=== PATIENT | female | born 1940 | race Caucasian/White ===

== ENCOUNTER → 2017-11-30 08:07 | Outpatient (CLI) | payer MEDICARE, SELFPAY ==
--- NOTE | 2017-11-30 10:55 | NEURO ---
NCS and/or EMG Patient Report Ordering Doctor: Otoniel Morales DATE OF SERVICE: 11/30/17 Alice Fox is a 77-year-old female presents for electrodiagnostic testing of the right upper limb. She has chief complaint of numbness and tingling in the right hand. Electrodiagnostic findings: Right median motor nerve demonstrates prolonged distal latency with normal amplitude and mildly reduced conduction velocity. Normal right ulnar motor latency with normal amplitude and a near 40% drop in conduction across the elbow. On needle EMG, all muscles tested in the right upper limb show no evidence of denervation with normal motor unit action potentials. Electrodiagnostic impression: This is an abnormal study 1. Electrodiagnostic findings demonstrate right-sided median mononeuropathy. This is consistent with a moderate to advanced right carpal tunnel syndrome. 2. Electrodiagnostic findings demonstrate right-sided cubital tunnel syndrome. This is moderate in nature. If there are any further questions, please do not hesitate to contact me
== END ==
PROVIDERS: Family Provider Family Medicine; PCP Family Medicine; Visit Provider Specialist
DX: R20.8 Other disturbances of skin sensation (principal)
CPT/HCPCS: 95886; 95909

== ENCOUNTER → 2017-12-20 15:44 | Outpatient (CLI) | payer MEDICARE, SELFPAY ==
[2017-12-20 17:59] LABS: AST(SGOT) 18 U/L (15-37); Alanine Aminotransfer ALT/SGPT 22 U/L (13-56); Albumin, Serum 3.9 g/dL (3.2-5.0); Alkaline Phosphatase 94 U/L (45-117); Anion Gap 7 (5-15); BUN 22 mg/dL (7-18); BUN/Creat Ratio 29.3 RATIO (10-20); Bilirubin, Direct 0.07 mg/dL (0.00-0.30); Calcium,Total 9.2 mg/dL (8.5-10.1); Chloride 105 mmol/L (98-107); Cholesterol 133 mg/dL (200); Creatinine, Serum 0.75 mg/dL (0.55-1.02); EST Glomerular Filtration Rate 80 mL/min (>60); Est Glom Filt Rate - Afr Amer 96 mL/min (>60); Globulin 4.4 g/dL (2.2-4.2); Glucose 134 mg/dL (74-106); High Density Lipoprotein 47 mg/dL; Potassium 4.5 mmol/L (3.5-5.1); Protein, Total 8.3 g/dL (6.4-8.2); Sodium Level 142 mmol/L (136-145); Triglycerides 258 mg/dL; Very Low Density Lipoprotein 52 mg/dL (5-40)
[2017-12-20 18:03] LABS: Hemoglobin A1c 6.9 % (4.2-6.3)
== END ==
PROVIDERS: Family Provider Family Medicine; PCP Family Medicine; Visit Provider Family Medicine
DX: E11.9 Type 2 diabetes mellitus without complications (principal)
CPT/HCPCS: 36415; 80048; 80061; 80076; 82043; 82570; 83036

== ENCOUNTER → 2018-02-10 14:56 | Outpatient (CLI) | payer MEDICARE, SELFPAY ==
--- NOTE | 2018-02-10 15:03 | RAD_ITS ---
STUDY: X-RAY CHEST REASON FOR EXAM: Female, 77 years old. Long-term drug therapy TECHNIQUE: Frontal and lateral views COMPARISON: January 02, 2014 FINDINGS: The lungs are expanded. There is residual prominence. Mild basilar atelectasis. Normal size heart. Normal mediastinum and tyrese. Normal visualized pulmonary arteries. Calcified aortic arch and descending thoracic aorta. Degenerative changes of the thoracic spine. Upper lumbar surgical fusion. Bilateral shoulder prosthesis. Old left rib fractures. Probable hiatal hernia. RAD/Chest PA and Lateral IMPRESSION: Mild interstitial prominence. Basilar atelectasis. Possible hiatal hernia. Electronically Signed: Jaxon Lai DO at 22:44 EDT Tel [phone], Service support ,
[2018-02-10 17:29] LABS: Absolute Neutrophil Count 5.6 X10^3/uL (2.0-7.7); Basophil# 0.02 X10^3/uL; Basophil% 0.2 % (0-1); Eosinophil# 0.23 X10^3/uL; Eosinophils% 2.5 % (0-5); Hematocrit 45.7 % (37-47); Hemoglobin 14.4 g/dl (12.0-15.0); Mean Corp Hgb Conc 31.5 g/gl (32-36); Mean Corpuscular Hgb 31.5 pg (27.0-32.0); Mean Platelet Vol. 10.4 fl (6.2-12.0); Monocyte# 0.99 X10^3/uL; Monocyte% 10.7 % (0-10); Neutrophil # 5.56 X10^3/uL (2.7-7.7); Neutrophil % 60.4 % (47-70); Platelet Count 189 K/mm3 (150-450); RBC Distribution Width SD 50.8 fl (35.1-43.9); Red Blood Count 4.57 M/mm3 (4.2-5.4); White Blood Count 9.2 K/mm3 (4.4-11.0)
[2018-02-10 17:30] LABS: POSITIVE COUNT NO; POSITIVE DIFFERENTIAL NO; POSITIVE MORPHOLOGY NO
[2018-02-10 17:39] LABS: AST(SGOT) 19 U/L (15-37); Alanine Aminotransfer ALT/SGPT 26 U/L (13-56); Albumin, Serum 3.7 g/dL (3.2-5.0); Alkaline Phosphatase 115 U/L (45-117); Anion Gap 11 (5-15); BUN 20 mg/dL (7-18); BUN/Creat Ratio 28.6 RATIO (10-20); Calcium,Total 8.8 mg/dL (8.5-10.1); Chloride 106 mmol/L (98-107); EST Glomerular Filtration Rate 87 mL/min (>60); Est Glom Filt Rate - Afr Amer 105 mL/min (>60); Globulin 3.8 g/dL (2.2-4.2); Glucose 111 mg/dL (74-106); Potassium 4.6 mmol/L (3.5-5.1); Protein, Total 7.5 g/dL (6.4-8.2); Sodium Level 143 mmol/L (136-145)
[2018-02-17 20:07] LABS: QNTFERON TB Ag Minus Nil Value 0.01 IU/mL (.); QNTFERON TB Ag Value 0.02 IU/mL (.); QNTFERON TB Mitogen Value > 10.00 IU/mL (.); QNTFERON TB Nil Value 0.01 IU/mL (.)
[2018-02-18 12:07] LABS: QNTIFERON TB Gold Negative (Negative)
== END ==
PROVIDERS: Family Provider Family Medicine; PCP Family Medicine; Referring Provider Internal Medicine Rheumatology; Visit Provider Internal Medicine Rheumatology
DX: L40.59 Other psoriatic arthropathy (principal); L40.9 Psoriasis, unspecified; G56.01 Carpal tunnel syndrome, right upper limb; K21.0 Gastro-esophageal reflux disease with esophagitis; E11.9 Type 2 diabetes mellitus without complications; I10 Essential (primary) hypertension; H40.9 Unspecified glaucoma; J44.9 Chronic obstructive pulmonary disease, unspecified; M18.0 Bilateral primary osteoarthritis of first carpometacarpal joints; Z79.899 Other long term (current) drug therapy
CPT/HCPCS: 36415; 71046; 80053; 85025; 86480

== ENCOUNTER → 2018-05-24 11:55 | Outpatient (CLI) | payer MEDICARE, SELFPAY ==
[2018-05-24 15:02] LABS: Hemoglobin A1c 7.2 % (4.2-6.3)
[2018-05-24 15:16] LABS: Microalbumin,Random Urine 52.9 mg/L (NO RANGE EST.); Microalbumin:Creatinine Ratio 18.1 mg/g CRE (<30 mg/g CRE)
[2018-05-24 15:28] LABS: AST(SGOT) 13 U/L (15-37); Alanine Aminotransfer ALT/SGPT 19 U/L (13-56); Albumin, Serum 3.2 g/dL (3.2-5.0); Alkaline Phosphatase 118 U/L (45-117); Anion Gap 10 (5-15); BUN 19 mg/dL (7-18); BUN/Creat Ratio 25.7 RATIO (10-20); Bilirubin, Direct 0.14 mg/dL (0.00-0.30); Calcium,Total 8.7 mg/dL (8.5-10.1); Chloride 104 mmol/L (98-107); Cholesterol 110 mg/dL (200); Creatinine, Serum 0.74 mg/dL (0.55-1.02); EST Glomerular Filtration Rate 81 mL/min (>60); Est Glom Filt Rate - Afr Amer 98 mL/min (>60); Globulin 4.5 g/dL (2.2-4.2); Glucose 111 mg/dL (74-106); High Density Lipoprotein 34 mg/dL; Potassium 4.5 mmol/L (3.5-5.1); Protein, Total 7.7 g/dL (6.4-8.2); Sodium Level 139 mmol/L (136-145); Triglycerides 237 mg/dL; Very Low Density Lipoprotein 47 mg/dL (5-40)
== END ==
PROVIDERS: Family Provider Family Medicine; PCP Family Medicine; Visit Provider Family Medicine
DX: E11.9 Type 2 diabetes mellitus without complications (principal)
CPT/HCPCS: 36415; 80048; 80061; 80076; 82043; 82570; 83036

== ENCOUNTER 2018-11-29 11:19 | Day surgery (SDC) | payer MEDICARE, SELFPAY ==
--- NOTE | 2018-10-31 01:38 | HP_ITS ---
I have re-examined the patient. There are no clinical changes since date of exam.Intake Vital Signs 10/31/18 Body Mass Index (BMI) 45.1 Intake Visit Reasons: RIGHT WRIST Is patient in pain?: Yes Allergies Sulfa (Sulfonamide Antibiotics) Allergy (Verified 07/01/17 13:24) Rash Medications Amlodipine [Norvasc] 10 mg PO DAILY 09/20/13 [History Confirmed 10/31/18] Atorvastatin Calcium [Lipitor] 10 mg PO QHS 09/20/13 [History Confirmed 10/31/18] Insulin Detemir [Levemir FlexPen] 25 units SC QHS 09/20/13 [History Confirmed 07/01/17] Pregabalin [Lyrica] 50 mg PO TID 09/20/13 [History Confirmed 10/31/18] hydrALAZINE [Apresoline] 25 mg PO TID 09/20/13 [History Confirmed 10/31/18] Aspirin [Aspirin, Baby] 81 mg PO DAILY@0800 12/17/13 [History Confirmed 10/31/18] Metoprolol Tartrate [Lopressor (beta eddy)] 75 mg PO BID 01/01/14 [History Confirmed 10/31/18] Meloxicam [Mobic] 7.5 mg PO DAILY 03/11/15 [History Confirmed 10/31/18] Multivitamins,Therapeutic [Multivitamin] 1 tab PO DAILY 03/11/15 [History Confirmed 10/31/18] etanercept 50 mg/mL (0.98 mL) subcutaneous syringe 25 mg SC 2XW 06/01/17 [History Confirmed 10/31/18] oxycodone-acetaminophen 5 mg-325 mg tablet PO #90 tab 10/31/18 [History Confirmed 10/31/18] [facility] Medical History (Updated 06/01/17 @ 14:21 by Kaitlynn Yates) Diabetes mellitus (Chronic) Hyperlipidemia (Chronic) Hypertension (Chronic) Osteoarthritis (Chronic) Psoriasis (Chronic) Psoriatic arthritis (Chronic) Surgical History (Updated 06/01/17 @ 14:35 by Kaitlynn Yates) History of back surgery (Inactive) History of carpal tunnel surgery of left wrist (Inactive) History of total hip replacement (Inactive) Status post bilateral knee replacements (Inactive) partial shoulder replacement (Inactive) s/p right hip (Inactive) Family History (Updated 06/01/17 @ 14:36 by Kaitlynn Yates) Father Cancer Arthritis Mother Arthritis Social History (Updated 10/31/18 @ 14:43 by Magaly Castellanos DO) Smoking Status: Former smoker how long ago did patient quit smokin HPI RIGHT WRIST: Surgical H&P: Yes Details: Parts of this documentation were recorded by a scribe, this documentation accurately reflects the service provided and the decisions made by me, Magaly Castellanos DO 10/31/18 1330. SORAYA JENSEN is a 78 year old F here today for right carpal tunnel symptoms. She had the left carpal tunnel release many years ago by Dr Michel at [facility]. She states that the cock up wrist splint is helpful to keep the numbness at bay but it is getting more common and lasting longer. She has not tried an injection or had a recent emg but wishes to discuss surgery. ROS Const Reports system reviewed and no additional complaints, except as docu Eyes Reports system reviewed and no additional complaints, except as docu ENT Reports system reviewed and no additional complaints, except as docu Card Reports system reviewed and no additional complaints, except as docu Resp Reports system reviewed and no additional complaints, except as docu GI Reports system reviewed and no additional complaints, except as docu Musc Reports as per HPI, Reports joint pain, Reports numbness Skin/Breast Reports system reviewed and no additional complaints, except as docu Neuro Yes system reviewed and no additional complaints, except as docu, Yes numbness Psych Reports system reviewed and no additional complaints, except as docu Endo Reports system reviewed and no additional complaints, except as docu Ortho Exam Right Wrist/Hand Right Wrist: Yes Durken's Test Sensation: Median: D Assessment & Plan Problems 1. Carpal tunnel syndrome of right wrist G56.01 Plan Reviewed her treatment options, steroid injection or release. She sees her PCP tomorrow and instructed to discuss this surgery with Dr Tomlin and have her give us consent. Reviewed the pre-operative plans with the patient. Risks and benefits of the procedure were fully explained, including but not limited to infection, neurovascular injury, continued pain, arthritis, stiffness, need for further surgery, re-injury, DVT, PE, general risks of anesthesia, and loss of limb or life. The patient understands all the risks and does wish to proceed with written consent. Follow up post op or sooner if pain, swelling, numbness or associated symptoms, or concerns develop. All questions answered. Patient in agreement of plan. Coding Level of Care Code Off vis,est,level 4 Diagnoses Carpal tunnel syndrome of right wrist G56.01 10/31/18 1443 <Electronically signed by Magaly paez DO> Date _ Magaly Castellanos DO
[2018-10-31 13:35] VITALS: BMI 45.1
[2018-11-29] VITALS (8 sets, daily range): BP systolic 119–140; BP diastolic 58–73; PULSE 44–53; RESP 16; TEMP 36.6–36.7; O2SAT 92–97; BMI 45.5
[2018-11-29 11:56] LABS: Bedside Glucose 120 mg/dL (70-110)
[2018-11-29] MEDS: Cefazolin 2 GM in 0.9% Normal Saline 100 ML IV (12:20)
--- NOTE | 2018-11-29 12:33 | DCINST_ITS ---
Discharge Diet: No Restrictions - leave dressing in place, call with concerns, follow up in 2 weeks, keep incision clean/dry Discharge Activity: May Not Drive May shower in (days): 1 Ice area for (Minutes): 20 - Every hour while awake. Weight Bearing Status: Weight bearing as tolerated Keep extremity elevated above heart level: Operative Extremity Call your doctor if your incision/area has: Continuous Slow Oozing, Sudden Increased Bleeding, Increased Pain/ Swelling, Increased Redness, Foul Smelling Discharge Call your doctor if you observe: Fever of 101 or Higher, Coldness, Increased Pain, Numbness or Tingling, Change in Color, Calf discomfort Allergies/Adverse Reactions: Allergies Sulfa (Sulfonamide Antibiotics) Allergy (Verified 11/22/18 08:58) Rash Medications to take at Discharge Amlodipine [Norvasc] 10 mg PO DAILY 09/20/13 Atorvastatin Calcium [Lipitor] 10 mg PO QHS 09/20/13 Insulin Detemir [Levemir FlexPen] 25 units SC QHS 09/20/13 Pregabalin [Lyrica] 50 mg PO TID 09/20/13 hydrALAZINE [Apresoline] 25 mg PO TID 09/20/13 Aspirin [Aspirin, Baby] 81 mg PO DAILY@0800 12/17/13 Metoprolol Tartrate [Lopressor (beta eddy)] 75 mg PO BID 01/01/14 Meloxicam [Mobic] 7.5 mg PO DAILY 03/11/15 Multivitamins,Therapeutic [Multivitamin] 1 tab PO DAILY 03/11/15 oxycodone-acetaminophen 5 mg-325 mg tablet 1 tab PO TID PRN #90 tab 10/31/18 Secukinumab [Cosentyx Pen (2 Pens)] 1 injectable SUBCUT QMONTH 11/22/18 Acetaminophen/Codeine #3 [Tylenol #3 Tablet] 1 - 2 tablet PO Q6H PRN PRN #30 tablet 11/29/18 The following prescriptions were given: Acetaminophen/Codeine #3 [Tylenol #3 Tablet] 1 - 2 tablet PO Q6H PRN PRN #30 tablet PRN Reason: Pain Transmission Status: Received by [id number] Primary Care Physician: Venita Aguilar MD [Primary Care Provider] - Test Results: Test results from this visit will be discussed in further detail at your follow- up appointment, if applicable. Please Follow Up With: Magaly Castellanos, DO - [phone]
--- NOTE | 2018-11-29 12:33 | PCM.OPRPT ---
Report of Operation Date of Procedure: 11/29/18 Pre-Operative Diagnosis: right carpal tunnel syndrome Post-Operative Diagnosis: same Surgery/Procedure Performed:: right carpal tunnel release courtesy clerk: Lazaro Enciso Type of Anesthesia:: Shubham Handley Anesthesiologist: Lobo Schreiber Specimen's removed: working tt-12 mins Estimated Blood Loss (mL): minimal Fluids Replaced: 250cc lr Description of Procedure: Preoperative note Patient is a 78 year old patient with nerve conduction study confirming severe carpal tunnel syndrome. Patient failed conservative treatment for her carpal tunnel elected proceed with right carpal tunnel release. Risks benefits and alternatives surgery discussed with patient. Risks including but not limited to blood loss, blood clot, infection, neurovascular injury, failure procedure, loss of life and loss of limb. Patient is aware like proceed with right carpal tunnel release. Operative note Patient seen and examined preoperative holding area. right hand was marked. History and physical and consent reviewed. Patient was brought to the operating room placed supine on the operating table. Sign in, anesthesia, antibiotics were administered. right upper extremity was prepped and draped after Shubham block was initiated. All bony prominences well-padded SCDs placed on bilateral lower extremities. We marked out our incisions for our carpal tunnel release at the intersection of Javier's line in the fourth ray flexed. We extended about a centimeter and a half. Timeout was performed. We then checked ensure that the [place] block was working with pickups which it was. We then used a 15 blade to make a skin incision. We then dissected down tenotomy syllable of the transverse carpal ligament. We then used a new 15 blade cut through the transverse carpal ligament down to the level of the median nerve. We then further released the median nerve the combination of the 15 blade and tenotomies. The nerve was grayish in color and adherent to the transverse carpal ligament volarly. We released the transverse carpal ligament distally to the fat pad and then proximally under standard technique. We then palpated to ensure that we released all of the transverse carpal ligament which we did. We irrigated the incision with copious amounts of sterile saline. All bleeders were coagulated. The incision was closed with interrupted 4-0 nylon stitches. Tourniquet was deflated for total working time of 12 minutes. Patient tolerated procedure well there were no complications. Patient transferred to recovery room in stable condition. Postoperative note Hospital pharmacy has prescription Leave dressing clean dry and intact Follow-up in 2 weeks Call with concerns This note was generated with [employer] dictation software. It may contain incorrect words, spelling, and punctuation that were not noted in checking the note before signing
[2018-11-29] MEDS: Mupirocin Ointment 22gm Tube 1 APPLIC (12:55)
== END 2018-11-29 14:47 | disposition home or self-care (01) ==
LOC: SDC 11:22 → AC 11:23
PROVIDERS: Family Provider Family Medicine; PCP Family Medicine; Referring Provider Orthopaedic Surgery; Visit Provider Orthopaedic Surgery
PROC: (CPT 64721; principal; 2018-11-29 12:50)
DX: G56.01 Carpal tunnel syndrome, right upper limb (principal); E11.9 Type 2 diabetes mellitus without complications; E78.5 Hyperlipidemia, unspecified; I10 Essential (primary) hypertension; F41.9 Anxiety disorder, unspecified; G47.30 Sleep apnea, unspecified; M19.90 Unspecified osteoarthritis, unspecified site; L40.50 Arthropathic psoriasis, unspecified; Z87.891 Personal history of nicotine dependence; Z79.4 Long term (current) use of insulin; Z79.82 Long term (current) use of aspirin; Z79.899 Other long term (current) drug therapy
CPT/HCPCS: 01810; 64721; 82962; J7120; J2405

== ENCOUNTER → 2018-12-26 14:59 | Outpatient (CLI) | payer MEDICARE, SELFPAY ==
[2018-12-12 15:28] VITALS: BMI 45.5
[2018-12-26 17:57] LABS: Hemoglobin A1c 6.7 % (4.2-6.3)
[2018-12-26 18:02] LABS: Anion Gap 7 (5-15); BUN 18 mg/dL (7-18); BUN/Creat Ratio 25.5 RATIO (10-20); Calcium,Total 9.2 mg/dL (8.5-10.1); Chloride 106 mmol/L (98-107); EST Glomerular Filtration Rate 86 mL/min (>60); Est Glom Filt Rate - Afr Amer 104 mL/min (>60); Glucose 104 mg/dL (74-106); Potassium 5.2 mmol/L (3.5-5.1); Sodium Level 140 mmol/L (136-145)
== END ==
PROVIDERS: Family Provider Family Medicine; PCP Family Medicine; Referring Provider Family Medicine; Visit Provider Family Medicine
DX: E11.9 Type 2 diabetes mellitus without complications (principal); I10 Essential (primary) hypertension
CPT/HCPCS: 36415; 80048; 83036

== ENCOUNTER → 2019-03-13 18:10 | Outpatient (CLI) | payer MEDICARE, SELFPAY ==
[2018-12-12 15:28] VITALS: BMI 45.5
== END ==
PROVIDERS: Family Provider Family Medicine; PCP Family Medicine; Referring Provider Family Medicine; Visit Provider Family Medicine
DX: T81.49XA Infection following a procedure, other surgical site, initial encounter (principal)
CPT/HCPCS: 87070; 87077; 87186; 87205

== ENCOUNTER → 2019-03-20 12:58 | Outpatient (CLI) | payer MEDICARE, SELFPAY ==
[2018-12-12 15:28] VITALS: BMI 45.5
[2019-03-20 14:07] LABS: Anion Gap 5 (5-15); BUN 10 mg/dL (7-18); BUN/Creat Ratio 14.6 RATIO (10-20); Calcium,Total 8.9 mg/dL (8.5-10.1); Chloride 106 mmol/L (98-107); Creatinine, Serum 0.69 mg/dL (0.55-1.02); EST Glomerular Filtration Rate 88 mL/min (>60); Est Glom Filt Rate - Afr Amer 107 mL/min (>60); Glucose 96 mg/dL (74-106); Potassium 5.3 mmol/L (3.5-5.1); Sodium Level 142 mmol/L (136-145)
== END ==
PROVIDERS: Family Provider Family Medicine; PCP Family Medicine; Referring Provider Family Medicine; Visit Provider Family Medicine
DX: I10 Essential (primary) hypertension (principal); E87.5 Hyperkalemia; T81.49XA Infection following a procedure, other surgical site, initial encounter
CPT/HCPCS: 36415; 80048

== ENCOUNTER → 2019-03-30 12:36 | Outpatient (CLI) | payer MEDICARE, SELFPAY ==
[2018-12-12 15:28] VITALS: BMI 45.5
[2019-03-30 14:50] LABS: Anion Gap 9 (5-15); BUN 15 mg/dL (7-18); BUN/Creat Ratio 19.8 RATIO (10-20); Calcium,Total 8.7 mg/dL (8.5-10.1); Chloride 104 mmol/L (98-107); Creatinine, Serum 0.76 mg/dL (0.55-1.02); EST Glomerular Filtration Rate 79 mL/min (>60); Est Glom Filt Rate - Afr Amer 95 mL/min (>60); Glucose 93 mg/dL (74-106); Potassium 4.4 mmol/L (3.5-5.1); Sodium Level 141 mmol/L (136-145)
== END ==
PROVIDERS: Family Provider Family Medicine; PCP Family Medicine; Referring Provider Family Medicine; Visit Provider Family Medicine
DX: E87.5 Hyperkalemia (principal)
CPT/HCPCS: 36415; 80048

== ENCOUNTER → 2019-04-06 12:30 | Outpatient (CLI) | payer MEDICARE, SELFPAY ==
[2018-12-12 15:28] VITALS: BMI 45.5
[2019-04-06 14:39] LABS: Anion Gap 6 (5-15); BUN 16 mg/dL (7-18); BUN/Creat Ratio 24.7 RATIO (10-20); Calcium,Total 9.5 mg/dL (8.5-10.1); Chloride 106 mmol/L (98-107); Creatinine, Serum 0.65 mg/dL (0.55-1.02); EST Glomerular Filtration Rate 95 mL/min (>60); Est Glom Filt Rate - Afr Amer 114 mL/min (>60); Glucose 111 mg/dL (74-106); Potassium 4.7 mmol/L (3.5-5.1); Sodium Level 141 mmol/L (136-145)
== END ==
PROVIDERS: Family Provider Family Medicine; PCP Family Medicine; Referring Provider Family Medicine; Visit Provider Family Medicine
DX: E87.5 Hyperkalemia (principal)
CPT/HCPCS: 36415; 80048

== ENCOUNTER → 2019-07-04 15:21 | Outpatient (CLI) | payer MEDICARE, SELFPAY ==
[2018-12-12 15:28] VITALS: BMI 45.5
[2019-07-04 18:02] LABS: Absolute Lymphocyte Count 1.82 X10^3/uL (0.83-4.51); Absolute Neutrophil Count 6.8 X10^3/uL (2.0-7.7); Basophil# 0.04 X10^3/uL; Basophil% 0.4 % (0-1); Eosinophils% 2.1 % (0-5); Hematocrit 38.7 % (37-47); Hemoglobin 11.5 g/dL (12.0-15.0); Lymphocyte # 1.82 X10^3/ul (4.0); Lymphocyte % 19.1 % (19-41); Mean Corp Hgb Conc 29.7 g/dL (32-36); Mean Corpuscular Hgb 27.8 pg (27.0-32.0); Mean Corpuscular Volume 93.5 fL (81-99); Mean Platelet Vol. 9.4 fl (6.2-12.0); Monocyte# 0.61 X10^3/uL; Monocyte% 6.4 % (0-10); NRBC Flagged by Analyzer 0 % (0-5); Neutrophil # 6.82 X10^3/uL (2.7-7.7); Neutrophil % 71.6 % (47-70); Platelet Count 399 K/mm3 (150-450); RBC Distribution Width CV 15.5 % (11.6-14.6); RBC Distribution Width SD 53.2 fl (35.1-43.9); Red Blood Count 4.14 M/mm3 (4.2-5.4); White Blood Count 9.5 K/mm3 (4.4-11.0)
[2019-07-04 18:18] LABS: ALB/GLOB Ratio 0.6 RATIO (0.9-2.4); AST(SGOT) 18 U/L (15-37); Alanine Aminotransfer ALT/SGPT 19 U/L (13-56); Alkaline Phosphatase 108 U/L (45-117); Anion Gap 5 (5-15); BUN 13 mg/dL (7-18); BUN/Creat Ratio 17.4 RATIO (10-20); Calcium,Total 9.1 mg/dL (8.5-10.1); Chloride 106 mmol/L (98-107); Creatinine, Serum 0.75 mg/dL (0.55-1.02); EST Glomerular Filtration Rate 80 mL/min (>60); Est Glom Filt Rate - Afr Amer 97 mL/min (>60); Globulin 5.1 g/dL (2.2-4.2); Glucose 92 mg/dL (74-106); Potassium 4.6 mmol/L (3.5-5.1); Protein, Total 8.1 g/dL (6.4-8.2); Sodium Level 141 mmol/L (136-145)
== END ==
PROVIDERS: PCP Family Medicine; Referring Provider Internal Medicine Rheumatology; Visit Provider Internal Medicine Rheumatology
DX: L40.59 Other psoriatic arthropathy (principal); L40.9 Psoriasis, unspecified; G56.01 Carpal tunnel syndrome, right upper limb; M18.0 Bilateral primary osteoarthritis of first carpometacarpal joints; Z79.899 Other long term (current) drug therapy
CPT/HCPCS: 36415; 80053; 85025

== ENCOUNTER → 2020-01-02 14:38 | Outpatient (CLI) | payer MEDICARE, SELFPAY ==
[2018-12-12 15:28] VITALS: BMI 45.5
[2020-01-02 18:22] LABS: Absolute Lymphocyte Count 2.01 X10^3/uL (0.83-4.51); Absolute Neutrophil Count 6.5 X10^3/uL (2.0-7.7); Basophil# 0.04 X10^3/uL; Basophil% 0.4 % (0-1); Eosinophil# 0.31 X10^3/uL; Eosinophils% 3.2 % (0-5); Hemoglobin 12.4 g/dL (12.0-15.0); Lymphocyte # 2.01 X10^3/ul (4.0); Lymphocyte % 20.5 % (19-41); Mean Corp Hgb Conc 30.2 g/dL (32-36); Mean Corpuscular Hgb 29.7 pg (27.0-32.0); Mean Corpuscular Volume 98.1 fL (81-99); Mean Platelet Vol. 10.8 fl (6.2-12.0); Monocyte# 0.95 X10^3/uL; Monocyte% 9.7 % (0-10); NRBC Flagged by Analyzer 0 % (0-5); Neutrophil # 6.46 X10^3/uL (2.7-7.7); Neutrophil % 65.9 % (47-70); Platelet Count 203 K/mm3 (150-450); RBC Distribution Width CV 14.4 % (11.6-14.6); RBC Distribution Width SD 51.8 fl (35.1-43.9); Red Blood Count 4.18 M/mm3 (4.2-5.4); White Blood Count 9.8 K/mm3 (4.4-11.0)
[2020-01-02 18:43] LABS: ALB/GLOB Ratio 0.7 RATIO (0.9-2.4); AST(SGOT) 21 U/L (15-37); Alanine Aminotransfer ALT/SGPT 20 U/L (13-56); Albumin, Serum 3.4 g/dL (3.2-5.0); Alkaline Phosphatase 129 U/L (45-117); Anion Gap 4 (5-15); BUN 18 mg/dL (7-18); BUN/Creat Ratio 24.4 RATIO (10-20); Calcium,Total 8.7 mg/dL (8.5-10.1); Chloride 107 mmol/L (98-107); Creatinine, Serum 0.74 mg/dL (0.55-1.02); EST Glomerular Filtration Rate 81 mL/min (>60); Est Glom Filt Rate - Afr Amer 98 mL/min (>60); Globulin 4.7 g/dL (2.2-4.2); Glucose 86 mg/dL (74-106); Potassium 4.8 mmol/L (3.5-5.1); Protein, Total 8.1 g/dL (6.4-8.2); Sodium Level 138 mmol/L (136-145)
== END ==
PROVIDERS: PCP Family Medicine; Referring Provider Family Medicine; Visit Provider Internal Medicine Rheumatology
DX: L40.59 Other psoriatic arthropathy (principal); Z79.899 Other long term (current) drug therapy; L40.9 Psoriasis, unspecified; G56.01 Carpal tunnel syndrome, right upper limb; K21.0 Gastro-esophageal reflux disease with esophagitis; E11.9 Type 2 diabetes mellitus without complications; I10 Essential (primary) hypertension; H40.9 Unspecified glaucoma; J44.9 Chronic obstructive pulmonary disease, unspecified; M18.0 Bilateral primary osteoarthritis of first carpometacarpal joints
CPT/HCPCS: 36415; 80053; 85025

== ENCOUNTER → 2020-07-02 14:12 | Outpatient (CLI) | payer MEDICARE, SELFPAY ==
[2018-12-12 15:28] VITALS: BMI 45.5
[2020-07-02 18:15] LABS: Hemoglobin A1c 6.6 % (3.8-5.6)
[2020-07-02 18:23] LABS: AST(SGOT) 18 U/L (15-37); Alanine Aminotransfer ALT/SGPT 20 U/L (13-56); Albumin, Serum 3.4 g/dL (3.2-5.0); Alkaline Phosphatase 142 U/L (45-117); Anion Gap 6 (5-15); BUN 15 mg/dL (7-18); BUN/Creat Ratio 20.8 RATIO (10-20); Bilirubin, Direct 0.09 mg/dL (0.00-0.30); Calcium,Total 8.9 mg/dL (8.5-10.1); Chloride 107 mmol/L (98-107); Cholesterol 115 mg/dL (200); Creatinine, Serum 0.72 mg/dL (0.55-1.02); EST Glomerular Filtration Rate 83 mL/min (>60); Est Glom Filt Rate - Afr Amer 101 mL/min (>60); Globulin 4.5 g/dL (2.2-4.2); Glucose 95 mg/dL (74-106); High Density Lipoprotein 36 mg/dL; Potassium 4.5 mmol/L (3.5-5.1); Protein, Total 7.9 g/dL (6.4-8.2); Sodium Level 139 mmol/L (136-145); Triglycerides 205 mg/dL; Very Low Density Lipoprotein 41 mg/dL (5-40)
[2020-07-02 18:30] LABS: Microalbumin:Creatinine Ratio 156.5 mg/g CRE (<30 mg/g CRE)
== END ==
PROVIDERS: PCP Family Medicine; Visit Provider Family Medicine
DX: E11.9 Type 2 diabetes mellitus without complications (principal)
CPT/HCPCS: 36415; 80048; 80061; 80076; 82043; 82570; 83036

== ENCOUNTER → 2020-09-30 14:43 | Outpatient (CLI) | payer MEDICARE, SELFPAY ==
[2018-12-12 15:28] VITALS: BMI 45.5
[2020-09-30 17:29] LABS: Absolute Lymphocyte Count 1.91 X10^3/uL (0.83-4.51); Absolute Neutrophil Count 5.7 X10^3/uL (2.0-7.7); Basophil# 0.06 X10^3/uL; Basophil% 0.7 % (0-1); Eosinophil# 0.28 X10^3/uL; Eosinophils% 3.2 % (0-5); Hematocrit 42.8 % (37-47); Hemoglobin 13.2 g/dL (12.0-15.0); Lymphocyte # 1.91 X10^3/ul (0.83-4.51); Mean Corp Hgb Conc 30.8 g/dL (32-36); Mean Corpuscular Hgb 29.8 pg (27.0-32.0); Mean Corpuscular Volume 96.6 fL (81-99); Mean Platelet Vol. 10.4 fl (6.2-12.0); Monocyte# 0.78 X10^3/uL; NRBC Flagged by Analyzer 0 % (0-5); Neutrophil # 5.65 X10^3/uL (2.7-7.7); Neutrophil % 64.9 % (47-70); Platelet Count 251 K/mm3 (150-450); RBC Distribution Width CV 13.9 % (11.6-14.6); RBC Distribution Width SD 49.2 fl (35.1-43.9); Red Blood Count 4.43 M/mm3 (4.2-5.4); White Blood Count 8.7 K/mm3 (4.4-11.0)
[2020-09-30 18:21] LABS: Erythrocyte Sedimentation Rate 57 mm/hr (0-30)
== END ==
PROVIDERS: PCP Family Medicine; Referring Provider Family Medicine; Visit Provider Family Medicine
DX: M19.90 Unspecified osteoarthritis, unspecified site (principal); R30.0 Dysuria
CPT/HCPCS: 36415; 85025; 85652; 87086; 87088; 87186

== ENCOUNTER → 2021-01-08 | Outpatient (CLI) | payer MEDICARE, SELFPAY | END | disposition home or self-care (01) | LOC: LABSPEC 15:54 | PROVIDERS: PCP Family Medicine; Visit Provider Family Medicine | DX: N39.0 Urinary tract infection, site not specified (principal) | CPT/HCPCS: 87077; 87086; 87088; 87186 ==

== ENCOUNTER → 2021-01-21 14:50 | Outpatient (CLI) | payer MEDICARE, SELFPAY ==
[2021-01-21 18:02] LABS: AST(SGOT) 16 U/L (15-37); Alanine Aminotransfer ALT/SGPT 20 U/L (13-56); Albumin, Serum 3.3 g/dL (3.2-5.0); Alkaline Phosphatase 134 U/L (45-117); Anion Gap 4 (5-15); BUN 16 mg/dL (7-18); BUN/Creat Ratio 23.1 RATIO (10-20); Bilirubin, Direct 0.11 mg/dL (0.00-0.30); Calcium,Total 8.9 mg/dL (8.5-10.1); Chloride 106 mmol/L (98-107); Cholesterol 126 mg/dL (200); Creatinine, Serum 0.69 mg/dL (0.55-1.02); EST Glomerular Filtration Rate 87 mL/min (>60); Est Glom Filt Rate - Afr Amer 105 mL/min (>60); Globulin 4.7 g/dL (2.2-4.2); Glucose 129 mg/dL (74-106); High Density Lipoprotein 38 mg/dL; Potassium 5.1 mmol/L (3.5-5.1); Sodium Level 138 mmol/L (136-145); Triglycerides 229 mg/dL; Very Low Density Lipoprotein 46 mg/dL (5-40)
== END ==
PROVIDERS: PCP Family Medicine; Referring Provider Family Medicine; Visit Provider Family Medicine
DX: E11.9 Type 2 diabetes mellitus without complications (principal)
CPT/HCPCS: 36415; 80048; 80061; 80076

== ENCOUNTER 2021-07-24 15:01 | Outpatient (CLI) | payer MEDICARE, SELFPAY ==
--- NOTE | 2021-07-24 15:04 | RAD_ITS ---
HISTORY: ABDOMINAL PAIN. TECHNIQUE: XR Abdomen W/ Decub and/or Erect Views. # of images incl. paperwork: 5. COMPARISON: None. FINDINGS: LUNG BASES: Mild atelectasis or inflammation. FREE AIR: None seen on upright view with air noted in the gastric bubble. BOWEL GAS PATTERN: No dilated small bowel loops identified. Large amount of stool in the colon. BONES: Moderate scoliosis and degenerative change with spinal fusion hardware in place. Bilateral hip arthroplasties. RAD/Abd Inc Decub and/or Erect IMPRESSION: Large amount of stool in the colon. at 1544 Reported and signed by: Abbey Agrawal MD Electronically Signed: Abbey Agrawal MD at 15:43 EST ,
== END 2021-07-24 23:59 | disposition home or self-care (01) ==
LOC: MTRAD 15:03
PROVIDERS: PCP Family Medicine; Referring Provider Family Medicine; Visit Provider Family Medicine
DX: R10.9 Unspecified abdominal pain (principal)
CPT/HCPCS: 74019

== ENCOUNTER → 2021-10-07 | Outpatient (CLI) | payer MEDICARE, SELFPAY ==
[2021-10-07] VITALS (9 sets, daily range): BP systolic 96–131; BP diastolic 47–91; PULSE 62–71; RESP 16–19; TEMP 36.4–36.6; O2SAT 93–97; BMI 40.5
--- NOTE | 2021-10-07 | IMM_PTH ---
PATIENT: SORAYA JENSEN LOC: CT U#:[id number] AGE/SX: 81/F ROOM: RE10/07/[address]: Dr. Venita Aguilar MD : 1940 BED: DIS: 10/07/2021 SPEC #: [id number] RECD: 10/07/21 13:03 STATUS: PAULA REQ #: [id number] JUAN: 10/07/21 00:[address]: Venita Aguilar DEPT: IMMUNOHISTOCHEMISTRY RECD BY: Isabella Spence Tissues: Left lung, NOS Procedures: RCC (add) NAPSIN A (add) CK20 (add) CK5-6 (add) CK7 (add) CK8 (add) HEP PAR (add) SC (add) TTF1 (add) Pankeratin (add) P40 (add) ER (initial) PHYSICIAN & INSTITUTION [place] [id number] SPECIMEN INFORMATION: Tissue Source: Left lung Clinical Info: Left lung mass Specimen Number: [id number] CPT code: 77464, 67468 x11 METHODOLOGY: Deparaffinized sections of prefer/formalin-fixed tissue or PAP/DQ stained slides are incubated with monoclonal/polyclonal antibodies/oligonucleotide probes. Localization is made via biotin free immunoperoxidase method. Appropriate controls are performed and reacted as expected. Results on target cell population are indicated in the following table: RESULTS: ANTIBODY / CLONE RESULT ER (6F11) negative SC (1E2) negative AE1-3 (AE1/AE3/PCK26) positive CK7 (OV-TL12/30) positive, focal CK8 (84ppilX14) positive CK20 (KS20.8) negative TTF-1 (8G7G3/1) negative Napsin A (Rabbit Polyclonal) negative HepPar (OCh1E5) negative RCC (PN-15) negative CK5-6 (D5 & 1684) positive P40 (BC28) positive These tests were developed and their performance characteristics determined by [facility]. They may not have been cleared or approved by the U.S. Food and Drug Administration. The FDA has determined that such clearance or approval is not necessary. The above immunohistochemical/dualISH markers are ordered and reviewed by the Pathologist. INTERPRETATION: Left lung, CT-guided biopsy: Non-small cell carcinoma, favor squamous cell carcinoma. SJ:finesse 10/08/2021 Comment: The tumor shows focal spindle cell morphology (sarcomatoid pattern). Case has been reviewed in consultation with Dr. De La Fuente who concurs with the above diagnosis. IDC:AM
--- NOTE | 2021-10-07 | ASPIGT_PTH ---
PATIENT: SORAYA JENSEN LOC: PR U#:[id number] AGE/SX: 81/F ROOM: RE10/07/[address]: Dr. Venita Aguilar MD : 1940 BED: DIS: 10/07/2021 SPEC #: [id number] RECD: 10/07/21 11:56 STATUS: PAULA REArgenis #: [id number] JUAN: 10/07/21 00:[address]: Venita Aguilar DEPT: SURGICAL PATHOLOGY RECD BY: Omar Lobo Tissues: Lung, NOS Procedures: FNA Specimen Adequacy Special Stain Group II Surgery Specimen Level IV Imprint (control) HEADER OPERATION: CT-guided left lung biopsy PRE-OP DIAGNOSIS: Left lung mass TISSUE SUBMITTED: Left lung mass 20-gauge x3 MICROSCOPIC DIAGNOSIS Left lung mass, CT-guided core biopsy: Non-small cell carcinoma, favor squamous cell carcinoma. See comment. MICHELLE:finesse 10/08/2021 COMMENT The specimen is evaluated at the time of biopsy by Dr. Blackwell. Immediate Evaluation = Malignant cells present derived from non-small cell carcinoma. Immunohistochemistry ([id number]) supports the above diagnosis. The tumor shows focal spindle cell morphology (sarcomatoid pattern). Molecular studies on the tumor can be performed if clinically indicated. Please notify the laboratory if they are needed. Case has been reviewed in consultation with Dr. De La Fuente who concurs with the above diagnosis. IDC:AM MICROSCOPIC DESCRIPTION Slides are reviewed. GROSS DESCRIPTION Received in fixative is one container labeled with the patient's name and designated left lung. The specimen consists of one irregular fragment of light cook soft tissue that measures 1.5 x 0.2 x 0.1 cm. The specimen is totally submitted in one cassette. The entire specimen is submitted in one cassette. Two touch imprints are prepared at the time of core biopsy. / SJ:rg 10/07/2021 TC:0 CPT: 70319, 40441 ADDENDUM ADDENDUM ADDENDUM ADDENDUM ADDENDUM ADDENDUM 11/19/2021 10:13 ADDENDUM 11/19/2021 10:13 ADDENDUM 11/19/2021 10:13 ADDENDUM 11/19/2021 10:13 ADDENDUM 11/19/2021 10:13 PD-L1 (KEYTRUDA) IMMUNOHISTOCHEMICAL ANALYSIS FROM [facility] RESULTS: Tumor proportion score: 5% / Positive Please see complete report in e-chart or EMR
--- NOTE | 2021-10-07 07:48 | RAD_ITS ---
INDICATION: post biopsy -- 2 hours post lung biopsy EXAMINATION/TECHNIQUE: X-RAY - XR Chest 2 Views COMPARISON: Same-day CT chest from biopsy procedure. CT chest/abdomen/pelvis from 09/17/2021. FINDINGS: Support devices: None. No sizable pneumothorax or pleural effusion status post lung biopsy. Redemonstration of masslike opacity in the left hilar region. Additional bilateral nodular opacities better seen and assessed on the prior CT chest/abdomen/pelvis study. Cardiomediastinal silhouette is within normal limits. Partially visualized bilateral shoulder arthroplasty surgical hardware and lumbar fusion hardware. Remote left-sided rib fractures. No acute findings in the bones or soft tissues. RAD/Chest Insp/Exp 2 View IMPRESSION: No sizable pneumothorax or pleural effusion status post lung biopsy. Electronically Signed: Darvin James, at 17:12 EDT ,
[2021-10-07 09:01] LABS: Platelet Count 251 K/mm3 (150-450)
--- NOTE | 2021-10-07 09:02 | CT_ITS ---
PROCEDURE: CT-guided left lung mass biopsy. DATE OF EXAMINATION: 10/07/2021 INDICATION: Female, 81 years old. Left lung mass. PHYSICIAN: Darvin James RADIATION DOSAGE (If Supplied By Facility): CTDIvol = ( 1315.37 ) mGy, DLP = ( 94.94 ) mGycm CONSENT: The risks, benefits and alternatives to the procedure were explained to the patient, and the patient agreed to the procedure and signed the consent. SEDATION: 2 mg VERSED. 50 mcg FENTANYL. Sedation start time: 10:24 AM Sedation stop time: 10:55 AM LIDOCAINE: Approximately 8 cc of 2% LIDOCAINE was used for local anesthetic. BIOPSY TOOL: 20-gauge Corvocet needle with 19-gauge introducer. STERILE BARRIER TECHNIQUE: The following sterile barrier precautions were used during the procedure: hand hygiene; use of IODINE antiseptic prepped; use of a, mask, sterile gloves, sterile drape, and a large sterile sheet. PROCEDURE/TECHNIQUE: (All elements of maximal sterile barrier technique followed, including US elements as applicable) The risks, benefits, and alternatives to the procedure were explained to patient, and the patient agreed to the procedure and signed a consent form for the procedure. A timeout was performed to confirm the patient''s identity, the type of procedure, to be performed and the site of entry. The patient was positioned prone into the CT scan and the left lung mass was localized. An appropriate location was selected for biopsy in the skin was marked with a marker. The skin was then prepared with the usual sterile technique. 2% LIDOCAINE was injected for local anesthetic. A 19-gauge introducer needle was placed into the mass using intermittent CT fluoroscopy for guidance. Location was confirmed under CT. 5 samples were then obtained using a 20-gauge core biopsy needle of which 3 yielded core samples. Samples were confirmed adequate by on-site pathologist. The needle was then removed. Immediate post procedure CT scan of the chest demonstrate no pneumothorax or other complication. The patient was observed in the nursing day for 2 hours post procedure. Chest radiograph taken 2 hours post procedure demonstrates no sizable pneumothorax. Patient was discharged home in stable condition. Preprocedure diagnosis: Left lung mass concerning for malignancy Post procedure diagnosis: Left lung malignancy. CT/Biopsy/Inj or Needle Placement IMPRESSION: CT-guided left lung mass biopsy. Electronically Signed: Darvin James, at 13:23 EDT ,
[2021-10-07 09:13] LABS: International Normalized Ratio 1.1; Prothrombin Time (Protime)PT. 13.7 SECONDS (11.7-14.9)
[2021-10-07 09:14] LABS: Partial Thromboplast Time 34.1 Seconds (24.1-36.2)
[2021-10-07] MEDS: 0.9% Normal Saline 250 ML IV.SOLN. (10:16)
[2021-10-07] MEDS: Midazolam 2 MG/2 ML Syringe IV (10:24)
[2021-10-07] MEDS: 0.9% Saline Lock 10 ML Syringe IV (10:24)
[2021-10-07] MEDS: Lidocaine 2% (20 ml mdv) 20 ML Vial INFILT (10:35)
== END | disposition home or self-care (01) ==
PROVIDERS: PCP Family Medicine; Referring Provider Family Medicine; Visit Provider Family Medicine
DX: C34.32 Malignant neoplasm of lower lobe, left bronchus or lung (principal); Z79.82 Long term (current) use of aspirin
CPT/HCPCS: 32408; 36415; 71046; 77012; 85049; 85610; 85730; 88172; 88305; 88313; 88341; 88342; 99156; 99157; J7050

== ENCOUNTER → 2021-10-26 | Outpatient (CLI) | payer MEDICARE, SELFPAY ==
--- NOTE | 2021-10-26 16:57 | MRI_ITS ---
EXAM: MR HEAD WITHOUT AND WITH INTRAVENOUS CONTRAST CLINICAL INDICATION: STAGING NSCLC TECHNIQUE: Multiplanar and multisequence MR images of the brain were obtained without and with intravenous contrast. This report was created using ebookpie report generation technology. CONTRAST: IV 20ml dotarem COMPARISON: None. FINDINGS: BRAIN AND EXTRA-AXIAL SPACES: Unremarkable. No intra- or extra-axial hemorrhage. No evidence of acute infarct. No intracranial mass or mass effect. There is preservation of the colón/white matter interface. Posterior fossa structures are unremarkable. Ventricles are appropriate for age. No hydrocephalus. Basal cisterns are patent. SELLA: Unremarkable. Normal sella turcica, pituitary gland, infundibular stalk, optic chiasm and hypothalamus. AUDITORY SYSTEM: Unremarkable. The internal auditory canals are patent. BONES/JOINTS: Unremarkable. No discrete lytic or blastic abnormalities. SINUSES: Unremarkable as visualized. Clear. MASTOID AIR CELLS: Unremarkable as visualized. Clear. ORBITS: Unremarkable as visualized. Both globes, extraocular muscles, optic nerves and retrobulbar fat appear unremarkable. VASCULATURE: Unremarkable as visualized. Normal flow voids in the major intracranial circulation. MRI/Brain W/WO Contrast IMPRESSION: Negative MRI brain without and with intravenous contrast. Electronically Signed: Tolu Jean MD at 18:56 EDT ,
== END | disposition home or self-care (01) ==
PROVIDERS: PCP Family Medicine; Visit Provider Internal Medicine Hematology & Oncology
DX: C34.92 Malignant neoplasm of unspecified part of left bronchus or lung (principal)
CPT/HCPCS: 70553; A9575

== ENCOUNTER 2021-11-30 09:15 | Day surgery (SDC) | payer MEDICARE, SELFPAY ==
[2021-11-30] VITALS (7 sets, daily range): BP systolic 104–130; BP diastolic 52–87; PULSE 68–89; RESP 16; TEMP 35.5–36.6; O2SAT 90–97; BMI 40.2
--- NOTE | 2021-11-30 09:57 | HP.PCM_ITS ---
History and Physical Date of Admission: 11/30/21 Intake Vital Signs ? 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 Is patient in pain?: No Allergies Sulfa (Sulfonamide Antibiotics) Allergy (Verified 11/17/21 14:01) Rash Medications amlodipine 10 mg tablet 10 mg PO DAILY 09/20/13 [History Confirmed 11/17/21] atorvastatin 10 mg tablet 10 mg PO QHS 09/20/13 [History Confirmed 11/17/21] hydralazine 25 mg tablet 25 mg PO TID 09/20/13 [History Confirmed 11/17/21] insulin detemir U-100 100 unit/mL (3 mL) subcutaneous pen 25 units subcut QHS 09/20/13 [History Confirmed 11/17/21] aspirin 81 mg chewable tablet 81 mg PO DAILY@0800 12/17/13 [History Confirmed 11/10/21] multivitamin with folic acid 400 mcg tablet 1 tab PO DAILY 03/11/15 [History Confirmed 11/17/21] oxycodone-acetaminophen 5 mg-325 mg tablet 1 tab PO TID PRN Pain #90 tabs 10/31/18 [History Confirmed 11/17/21] latanoprost 0.005 % eye drops 1 drp ophthalmic (eye) BID 09/24/20 [History Confirmed 11/17/21] omeprazole 20 mg capsule,delayed release 20 mg PO DAILY 09/24/20 [History Confirmed 11/17/21] oxybutynin chloride 10 mg tablet,extended release 24 hr 10 mg PO DAILY 09/24/20 [History Confirmed 11/17/21] polyethylene glycol 3350 17 gram/dose oral powder (Miralax) 4 g PO DAILY 10/20/21 [History Confirmed 11/17/21] metoprolol tartrate 50 mg tablet 25 mg PO BID 11/17/21 [History Confirmed 11/17/21] pregabalin 50 mg capsule 150 mg PO TID 11/17/21 [History Confirmed 11/17/21] [facility] Medical History?(Updated 11/17/21 @ 14:[address] Harshil Gomez MD) Cancer Chronic pain COPD (chronic obstructive pulmonary disease) CPAP (continuous positive airway pressure) dependence Diabetes mellitus Former smoker GERD (gastroesophageal reflux disease) History of gastrointestinal ulcer Hyperlipidemia Hypertension Liver nodule Lung metastasis Osteoarthritis Osteoporosis Primary cancer of left lung Psoriasis Psoriatic arthritis Regional lymph node metastasis present Sleep apnea Wears glasses Wears partial dentures Surgical History? History of back surgery History of carpal tunnel surgery of left wrist History of total hip replacement partial shoulder replacement s/p right hip Status post bilateral knee replacements Family History? Father Cancer ArthritisMother Arthritis Social History?(Updated 11/17/21 @ 14:00 by Kristen Tuesday) Smoking Status:? Former smoker how long ago did patient quit smoking:? 2008 alcohol intake:? never substance use type:? does not use HPI HPI HPI: SORAYA JENSEN, is a 81 F who presents to the office today for port placement.? The patient was diagnosed with lung cancer and requires port for chemotherapy. ROS General General: Yes fatigue; No weight change, appetite, colon cancer, breast cancer or weakness HEENT HEENT: No difficulty swallowing, eye injury, eye surgery, swollen glands or hoarseness Endo Endocrine: Yes diabetes mellitus; No thyroid disease, thyroid cancer, Hair loss, heat intolerance or cold intolerance Skin Skin: No rash or changing moles Musc Musculoskeletal: Yes back problems and arthritis; No rheumatoid arthritis, gout or joint pain Cardio Cardiovascular: Yes high blood pressure; No murmur, pacemaker, heart disease, atrial fibrillation, heart attack, heart stent, palpitations, shortness of breat with exertion or chest pain Psych Psychiatric: No depression, anxiety or hearing voices Resp Respiratory: No shortness of breath, Yes sleep apnea, No cough, Yes COPD, No asthma, No emphysema and No wheezing Gastro Gastrointestinal: No abdominal pain, No nausea or vomiting, No diarrhea, Yes constipation, No blood in stool, No acid reflux, No hemorrhoids, No ulcers, No gallbladder problem and No black,tarry stools Breezy Hematologic: No blood thinners, No blood disorders, No bleeding, No anemia and No blood clots Neuro Neurologic: No system reviewed and no additional complaints, except as documented, No as per HPI, No abnormal gait, No abnormal hearing, No abnormal movements, No abnormal speech, No behavioral changes, No burning sensations, No confusion, No convulsions, No disequilibrium, No dizziness, No localized weakness, No frequent falls, No headache(s), No lack of coordination, No loss of vision, No memory loss, No numbness, No other visual disturbances, No radicular pain, No restless legs, No sensory deficit, No syncope, No tingling, No tremor(s), No weakness and No other Exam Const General: cooperative Orientation: alert and oriented x3 HENMT Head: normal to inspection Neck Neck: normal visual inspection and full ROM Chest Chest palpation & inspection: normal inspection of the chest Resp Effort & Inspection: normal respiratory effort Auscultation: clear to auscultation bilaterally Cardio Rate: regular rate Rhythm: regular rhythm GI Inspection: non-distended Palpation: soft and nontender Skin General: no rashes or lesions noted Neuro General: patient alert and patient oriented x3 Extrem General: full ROM Psych Appearance: grossly normal Mental Status: mental status grossly normal Assessment and Plan Assessment and Plan (1) Primary cancer of left lung: ?Status:?Acute (2) Encounter for insertion of venous access port: ?Status:?Acute Plan Patient is here for discussion of port placement.? I discussed right chest port placement with the patient in detail.? I discussed the procedure as well as the risks include modality to bleeding, infection, pneumothorax, line infection or DVT.? Patient understands the risks and is when to proceed with right chest port placement. Harshil Gomez MD Pager: [facility] [address] [place] [address], [address] [place] [address] Office: I have re-examined the patient. There are no clinical changes since date of exam.
[2021-11-30 11:01] LABS: Bedside Glucose 95 mg/dL (74-106)
--- NOTE | 2021-11-30 12:11 | RAD_ITS ---
STUDY: X-RAY CHEST REASON FOR EXAM: Female, 81 years old. Line placement -- in pacu TECHNIQUE: Single AP portable view of the chest. COMPARISON: Comparison is made with prior study of 10/07/2021. FINDINGS: A right-sided rama catheter seen with tip at the junction of the superior vena cava and right atrium. Mild degree of increased markings in the left upper lobe. There is no demonstrated pleural abnormality. Normal size heart. Normal mediastinum and tyrese. Normal visualized pulmonary arteries. There is atherosclerotic calcification of the aortic arch with tortuosity. There are diffuse degenerative changes of the visualized thoracic spine. Dextroscoliosis. Bilateral shoulder replacement. There is no demonstrated abnormality of the visualized soft tissue structures of the upper abdomen. RAD/CXR for Line Placement IMPRESSION: The tip of the right rama catheter is at the junction of the superior vena cava and right atrium. Increased markings in the left upper lobe. Electronically Signed: Preston Coleman MD at 12:43 EDT ,
--- NOTE | 2021-11-30 12:15 | OP.PCM_ITS ---
Report of Operation Date of Procedure: 11/30/21 Pre-Operative Diagnosis: Need for vascular access for lung cancer Post-Operative Diagnosis: Same Surgery/Procedure Performed:: Ultrasound-guided and fluoroscopy guided right chest port placement utilizing right IJ Description of Procedure: After obtaining informed consent patient was brought back to the operating room MAC anesthesia was induced and the right chest and neck were prepped in normal sterile fashion. Ultrasound was used to evaluate both IJs and the right IJ was selected. Next, using a needle, the right IJ was accessed and a guidewire was passed on into the superior vena cava under fluoroscopy guidance. A small incision was made over the puncture site and the dilator introducer was placed over the guidewire. Next this was capped and the pocket was made for the port. 1% lidocaine with epinephrine was injected in the proposed port site. An incision was made with scalpel. Electrocautery was used to make a pocket under the skin and subcutaneous tissue. Hemostasis was obtained. Next, the catheter was tunneled up to the neck incision site and placed through the introducer. The peel-away introducer was removed and the position of the catheter was confirmed on fluoroscopy. Next, the catheter was trimmed and attached to the port with the locking device. Interrupted 2-0 Vicryl sutures were used to anchor the port to the chest wall and then the port was placed inside the pocket. The pocket was then flushed with saline and the port irrigated with saline. There was good blood return and the port flushed easily. Next, heparin was injected into the port. The skin was closed with subcutaneous interrupted 3-0 Vicryl sutures. A single 3-0 Vicryl sutures placed under the skin at the neck incision site. Steri-Strips were placed as well as op sites. Patient tolerated procedure well, was taken to PACU in stable condition. Chest x-ray will be obtained. Grafts/Implants Used: 8 [place] [employer] Admit VTE Documentation VTE Mechan Device Prophylaxis: SCD's
--- NOTE | 2021-11-30 12:20 | DCINST_ITS ---
Discharge Instructions Procedure Port-A-Cath Diet Discharge Diet: Light diet - advance as tolerated (Pain medication may cause nausea. You should typically eat light foods as you take your pain medication.) Activity Discharge Activity: Return to Normal Activity and May Shower (with your bandage in place in 1-2 days after surgery. DO NOT SHOWER WHEN YOUR PORT IS ACCESSED.) Dressing / Incision Call your doctor if your incision/area has: Continuous Slow Oozing, Sudden Increased Bleeding, Increased Pain/ Swelling, Increased Redness and Foul Smelling Discharge Call your doctor if you observe: Fever of 101 or Higher Remove Dressing in: 2 days Cleanse incision/area with: Soap & Water Follow Up Care Please Follow Up With: Harshil Gomez MD When: as needed [phone] Test Results: Test results from this visit will be discussed in further detail at your follow- up appointment, if applicable. Discharge Plan Admission Attending Provider: Harshil Gomez Primary Care Provider: Venita Aguilar Discharge Orders/Prescriptions Prescriptions: No Action oxycodone-acetaminophen 5-325 mg tablet 1 tab PO TID PRN (Reason: Pain) Qty: 90 oxybutynin chloride [Ditropan XL] 10 mg tablet extended release 24hr 15 mg PO DAILY latanoprost 0.005 % drops 1 drp ophthalmic (eye) BID omeprazole 20 mg capsule,delayed release(DR/EC) 20 mg PO DAILY polyethylene glycol 3350 [Miralax] 17 gram/dose powder 4 g PO DAILY atorvastatin 10 MG tablet 10 mg PO QHS Label Comments: hyperlipidemia hydralazine 25 MG tablet 25 mg PO TID Label Comments: hypertension amlodipine 10 MG tablet 10 mg PO DAILY Label Comments: hypertension pregabalin [Lyrica] 50 mg capsule 150 mg PO TID Label Comments: pain metoprolol tartrate 50 mg tablet 25 mg PO BID Label Comments: blood pressure multivitamin with folic acid 1 TABLET tablet 1 tab PO DAILY Label Comments: multivitamin insulin glargine [Lantus Solostar U-100 Insulin] 100 unit/mL (3 mL) insulin pen 25 unit SUBCUT QHS Referrals / Follow Up: Venita Aguilar MD [Primary Care Provider] - Disposition Disposition (needs filled in before D/C Order can be placed): Home, Self Care
== END 2021-11-30 13:56 | disposition home or self-care (01) ==
LOC: SDC 09:22 → AC 09:27
PROVIDERS: PCP Family Medicine; Referring Provider Surgery; Visit Provider Surgery
PROC: (CPT 36561; principal; 2021-11-30 10:45)
DX: Z45.2 Encounter for adjustment and management of vascular access device (principal); C34.92 Malignant neoplasm of unspecified part of left bronchus or lung; J44.9 Chronic obstructive pulmonary disease, unspecified; Z79.4 Long term (current) use of insulin; E11.9 Type 2 diabetes mellitus without complications; I10 Essential (primary) hypertension; E78.5 Hyperlipidemia, unspecified; K21.9 Gastro-esophageal reflux disease without esophagitis; M81.0 Age-related osteoporosis without current pathological fracture; G47.30 Sleep apnea, unspecified; G89.29 Other chronic pain; Z79.891 Long term (current) use of opiate analgesic; Z79.82 Long term (current) use of aspirin; Z79.899 Other long term (current) drug therapy; Z86.73 Personal history of transient ischemic attack (TIA), and cerebral infarction without residual deficits; Z87.891 Personal history of nicotine dependence
CPT/HCPCS: 36561; 00532; 71045; 77001; 82962; J7120; C1788

== ENCOUNTER → 2021-12-18 | Outpatient (CLI) | payer MEDICARE, SELFPAY | END | disposition home or self-care (01) | LOC: LABSPEC 15:02 | PROVIDERS: PCP Family Medicine; Visit Provider Family Medicine | DX: R30.0 Dysuria (principal) | CPT/HCPCS: 87077; 87086; 87088; 87186 ==

== ENCOUNTER 2022-01-17 09:28 | Inpatient (IN) | payer MEDICARE, SELFPAY ==
[2022-01-17] VITALS (22 sets, daily range): BP systolic 94–136; BP diastolic 56–72; PULSE 72–95; RESP 18–24; TEMP 36.4–39.4; O2SAT 92–98; BMI 40.6
--- NOTE | 2022-01-17 | FORE_PTH ---
PATIENT: SORAYA JENSEN LOC: [facility] U#:[id number] AGE/SX: 81/F ROOM: [facility] RE01/17/[address]: Dr. August Devries DO : 1940 BED: 1 DIS: 01/26/2022 SPEC #: [id number] RECD: 01/17/22 15:43 STATUS: PAULA TADEO #: [id number] JUAN: 01/17/22 00:[address]: Junior Romano DEPT: SURGICAL PATHOLOGY RECD BY: Omar Lobo ENTERED: 01/19/22 08:53 SP TYPE: FOREIGN B OTHR DR: MD Dr. Zak Marrero MD Dr. Eric Jopperi, DO Dr. Joseph Agyepong, MD Dr. Joseph Prah, MD Tissues: FOREIGN BODY Procedures: Surgery Specimen Level I Comments: @ Ordering doctor for LEANN edited from to @ tasha BUSCH at 01/19/22 0936 @ Submitting doctor edited from to DR.DPEABO Melinda BUSCH at 01/19/22 0936 HEADER OPERATION: Removal, infected port PRE-OP DIAGNOSIS: Sepsis due to infected central venous catheter TISSUE SUBMITTED: Infected port GROSS DIAGNOSIS A portion of catheter, clinically right chest catheter tip. MICHELLE:finesse 01/19/2022 GROSS DESCRIPTION Received in fixative is one container labeled with the patient's name and designated right chest catheter tip. The specimen consists of a white catheter measuring 5.7 cm in length and 0.2 cm in diameter. The specimen is for gross identification only. / MICHELLE:finesse 01/19/2022 CPT: 91394
--- OUTSIDE RECORDS SUMMARY | 2022-01-17 09:06 | XMS RPT_ITS | CCD ---
:1940 Author Organization [facility] Care Team Providers Name Role Phone JARRETT WATTERS Attending Unavailable JARRETT WATTERS Primary Care Unavailable JARRETT WATTERS Admitting Unavailable JOLLIFF, KARTHIKEYAN S Consulting Unavailable JOCHUYIFF, KARTHIKEYAN S Referring Unavailable PROVIDER, UNKNOWN Consulting Unavailable THO ONEIL MD Attending Unavailable THO ONEIL MD Primary Care Unavailable THO ONEIL MD Admitting Unavailable JOLLIFF, KARTHIKEYAN S Consulting Unavailable PROVIDER, UNKNOWN Consulting Unavailable THO ONEIL MD Attending Unavailable THO ONEIL MD Primary Care Unavailable THO ONEIL MD Admitting Unavailable JOLLIFF, KARTHIKEYAN S Consulting Unavailable PROVIDER, UNKNOWN Consulting Unavailable JOLLIFF, KARTHIKEYAN S Consulting Unavailable JOLLIFF, KARTHIKEYAN S Referring Unavailable RADHA GRAFF DO Attending Unavailable RADHA GRAFF DO Primary Care Unavailable RADHA GRAFF DO Admitting Unavailable PROVIDER, UNKNOWN Consulting Unavailable Allergies Allergy Reported Allergy Type Date of Reaction(s) Facility Classification Allergen(s) Onset Sulfonamides Drug allergy Jonathan shelley (1 source) (Antibiotic) (disorder) [facility] Repository Results Test Name Value Interpretation Reference Range Facility APTT on 01-17-2022 aPTT Coag (Bld) [Time] 40.9 s High 25.4 - 38.4 [facility] Comment on above: Performed By: #### [id number] ## ## [facility],[address] [place] [address] APTT-HEPARIN on 01-17-2022 APTT-HEPARIN >160.0 Critically high 51.0 - 89.0 [facility] Comment on above: Result Comment: { CALLED TO ELEONORA AT 0811/ { READ BACK BY RA ELEONORA 0811 Performed By: #### [id number] ## ## [facility] [facility] [address] CORONAVIRUS PCR - [place] on 2 SARS-CoV-2 (COVID-19) RNA Negative Normal NORMAL: NEGATIV E [facility] VERNON+probe Ql (Unsp spec) Hos pital Comment on above: Performed By: #### [id number] ## ## [facility] [place],[address] [facility] [address] SEND TO IC? NO Normal [facility] Comment on above: Result Comment: RESULTS FAXE D TO INFECTION CONTROL. SARS-CoV-2 THIS TEST IS BEING USED UNDE R THE FDA EUA PROCEDURE. THIS ASSAY HAS BEEN VALIDATED IN THE [facility] FOR USE WITH NASOPHARYNGEAL SPECIMENS IN [facility]. INTERPRETIVE DATA LABORATORY TEST RESULTS SHOU LD ALWAYS BE CONSIDERED IN THE CONTEXT OF CLINICAL OBSERVATIONS AND EPIDEMIOLOG ICAL DATA IN MAKING FINAL DIAGNOSIS AND PATIENT MANAGEMENT DECISIONS. PATIEN T MANAGEMENT SHOULD FOLLOW CURRENT CDC GUIDELINES. A POSITIVE TEST RESULT FOR C OVID-19 INDICATES THAT RNA FROM SARS-CoV-2 WAS DETECTED, AND THE PATIENT IS INFECTED WITH THE VIRUS AND PRESUMED TO BE CONTAGIOUS. A NEGATIVE TEST RESULT FOR T HIS TEST MEANS THAT SARS-CoV-2 RNA WAS NOT PRESENT IN THE SPECIMEN ABOVE THE LI ESME OF DETECTION. HOWEVER, A NEGATVIE RESULT DOES NOT RULE OUT COVID-19 AND SH OULD NOT BE USED THE SOLE BASIS FOR TREATMENT OR PATIENT MANAGEMENT DECISIONS . A NEGATIVE RESULT DOES NOT EXCLUDE THE POSSIBILITY OF COVID-19. WHEN DIAGNOSTIC TESTING IS N EGATIVE, THE POSSIBLILTY OF A FALSE NEGATIVE RESULT SHOULD BE CONSIDERED IN THE CONTEXT OF A PATIENT'S RECENT EXPOSURES AND THE PRESENCE OF CLINICAL SIGNS A ND SYMPTOMS CONSISTENT WITH COVID-19. THE POSSIBILITY OF A FALSE NEGAT PEDRITO RESULT SHOULD ESPECIALLY BE CONSIDERED IF THE PATIENT'S RECENT EXPOSURES O R CLINICAL PRESENTATION INDICATE THAT COVID-19 IS LIKELY, AND DIAGNOSTIC TESTS FOR OTHER CAUSES OF ILLNESS (e.g., OTHER RESPIRATORY ILLNESS) ARE NEG ATIVE. IF COVID-19 IS STILL SUSPECTED BASED ON EXPOSURE HISTORY TOGETHER WI TH OTHER CLINICAL FINDINGS, RE-TESTED SHOULD BE CONSIDERED BY [facility]ALTHCARE [employer] IN CONSULTATION WITH PUBLIC HEALTH AUTHORITIES. Performed By: #### [id number] ## ## [facility],[address] [place] [address] PROTHROMBIN TIME AND INR on 01-17-2022 INR Coag (PPP) [Relative time] 1.2 {INR} Normal 0.8 - 1.2 [facility] Comment on above: Result Comment: THE HEMOS IL THROMBOPLASTIN REAGENT USED IN THE PROTHROMBIN TIME TEST INTERACTS WITH THE DRUG CUBICIN (DAPTOMYCIN) AND WILL RESULT IN FALSELY ELEVATED PT / INR RESULTS INR INTERPRETATION INR INDICATION PREVENTION AND TREATMENT OF THROMBOEMBOLISM ASSOCIATED WITH: 2.0 - 3.0 ATRIAL FIBRILLATIO N, BIOPROSTHETIC HEART VALVES, PULMONARY EMBOLISM, VENOUS THROMBOSIS, SYSTEMIC EMBOLISM POST MYOCARDIAL INFARCTION 2.5 - 3.5 MECHANICAL HEART V LEVY Performed By: #### [id number] ## ## [facility],[address] [place], [place] [id number] PROTHROMBIN TIME AND INR Normal [facility] Comment on above: Result Comment: PROTHROMBIN TIME AND INR Performed By: #### [id number] ## ## [facility],[address] [place], [place] [id number] PT-COUMADIN 14.5 sec High 9.3 - 14.1 [facility] Comment on above: Performed By: #### [id number] ## ## [facility],[address] [place] [address]606 CBC + DIFF on 01-16-2022 Baso # 0.00 x10EE3/UL Normal 0.00 - 0.10 [facility] Comment on above: Performed By: #### [id number] ## ## [facility],[address] [place] [address] 25926 Basophils/100 WBC (Bld) 0.1 % Normal 0.0 - 2.0 [facility] Comment on above: Performed By: #### [id number] ## ## [facility],[address] [place], [place] [id number] CBC + DIFF Normal [facility] Comment on above: Result Comment: CBC-COMPLETE BLOOD COUNT Performed By: #### [id number] ## ## [facility],[address] [place] [address] 40523 EO # 0.00 x10EE3/UL Normal 0.00 - 0.50 [facility] Comment on above: Performed By: #### [id number] ## ## [facility],[address] [place], [place] [id number] Eosinophils/100 WBC (Bld) 0.0 % Normal 0.0 - 7.0 [facility] Comment on above: Performed By: #### [id number] ## ## [place] [address] Erythrocyte distribution width 19.3 % High 12.0 - 15. 6 [facility] (RBC) [Ratio] [facility] Comment on above: Performed By: #### [id number] ## ## [place] [address] Hematocrit (Bld) [Volume 35.0 % Normal 34.0 - 46.0 [facility] Comment on above: Performed By: #### [id number] ## ## [place] [address] Hemoglobin (Bld) [Mass/Vol] 11.1 g/dL Low 12.0 - 16.0 [facility] Comment on above: Performed By: #### [id number] ## ## [facility],[address] [place], [place] [id number] Lymph # 0.20 x10EE3/UL Low 0.80 - 2.80 [facility] Comment on above: Performed By: #### [id number] ## ## [place] [id number] Lymphocytes/100 WBC (Bld) 1.4 % Low 20.0 - 45.0 [facility] Comment on above: Performed By: #### [id number] ## ## [facility] [place] [address] MANUAL DIFF N/A Normal [facility] Comment on above: Performed By: #### [id number] ## ## [facility],[address] [place] [address] MCH (RBC) [Entitic mass] 29 pg Normal 27 - 33 [facility] Comment on above: Performed By: #### [id number] ## ## [place] [address] MCHC 32 X10 3 Normal 32 - 36 [facility] Comment on above: Performed By: #### [id number] ## ## [place] [address] MCV (RBC) [Entitic vol] 91 fL Normal 80 - 99 [facility] Comment on above: Performed By: #### [id number] ## ## [place] [address] Cross # 0.70 x10EE3/UL Normal 0.20 - 1.00 [facility] Comment on above: Performed By: #### [id number] ## ## [place] [address] MONOS % 4.9 % Normal 0.0 - 10.0 [facility] Comment on above: Performed By: #### [id number] ## ## [place] [address] Morphology Piero (Bld) [Interp] N/A Normal [facility] Comment on above: Result Comment: {CD] Performed By: #### [id number] ## ## [place] [address] Neut # 12.80 x10EE3/UL High 1.50 - 7.10 [facility] Comment on above: Performed By: #### [id number] ## ## [address],[place] [address] Neutrophils/100 WBC (Bld) 93.6 % High 46.0 - 76.0 [facility] Comment on above: Performed By: #### [id number] ## ## [facility],[address] [place] [address] PLATELET 94 x10EE3/UL Low 150 - 450 [facility] Comment on above: Performed By: #### [id number] ## ## [facility],[address] [place] [address]305 Platelet mean volume (Bld) 9.0 fL Normal 6.6 - 10.5 [facility] [[facility]] [facility] Comment on above: Result Comment: AUTOMATED DI FFERENTIAL Performed By: #### [id number] ## ## [facility],[address] [place] [address] 04117 RBC 3.84 x 10EE6/UL Low 4.10 - 5.30 [facility] Comment on above: Performed By: #### [id number] ## ## [facility],[address] [place] [address]28 WBC 13.7 x 10EE3/UL High 4.5 - 10.8 [facility] Comment on above: Performed By: #### [id number] ## ## [facility],[address] [place] [address]8031 CMP with eGFR on 01-16-2022 AGE 81 years Normal [facility] Comment on above: Performed By: #### [id number] ## ## [facility],[address] [place] [address] 58521 Albumin [Mass/Vol] 2.9 g/dL Low 3.4 - 5.0 [facility] Comment on above: Performed By: #### [id number] ## ## [facility],[address] [place] [address] 15293 Albumin/Globulin [Mass ratio] 0.7 {ratio} Low 0.9 - 1.6 [facility] Comment on above: Performed By: #### [id number] ## ## [facility],[address] [place] [address] 66314 ALK PHOS 173 U/L High 46 - 116 [facility] Comment on above: Performed By: #### [id number] ## ## [facility],[address] [place] [address] 07051 ALT [Catalytic activity/Vol] 24 U/L Normal 14 - 59 [facility] Comment on above: Performed By: #### [id number] ## ## [facility],[address] [place] [address] 22571 Anion gap [Moles/Vol] 13 mmol/L Normal 10 - 20 [facility] Comment on above: Performed By: #### [id number] ## ## [facility],[address] [place], [place] [phone] AST [Catalytic activity/Vol] 36 U/L Normal 13 - 39 [facility] Comment on above: Performed By: #### [id number] ## ## [facility],[address] [place] [address] 92445 B/C RATIO 16 ratio Normal 0 - 30 [facility] Comment on above: Performed By: #### [id number] ## ## [facility],[address] [place] [address] 38099 Bilirubin [Mass/Vol] 0.5 mg/dL Normal 0.2 - 1.0 [facility] Comment on above: Performed By: #### [id number] ## ## [facility],[address] [place] [address] 98897 Calcium [Mass/Vol] 8.3 mg/dL Low 8.5 - 10.1 [facility] Comment on above: Performed By: #### [id number] ## ## [facility],[address] [place] [address] 64799 Chloride [Moles/Vol] 100 mmol/L Normal 98 - 107 [facility] Comment on above: Performed By: #### [id number] ## ## [facility],[address] [place] [address]236 CMP with eGFR Normal [facility] Comment on above: Result Comment: COMPREHENSIV E METABOLIC PANEL Performed By: #### [id number] ## ## [facility],[address] [place] [address] 36568 CO2 [Moles/Vol] 28.6 mmol/L Normal 21.0 - 32.0 [facility] Comment on above: Performed By: #### [id number] ## ## [facility],[address] [place] [address] 52131 Creatinine [Mass/Vol] 0.80 mg/dL Normal 0.55 - 1.02 [facility] Comment on above: Performed By: #### [id number] ## ## [facility],[address] [place] [address] 63183 GFR/1.73 sq M.predicted mL/min/{1.73_m2} Normal 60 - 999 [facility] among non-blacks MDRD Hospit al (S/P/Bld) [Vol rate/Area] Comment on above: Performed By: #### [id number] ## ## [facility],[address] [place], [place] [id number] Result Comment: ACCORDING TO THE NATIONAL KIDNEY DISEASE EDUCATION PROGRAM(NKDE), A NORMAL eGFR IS A VALUE GREATER THAN OR E QUAL TO 60 ML/MIN/1.73 SQ METERS. CHRONIC KIDNEY DISEASE: <60m L/MIN/1.73 SQ METERS KIDNEY FAILURE: <15mL/MIN/1. 73 SQ METERS THIS TEST SHOULD ONLY BE USE D FOR PATIENTS 18 YEARS OF AGE AND OLDER. Globulin (S) [Mass/Vol] 4.1 g/dL High 1.5 - 3.8 [facility] Comment on above: Performed By: #### [id number] ## ## [facility] [facility] [address] Glucose [Mass/Vol] 175 mg/dL High 74 - 106 [facility] Comment on above: Performed By: #### [id number] ## ## [facility] [facility] [address] Potassium [Moles/Vol] 4.0 mmol/L Normal 3.5 - 5.1 [facility] Comment on above: Performed By: #### [id number] ## ## [facility] [facility] [address] Protein [Mass/Vol] 7.0 g/dL Normal 6.4 - 8.2 [facility] Comment on above: Performed By: #### [id number] ## ## [facility] [facility] [address] Sodium [Moles/Vol] 138 mmol/L Normal 136 - 145 [facility] Comment on above: Performed By: #### [id number] ## ## [facility] [facility] [address] Urea nitrogen [Mass/Vol] 13 mg/dL Normal 7 - 18 [facility] Comment on above: Performed By: #### [id number] ## ## [facility] [facility] [address] D-DIMER, QUANTITATIVE on 01-16-2022 D-DIMER QUANT 849 ng/ml High 0 - 230 [facility] Comment on above: Performed By: #### [id number] ## ## [facility] [facility] [address] D-DIMER, QUANTITATIVE Normal [facility] Comment on above: Result Comment: QUANT D-DIME R Performed By: #### [id number] ## ## [facility] [facility] [address] INFLUENZA VIRUS RAPID A/B on 01-16-2022 INFLUENZA VIRUS RAPID INFLUENZA A Normal Jonathan bobrene A/B NEGATIVE [facility] al INFLUENZA B NEGATIVE INTERNAL NEG QC PASS INTERNAL POS QC PASS EXTERNAL QC DONE? YES SEND TO IC? NO A NEGATIVE TEST RESULT DOES NOT EXCLUDE INFECTION WITH INFLUENZA A OR B. THEREFORE, THE RESULTS OBTAINED FROM THIS FLU TEST SHOULD BE USED IN CONJUCTION WITH CLINIC AL FINDINGS TO MAKE AN ACCURATE DIAGNOSIS. A POSITIVE RESULT DOES NOT RULE OUT CO-INFECTIONS WITH OTHER PATHOGENS OR IDENTIFY ANY SPECIFIC INFLUENZA A VIRUS SUBTYPE.CO-INFECTION WITH INFLUENZA A AND B IS R ARE. IT IS RECOMMENDED THAT DUAL POSITIVE RESULTS BE CONF IRMED BY VIRAL CULTURE OR AN FDA-CLEARED INFLUENZA A AND B MOLECULAR ASSAY. INDIVIDUALS WHO HAVE RECEIVED NASALLY ADMINISTERED INF LUENZA A VACCINE MAY TEST POSITIVE IN COMMERCIALLY AVAILABLE INFLUENZA RAPID DIAGNOSTIC TESTS FOR UP TO THREE DAYS. Comment on above: Performed By: #### [id number] ## ## [address] [address] LACTATE on 01-16-2022 Lactate [Moles/Vol] 1.2 mmol/L Normal 0.4 - 2.0 [facility] Comment on above: Performed By: #### [id number] ## ## [address] [address] NT-proBNP on 01-16-2022 Natriuretic peptide B (Bld) 1229 pg/mL High 0 - 450 [facility] [Mass/Vol] [facility] Comment on above: Performed By: #### [id number] ## ## [address] [address] RAPID STREP on 01-16-2022 S. pyogenes Ag IA Ql (Unsp Rapid Strep Normal [facility] spec) NEG:GRP A STREP Hospital INTERNAL QC PASS EXTERNAL QC DONE? YES Comment on above: Performed By: #### [id number] ## ## [facility],[address] [place] [address] 84798 TROPONIN I, HIGH SENSITIVITY on 022 HS TROPONIN 21.4 pg/mL Normal 0.0 - 51.4 [facility] Comment on above: Performed By: #### [id number] ## ## [facility] [facility] [address] URINALYSIS on 01-16-2022 Amorphous NONE Normal [facility] Comment on above: Performed By: #### [id number] ## ## [facility] [facility] [address] Bacteria 4+ Normal [facility] Comment on above: Performed By: #### [id number] ## ## [facility] [facility] [address] Bilirubin Ql (U) Negative Normal NORMAL: NEGATIVE [facility] Comment on above: Performed By: #### [id number] ## ## [facility],[address] [facility] [address] Casts NONE Normal [facility] Comment on above: Performed By: #### [id number] ## ## [facility],[address] [facility] [address] Clarity (U) very cloudy Normal NORMAL: CLEAR [facility] Comment on above: Performed By: #### [id number] ## ## [facility],[address] [facility] [address] Color (U) yellow Normal NORMAL: YELLOW [facility] Comment on above: Performed By: #### [id number] ## ## [facility],[address] [place] [address] 95159 Crystals LM Nom (Urine sed) NONE Normal [facility] Comment on above: Performed By: #### [id number] ## ## [facility],[address] [place] [address] 38628 Epi Cells NONE Normal [facility] Comment on above: Performed By: #### [id number] ## ## [facility],[address] [facility] [address] Glucose Ql (U) NORM Normal NORMAL: NORMAL [facility] Comment on above: Performed By: #### [id number] ## ## [facility],[address] [place] [address] 40575 Hemoglobin Ql (U) 150 Abnormal NORMAL: NEGATIVE [facility] Comment on above: Performed By: #### [id number] ## ## [facility],[address] [place] [address],[facility] [address] Ketone Negative Normal NORMAL: NEGATIVE [facility] Comment on above: Performed By: #### [id number] ## ## [facility],[address] [place] [address],[facility] [address] Leukocytes 25 Abnormal NORMAL: NEGATIVE [facility] Comment on above: Performed By: #### [id number] ## ## [facility],[address] [place] [address] 17893 Mucous NONE Normal [facility] Comment on above: Performed By: #### [id number] ## ## [facility],[address] [place] [address] 19342 Nitrite Ql (U) Positive Normal NORMAL: NEGATIVE [facility] Comment on above: Performed By: #### [id number] ## ## [facility],[address] [place] [address] 21658 pH (U) 6 [pH] Normal NORMAL: 5.0-8.0 [facility] Comment on above: Performed By: #### [id number] ## ## [facility],[address] [place] [address] 21084 Protein Ql (U) 100 Abnormal NORMAL: NEGATIVE [facility] Comment on above: Performed By: #### [id number] ## ## [facility],[address] [place] [address] 72421 Rbc 0-5 Normal 0-3/hpf [facility] Comment on above: Performed By: #### [id number] ## ## [facility],[address] [place] [address] 42079 Sp [place] 1.010 Normal NORMAL: 1.010-1.030 [facility] Comment on above: Performed By: #### [id number] ## ## [facility],[address] [place] [address] Specimen Type Void Normal [facility] Comment on above: Performed By: #### [id number] ## ## [facility],[address] [place] [address] Urinalysis dipstick W Reflex SEE BELOW Normal [facility] Microscopic panel (U) Comment on above: Result Comment: MICROSCOPIC Performed By: #### [id number] ## ## [facility],[address] [place] [address] Urobilinog NORM Normal NORMAL: NORMAL [facility] Comment on above: Performed By: #### [id number] ## ## [facility],[address] [place] [address] Wbc 11-15 Normal 0-5/hpf [facility] Comment on above: Performed By: #### [id number] ## ## [facility],[address] [place] [address] Yeast NONE Normal [facility] Comment on above: Performed By: #### [id number] ## ## [facility],[address] [place], [place] [id number] CBC + DIFF on 12-10-2021 Baso # 0.00 x10EE3/UL Normal 0.00 - 0.10 [facility] Comment on above: Performed By: #### [id number] ## ## [facility],[address] [place], [place] [id number] Basophils/100 WBC (Bld) 0.5 % Normal 0.0 - 2.0 [facility] Comment on above: Performed By: #### [id number] ## ## [facility],[address] [place] [address] CBC + DIFF Normal [facility] Comment on above: Result Comment: CBC-COMPLETE BLOOD COUNT Performed By: #### [id number] ## ## [facility],[address] [place] [address] 74368 EO # 0.20 x10EE3/UL Normal 0.00 - 0.50 [facility] Comment on above: Performed By: #### [id number] ## ## [facility],[address] [place] [address] 21382 Eosinophils/100 WBC (Bld) 2.3 % Normal 0.0 - 7.0 [facility] Comment on above: Performed By: #### [id number] ## ## [facility],[address] [place] [address] 47225 Erythrocyte distribution width 15.3 % Normal 12.0 - 15. 6 [facility] (RBC) [Ratio] [facility] Comment on above: Performed By: #### [id number] ## ## [facility],[address] [place], [place] [id number] Hematocrit (Bld) [Volume 37.1 % Normal 34.0 - 46.0 [facility] Comment on above: Performed By: #### [id number] ## ## [facility],[address] [place] [address] 96466 Hemoglobin (Bld) [Mass/Vol] 11.9 g/dL Low 12.0 - 16.0 [facility] Comment on above: Performed By: #### [id number] ## ## [facility],[address] [place] [address] 72493 Lymph # 1.40 x10EE3/UL Normal 0.80 - 2.80 [facility] Comment on above: Performed By: #### [id number] ## ## [facility],[address] [place] [address] 22856 Lymphocytes/100 WBC (Bld) 15.7 % Low 20.0 - 45.0 [facility] Comment on above: Performed By: #### [id number] ## ## [facility],[address] [place] [address] MANUAL DIFF N/A Normal [facility] Comment on above: Performed By: #### [id number] ## ## [facility],[address] [place] [address] MCH (RBC) [Entitic mass] 29 pg Normal 27 - 33 [facility] Comment on above: Performed By: #### [id number] ## ## [facility],[address] [place] [address] MCHC 32 X10 3 Normal 32 - 36 [facility] Comment on above: Performed By: #### [id number] ## ## [facility],[address] [place] [address] MCV (RBC) [Entitic vol] 90 fL Normal 80 - 99 [facility] Comment on above: Performed By: #### [id number] ## ## [facility],[address] [place] [address] Cross # 0.90 x10EE3/UL Normal 0.20 - 1.00 [facility] Comment on above: Performed By: #### [id number] ## ## [facility],[address] [place] [address] MONOS % 10.0 % Normal 0.0 - 10.0 [facility] Comment on above: Performed By: #### [id number] ## ## [facility],[address] [place] [address] Morphology Piero (Bld) [Interp] N/A Normal [facility] Comment on above: Result Comment: {CD] Performed By: #### [id number] ## ## [facility],[address] [place] [address] Neut # 6.30 x10EE3/UL Normal 1.50 - 7.10 [facility] Comment on above: Performed By: #### [id number] ## ## [facility] [place] [address] 40354 Neutrophils/100 WBC (Bld) 71.5 % Normal 46.0 - 76.0 [facility] Comment on above: Performed By: #### [id number] ## ## [facility],[address] [place] [address] 18522 PLATELET 319 x10EE3/UL Normal 150 - 450 [facility] Comment on above: Performed By: #### [id number] ## ## [facility] [place] [address] 12975 Platelet mean volume (Bld) 7.6 fL Normal 6.6 - 10.5 [facility] [Entitic [facility]] [facility] Comment on above: Result Comment: AUTOMATED DI FFERENTIAL Performed By: #### [id number] ## ## [facility],[address] [place] [address] 22925 RBC 4.14 x 10EE6/UL Normal 4.10 - 5.30 [facility] Comment on above: Performed By: #### [id number] ## ## [facility],[address] [place] [address] 12803 WBC 8.8 x 10EE3/UL Normal 4.5 - 10.8 [facility] Comment on above: Performed By: #### [id number] ## ## [facility],[address] [place] [address] 05462 CMP with eGFR on 12-10-2021 AGE 81 years Normal [facility] Comment on above: Performed By: #### [id number] ## ## [facility],[address] [place] [address] 39604 Albumin [Mass/Vol] 3.0 g/dL Low 3.4 - 5.0 [facility] Comment on above: Performed By: #### [id number] ## ## [facility],[address] [place] [address] 70093 Albumin/Globulin [Mass ratio] 0.6 {ratio} Low 0.9 - 1.6 [facility] Comment on above: Performed By: #### [id number] ## ## [facility],[address] [place] [address] 29186 ALK PHOS 114 U/L Normal 46 - 116 [facility] Comment on above: Performed By: #### [id number] ## ## [facility],[address] [place] [address] 16243 ALT [Catalytic activity/Vol] 13 U/L Low 14 - 59 [facility] Comment on above: Performed By: #### [id number] ## ## [facility],[address] [place] [address] 67602 Anion gap [Moles/Vol] 14 mmol/L Normal 10 - 20 [facility] Comment on above: Performed By: #### [id number] ## ## [facility],[address] [place], [place] [id number] AST [Catalytic activity/Vol] 18 U/L Normal 13 - 39 [facility] Comment on above: Performed By: #### [id number] ## ## [facility],[address] [place] [address] 21414 B/C RATIO 18 ratio Normal 0 - 30 [facility] Comment on above: Performed By: #### [id number] ## ## [facility],[address] [place] [address] 48783 Bilirubin [Mass/Vol] 0.3 mg/dL Normal 0.2 - 1.0 [facility] Comment on above: Performed By: #### [id number] ## ## [facility],[address] [place] [address] 50119 Calcium [Mass/Vol] 8.8 mg/dL Normal 8.5 - 10.1 [facility] Comment on above: Performed By: #### [id number] ## ## [facility],[address] [facility] 88409 Chloride [Moles/Vol] 104 mmol/L Normal 98 - 107 [facility] Comment on above: Performed By: #### [id number] ## ## [facility],[address] [facility] 44752 CMP with eGFR Normal [facility] Comment on above: Result Comment: COMPREHENSIV E METABOLIC PANEL Performed By: #### [id number] ## ## [facility],[address] [facility] 25182 CO2 [Moles/Vol] 27.9 mmol/L Normal 21.0 - 32.0 [facility] Comment on above: Performed By: #### [id number] ## ## [facility],[address] [place] [address] 53927 Creatinine [Mass/Vol] 0.74 mg/dL Normal 0.55 - 1.02 [facility] Comment on above: Performed By: #### [id number] ## ## [facility],[address] [place] [address] 67492 GFR/1.73 sq M.predicted mL/min/{1.73_m2} Normal 60 - 999 [facility] among non-blacks MDRD Hospit al (S/P/Bld) [Vol rate/Area] Comment on above: Performed By: #### [id number] ## ## [facility],[address] [place] [address] 25954 Result Comment: ACCORDING TO THE NATIONAL KIDNEY DISEASE EDUCATION PROGRAM(NKDE), A NORMAL eGFR IS A VALUE GREATER THAN OR E QUAL TO 60 ML/MIN/1.73 SQ METERS. CHRONIC KIDNEY DISEASE: <60m L/MIN/1.73 SQ METERS KIDNEY FAILURE: <15mL/MIN/1. 73 SQ METERS THIS TEST SHOULD ONLY BE USE D FOR PATIENTS 18 YEARS OF AGE AND OLDER. Globulin (S) [Mass/Vol] 4.8 g/dL High 1.5 - 3.8 [facility] Comment on above: Performed By: #### [id number] ## ## [facility],[address] [place] [address] 81079 Glucose [Mass/Vol] 88 mg/dL Normal 74 - 106 [facility] Comment on above: Performed By: #### [id number] ## ## [facility],[address] [place] [address] 20846 Potassium [Moles/Vol] 5.0 mmol/L Normal 3.5 - 5.1 [facility] Comment on above: Performed By: #### [id number] ## ## [facility],[address] [place] [address] 34457 Protein [Mass/Vol] 7.8 g/dL Normal 6.4 - 8.2 [facility] Comment on above: Performed By: #### [id number] ## ## [facility],[address] [place] [address] 10422 Sodium [Moles/Vol] 141 mmol/L Normal 136 - 145 [facility] Comment on above: Performed By: #### [id number] ## ## [facility],[address] [place] [address] 67225 Urea nitrogen [Mass/Vol] 13 mg/dL Normal 7 - 18 [facility] Comment on above: Performed By: #### [id number] ## ## [facility],[address] [place] [address] 36143 EMERGENCY REPORT on 11-01-2021 EMERGENCY REPORT [facility]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 ANEU, GFR, CMP #### [place] [address] Glucose [Mass/Vol] 89 mg/dL Normal 82-115 [facility] ([place]) Comment on above: Performed By: #### CBC, ADIF F, ANEU, GFR, CMP #### [place] [address] Potassium [Moles/Vol] 4.3 mmol/L Normal 3.5-5.0 [facility] ([place]) Comment on above: Performed By: #### CBC, ADIF F, ANEU, GFR, CMP #### [place] [id number] Sodium [Moles/Vol] 140 mmol/L Normal 136-145 [facility] ([place]) Comment on above: Performed By: #### CBC, ADIF F, ANEU, GFR, CMP #### [address] [address] Urea nitrogen [Mass/Vol] 34.0 mg/dL High 8.0-22.0 [facility] ([place]) Comment on above: Performed By: #### CBC, ADIF F, ANEU, GFR, CMP #### [address] [address] Urea nitrogen/Creatinine [Mass 54.8 ratio High 10.0-22.0 [facility] ratio] ([place]) Comment on above: Performed By: #### CBC, ADIF F, ANEU, GFR, CMP #### [address] [address] CBF on 02-11-2019 CBF . Normal [facility] ([place]) MICRO - Microbiology PROCEDURE: Culture Body Fluid with 01602 Gram Stain [*1] SOURCE: Thoracentesis Fluid BODY SITE: COLLECTED DATE/TIME: 02/06/20 15:10 EDT RECEIVED DATE/TIME: 02/06/2019 15:51 EDT START DATE/TIME: 02/06/2019 15:51 EDT FREE TEXT SOURCE: L lung FINAL REPORTS Final Report [] Verified Date/Time/Personnel: 02/11/2019 15:59 EDT Culture: No Growth at 5 days. PRELIMINARY REPORTS Preliminary Report [] Verified Date/Time/Personnel: 02/06/2019 16:59 EDT Culture has been received in lab and is no growth to date. Routine cultures are held for 5 days. STAINS GS [] Verified Date/Time/Personnel: 02/06/2019 18:35 EDT Sedimented 3+ Mononuclear cells 1+ Polymorphonuclear cells No organisms seen. Performing Locations *1: This test was performed at: [address], [address] [place] [address] Comment on above: Performed By: #### CBC, ADIF F, ANEU, GFR, CMP #### [address] [address] .Auto Diff on 02-10-2019 Ammonia (P) [Mass/Vol] 0.60 10 3/mcL Normal 0.09-1.40 [facility] ([place]) Comment on above: Performed By: #### CBC, ADIF F, ANEU, GFR, CMP #### [address] [address] Basophils (Bld) [#/Vol] 0.00 10 3/mcL Normal 0.00-0.27 [facility] ([place]) Comment on above: Performed By: #### CBC, ADIF F, ANEU, GFR, CMP #### [address] [address] Basophils/100 WBC (Bld) 0.5 % Normal 0.0-2.5 [facility] ([place]) Comment on above: Performed By: #### CBC, ADIF F, ANEU, GFR, CMP #### [address] [address] Eosinophils (Bld) [#/Vol] 0.30 10 3/mcL Normal 0.00-0.65 [facility] ([place]) Comment on above: Performed By: #### CBC, ADIF F, ANEU, GFR, CMP #### [address] [address] Eosinophils/100 WBC (Bld) 3.8 % Normal 0.0-6.0 [facility] ([place]) Comment on above: Performed By: #### CBC, ADIF F, ANEU, GFR, CMP #### [address] [address] Lymphocytes (Bld) [#/Vol] 1.40 10 3/mcL Normal 0.90-4.32 [facility] ([place]) Comment on above: Performed By: #### CBC, ADIF F, ANEU, GFR, CMP #### [address] [address] Lymphocytes/100 WBC (Bld) 18.2 % Low 20.0-40.0 [facility] ([place]) Comment on above: Performed By: #### CBC, ADIF F, ANEU, GFR, CMP #### [address] [address] Monocytes/100 WBC (Bld) 8.2 % Normal 2.0-13.0 [facility] ([place]) Comment on above: Performed By: #### CBC, ADIF F, ANEU, GFR, CMP #### [address] [address] Neutrophils/100 WBC (Bld) 69.3 % Normal 50.0-75.0 [facility] ([place]) Comment on above: Performed By: #### CBC, ADIF F, ANEU, GFR, CMP #### [address] [address] .GFR on 02-10-2019 GFR >60 Normal [facility] ([place]) Comment on above: Result Comment: GFR Population mean for Afri can [place] Islander, Non- Americans Ages 20-29 = 116 mL/min/1.73 sq.m. Ages 30-39 = 107 mL/min/1.73 sq.m. Ages 40-49 = 99 mL/min/1.73 sq.m. Ages 50-59 = 93 mL/min/1.73 sq.m. Ages 60-69 = 85 mL/min/1.73 sq.m. Ages 70+ = 75 mL/min/1.73 sq .m. Chronic Kidney Disease: Less than 60 mL/min/1.73 square meters End Stage Renal Disease: Les s than 15 mL/min/1.73 square meters Performed By: #### CBC, ADIF F, ANEU, GFR, CMP #### [address] [address] GFR Non- >60 Normal [facility] ([place]) Comment on above: Result Comment: GFR Population mean for Afri can [place], Non- Americans Ages 20-29 = 116 mL/min/1.73 sq.m. Ages 30-39 = 107 mL/min/1.73 sq.m. Ages 40-49 = 99 mL/min/1.73 sq.m. Ages 50-59 = 93 mL/min/1.73 sq.m. Ages 60-69 = 85 mL/min/1.73 sq.m. Ages 70+ = 75 mL/min/1.73 sq .m. Chronic Kidney Disease: Less than 60 mL/min/1.73 square meters End Stage Renal Disease: Les s than 15 mL/min/1.73 square meters Performed By: #### CBC, ADIF F, ANEU, GFR, CMP #### [address] [address] .NEUABS on 02-10-2019 Neutrophils (Bld) [#/Vol] 5.40 10 3/mcL Normal 2.25-8.10 [facility] ([place]) Comment on above: Performed By: #### CBC, ADIF F, ANEU, GFR, CMP #### [address] [address] BG on 02-10-2019 Barometric Pressure 736 mmHg Normal [facility] ([place]) Comment on above: Performed By: #### CBC, ADIF F, ANEU, GFR, CMP #### [place] [id number] Base excess Calc (Bld) 17.1 mmol/L Normal [facility] ([place]) [Moles/Vol] Comment on above: Performed By: #### CBC, ADIF F, ANEU, GFR, CMP #### [place] [id number] CO2 [Moles/Vol] 45.1 mmol/L Critically abnormal 22.0-30.0 [facility] ([place]) Comment on above: Performed By: #### CBC, ADIF F, ANEU, GFR, CMP #### [place] [address] HCO3 (Bld) [Moles/Vol] 43.3 mmol/L High 21.0-29.0 [facility] ([place]) Comment on above: Performed By: #### CBC, ADIF F, ANEU, GFR, CMP #### [place] [address] Oxygen (Bld) [Partial 62.0 mm[Hg] Low 74.0-108.0 [facility] pressure] ([place]) Comment on above: Performed By: #### CBC, ADIF F, ANEU, GFR, CMP #### [place] [id number] Oxygen saturation in Blood 91.9 % Low 92.0-96.0 [facility] ([place]) Comment on above: Performed By: #### CBC, ADIF F, ANEU, GFR, CMP #### [place] [id number] pCO2 57.7 mmHg High 32.0-46.0 [facility] ([place]) Comment on above: Performed By: #### CBC, ADIF F, ANEU, GFR, CMP #### [address] [address] pH (Bld) 7.493 [pH] High 7.380-7.460 [facility] ([place]) Comment on above: Performed By: #### CBC, ADIF F, ANEU, GFR, CMP #### [address] [address] BMP on 02-10-2019 Creatinine [Mass/Vol] 0.61 mg/dL Normal 0.50-1.20 [facility] ([place]) Comment on above: Performed By: #### CBC, ADIF F, ANEU, GFR, CMP #### [place] [id number] Urea nitrogen/Creatinine [Mass 47.5 ratio High 10.0-22.0 [facility] ratio] ([place]) Comment on above: Performed By: #### CBC, ADIF F, ANEU, GFR, CMP #### [place] [address] Calcium [Mass/Vol] 8.9 mg/dL Normal 8.4-10.1 [facility] ([place]) Comment on above: Performed By: #### CBC, ADIF F, ANEU, GFR, CMP #### [address] [address] Chloride [Moles/Vol] 91 mmol/L Low 98-110 [facility] ([place]) Comment on above: Performed By: #### CBC, ADIF F, ANEU, GFR, CMP #### [place] [id number] CO2 [Moles/Vol] 40 mmol/L High 22-32 [facility] ([place]) Comment on above: Performed By: #### CBC, ADIF F, ANEU, GFR, CMP #### [place] [id number] Electrolyte Balance 8.0 mEq/L Normal 4.0-15.0 [facility] ([place]) Comment on above: Performed By: #### CBC, ADIF F, ANEU, GFR, CMP #### [address] [address] Glucose [Mass/Vol] 96 mg/dL Normal 82-115 [facility] ([place]) Comment on above: Performed By: #### CBC, ADIF F, ANEU, GFR, CMP #### [address] [address] Potassium [Moles/Vol] 3.5 mmol/L Normal 3.5-5.0 [facility] ([place]) Comment on above: Performed By: #### CBC, ADIF F, ANEU, GFR, CMP #### [address] [address] Sodium [Moles/Vol] 139 mmol/L Normal 136-145 [facility] ([place]) Comment on above: Performed By: #### CBC, ADIF F, ANEU, GFR, CMP #### [place] [id number] Urea nitrogen [Mass/Vol] 29.0 mg/dL High 8.0-22.0 [facility] ([place]) Comment on above: Performed By: #### CBC, ADIF F, ANEU, GFR, CMP #### [address] [address] CBC on 02-10-2019 Erythrocyte distribution width 15.1 % Normal 11.5-15.5 [facility] (RBC) [Ratio] ([place]) Comment on above: Performed By: #### CBC, ADIF F, ANEU, GFR, CMP #### [address] [address] Hematocrit (Bld) [Volume 37.6 % Normal 34.0-46.0 [facility] ([place]) fraction] Comment on above: Performed By: #### CBC, ADIF F, ANEU, GFR, CMP #### [address] [address] Hemoglobin (Bld) [Mass/Vol] 12.1 G/dL Normal 12.0-16.0 [facility] ([place]) Comment on above: Performed By: #### CBC, ADIF F, ANEU, GFR, CMP #### [address] [address] MCH (RBC) [Entitic mass] 29.4 pg Normal 27.0-33.0 [facility] ([place]) Comment on above: Performed By: #### CBC, ADIF F, ANEU, GFR, CMP #### [address] [address] MCHC (RBC) [Mass/Vol] 32.2 G/dL Normal 32.0-36.0 [facility] ([place]) Comment on above: Performed By: #### CBC, ADIF F, ANEU, GFR, CMP #### [place] [id number] MCV (RBC) [Entitic vol] 91.4 fL Normal 80.0-99.0 [facility] ([place]) Comment on above: Performed By: #### CBC, ADIF F, ANEU, GFR, CMP #### [place] [address] Platelet mean volume (Bld) 8.7 fL Normal 6.6-10.5 [facility] ([place]) [Entitic vol] Comment on above: Performed By: #### CBC, ADIF F, ANEU, GFR, CMP #### [place] [id number] Platelets (Bld) [#/Vol] 190 10 3/mcL Normal 150-450 [facility] ([place]) Comment on above: Performed By: #### CBC, ADIF F, ANEU, GFR, CMP #### [place] [id number] RBC (Bld) [#/Vol] 4.12 10 6/mcL Normal 4.10-5.30 [facility] ([place]) Comment on above: Performed By: #### CBC, ADIF F, ANEU, GFR, CMP #### [place] [id number] WBC (Bld) [#/Vol] 7.80 10 3/mcL Normal 4.50-10.80 [facility] ([place]) Comment on above: Performed By: #### CBC, ADIF F, ANEU, GFR, CMP #### [address] [address] CBL on 02-10-2019 CBL . Normal [facility] ([place]) MICRO - Microbiology PROCEDURE: Blood Culture (bacterial) [*1] SOURCE: Blood BODY SITE: COLLECTED DATE/TIME: 02/06/20 19 01:15 EDT RECEIVED DATE/TIME: 02/05/2019 07:19 EDT START DATE/TIME: 02/05/2019 07:19 EDT FREE TEXT SOURCE: FINAL REPORTS Final Report [] Verified Date/Time/Personnel: 02/10/2019 07:59 EDT Blood Culture: No Growth at 5 days. PRELIMINARY REPORTS Preliminary Report [] Verified Date/Time/Personnel: 02/05/2019 07:59 EDT Culture has been received in lab and is no growth to date. Routine cultures are held for 5 days. Performing Locations *1: This test was performed at: [facility], [address] [place] [address], [address] [place] [address] Comment on above: Performed By: #### CBC, ADIF F, ANEU, GFR, CMP #### [address] [address] B2M on 02-09-2019 Beta2 Microglobulin 2.02 mg/L Normal 0.50-2.44 [facility] ([place]) Comment on above: Performed By: #### CBC, ADIF F, ANEU, GFR, CMP #### [address] [address] .GFR on 02-08-2019 GFR >60 Normal [facility] ([place]) Comment on above: Result Comment: GFR Population mean for Afri can [place] Islander, Non- Americans Ages 20-29 = 116 mL/min/1.73 sq.m. Ages 30-39 = 107 mL/min/1.73 sq.m. Ages 40-49 = 99 mL/min/1.73 sq.m. Ages 50-59 = 93 mL/min/1.73 sq.m. Ages 60-69 = 85 mL/min/1.73 sq.m. Ages 70+ = 75 mL/min/1.73 sq .m. Chronic Kidney Disease: Less than 60 mL/min/1.73 square meters End Stage Renal Disease: Les s than 15 mL/min/1.73 square meters Performed By: #### CBC, ADIF F, ANEU, GFR, CMP #### [address] [address] GFR Non- >60 Normal [facility] ([place]) Comment on above: Result Comment: GFR Population mean for Afri can [place], Non- Americans Ages 20-29 = 116 mL/min/1.73 sq.m. Ages 30-39 = 107 mL/min/1.73 sq.m. Ages 40-49 = 99 mL/min/1.73 sq.m. Ages 50-59 = 93 mL/min/1.73 sq.m. Ages 60-69 = 85 mL/min/1.73 sq.m. Ages 70+ = 75 mL/min/1.73 sq .m. Chronic Kidney Disease: Less than 60 mL/min/1.73 square meters End Stage Renal Disease: Les s than 15 mL/min/1.73 square meters Performed By: #### CBC, ADIF F, ANEU, GFR, CMP #### [address] [address] GFR >60 Normal [facility] ([place]) Comment on above: Result Comment: GFR Population mean for Afri can [place]er, Non- Americans Ages 20-29 = 116 mL/min/1.73 sq.m. Ages 30-39 = 107 mL/min/1.73 sq.m. Ages 40-49 = 99 mL/min/1.73 sq.m. Ages 50-59 = 93 mL/min/1.73 sq.m. Ages 60-69 = 85 mL/min/1.73 sq.m. Ages 70+ = 75 mL/min/1.73 sq .m. Chronic Kidney Disease: Less than 60 mL/min/1.73 square meters End Stage Renal Disease: Les s than 15 mL/min/1.73 square meters Performed By: #### CBC, ADIF F, ANEU, GFR, CMP #### [address] [address] GFR Non- >60 Normal [facility] ([place]) Comment on above: Result Comment: GFR Population mean for Afri can [place], Non- Americans Ages 20-29 = 116 mL/min/1.73 sq.m. Ages 30-39 = 107 mL/min/1.73 sq.m. Ages 40-49 = 99 mL/min/1.73 sq.m. Ages 50-59 = 93 mL/min/1.73 sq.m. Ages 60-69 = 85 mL/min/1.73 sq.m. Ages 70+ = 75 mL/min/1.73 sq .m. Chronic Kidney Disease: Less than 60 mL/min/1.73 square meters End Stage Renal Disease: Les s than 15 mL/min/1.73 square meters Performed By: #### CBC, ADIF F, ANEU, GFR, CMP #### [address] [address] BMP on 02-08-2019 CO2 [Moles/Vol] 42 mmol/L Critically abnormal 22-32 [facility] ([place]) Comment on above: Performed By: #### CBC, ADIF F, ANEU, GFR, CMP #### [address] [address] Electrolyte Balance 8.0 mEq/L Normal 4.0-15.0 [facility] ([place]) Comment on above: Performed By: #### CBC, ADIF F, ANEU, GFR, CMP #### [address] [address] Calcium [Mass/Vol] 8.5 mg/dL Normal 8.4-10.1 [facility] [facility] ([place] Comment on above: Performed By: #### CBC, ADIF F, ANEU, GFR, CMP #### [address] [address] Chloride [Moles/Vol] 88 mmol/L Low 98-110 [facility] ([place]) Comment on above: Performed By: #### CBC, ADIF F, ANEU, GFR, CMP #### [address] [address] Creatinine [Mass/Vol] 0.76 mg/dL Normal 0.50-1.20 [facility] ([place]) Comment on above: Performed By: #### CBC, ADIF F, ANEU, GFR, CMP #### [address] [address] Glucose [Mass/Vol] 244 mg/dL High 82-115 [facility] ([place]) Comment on above: Performed By: #### CBC, ADIF F, ANEU, GFR, CMP #### [address] [address] Potassium [Moles/Vol] 3.5 mmol/L Normal 3.5-5.0 [facility] ([place]) Comment on above: Performed By: #### CBC, ADIF F, ANEU, GFR, CMP #### [address] [address] Sodium [Moles/Vol] 138 mmol/L Normal 136-145 [facility] ([place]) Comment on above: Performed By: #### CBC, ADIF F, ANEU, GFR, CMP #### [address] [address] Urea nitrogen [Mass/Vol] 31.0 mg/dL High 8.0-22.0 [facility] ([place]) Comment on above: Performed By: #### CBC, ADIF F, ANEU, GFR, CMP #### [address] [address] Urea nitrogen/Creatinine [Mass 40.8 ratio High 10.0-22.0 [facility] ratio] ([place]) Comment on above: Performed By: #### CBC, ADIF F, ANEU, GFR, CMP #### [address] [address] [address] THORAX W/O CONTRAST on 02-08-2019 CT THORAX W/O CONTRAST ORIGINAL Normal [facility] CT THORAX W/O CONTRAST Found ation ([place]) CLINICAL STATEMENT: left pleural effusion, hypoxia, LL L PNA COMPARISON: None FINDINGS:Today's exam was pe rformed without IV contrast material were prior images for comparison. 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 Calcification is noted along the aorta. No aneurysmal dilatation is confirmed. Coronary artery calcifications present in large bulky calcification along the mitral valve. No pericardial effusion is pres ent. Small bilateral pleural effusions more extensive on the LEFT are noted. On the LEFT, there is significant consolidation throughout the LEFT lower lobe and some nonspecific patchy airspace opacities in the lateral LEFT upper h emithorax without focal consolidation. No pneumothorax is present. On the RIGHT, there is diffu se coarsening of the lung markings and an area of patchy airspace opacity in the RIGHT lung base. In addition, there is a focal area of airspace opacity measuring 1.6 cm in the posterior aspect of the RIGHT upper lobe. Partial inclusion of the upp er abdomen is noncontributory. There is a tiny hypodensity within the liver parenchyma on image 67 too indeterminate peripheral airspace opacity nodular in nature in the late ral LEFT upper lobe on image 24 too small to character ize by CT criteria. Partial inclusion of the LEF T upper quadrant demonstrates findings suspicious for perisplenic and/or subcapsular fluid. Small hiatal hernia is present. There are degenerative sawyer es present and underlying mild scoliosis present. Partial visualization of postsurgical change to the LEFT shoulder is noted. There is limited evaluation of the bony thorax a nd suboptimal evaluation of the spinal canal contents. IMPRESSION: 1. Lobulated nodular opacity in the RIGHT upper lobe demonstrating suspicious characteristics. Neoplasm is not excluded. This is within PET/CT resolution capabilities. PET CT is recommended for further evaluation. 2. Bilateral pleural effusions larger on the LEFT. 3. Bilateral lower lobe airs pace opacities more extensive on the LEFT. These could be inflammatory or infectious with underlying pathology not excluded. 4. Indeterminate nodular density LEFT upper lobe. 5. Perisplenic or subcapsular fluid collection This exam was performed acco rding to our departmental dose optimization program, and includes the following measures where applicable: automated exposure control, adjustment of the mAs and/or kVp accord ing to patient size and/or exam, and an iterative mary nstruction algorithm. Interpreted By: Emani Tapia MD Preliminary Report By: Emani Tapia MD Electronically Signed By: Emani Tapia MD Dictated Date: 02/08/2019 10:09:42 AM Prelim Date: 02/08/2019 10:09:42 AM Sign Date: 02/08/2019 10:30:29 AM Final Pathologist Review Report on 01-15 Final Pathologist Review . Normal [facility] Report Pathology Reports [facility] ([place]) Accession: Collected Date/Time: Received Date/Time: Adrian villatoroologist: [id number] 02/05/2019 15:10 EDT 019 08:36 MD BABS NCIHOLE Final Pathologist Review Report CLINICAL INFORMATION: PNA, ACUTE RESPIRATORY FAILURE ACCESSION NUMBER: [id number] DIAGNOSIS: NEGATIVE FOR MALIGNANCY SPECIMEN: PLEURAL FLUID Electronically Signed by Pathology report verified by [facility] Screened by: RENETTA MGS Electronically signed by BABS BENITEZ MD Sign-Out Date: 02/08/2019 10:46 Performing Lab: [address] Comment on above: Performed By: #### CBC, ADIF F, ANEU, GFR, CMP #### [place] [address] MYCO on 02-08-2019 Mycoplasma IgG See Comment Normal [facility] ([place]) Comment on above: Result Comment: Complete ref erence lab report scanned to EMR. INTERPRETATION OF MYCOPLASMA BY EIA (Effective 05/21/04): Negative No detectable antib odies to M. pneumoniae. Indicates absence of current or previous infection. Positive Reactive for antibo dies to M. pneumoniae. Indicates a past or recent i nfection. Equivocal Equivocal for anti bodies to M. pneumoniae. Repeat testing by an alterna te method suggested. Performed By: #### CBC, ADIF F, ANEU, GFR, BMP, MG #### [place] [address] Non-Spot Washer Cytology Report on 02-08-2019 Non-Spot Washer Cytology Report . Normal [facility] Pathology Reports [facility] ([place]) Accession: Collected Date/Time: Received Date/Time: Adrian villatoroologist: [id number] 02/05/2019 16:04 EDT 019 08:36 MD BABS NICHOLE Non-Spot Washer Cytology Report CLINICAL INFORMATION: effusion left Preoperative diagnosis: effusion Postoperative diagnosis: effusion DIAGNOSIS: NEGATIVE FOR MALIGNANCY COMMENT: LYMPHOCYTIC EFFUSION SPECIMEN: LEFT PLEURAL FLUID GROSS DESCRIPTION: # of Blocks: 1 # of Monolayers: 1 Volume (ml) 200 Color: FRESH YELLOW/RED FLUID Electronically Signed by Pathology report verified by [facility] Screened by: KK MGS Electronically signed by BABS BENITEZ MD Sign-Out Date: 02/08/2019 10:43 Performing Lab: [facility], [address] [place] [address] Comment on above: Performed By: #### CBC, ADIF F, ANEU, GFR, CMP #### [place] [address] SPE on 02-08-2019 SPE Interpretation 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 This may be [place] ([place]) seen in chronic inflammatory or infectious diseases, or in patients receiving intravenous immunoglobulin therapy. Comment on above: Result Comment: Electronical ly Signed by: ELVA CORTEZ MD 02/08/2019 15:22 EDT Performed By: #### CBC, ADIF F, ANEU, GFR, CMP #### [place] [address] Albumin [Mass/Vol] 3.7 G/dL Normal 3.3-5.0 [facility] ([place]) Comment on above: Performed By: #### CBC, ADIF F, ANEU, GFR, CMP #### [place] [address] Alpha 1 0.3 G/dL Normal 0.1-0.4 [facility] ([place]) Comment on above: Performed By: #### CBC, ADIF F, ANEU, GFR, CMP #### [place] [address] Alpha 2 1.1 G/dL Normal 0.6-1.2 [facility] ([place]) Comment on above: Performed By: #### CBC, ADIF F, ANEU, GFR, CMP #### [place] [address] Beta 1.0 G/dL Normal 0.6-1.3 [facility] ([place]) Comment on above: Performed By: #### CBC, ADIF F, ANEU, GFR, CMP #### [place] [address] Gamma 1.9 G/dL High 0.7-1.6 [facility] ([place]) Comment on above: Performed By: #### CBC, ADIF F, ANEU, GFR, CMP #### [place] [address] IFES on 02-07-2019 IFES Interpretation Immunofixation electrophoresis Normal [facility] of serum shows the presence of ([place]) only polyclonal immunoglobulins (IgG,A,M,[place] and Lambda), No monoclonal protein detected. Comment on above: Result Comment: Electronical ly Signed by: ELVA CORTEZ MD 02/07/2019 15:40 EDT Performed By: #### CBC, ADIF F, ANEU, GFR, CMP #### [place] [address] LDH on 02-07-2019 LDH 154 U/L Normal 120-246 [facility] ([place]) Comment on above: Performed By: #### CBC, ADIF F, ANEU, GFR, CMP #### [place] [address] .Auto Diff on 02-06-2019 Ammonia (P) [Mass/Vol] 0.50 10 3/mcL Normal 0.09-1.40 [facility] ([place]) Comment on above: Performed By: #### CBC, ADIF F, ANEU, GFR, CMP #### [place] [address] Basophils (Bld) [#/Vol] 0.00 10 3/mcL Normal 0.00-0.27 [facility] ([place]) Comment on above: Performed By: #### CBC, ADIF F, ANEU, GFR, CMP #### [place] [address] Basophils/100 WBC (Bld) 0.8 % Normal 0.0-2.5 [facility] ([place]) Comment on above: Performed By: #### CBC, ADIF F, ANEU, GFR, CMP #### [place] [address] Eosinophils (Bld) [#/Vol] 0.10 10 3/mcL Normal 0.00-0.65 [facility] ([place]) Comment on above: Performed By: #### CBC, ADIF F, ANEU, GFR, CMP #### [address] [address] Eosinophils/100 WBC (Bld) 1.8 % Normal 0.0-6.0 [facility] ([place]) Comment on above: Performed By: #### CBC, ADIF F, ANEU, GFR, CMP #### [address] [address] Lymphocytes (Bld) [#/Vol] 1.10 10 3/mcL Normal 0.90-4.32 [facility] ([place]) Comment on above: Performed By: #### CBC, ADIF F, ANEU, GFR, CMP #### [address] [address] Lymphocytes/100 WBC (Bld) 23.7 % Normal 20.0-40.0 [facility] ([place]) Comment on above: Performed By: #### CBC, ADIF F, ANEU, GFR, CMP #### [address] [address] Monocytes/100 WBC (Bld) 11.0 % Normal 2.0-13.0 [facility] ([place]) Comment on above: Performed By: #### CBC, ADIF F, ANEU, GFR, CMP #### [address] [address] Neutrophils/100 WBC (Bld) 62.7 % Normal 50.0-75.0 [facility] ([place]) Comment on above: Performed By: #### CBC, ADIF F, ANEU, GFR, CMP #### [address] [address] Ammonia (P) [Mass/Vol] 0.90 10 3/mcL Normal 0.09-1.40 [facility] ([place]) Comment on above: Performed By: #### CBC, ADIF F, ANEU, GFR, CMP #### [address] [address] Basophils (Bld) [#/Vol] 0.00 10 3/mcL Normal 0.00-0.27 [facility] ([place]) Comment on above: Performed By: #### CBC, ADIF F, ANEU, GFR, CMP #### [address] [address] Basophils/100 WBC (Bld) 0.3 % Normal 0.0-2.5 [facility] ([place]) Comment on above: Performed By: #### CBC, ADIF F, ANEU, GFR, CMP #### [address] [address] Eosinophils (Bld) [#/Vol] 0.00 10 3/mcL Normal 0.00-0.65 [facility] ([place]) Comment on above: Performed By: #### CBC, ADIF F, ANEU, GFR, CMP #### [address] [address] Eosinophils/100 WBC (Bld) 0.1 % Normal 0.0-6.0 [facility] ([place]) Comment on above: Performed By: #### CBC, ADIF F, ANEU, GFR, CMP #### [address] [address] Lymphocytes (Bld) [#/Vol] 1.60 10 3/mcL Normal 0.90-4.32 [facility] ([place]) Comment on above: Performed By: #### CBC, ADIF F, ANEU, GFR, CMP #### [address] [address] Lymphocytes/100 WBC (Bld) 13.0 % Low 20.0-40.0 [facility] ([place]) Comment on above: Performed By: #### CBC, ADIF F, ANEU, GFR, CMP #### [address] [address] Monocytes/100 WBC (Bld) 6.8 % Normal 2.0-13.0 [facility] ([place]) Comment on above: Performed By: #### CBC, ADIF F, ANEU, GFR, CMP #### [address] [address] Neutrophils/100 WBC (Bld) 79.8 % High 50.0-75.0 [facility] ([place]) Comment on above: Performed By: #### CBC, ADIF F, ANEU, GFR, CMP #### [address] [address] Ammonia (P) [Mass/Vol] 0.60 10 3/mcL Normal 0.09-1.40 [facility] ([place]) Comment on above: Performed By: #### CBC, ADIF F, ANEU, GFR, CMP #### [address] [address] Basophils (Bld) [#/Vol] 0.00 10 3/mcL Normal 0.00-0.27 [facility] ([place]) Comment on above: Performed By: #### CBC, ADIF F, ANEU, GFR, CMP #### [address] [address] Basophils/100 WBC (Bld) 0.3 % Normal 0.0-2.5 [facility] ([place]) Comment on above: Performed By: #### CBC, ADIF F, ANEU, GFR, CMP #### [address] [address] Eosinophils (Bld) [#/Vol] 0.00 10 3/mcL Normal 0.00-0.65 [facility] ([place]) Comment on above: Performed By: #### CBC, ADIF F, ANEU, GFR, CMP #### [address] [address] Eosinophils/100 WBC (Bld) 0.0 % Normal 0.0-6.0 [facility] ([place]) Comment on above: Performed By: #### CBC, ADIF F, ANEU, GFR, CMP #### [address] [address] Lymphocytes (Bld) [#/Vol] 1.10 10 3/mcL Normal 0.90-4.32 [facility] ([place]) Comment on above: Performed By: #### CBC, ADIF F, ANEU, GFR, CMP #### [address] [address] Lymphocytes/100 WBC (Bld) 13.1 % Low 20.0-40.0 [facility] ([place]) Comment on above: Performed By: #### CBC, ADIF F, ANEU, GFR, CMP #### [address] [address] Monocytes/100 WBC (Bld) 7.4 % Normal 2.0-13.0 [facility] ([place]) Comment on above: Performed By: #### CBC, ADIF F, ANEU, GFR, CMP #### [address] [address] Neutrophils/100 WBC (Bld) 79.2 % High 50.0-75.0 [facility] ([place]) Comment on above: Performed By: #### CBC, ADIF F, ANEU, GFR, CMP #### [address] [address] Ammonia (P) [Mass/Vol] 0.70 10 3/mcL Normal 0.09-1.40 [facility] ([place]) Comment on above: Performed By: #### CBC, ADIF F, ANEU, GFR, CMP #### [address] [address] Basophils (Bld) [#/Vol] 0.10 10 3/mcL Normal 0.00-0.27 [facility] ([place]) Comment on above: Performed By: #### CBC, ADIF F, ANEU, GFR, CMP #### [address] [address] Basophils/100 WBC (Bld) 0.5 % Normal 0.0-2.5 [facility] ([place]) Comment on above: Performed By: #### CBC, ADIF F, ANEU, GFR, CMP #### [address] [address] Eosinophils (Bld) [#/Vol] 0.20 10 3/mcL Normal 0.00-0.65 [facility] ([place]) Comment on above: Performed By: #### CBC, ADIF F, ANEU, GFR, CMP #### [address] [address] Eosinophils/100 WBC (Bld) 1.9 % Normal 0.0-6.0 [facility] ([place]) Comment on above: Performed By: #### CBC, ADIF F, ANEU, GFR, CMP #### [address] [address] Lymphocytes (Bld) [#/Vol] 1.20 10 3/mcL Normal 0.90-4.32 [facility] ([place]) Comment on above: Performed By: #### CBC, ADIF F, ANEU, GFR, CMP #### [address] [address] Lymphocytes/100 WBC (Bld) 10.6 % Low 20.0-40.0 [facility] ([place]) Comment on above: Performed By: #### CBC, ADIF F, ANEU, GFR, CMP #### [address] [address] Monocytes/100 WBC (Bld) 6.1 % Normal 2.0-13.0 [facility] ([place]) Comment on above: Performed By: #### CBC, ADIF F, ANEU, GFR, CMP #### [address] [address] Neutrophils/100 WBC (Bld) 80.9 % High 50.0-75.0 [facility] ([place]) Comment on above: Performed By: #### CBC, ADIF F, ANEU, GFR, CMP #### [address] [address] .GFR on 02-06-2019 GFR Non- >60 Normal [facility] ([place]) Comment on above: Result Comment: GFR Population mean for Afri can [place]er, Non- Americans Ages 20-29 = 116 mL/min/1.73 sq.m. Ages 30-39 = 107 mL/min/1.73 sq.m. Ages 40-49 = 99 mL/min/1.73 sq.m. Ages 50-59 = 93 mL/min/1.73 sq.m. Ages 60-69 = 85 mL/min/1.73 sq.m. Ages 70+ = 75 mL/min/1.73 sq .m. Chronic Kidney Disease: Less than 60 mL/min/1.73 square meters End Stage Renal Disease: Les s than 15 mL/min/1.73 square meters Performed By: #### CBC, ADIF F, ANEU, GFR, CMP #### [address] [address] GFR >60 Normal [facility] ([place]) Comment on above: Result Comment: GFR Population mean for Afri can [place], Non- Americans Ages 20-29 = 116 mL/min/1.73 sq.m. Ages 30-39 = 107 mL/min/1.73 sq.m. Ages 40-49 = 99 mL/min/1.73 sq.m. Ages 50-59 = 93 mL/min/1.73 sq.m. Ages 60-69 = 85 mL/min/1.73 sq.m. Ages 70+ = 75 mL/min/1.73 sq .m. Chronic Kidney Disease: Less than 60 mL/min/1.73 square meters End Stage Renal Disease: Les s than 15 mL/min/1.73 square meters Performed By: #### CBC, ADIF F, ANEU, GFR, CMP #### [address] [address] GFR >60 Normal [facility] ([place]) Comment on above: Result Comment: GFR Population mean for Afri can [place], Non- Americans Ages 20-29 = 116 mL/min/1.73 sq.m. Ages 30-39 = 107 mL/min/1.73 sq.m. Ages 40-49 = 99 mL/min/1.73 sq.m. Ages 50-59 = 93 mL/min/1.73 sq.m. Ages 60-69 = 85 mL/min/1.73 sq.m. Ages 70+ = 75 mL/min/1.73 sq .m. Chronic Kidney Disease: Less than 60 mL/min/1.73 square meters End Stage Renal Disease: Les s than 15 mL/min/1.73 square meters Performed By: #### CBC, ADIF F, ANEU, GFR, CMP #### [address] [address] GFR Non- >60 Normal [facility] ([place]) Comment on above: Result Comment: GFR Population mean for Afri can [place], Non- Americans Ages 20-29 = 116 mL/min/1.73 sq.m. Ages 30-39 = 107 mL/min/1.73 sq.m. Ages 40-49 = 99 mL/min/1.73 sq.m. Ages 50-59 = 93 mL/min/1.73 sq.m. Ages 60-69 = 85 mL/min/1.73 sq.m. Ages 70+ = 75 mL/min/1.73 sq .m. Chronic Kidney Disease: Less than 60 mL/min/1.73 square meters End Stage Renal Disease: Les s than 15 mL/min/1.73 square meters Performed By: #### CBC, ADIF F, ANEU, GFR, CMP #### [address] [address] GFR >60 Normal [facility] ([place]) Comment on above: Result Comment: GFR Population mean for Afri can [place], Non- Americans Ages 20-29 = 116 mL/min/1.73 sq.m. Ages 30-39 = 107 mL/min/1.73 sq.m. Ages 40-49 = 99 mL/min/1.73 sq.m. Ages 50-59 = 93 mL/min/1.73 sq.m. Ages 60-69 = 85 mL/min/1.73 sq.m. Ages 70+ = 75 mL/min/1.73 sq .m. Chronic Kidney Disease: Less than 60 mL/min/1.73 square meters End Stage Renal Disease: Les s than 15 mL/min/1.73 square meters Performed By: #### CBC, ADIF F, ANEU, GFR, CMP #### [address] [address] GFR Non- >60 Normal [facility] ([place]) Comment on above: Result Comment: GFR Population mean for Afri can [place], Non- Americans Ages 20-29 = 116 mL/min/1.73 sq.m. Ages 30-39 = 107 mL/min/1.73 sq.m. Ages 40-49 = 99 mL/min/1.73 sq.m. Ages 50-59 = 93 mL/min/1.73 sq.m. Ages 60-69 = 85 mL/min/1.73 sq.m. Ages 70+ = 75 mL/min/1.73 sq .m. Chronic Kidney Disease: Less than 60 mL/min/1.73 square meters End Stage Renal Disease: Les s than 15 mL/min/1.73 square meters Performed By: #### CBC, ADIF F, ANEU, GFR, CMP #### [address] [address] GFR Non- >60 Normal [facility] ([place]) Comment on above: Result Comment: GFR Population mean for Afri can [place], Non- Americans Ages 20-29 = 116 mL/min/1.73 sq.m. Ages 30-39 = 107 mL/min/1.73 sq.m. Ages 40-49 = 99 mL/min/1.73 sq.m. Ages 50-59 = 93 mL/min/1.73 sq.m. Ages 60-69 = 85 mL/min/1.73 sq.m. Ages 70+ = 75 mL/min/1.73 sq .m. Chronic Kidney Disease: Less than 60 mL/min/1.73 square meters End Stage Renal Disease: Les s than 15 mL/min/1.73 square meters Performed By: #### CBC, ADIF F, ANEU, GFR, CMP #### [address] [address] GFR >60 Normal [facility] ([place]) Comment on above: Result Comment: GFR Population mean for Afri can [place], Non- Americans Ages 20-29 = 116 mL/min/1.73 sq.m. Ages 30-39 = 107 mL/min/1.73 sq.m. Ages 40-49 = 99 mL/min/1.73 sq.m. Ages 50-59 = 93 mL/min/1.73 sq.m. Ages 60-69 = 85 mL/min/1.73 sq.m. Ages 70+ = 75 mL/min/1.73 sq .m. Chronic Kidney Disease: Less than 60 mL/min/1.73 square meters End Stage Renal Disease: Les s than 15 mL/min/1.73 square meters Performed By: #### CBC, ADIF F, ANEU, GFR, CMP #### [address] [address] GFR >60 Normal [facility] ([place]) Comment on above: Result Comment: GFR Population mean for Afri can [place], Non- Americans Ages 20-29 = 116 mL/min/1.73 sq.m. Ages 30-39 = 107 mL/min/1.73 sq.m. Ages 40-49 = 99 mL/min/1.73 sq.m. Ages 50-59 = 93 mL/min/1.73 sq.m. Ages 60-69 = 85 mL/min/1.73 sq.m. Ages 70+ = 75 mL/min/1.73 sq .m. Chronic Kidney Disease: Less than 60 mL/min/1.73 square meters End Stage Renal Disease: Les s than 15 mL/min/1.73 square meters Performed By: #### CBC, ADIF F, ANEU, GFR, CMP #### [address] [address] GFR Non- 52 ml/min/1.73sqm Normal [facility] ([place]) Comment on above: Result Comment: GFR Population mean for Afri can [place], Non- Americans Ages 20-29 = 116 mL/min/1.73 sq.m. Ages 30-39 = 107 mL/min/1.73 sq.m. Ages 40-49 = 99 mL/min/1.73 sq.m. Ages 50-59 = 93 mL/min/1.73 sq.m. Ages 60-69 = 85 mL/min/1.73 sq.m. Ages 70+ = 75 mL/min/1.73 sq .m. Chronic Kidney Disease: Less than 60 mL/min/1.73 square meters End Stage Renal Disease: Les s than 15 mL/min/1.73 square meters Performed By: #### CBC, ADIF F, ANEU, GFR, CMP #### [address] [address] .NEUABS on 02-06-2019 Neutrophils (Bld) [#/Vol] 3.00 10 3/mcL Normal 2.25-8.10 [facility] ([place]) Comment on above: Performed By: #### CBC, ADIF F, ANEU, GFR, CMP #### [address] [address] Neutrophils (Bld) [#/Vol] 10.00 10 3/mcL High 2.25-8.10 [facility] ([place]) Comment on above: Performed By: #### CBC, ADIF F, ANEU, GFR, CMP #### [place] [address] Neutrophils (Bld) [#/Vol] 6.80 10 3/mcL Normal 2.25-8.10 [facility] ([place]) Comment on above: Performed By: #### CBC, ADIF F, ANEU, GFR, CMP #### [place] [address] Neutrophils (Bld) [#/Vol] 8.90 10 3/mcL High 2.25-8.10 [facility] ([place]) Comment on above: Performed By: #### CBC, ADIF F, ANEU, GFR, CMP #### [place] [address] A1C on 02-06-2019 HbA1c (Bld) [Mass fraction] 6.6 % High 4.0-6.0 [facility] ([place]) Comment on above: Performed By: #### CBC, ADIF F, ANEU, GFR, CMP #### [place] [address] AFPS on 02-06-2019 AFP, Tumor Marker 2.0 ng/mL Normal 0.0-8.5 [facility] ([place]) Comment on above: Performed By: #### CBC, ADIF F, ANEU, GFR, CMP #### [place] [address] ALT/SGPT on 02-06-2019 ALT [Catalytic activity/Vol] 15 U/L Normal 10-49 [facility] ([place]) Comment on above: Performed By: #### CBC, ADIF F, ANEU, GFR, CMP #### [place] [address] BFCT on 02-06-2019 Cells Counted BF 100 Normal [facility] ([place]) Comment on above: Performed By: #### CBC, ADIF F, ANEU, GFR, CMP #### [place] [address] Lymphocytes/100 WBC (Bld) 85 % Normal [facility] ([place]) Comment on above: Performed By: #### CBC, ADIF F, ANEU, GFR, CMP #### [address] [address] Mononuclear cell % BF 7 % Normal [facility] ([place]) Comment on above: Performed By: #### CBC, ADIF F, ANEU, GFR, CMP #### [place] [id number] Neutrophils/100 WBC (Bld) 8 % Normal [facility] ([place]) Comment on above: Performed By: #### CBC, ADIF F, ANEU, GFR, CMP #### [place] [address] Body Fluid Source Pleural fluid Normal [facility] ([place]) Comment on above: Result Comment: Reference ra nges have not been established for this body fluid. The test results must be integrated into the clinical context for int erpretation. Performed By: #### CBC, ADIF F, ANEU, GFR, CMP #### [place] [address] Comment BF See Below Normal [facility] ([place]) Comment on above: Result Comment: This specime n will be reviewed by the pathologist and an additional report shannen l be issued under the prefix [place] and cross-referenced to the Cyto logy specimen, if appropriate. Performed By: #### CBC, ADIF F, ANEU, GFR, CMP #### [place] [id number] Nucleated blood cells 1287 /mm3 Normal [facility] ([place]) Comment on above: Performed By: #### CBC, ADIF F, ANEU, GFR, CMP #### [address] [address] BHB on 02-06-2019 B-Hydroxybutyrate 13.46 mg/dL High 0.20-2.81 [facility] ([place]) Comment on above: Performed By: #### CBC, ADIF F, ANEU, GFR, CMP #### [address] [address] BMP on 02-06-2019 Creatinine [Mass/Vol] 0.80 mg/dL Normal 0.50-1.20 [facility] ([place]) Comment on above: Performed By: #### CBC, ADIF F, ANEU, GFR, CMP #### [address] [address] Glucose [Mass/Vol] 87 mg/dL Normal 82-115 [facility] ([place]) Comment on above: Performed By: #### CBC, ADIF F, ANEU, GFR, CMP #### [address] [address] Urea nitrogen/Creatinine [Mass 17.5 ratio Normal 10.0-22.0 [facility] ([place]) Comment on above: Performed By: #### CBC, ADIF F, ANEU, GFR, CMP #### [address] [address] Calcium [Mass/Vol] 10.2 mg/dL High 8.4-10.1 [facility] ([place]) Comment on above: Performed By: #### CBC, ADIF F, ANEU, GFR, CMP #### [address] [address] [address] Chloride [Moles/Vol] 107 mmol/L Normal 98-110 [facility] ([place]) Comment on above: Performed By: #### CBC, ADIF F, ANEU, GFR, CMP #### [address] [address] CO2 [Moles/Vol] 25 mmol/L Normal 22-32 [facility] ([place]) Comment on above: Performed By: #### CBC, ADIF F, ANEU, GFR, CMP #### [address] [address] Electrolyte Balance 12.0 mEq/L Normal 4.0-15.0 [facility] ([place]) Comment on above: Performed By: #### CBC, ADIF F, ANEU, GFR, CMP #### [address] [address] Potassium [Moles/Vol] 4.0 mmol/L Normal 3.5-5.0 [facility] ([place]) Comment on above: Performed By: #### CBC, ADIF F, ANEU, GFR, CMP #### [address] [address] Sodium [Moles/Vol] 144 mmol/L Normal 136-145 [facility] ([place]) Comment on above: Performed By: #### CBC, ADIF F, ANEU, GFR, CMP #### [address] [address] Urea nitrogen [Mass/Vol] 14.0 mg/dL Normal 8.0-22.0 [facility] ([place]) Comment on above: Performed By: #### CBC, ADIF F, ANEU, GFR, CMP #### [address] [address] Creatinine [Mass/Vol] 0.82 mg/dL Normal 0.60-1.40 [facility] ([place]) Comment on above: Performed By: #### CBC, ADIF F, ANEU, GFR, CMP #### [address] [address] Urea nitrogen/Creatinine [Mass 25.6 ratio High 10.0-22.0 [facility] ratio] ([place]) Comment on above: Performed By: #### CBC, ADIF F, ANEU, GFR, CMP #### [address] [address] Calcium [Mass/Vol] 9.6 mg/dL Normal 8.4-10.1 [facility] ([place]) Comment on above: Performed By: #### CBC, ADIF F, ANEU, GFR, CMP #### [address] [address] Chloride [Moles/Vol] 98 mmol/L Normal 98-110 [facility] ([place]) Comment on above: Performed By: #### CBC, ADIF F, ANEU, GFR, CMP #### [address] [address] CO2 [Moles/Vol] 22 mmol/L Normal 22-32 [facility] ([place]) Comment on above: Performed By: #### CBC, ADIF F, ANEU, GFR, CMP #### [address] [address] Electrolyte Balance 14.0 mEq/L Normal 4.0-15.0 [facility] ([place]) Comment on above: Performed By: #### CBC, ADIF F, ANEU, GFR, CMP #### [address] [address] Glucose [Mass/Vol] 336 mg/dL High 70-110 [facility] ([place]) Comment on above: Performed By: #### CBC, ADIF F, ANEU, GFR, CMP #### [address] [address] Potassium [Moles/Vol] 3.6 mmol/L Normal 3.5-5.0 [facility] ([place]) Comment on above: Performed By: #### CBC, ADIF F, ANEU, GFR, CMP #### [address] [address] Sodium [Moles/Vol] 134 mmol/L Low 136-145 [facility] ([place]) Comment on above: Performed By: #### CBC, ADIF F, ANEU, GFR, CMP #### [address] [address] Urea nitrogen [Mass/Vol] 21.0 mg/dL Normal 8.0-22.0 [facility] ([place]) Comment on above: Performed By: #### CBC, ADIF F, ANEU, GFR, CMP #### [address] [address] CO2 [Moles/Vol] 44 mmol/L Critically abnormal 22-32 [facility] ([place]) Comment on above: Performed By: #### CBC, ADIF F, ANEU, GFR, CMP #### [address] [address] Electrolyte Balance 6.0 mEq/L Normal 4.0-15.0 [facility] ([place]) Comment on above: Performed By: #### CBC, ADIF F, ANEU, GFR, CMP #### [address] [address] Calcium [Mass/Vol] 8.6 mg/dL Normal 8.4-10.1 [facility] ([place]) Comment on above: Performed By: #### CBC, ADIF F, ANEU, GFR, CMP #### [address] [address] Chloride [Moles/Vol] 91 mmol/L Low 98-110 [facility] ([place]) Comment on above: Performed By: #### CBC, ADIF F, ANEU, GFR, CMP #### [address] [address] Creatinine [Mass/Vol] 0.63 mg/dL Normal 0.50-1.20 [facility] ([place]) Comment on above: Performed By: #### CBC, ADIF F, ANEU, GFR, CMP #### [address] [address] Glucose [Mass/Vol] 206 mg/dL High 82-115 [facility] ([place]) Comment on above: Performed By: #### CBC, ADIF F, ANEU, GFR, CMP #### [address] [address] Potassium [Moles/Vol] 3.9 mmol/L Normal 3.5-5.0 [facility] ([place]) Comment on above: Performed By: #### CBC, ADIF F, ANEU, GFR, CMP #### [address] [address] Sodium [Moles/Vol] 141 mmol/L Normal 136-145 [facility] ([place]) Comment on above: Performed By: #### CBC, ADIF F, ANEU, GFR, CMP #### [address] [address] Urea nitrogen [Mass/Vol] 21.0 mg/dL Normal 8.0-22.0 [facility] ([place]) Comment on above: Performed By: #### CBC, ADIF F, ANEU, GFR, CMP #### [address] [address] Urea nitrogen/Creatinine [Mass 33.3 ratio High 10.0-22.0 [facility] ratio] ([place]) Comment on above: Performed By: #### CBC, ADIF F, ANEU, GFR, CMP #### [address] [address] Calcium [Mass/Vol] 8.7 mg/dL Normal 8.4-10.1 [facility] ([place]) Comment on above: Performed By: #### CBC, ADIF F, ANEU, GFR, CMP #### [place] [id number] Chloride [Moles/Vol] 106 mmol/L Normal 98-110 [facility] ([place]) Comment on above: Performed By: #### CBC, ADIF F, ANEU, GFR, CMP #### [place] [id number] CO2 [Moles/Vol] 24 mmol/L Normal 22-32 [facility] ([place]) Comment on above: Performed By: #### CBC, ADIF F, ANEU, GFR, CMP #### [place] [address] Creatinine [Mass/Vol] 1.10 mg/dL Normal 0.50-1.20 [facility] ([place]) Comment on above: Performed By: #### CBC, ADIF F, ANEU, GFR, CMP #### [address] [address] Electrolyte Balance 10.0 mEq/L Normal 4.0-15.0 [facility] ([place]) Comment on above: Performed By: #### CBC, ADIF F, ANEU, GFR, CMP #### [address] [address] Glucose [Mass/Vol] 89 mg/dL Normal 70-110 [facility] ([place]) Comment on above: Performed By: #### CBC, ADIF F, ANEU, GFR, CMP #### [place] [id number] Potassium [Moles/Vol] 3.8 mmol/L Normal 3.5-5.0 [facility] ([place]) Comment on above: Performed By: #### CBC, ADIF F, ANEU, GFR, CMP #### [address] [address] Sodium [Moles/Vol] 140 mmol/L Normal 136-145 [facility] ([place]) Comment on above: Performed By: #### CBC, ADIF F, ANEU, GFR, CMP #### [address] [address] Urea nitrogen [Mass/Vol] 17.0 mg/dL Normal 8.0-22.0 [facility] ([place]) Comment on above: Performed By: #### CBC, ADIF F, ANEU, GFR, CMP #### [place] [id number] Urea nitrogen/Creatinine [Mass 15.5 ratio Normal 10.0-22.0 [facility]] [facility] ([place]) Comment on above: Performed By: #### CBC, ADIF F, ANEU, GFR, CMP #### [address] [address] CBC on 02-06-2019 Erythrocyte distribution width 12.3 % Normal 11.5-15.5 [facility] (RBC) [Ratio] ([place]) Comment on above: Performed By: #### CBC, ADIF F, ANEU, GFR, CMP #### [place] [id number] Hematocrit (Bld) [Volume 43.6 % Normal 40.0-52.0 [facility] ([place]) fraction] Comment on above: Performed By: #### CBC, ADIF F, ANEU, GFR, CMP #### [place] [id number] Hemoglobin (Bld) [Mass/Vol] 14.7 G/dL Normal 13.0-17.5 [facility] ([place]) Comment on above: Performed By: #### CBC, ADIF F, ANEU, GFR, CMP #### [address] [address] MCH (RBC) [Entitic mass] 32.7 pg Normal 27.0-33.0 [facility] ([place]) Comment on above: Performed By: #### CBC, ADIF F, ANEU, GFR, CMP #### [address] [address] MCHC (RBC) [Mass/Vol] 33.8 G/dL Normal 32.0-36.0 [facility] ([place]) Comment on above: Performed By: #### CBC, ADIF F, ANEU, GFR, CMP #### [address] [address] MCV (RBC) [Entitic vol] 96.9 fL Normal 81.0-100.0 [facility] ([place]) Comment on above: Performed By: #### CBC, ADIF F, ANEU, GFR, CMP #### [address] [address] Platelet mean volume (Bld) 8.1 fL Normal 6.4-10.5 [facility] ([place]) [Entitic vol] Comment on above: Performed By: #### CBC, ADIF F, ANEU, GFR, CMP #### [place] [id number] Platelets (Bld) [#/Vol] 315 10 3/mcL Normal 150-450 [facility] ([place]) Comment on above: Performed By: #### CBC, ADIF F, ANEU, GFR, CMP #### [place] [id number] RBC (Bld) [#/Vol] 4.50 10 6/mcL Normal 4.50-6.00 [facility] ([place]) Comment on above: Performed By: #### CBC, ADIF F, ANEU, GFR, CMP #### [place] [id number] WBC (Bld) [#/Vol] 4.70 10 3/mcL Normal 4.50-10.80 [facility] ([place]) Comment on above: Performed By: #### CBC, ADIF F, ANEU, GFR, CMP #### [place] [id number] Erythrocyte distribution width 13.4 % Normal 11.5-15.5 [facility] (RBC) [Ratio] ([place]) Comment on above: Performed By: #### CBC, ADIF F, ANEU, GFR, CMP #### [place] [id number] Hematocrit (Bld) [Volume 44.0 % Normal 40.0-52.0 [facility] ([place]) fraction] Comment on above: Performed By: #### CBC, ADIF F, ANEU, GFR, CMP #### [place] [id number] Hemoglobin (Bld) [Mass/Vol] 14.8 G/dL Normal 13.0-17.5 [facility] ([place]) Comment on above: Performed By: #### CBC, ADIF F, ANEU, GFR, CMP #### [place] [id number] MCH (RBC) [Entitic mass] 28.1 pg Normal 27.0-33.0 [facility] ([place]) Comment on above: Performed By: #### CBC, ADIF F, ANEU, GFR, CMP #### [place] [id number] MCHC (RBC) [Mass/Vol] 33.7 G/dL Normal 32.0-36.0 [facility] ([place]) Comment on above: Performed By: #### CBC, ADIF F, ANEU, GFR, CMP #### [place] [id number] MCV (RBC) [Entitic vol] 83.5 fL Normal 81.0-100.0 [facility] ([place]) Comment on above: Performed By: #### CBC, ADIF F, ANEU, GFR, CMP #### [place] [address] Platelet mean volume (Bld) 8.3 fL Normal 6.4-10.5 [facility] ([place]) [Entitic vol] Comment on above: Performed By: #### CBC, ADIF F, ANEU, GFR, CMP #### [place] [id number] Platelets (Bld) [#/Vol] 236 10 3/mcL Normal 150-450 [facility] ([place]) Comment on above: Performed By: #### CBC, ADIF F, ANEU, GFR, CMP #### [place] [id number] RBC (Bld) [#/Vol] 5.27 10 6/mcL Normal 4.50-6.00 [facility] ([place]) Comment on above: Performed By: #### CBC, ADIF F, ANEU, GFR, CMP #### [place] [id number] WBC (Bld) [#/Vol] 12.60 10 3/mcL High 4.50-10.80 [facility] ([place]) Comment on above: Performed By: #### CBC, ADIF F, ANEU, GFR, CMP #### [place] [id number] Erythrocyte distribution width 14.6 % Normal 11.5-15.5 [facility] (RBC) [Ratio] ([place]) Comment on above: Performed By: #### CBC, ADIF F, ANEU, GFR, CMP #### [place] [address] Hematocrit (Bld) [Volume 36.8 % Normal 34.0-46.0 [facility] ([place]) fraction] Comment on above: Performed By: #### CBC, ADIF F, ANEU, GFR, CMP #### [place] [address] Hemoglobin (Bld) [Mass/Vol] 11.9 G/dL Low 12.0-16.0 [facility] ([place]) Comment on above: Performed By: #### CBC, ADIF F, ANEU, GFR, CMP #### [place] [id number] MCH (RBC) [Entitic mass] 29.5 pg Normal 27.0-33.0 [facility] ([place]) Comment on above: Performed By: #### CBC, ADIF F, ANEU, GFR, CMP #### [place] [id number] MCHC (RBC) [Mass/Vol] 32.2 G/dL Normal 32.0-36.0 [facility] ([place]) Comment on above: Performed By: #### CBC, ADIF F, ANEU, GFR, CMP #### [address] [address] MCV (RBC) [Entitic vol] 91.4 fL Normal 80.0-99.0 [facility] ([place]) Comment on above: Performed By: #### CBC, ADIF F, ANEU, GFR, CMP #### [place] [id number] Platelet mean volume (Bld) 8.0 fL Normal 6.6-10.5 [facility] ([place]) [Entitic vol] Comment on above: Performed By: #### CBC, ADIF F, ANEU, GFR, CMP #### [place] [id number] Platelets (Bld) [#/Vol] 249 10 3/mcL Normal 150-450 [facility] ([place]) Comment on above: Performed By: #### CBC, ADIF F, ANEU, GFR, CMP #### [place] [id number] RBC (Bld) [#/Vol] 4.02 10 6/mcL Low 4.10-5.30 [facility] ([place]) Comment on above: Performed By: #### CBC, ADIF F, ANEU, GFR, CMP #### [place] [id number] WBC (Bld) [#/Vol] 8.60 10 3/mcL Normal 4.50-10.80 [facility] ([place]) Comment on above: Performed By: #### CBC, ADIF F, ANEU, GFR, CMP #### [place] [id number] Erythrocyte distribution width 16.9 % High 11.5-15.5 [facility] ([place]) (RBC) [Ratio] Comment on above: Performed By: #### CBC, ADIF F, ANEU, GFR, CMP #### [place] [address] Hematocrit (Bld) [Volume 38.1 % Normal 34.0-46.0 [facility] ([place]) fraction] Comment on above: Performed By: #### CBC, ADIF F, ANEU, GFR, CMP #### [place] [id number] Hemoglobin (Bld) [Mass/Vol] 12.0 G/dL Normal 12.0-16.0 [facility] ([place]) Comment on above: Performed By: #### CBC, ADIF F, ANEU, GFR, CMP #### [place] [id number] MCH (RBC) [Entitic mass] 22.7 pg Low 27.0-33.0 [facility] ([place]) Comment on above: Performed By: #### CBC, ADIF F, ANEU, GFR, CMP #### [place] [id number] MCHC (RBC) [Mass/Vol] 31.5 G/dL Low 32.0-36.0 [facility] ([place]) Comment on above: Performed By: #### CBC, ADIF F, ANEU, GFR, CMP #### [place] [id number] MCV (RBC) [Entitic vol] 72.1 fL Low 80.0-99.0 [facility] ([place]) Comment on above: Performed By: #### CBC, ADIF F, ANEU, GFR, CMP #### [place] [id number] Platelet mean volume (Bld) 7.3 fL Normal 6.6-10.5 [facility] ([place]) [Entitic vol] Comment on above: Performed By: #### CBC, ADIF F, ANEU, GFR, CMP #### [place] [id number] Platelets (Bld) [#/Vol] 398 10 3/mcL Normal 150-450 [facility] ([place]) Comment on above: Performed By: #### CBC, ADIF F, ANEU, GFR, CMP #### [place] [id number] RBC (Bld) [#/Vol] 5.28 10 6/mcL Normal 4.10-5.30 [facility] ([place]) Comment on above: Performed By: #### CBC, ADIF F, ANEU, GFR, CMP #### [place] [address] WBC (Bld) [#/Vol] 11.00 10 3/mcL High 4.50-10.80 [facility] ([place]) Comment on above: Performed By: #### CBC, ADIF F, ANEU, GFR, CMP #### [place] [address] CEA on 02-06-2019 CEA 1.9 ng/mL Normal 0.0-3.0 [facility] ([place]) Comment on above: Result Comment: CEA Referenc e Range for SMOKERS: 0.0 - 5.0 ng/mL. Performed By: #### CBC, ADIF F, ANEU, GFR, CMP #### [place] [address] CMP on 02-06-2019 Albumin/Globulin [Mass ratio] 0.9 {ratio} Normal 0.9-1.6 [facility] ([place]) Comment on above: Performed By: #### CBC, ADIF F, ANEU, GFR, CMP #### [place] [address] Globulin (S) [Mass/Vol] 4.2 G/dL High 1.5-3.8 [facility] ([place]) Comment on above: Performed By: #### CBC, ADIF F, ANEU, GFR, CMP #### [place] [address] ALP [Catalytic activity/Vol] 85 U/L Normal 38-126 [facility] ([place]) Comment on above: Performed By: #### CBC, ADIF F, ANEU, GFR, CMP #### [place] [address] ALT [Catalytic activity/Vol] 19 U/L Normal 12-55 [facility] ([place]) Comment on above: Performed By: #### CBC, ADIF F, ANEU, GFR, CMP #### [place] [address] Bili Total 0.8 mg/dL Normal 0.2-1.2 [facility] ([place]) Comment on above: Performed By: #### CBC, ADIF F, ANEU, GFR, CMP #### [address] [address] Creatinine [Mass/Vol] 0.71 mg/dL Normal 0.60-1.40 [facility] ([place]) Comment on above: Performed By: #### CBC, ADIF F, ANEU, GFR, CMP #### [address] [address] Protein [Mass/Vol] 8.0 G/dL Normal 6.0-8.5 [facility] ([place]) Comment on above: Performed By: #### CBC, ADIF F, ANEU, GFR, CMP #### [address] [address] Urea nitrogen/Creatinine [Mass 7.0 ratio Low 10.0-22.0 [facility] ratio] ([place]) Comment on above: Performed By: #### CBC, ADIF F, ANEU, GFR, CMP #### [address] [address] Albumin [Mass/Vol] 3.8 G/dL Normal 3.2-4.8 [facility] ([place]) Comment on above: Performed By: #### CBC, ADIF F, ANEU, GFR, CMP #### [address] [address] AST [Catalytic activity/Vol] 39 U/L High 8-34 [facility] ([place]) Comment on above: Performed By: #### CBC, ADIF F, ANEU, GFR, CMP #### [address] [address] Calcium [Mass/Vol] 10.2 mg/dL High 8.4-10.1 [facility] ([place]) Comment on above: Performed By: #### CBC, ADIF F, ANEU, GFR, CMP #### [address] [address] Chloride [Moles/Vol] 103 mmol/L Normal 98-110 [facility] ([place]) Comment on above: Performed By: #### CBC, ADIF F, ANEU, GFR, CMP #### [address] [address] CO2 [Moles/Vol] 25 mmol/L Normal 22-32 [facility] ([place]) Comment on above: Performed By: #### CBC, ADIF F, ANEU, GFR, CMP #### [address] [address] Electrolyte Balance 11.0 mEq/L Normal 4.0-15.0 [facility] ([place]) Comment on above: Performed By: #### CBC, ADIF F, ANEU, GFR, CMP #### [address] [address] Glucose [Mass/Vol] 98 mg/dL Normal 82-115 [facility] ([place] Comment on above: Performed By: #### CBC, ADIF F, ANEU, GFR, CMP #### [address] [address] Potassium [Moles/Vol] 4.7 mmol/L Normal 3.5-5.0 [facility] ([place]) Comment on above: Performed By: #### CBC, ADIF F, ANEU, GFR, CMP #### [address] [address] Sodium [Moles/Vol] 139 mmol/L Normal 136-145 [facility] ([place]) Comment on above: Performed By: #### CBC, ADIF F, ANEU, GFR, CMP #### [address] [address] Urea nitrogen [Mass/Vol] 5.0 mg/dL Low 8.0-22.0 [facility] ([place]) Comment on above: Performed By: #### CBC, ADIF F, ANEU, GFR, CMP #### [address] [address] Albumin [Mass/Vol] 3.8 G/dL Normal 3.2-4.8 [facility] ([place]) Comment on above: Performed By: #### CBC, ADIF F, ANEU, GFR, CMP #### [address] [address] Albumin/Globulin [Mass ratio] 0.9 {ratio} Normal 0.9-1.6 [facility] ([place]) Comment on above: Performed By: #### CBC, ADIF F, ANEU, GFR, CMP #### [address] [address] ALP [Catalytic activity/Vol] 80 U/L Normal 28-126 [facility] ([place]) Comment on above: Performed By: #### CBC, ADIF F, ANEU, GFR, CMP #### [address] [address] ALT [Catalytic activity/Vol] 17 U/L Normal 10-49 [facility] ([place]) Comment on above: Performed By: #### CBC, ADIF F, ANEU, GFR, CMP #### [address] [address] AST [Catalytic activity/Vol] 9 U/L Normal 8-34 [facility] ([place]) Comment on above: Performed By: #### CBC, ADIF F, ANEU, GFR, CMP #### [address] [address] Bili Total 0.3 mg/dL Normal 0.2-1.2 [facility] ([place]) Comment on above: Performed By: #### CBC, ADIF F, ANEU, GFR, CMP #### [address] [address] Calcium [Mass/Vol] 9.0 mg/dL Normal 8.4-10.1 [facility] ([place]) Comment on above: Performed By: #### CBC, ADIF F, ANEU, GFR, CMP #### [address] [address] Chloride [Moles/Vol] 108 mmol/L Normal 98-110 [facility] ([place]) Comment on above: Performed By: #### CBC, ADIF F, ANEU, GFR, CMP #### [place] [id number] CO2 [Moles/Vol] 24 mmol/L Normal 22-32 [facility] ([place]) Comment on above: Performed By: #### CBC, ADIF F, ANEU, GFR, CMP #### [address] [address] Creatinine [Mass/Vol] 0.66 mg/dL Normal 0.50-1.20 [facility] ([place]) Comment on above: Performed By: #### CBC, ADIF F, ANEU, GFR, CMP #### [address] [address] Electrolyte Balance 9.0 mEq/L Normal 4.0-15.0 [facility] ([place]) Comment on above: Performed By: #### CBC, ADIF F, ANEU, GFR, CMP #### [address] [address] Globulin (S) [Mass/Vol] 4.2 G/dL High 1.5-3.8 [facility] ([place]) Comment on above: Performed By: #### CBC, ADIF F, ANEU, GFR, CMP #### [place] [address] Glucose [Mass/Vol] 106 mg/dL Normal 70-110 [facility] ([place] Comment on above: Performed By: #### CBC, ADIF F, ANEU, GFR, CMP #### [address] [address] Potassium [Moles/Vol] 3.8 mmol/L Normal 3.5-5.0 [facility] ([place]) Comment on above: Performed By: #### CBC, ADIF F, ANEU, GFR, CMP #### [address] [address] Protein [Mass/Vol] 8.0 G/dL Normal 6.0-8.5 [facility] ([place]) Comment on above: Performed By: #### CBC, ADIF F, ANEU, GFR, CMP #### [address] [address] Sodium [Moles/Vol] 141 mmol/L Normal 136-145 [facility] ([place] Comment on above: Performed By: #### CBC, ADIF F, ANEU, GFR, CMP #### [place] [address] Urea nitrogen [Mass/Vol] 9.0 mg/dL Normal 8.0-22.0 [facility] ([place]) Comment on above: Performed By: #### CBC, ADIF F, ANEU, GFR, CMP #### [place] [id number] Urea nitrogen/Creatinine [Mass 13.6 ratio Normal 10.0-22.0 [facility]] [facility] ([place]) Comment on above: Performed By: #### CBC, ADIF F, ANEU, GFR, CMP #### [place] [id number] ESR on 02-06-2019 ESR (Bld) [Velocity] 30 mm/h High 0-20 [facility] ([place]) Comment on above: Performed By: #### CBC, ADIF F, ANEU, GFR, CMP #### [place] [id number] GLUBF on 02-06-2019 Glucose Body Fluid Spec Type Pleural fluid Normal [facility] ([place]) Comment on above: Performed By: #### CBC, ADIF F, ANEU, GFR, CMP #### [place] [address] Glucose BF 262.0 mg/dL Normal [facility] ([place]) Comment on above: Result Comment: The referenc e interval(s) and other method performance specifications have not been established for this body fluid. The test result must be integrated into the clinical content for int erpretation. Performed By: #### CBC, ADIF F, ANEU, GFR, CMP #### [place] [id number] HCG on 02-06-2019 Date of LMP unknown Normal [facility] ([place]) Comment on above: Performed By: #### CBC, ADIF F, ANEU, GFR, CMP #### [place] [address] hCG, quantitative <1.0 Normal [facility] ([place]) Comment on above: Result Comment: Quantitative hCG reference ranges: Non adults. . . . . . . . . . .0 - 5 mIU/mL (All values referenced to 1s t IRP / 3rd IS 75/537 standards.) females based on ge stational age: 1 week. . . . . . . . . . . . . . . .5 - 50 mIU/mL 2 weeks . . . . . . . . . . . . . . .50 - 500 mIU/mL 3 weeks . . . . . . . . . . . . . . .100 - 10,000 mIU/ml 4 weeks . . . . . . . . . . . . . . .1,000 - 30,000 mIU/mL 6-8 weeks . . . . . . . . . . . . . . .12,000 - 270,000 mIU/mL 12 weeks . . . . . . . . . . . . . . .15,000 - 220,000 mIU/mL 2nd trimester . . . . . . . . . . . .2,500 - 82,000 mIU/mL 3rd trimester . . . . . . . . . . . .2,400 - 50,000 mIU/mL Performed By: #### CBC, ADIF F, ANEU, GFR, CMP #### [address] [address] HFP on 02-06-2019 Bili Indirect 0.4 mg/dL Normal 0.1-10.0 [facility] ([place]) Comment on above: Performed By: #### CBC, ADIF F, ANEU, GFR, CMP #### [address] [address] Bili Direct 0.1 mg/dL Normal 0.0-0.4 [facility] ([place]) Comment on above: Performed By: #### CBC, ADIF F, ANEU, GFR, CMP #### [address] [address] Albumin/Globulin [Mass ratio] 1.2 {ratio} Normal 0.9-1.6 [facility] ([place]) Comment on above: Performed By: #### CBC, ADIF F, ANEU, GFR, CMP #### [address] [address] ALP [Catalytic activity/Vol] 48 U/L Normal 38-126 [facility] ([place]) Comment on above: Performed By: #### CBC, ADIF F, ANEU, GFR, CMP #### [address] [address] ALT [Catalytic activity/Vol] 46 U/L Normal 10-49 [facility] ([place]) Comment on above: Performed By: #### CBC, ADIF F, ANEU, GFR, CMP #### [place] [address] Bili Total 0.5 mg/dL Normal 0.2-1.2 [facility] ([place]) Comment on above: Performed By: #### CBC, ADIF F, ANEU, GFR, CMP #### [place] [id number] Globulin (S) [Mass/Vol] 3.4 G/dL Normal 1.5-3.8 [facility] ([place]) Comment on above: Performed By: #### CBC, ADIF F, ANEU, GFR, CMP #### [place] [address] Protein [Mass/Vol] 7.6 G/dL Normal 6.0-8.5 [facility] ([place] Comment on above: Performed By: #### CBC, ADIF F, ANEU, GFR, CMP #### [address] [address] Albumin [Mass/Vol] 4.2 G/dL Normal 3.2-4.8 [facility] ([place]) Comment on above: Performed By: #### CBC, ADIF F, ANEU, GFR, CMP #### [place] [id number] AST [Catalytic activity/Vol] 105 U/L High 8-34 [facility] ([place]) Comment on above: Performed By: #### CBC, ADIF F, ANEU, GFR, CMP #### [address] [address] IMMUN on 02-06-2019 IgA [Mass/Vol] 586 mg/dL High 82-453 [facility] ([place]) Comment on above: Performed By: #### CBC, ADIF F, ANEU, GFR, CMP #### [place] [address] IgG [Mass/Vol] 1700 mg/dL High 751-1560 [facility] ([place]) Comment on above: Performed By: #### CBC, ADIF F, ANEU, GFR, CMP #### [place] [address] IgM [Mass/Vol] 36 mg/dL Low 46-304 [facility] ([place] Comment on above: Performed By: #### CBC, ADIF F, ANEU, GFR, CMP #### [place] [address] LDBF on 02-06-2019 LDH Body Fluid Spec Type Pleural fluid Normal [facility] ([place]) Comment on above: Performed By: #### CBC, ADIF F, ANEU, GFR, CMP #### [place] [place] [address] LDH BF 287.0 U/L Normal [facility] ([place]) Comment on above: Result Comment: The referenc e interval(s) and other method performance specifications have not been established for this body fluid. The test result must be integrated into the clinical content for int erpretation. Performed By: #### CBC, ADIF F, ANEU, GFR, CMP #### [place] [address] LDH on 02-06-2019 LDH 634 U/L High 120-246 [facility] ([place]) Comment on above: Performed By: #### CBC, ADIF F, ANEU, GFR, CMP #### [place] [address] LIPID on 02-06-2019 Cholesterol [Mass/Vol] 140 mg/dL Normal 50-199 [facility] ([place]) Comment on above: Result Comment: Cholesterol Reference Interval: Less than 200 Desirable 200-239 Borderline high risk 240 and above High risk Performed By: #### CBC, ADIF F, ANEU, GFR, CMP #### [address] [address] Cholesterol in HDL [Mass/Vol] 40 mg/dL Normal 40-59 [facility] ([place]) Comment on above: Result Comment: HDL Referenc e Interval: Less than 40 Low - high risk 60 or above Optimal/lowers r isk Performed By: #### CBC, ADIF F, ANEU, GFR, CMP #### [address] [address] Cholesterol in LDL [Mass/Vol] 81 mg/dL Normal 0-129 [facility] ([place]) Comment on above: Result Comment: LDL is a azeb culated result and requires a 12- hr fast. LDL Reference Interval: Less than 100 Optimal 100-129 Near or above optima l 130-159 Borderline high risk 160-189 High risk 190 and above Very high risk Performed By: #### CBC, ADIF F, ANEU, GFR, CMP #### [address] [address] Triglyceride [Mass/Vol] 96 mg/dL Normal 3-149 [facility] ([place]) Comment on above: Result Comment: Triglyceride Reference Interval: Less than 150 Normal 150-199 Borderline high risk 200-499 High risk 500 or higher Very high risk Performed By: #### CBC, ADIF F, ANEU, GFR, CMP #### [address] [address] ELI on 02-06-2019 ELI . Normal [facility] ([place]) MICRO - Microbiology PROCEDURE: Legionella Urine Ag [*1] [id number] SOURCE: Urine BODY SITE: COLLECTED DATE/TIME: 02/06/20 19 18:59 EDT RECEIVED DATE/TIME: 02/05/2019 21:30 EDT START DATE/TIME: 02/05/2019 21:30 EDT FREE TEXT SOURCE: FINAL REPORTS Final Report [] Verified Date/Time/Personnel: 02/05/2019 22:03 EDT Presumptive negative for L. pneumophila serogroup 1 antigen in urine, suggesting no recent or current infection. Legionnaire's disease cannot be ruled out since other serogroups and species may also cause disease. Performing Locations *1: This test was performed at: [address], [address] Comment on above: Performed By: #### CBC, ADIF F, ANEU, GFR, CMP #### [address] [address] PHV on 02-06-2019 pH Venous 7.603 High 7.380-7.460 [facility] ([place]) Comment on above: Result Comment: AO Sat Performed By: #### CBC, ADIF F, ANEU, GFR, CMP #### [address] [address] PROBF on 02-06-2019 Protein [Mass/Vol] Pleural fluid Normal [facility] ([place]) Comment on above: Performed By: #### CBC, ADIF F, ANEU, GFR, CMP #### [place] [address] Protein [Mass/Vol] 4.7 G/dL [facility] ([place]) Comment on above: Result Comment: The referenc e interval(s) and other method performance specifications have not been established for this body fluid. The test result must be integrated into the clinical content for int erpretation. Performed By: #### CBC, ADIF F, ANEU, GFR, CMP #### [place] [id number] SPAG on 02-06-2019 SPAG . Normal [facility] ([place]) MICRO - Microbiology PROCEDURE: Streptococcus Pneumoniae [id number] Urine Antig [^1 *1] SOURCE: Urine, Clean Catch BODY SITE: COLLECTED DATE/TIME: 02/06/20 19 18:59 EDT RECEIVED DATE/TIME: 02/05/2019 21:30 EDT START DATE/TIME: 02/05/2019 21:30 EDT FREE TEXT SOURCE: FINAL REPORTS Final Report [] Verified Date/Time/Personnel: 02/05/2019 22:03 EDT Presumptive negative for pneumococcal pneumonia, suggesting no current or recent pneumococcal infection . Infection due to Strep pneumoniae cannot be ruled out since the antigen present in the sample may be below t he detection limit of the test. Interpretive Data ^1: Streptococcus Pneumoniae Urine Antig This test has not been evalu ated on patients taking antibiotics for greater than 24 hours or on patients who have rece ntly completed an antibiotic regimen. The accuracy of this test has not been proven in young children. Performing Locations *1: This test was performed at: [facility], [address] [place] [address], [facility] Comment on above: Performed By: #### CBC, ADIF F, ANEU, GFR, CMP #### [address] [address] SPE on 02-06-2019 Protein [Mass/Vol] 8.0 G/dL Normal 6.0-8.5 [facility] ([place]) Comment on above: Performed By: #### CBC, ADIF F, ANEU, GFR, CMP #### [address] [address] TRIG on 02-06-2019 Triglyceride [Mass/Vol] 58 mg/dL Normal 3-149 [facility] ([place]) Comment on above: Result Comment: Triglyceride Reference Interval: Less than 150 Normal 150-199 Borderline high risk 200-499 High risk 500 or higher Very high risk Performed By: #### CBC, ADIF F, ANEU, GFR, CMP #### [address] [address] TROPI on 02-06-2019 Troponin I.cardiac [Mass/Vol] ng/mL Normal 0.000-0.040 [facility] ([place]) Comment on above: Result Comment: Troponin I r eference ranges (01/21/14): 0.00-0.040 ng/mL Negative an d non-diagnostic. >0.040 ng/mL Consistent with cardiac damage, increased clinical risk and possibility of myocardial in farction. Serial measurements, a rise & fall in test results, clinical histo ry, appropriate symptoms and/or ECG changes may help assess possibility of LA. *Other non-acute coronary sy ndrome conditions such as CHF, myoc arditis, pulmonary emboli, sepsis and cardiac surgery could result in myoc ardial damage and increased troponi n levels. Performed By: #### CBC, ADIF F, ANEU, GFR, CMP #### [address] [address] UA on 02-06-2019 Color (U) Dark Yellow Normal [facility] ([place]) Comment on above: Performed By: #### CBC, ADIF F, ANEU, GFR, CMP #### [address] [address] Glucose (U) [Mass/Vol] Negative Normal Negative [facility] ([place]) Comment on above: Performed By: #### CBC, ADIF F, ANEU, GFR, CMP #### [address] [address] Ketones Ql (U) Trace Normal Neg-Trace [facility] ([place]) Comment on above: Performed By: #### CBC, ADIF F, ANEU, GFR, CMP #### [place] [address] UA Appear Turbid Clear [facility] ([place]) Comment on above: Performed By: #### CBC, ADIF F, ANEU, GFR, CMP #### [address] [address] UA Blood Negative Normal Neg-Trace [facility] ([place]) Comment on above: Performed By: #### CBC, ADIF F, ANEU, GFR, CMP #### [address] [address] UA Leuk Est Small Negative [facility] ([place]) Comment on above: Performed By: #### CBC, ADIF F, ANEU, GFR, CMP #### [address] [address] UA Nitrite Negative Normal Negative [facility] ([place]) Comment on above: Performed By: #### CBC, ADIF F, ANEU, GFR, CMP #### [address] [address] UA pH 5.0 Normal 5.0 - 8.0 [facility] ([place]) Comment on above: Performed By: #### CBC, ADIF F, ANEU, GFR, CMP #### [address] [address] UA Protein 300 mg/dL Negative [facility] ([place]) Comment on above: Performed By: #### CBC, ADIF F, ANEU, GFR, CMP #### [place] [address] UA Spec Grav 1.020 Normal 1.006-1.029 [facility] ([place]) Comment on above: Performed By: #### CBC, ADIF F, ANEU, GFR, CMP #### [place] [address] UA Specimen Type Clean Catch Normal [facility] ([place]) Comment on above: Performed By: #### CBC, ADIF F, ANEU, GFR, CMP #### [place] [address] UA Urobilinogen 0.2 E.U./dL Normal 0.2-1.0 [facility] ([place]) Comment on above: Performed By: #### CBC, ADIF F, ANEU, GFR, CMP #### [place] [address] Urobilinogen Qn (U) Negative Normal Neg-Trace [facility] ([place]) Comment on above: Performed By: #### CBC, ADIF F, ANEU, GFR, CMP #### [address] [address] UAMIC on 02-06-2019 RBC (U) [#/Vol] Negative Normal 0-2 [facility] ([place]) Comment on above: Performed By: #### CBC, ADIF F, ANEU, GFR, CMP #### [place] [address] UA Bacteria 2+ /hpf Negative [facility] ([place]) Comment on above: Performed By: #### CBC, ADIF F, ANEU, GFR, CMP #### [place] [address] UA Coarse Granular Casts 0-2 [facility] ([place]) Comment on above: Performed By: #### CBC, ADIF F, ANEU, GFR, CMP #### [place] [address] UA Hyal Cast Rare Normal [facility] ([place]) Comment on above: Performed By: #### CBC, ADIF F, ANEU, GFR, CMP #### [place] [address] UA Squam Epithelial 5-10 Normal 0-20 [facility] ([place]) Comment on above: Performed By: #### CBC, ADIF F, ANEU, GFR, CMP #### [facility] [address] [place] [address] UA WBC 0-2 Normal 0-5 [facility] ([place]) Comment on above: Performed By: #### CBC, ADIF F, ANEU, GFR, CMP #### [place] [id number] [place] [address] US DRAINAGE LUNG LEFT on 02-06-2019 US DRAINAGE LUNG LEFT ORIGINAL Normal [facility] ULTRASOUND GUIDED THORACENTESIS [facility] ([place]) CLINICAL STATEMENT: left effusion LATERALITY: LEFT FLUID REMOVED: 225 cc FLUID COLOR: Hoda, serous DISPOSITION OF FLUID: Sent to the lab CATHETER/NEEDLE: 5 Fr centesis catheter needle The procedure, risks, limita tions, and alternatives were discussed. All questions were answered. Written informed consent obtained. Accompanying paperwork was v erified for accuracy. Directed history and physical exam performed prior to the procedure. Medication reconciliation was performed by nursing personnel. Procedure was performed usin g a cap, sterile gloves, a large sterile sheet, hand hygiene and hospital-approved cutaneous antisepsis. Ultrasound survey demonstrates a pleural effusion. 2% lidocaine was administered at the puncture site for local anesthesia. The centesis catheter needle was advanced into the effusion. After removal of the needle, the catheter was attached to vacuum bottles and removed once no additional fluid could be removed. COMPLICATIONS: None EBL: None PATIENT CONDITION: Stable, unchanged. IMPRESSION: 1. Successful ultrasound guided thoracentesis. Procedure was performed by Stephanie Berman PA-C I agree with the contents of this report. Interpreted By: Diomedes Smith MD Preliminary Report By: Stephanie Berman PA-C Electronically Signed By: Diomedes Smith MD Dictated Date: 02/06/2019 3:37:01 PM Prelim Date: 02/06/2019 3:38:34 PM Sign Date: 02/06/2019 4:08:53 PM VBG on 02-06-2019 BE Venous 18.8 mmol/L High -3.0-3.0 [facility] ([place]) Comment on above: Performed By: #### CBC, ADIF F, ANEU, GFR, CMP #### [address] [address] CO2 [Moles/Vol] 99.3 % High 70.0-75.0 [facility] ([place]) Comment on above: Performed By: #### CBC, ADIF F, ANEU, GFR, CMP #### [address] [address] HCO3 Raudel 47.1 mmol/L High 21.0-30.0 [facility] ([place]) Comment on above: Performed By: #### CBC, ADIF F, ANEU, GFR, CMP #### [address] [address] pCO2 Raudel 73.6 mmHg High 41.0-51.0 [facility] ([place]) Comment on above: Performed By: #### CBC, ADIF F, ANEU, GFR, CMP #### [address] [address] pH Venous 7.424 Normal 7.380-7.460 [facility] ([place]) Comment on above: Performed By: #### CBC, ADIF F, ANEU, GFR, CMP #### [address] [address] pO2 Raudel 175.3 mmHg High 35.0-40.0 [facility] ([place]) Comment on above: Performed By: #### CBC, ADIF F, ANEU, GFR, CMP #### [address] [address] XR CHEST 1 VIEW on 02-06-2019 XR CHEST 1 VIEW ORIGINAL Normal [facility] XR CHEST 1 VIEW [facility] ( [place]) CLINICAL STATEMENT: Post left thoracentesis COMPARISON: 02/05/2019 FINDINGS:Cardiac and mediast inal contours are grossly stable. There is continued pleural and parenchymal changes on the LEFT without obvious pneumothorax following thoracentesis. Remote rib fractures ar e present. Bilateral humeral prostheses are noted. IMPRESSION:Persistent pleura l and parenchymal changes with no post thoracentesis pneumothorax Interpreted By: Emani Tapia MD Preliminary Report By: Emani Tapia MD Electronically Signed By: Emani Tapia MD Dictated Date: 02/06/2019 3:48:34 PM Prelim Date: 02/06/2019 3:48:34 PM Sign Date: 02/06/2019 3:49:05 PM .Auto Diff on 02-05-2019 Ammonia (P) [Mass/Vol] 0.30 10 3/mcL Normal 0.09-1.40 [facility] ([place]) Comment on above: Performed By: #### CBC, ADIF F, ANEU, GFR, BMP, MG #### [address] [address] Basophils (Bld) [#/Vol] 0.10 10 3/mcL Normal 0.00-0.27 [facility] ([place]) Comment on above: Performed By: #### CBC, ADIF F, ANEU, GFR, BMP, MG #### [address] [address] Basophils/100 WBC (Bld) 0.6 % Normal 0.0-2.5 [facility] ([place]) Comment on above: Performed By: #### CBC, ADIF F, ANEU, GFR, BMP, MG #### [address] [address] Eosinophils (Bld) [#/Vol] 0.00 10 3/mcL Normal 0.00-0.65 [facility] ([place]) Comment on above: Performed By: #### CBC, ADIF F, ANEU, GFR, BMP, MG #### [address] [address] Eosinophils/100 WBC (Bld) 0.5 % Normal 0.0-6.0 [facility] ([place]) Comment on above: Performed By: #### CBC, ADIF F, ANEU, GFR, BMP, MG #### [address] [address] Lymphocytes (Bld) [#/Vol] 0.70 10 3/mcL Low 0.90-4.32 [facility] ([place]) Comment on above: Performed By: #### CBC, ADIF F, ANEU, GFR, BMP, MG #### [address] [address] Lymphocytes/100 WBC (Bld) 6.4 % Low 20.0-40.0 [facility] ([place]) Comment on above: Performed By: #### CBC, ADIF F, ANEU, GFR, BMP, MG #### [address] [address] Monocytes/100 WBC (Bld) 2.6 % Normal 2.0-13.0 [facility] ([place]) Comment on above: Performed By: #### CBC, ADIF F, ANEU, GFR, BMP, MG #### [address] [address] Neutrophils/100 WBC (Bld) 89.9 % High 50.0-75.0 [facility] ([place]) Comment on above: Performed By: #### CBC, ADIF F, ANEU, GFR, BMP, MG #### [address] [address] Ammonia (P) [Mass/Vol] 1.00 10 3/mcL Normal 0.09-1.40 [facility] ([place]) Comment on above: Performed By: #### CBC, ADIF F, ANEU, GFR, BMP, MG #### [address] [address] Basophils (Bld) [#/Vol] 0.10 10 3/mcL Normal 0.00-0.27 [facility] ([place]) Comment on above: Performed By: #### CBC, ADIF F, ANEU, GFR, BMP, MG #### [address] [address] Basophils/100 WBC (Bld) 0.5 % Normal 0.0-2.5 [facility] ([place]) Comment on above: Performed By: #### CBC, ADIF F, ANEU, GFR, BMP, MG #### [address] [address] Eosinophils (Bld) [#/Vol] 0.10 10 3/mcL Normal 0.00-0.65 [facility] ([place]) Comment on above: Performed By: #### CBC, ADIF F, ANEU, GFR, BMP, MG #### [address] [address] Eosinophils/100 WBC (Bld) 1.2 % Normal 0.0-6.0 [facility] ([place]) Comment on above: Performed By: #### CBC, ADIF F, ANEU, GFR, BMP, MG #### [address] [address] Lymphocytes (Bld) [#/Vol] 1.40 10 3/mcL Normal 0.90-4.32 [facility] ([place]) Comment on above: Performed By: #### CBC, ADIF F, ANEU, GFR, BMP, MG #### [address] [address] Lymphocytes/100 WBC (Bld) 11.7 % Low 20.0-40.0 [facility] ([place]) Comment on above: Performed By: #### CBC, ADIF F, ANEU, GFR, BMP, MG #### [address] [address] Monocytes/100 WBC (Bld) 8.5 % Normal 2.0-13.0 [facility] ([place]) Comment on above: Performed By: #### CBC, ADIF F, ANEU, GFR, BMP, MG #### [address] [address] Neutrophils/100 WBC (Bld) 78.1 % High 50.0-75.0 [facility] ([place]) Comment on above: Performed By: #### CBC, ADIF F, ANEU, GFR, BMP, MG #### [address] [address] .GFR on 02-05-2019 GFR Non- >60 Normal [facility] ([place]) Comment on above: Result Comment: GFR Population mean for Afri can [place]er, Non- Americans Ages 20-29 = 116 mL/min/1.73 sq.m. Ages 30-39 = 107 mL/min/1.73 sq.m. Ages 40-49 = 99 mL/min/1.73 sq.m. Ages 50-59 = 93 mL/min/1.73 sq.m. Ages 60-69 = 85 mL/min/1.73 sq.m. Ages 70+ = 75 mL/min/1.73 sq .m. Chronic Kidney Disease: Less than 60 mL/min/1.73 square meters End Stage Renal Disease: Les s than 15 mL/min/1.73 square meters Performed By: #### CBC, ADIF F, ANEU, GFR, CMP #### [address] [address] GFR >60 Normal [facility] ([place]) Comment on above: Result Comment: GFR Population mean for Afri can [place], Non- Americans Ages 20-29 = 116 mL/min/1.73 sq.m. Ages 30-39 = 107 mL/min/1.73 sq.m. Ages 40-49 = 99 mL/min/1.73 sq.m. Ages 50-59 = 93 mL/min/1.73 sq.m. Ages 60-69 = 85 mL/min/1.73 sq.m. Ages 70+ = 75 mL/min/1.73 sq .m. Chronic Kidney Disease: Less than 60 mL/min/1.73 square meters End Stage Renal Disease: Les s than 15 mL/min/1.73 square meters Performed By: #### CBC, ADIF F, ANEU, GFR, CMP #### [address] [address] GFR Non- >60 Normal [facility] ([place]) Comment on above: Result Comment: GFR Population mean for Afri can [place], Non- Americans Ages 20-29 = 116 mL/min/1.73 sq.m. Ages 30-39 = 107 mL/min/1.73 sq.m. Ages 40-49 = 99 mL/min/1.73 sq.m. Ages 50-59 = 93 mL/min/1.73 sq.m. Ages 60-69 = 85 mL/min/1.73 sq.m. Ages 70+ = 75 mL/min/1.73 sq .m. Chronic Kidney Disease: Less than 60 mL/min/1.73 square meters End Stage Renal Disease: Les s than 15 mL/min/1.73 square meters Performed By: #### CBC, ADIF F, ANEU, GFR, BMP, MG #### [address] [address] GFR >60 Normal [facility] ([place]) Comment on above: Result Comment: GFR Population mean for Afri can [place], Non- Americans Ages 20-29 = 116 mL/min/1.73 sq.m. Ages 30-39 = 107 mL/min/1.73 sq.m. Ages 40-49 = 99 mL/min/1.73 sq.m. Ages 50-59 = 93 mL/min/1.73 sq.m. Ages 60-69 = 85 mL/min/1.73 sq.m. Ages 70+ = 75 mL/min/1.73 sq .m. Chronic Kidney Disease: Less than 60 mL/min/1.73 square meters End Stage Renal Disease: Les s than 15 mL/min/1.73 square meters Performed By: #### CBC, ADIF F, ANEU, GFR, BMP, MG #### [place] [address] .Morph on 02-05-2019 Platelets (Bld) [#/Vol] Normal Normal [facility] ([place]) Comment on above: Performed By: #### CBC, ADIF F, ANEU, GFR, BMP, MG #### [place] [address] Polychrom Slight Normal [facility] ([place]) Comment on above: Performed By: #### CBC, ADIF F, ANEU, GFR, BMP, MG #### [place] [address] .NEUABS on 02-05-2019 Neutrophils (Bld) [#/Vol] 9.20 10 3/mcL High 2.25-8.10 [facility] ([place]) Comment on above: Performed By: #### CBC, ADIF F, ANEU, GFR, CMP #### [place] [address] Neutrophils (Bld) [#/Vol] 9.10 10 3/mcL High 2.25-8.10 [facility] ([place]) Comment on above: Performed By: #### CBC, ADIF F, ANEU, GFR, BMP, MG #### [place] [address] A1C on 02-05-2019 HbA1c (Bld) [Mass fraction] 7.6 % High 4.0-6.0 [facility] ([place]) Comment on above: Performed By: #### CBC, ADIF F, ANEU, GFR, BMP, MG #### [address] [address] BG on 02-05-2019 Barometric Pressure 733 mmHg Normal [facility] ([place]) Comment on above: Performed By: #### CBC, ADIF F, ANEU, GFR, BMP, MG #### [place] [address] Base excess Calc (Bld) 16.9 mmol/L Normal [facility] ([place]) [Moles/Vol] Comment on above: Performed By: #### CBC, ADIF F, ANEU, GFR, BMP, MG #### [place] [id number] CO2 [Moles/Vol] 47.8 mmol/L Critically abnormal 22.0-30.0 [facility] ([place]) Comment on above: Performed By: #### CBC, ADIF F, ANEU, GFR, BMP, MG #### [place] [id number] HCO3 (Bld) [Moles/Vol] 45.4 mmol/L High 21.0-29.0 [facility] ([place]) Comment on above: Performed By: #### CBC, ADIF F, ANEU, GFR, BMP, MG #### [place] [id number] Oxygen (Bld) [Partial 87.2 mm[Hg] Normal 74.0-108.0 [facility] pressure] ([place]) Comment on above: Performed By: #### CBC, ADIF F, ANEU, GFR, BMP, MG #### [place] [id number] Oxygen saturation in Blood 95.9 % Normal 92.0-96.0 [facility] ([place]) Comment on above: Performed By: #### CBC, ADIF F, ANEU, GFR, BMP, MG #### [place] [id number] pCO2 77.1 mmHg High 32.0-46.0 [facility] ([place]) Comment on above: Performed By: #### CBC, ADIF F, ANEU, GFR, BMP, MG #### [address] [address] pH (Bld) 7.388 [pH] Normal 7.380-7.460 [facility] ([place]) Comment on above: Performed By: #### CBC, ADIF F, ANEU, GFR, BMP, MG #### [address] [address] BMP on 02-05-2019 Creatinine [Mass/Vol] 0.48 mg/dL Low 0.50-1.20 [facility] ([place]) Comment on above: Performed By: #### CBC, ADIF F, ANEU, GFR, CMP #### [address] [address] Urea nitrogen/Creatinine [Mass 39.6 ratio High 10.0-22.0 [facility] ratio] ([place]) Comment on above: Performed By: #### CBC, ADIF F, ANEU, GFR, CMP #### [address] [address] Calcium [Mass/Vol] 9.0 mg/dL Normal 8.4-10.1 [facility] ([place]) Comment on above: Performed By: #### CBC, ADIF F, ANEU, GFR, CMP #### [address] [address] Chloride [Moles/Vol] 98 mmol/L Normal 98-110 [facility] ([place]) Comment on above: Performed By: #### CBC, ADIF F, ANEU, GFR, CMP #### [address] [address] CO2 [Moles/Vol] 40 mmol/L High 22-32 [facility] ([place]) Comment on above: Performed By: #### CBC, ADIF F, ANEU, GFR, CMP #### [place] [id number] Electrolyte Balance 5.0 mEq/L Normal 4.0-15.0 [facility] ([place]) Comment on above: Performed By: #### CBC, ADIF F, ANEU, GFR, CMP #### [place] [id number] Glucose [Mass/Vol] 241 mg/dL High 82-115 [facility] ([place]) Comment on above: Performed By: #### CBC, ADIF F, ANEU, GFR, CMP #### [place] [id number] Potassium [Moles/Vol] 4.6 mmol/L Normal 3.5-5.0 [facility] ([place]) Comment on above: Performed By: #### CBC, ADIF F, ANEU, GFR, CMP #### [place] [id number] Sodium [Moles/Vol] 143 mmol/L Normal 136-145 [facility] ([place]) Comment on above: Performed By: #### CBC, ADIF F, ANEU, GFR, CMP #### [place] [address] Urea nitrogen [Mass/Vol] 19.0 mg/dL Normal 8.0-22.0 [facility] ([place]) Comment on above: Performed By: #### CBC, ADIF F, ANEU, GFR, CMP #### [address] [address] CBC on 02-05-2019 Erythrocyte distribution width 14.9 % Normal 11.5-15.5 [facility] (RBC) [Ratio] ([place]) Comment on above: Performed By: #### CBC, ADIF F, ANEU, GFR, BMP, MG #### [place] [id number] Hematocrit (Bld) [Volume 37.0 % Normal 34.0-46.0 [facility] ([place]) fraction] Comment on above: Performed By: #### CBC, ADIF F, ANEU, GFR, BMP, MG #### [place] [address] Hemoglobin (Bld) [Mass/Vol] 11.7 G/dL Low 12.0-16.0 [facility] ([place]) Comment on above: Performed By: #### CBC, ADIF F, ANEU, GFR, BMP, MG #### [address] [address] MCH (RBC) [Entitic mass] 29.5 pg Normal 27.0-33.0 [facility] ([place]) Comment on above: Performed By: #### CBC, ADIF F, ANEU, GFR, BMP, MG #### [address] [address] MCHC (RBC) [Mass/Vol] 31.5 G/dL Low 32.0-36.0 [facility] ([place]) Comment on above: Performed By: #### CBC, ADIF F, ANEU, GFR, BMP, MG #### [place] [id number] MCV (RBC) [Entitic vol] 93.7 fL Normal 80.0-99.0 [facility] ([place]) Comment on above: Performed By: #### CBC, ADIF F, ANEU, GFR, BMP, MG #### [place] [id number] Platelet mean volume (Bld) 8.3 fL Normal 6.6-10.5 [facility] ([place]) [Entitic vol] Comment on above: Performed By: #### CBC, ADIF F, ANEU, GFR, BMP, MG #### [place] [id number] Platelets (Bld) [#/Vol] 272 10 3/mcL Normal 150-450 [facility] ([place]) Comment on above: Performed By: #### CBC, ADIF F, ANEU, GFR, BMP, MG #### [place] [id number] RBC (Bld) [#/Vol] 3.95 10 6/mcL Low 4.10-5.30 [facility] ([place] Comment on above: Performed By: #### CBC, ADIF F, ANEU, GFR, BMP, MG #### [place] [id number] WBC (Bld) [#/Vol] 10.30 10 3/mcL Normal 4.50-10.80 [facility] ([place]) Comment on above: Performed By: #### CBC, ADIF F, ANEU, GFR, BMP, MG #### [address] [address] Platelet mean volume (Bld) 8.4 fL Normal 6.6-10.5 [facility] ([place]) [Entitic vol] Comment on above: Performed By: #### CBC, ADIF F, ANEU, GFR, BMP, MG #### [place] [id number] Platelets (Bld) [#/Vol] 283 10 3/mcL Normal 150-450 [facility] ([place]) Comment on above: Performed By: #### CBC, ADIF F, ANEU, GFR, BMP, MG #### [place] [address] Erythrocyte distribution width 14.6 % Normal 11.5-15.5 [facility] (RBC) [Ratio] ([place]) Comment on above: Performed By: #### CBC, ADIF F, ANEU, GFR, BMP, MG #### [place] [id number] Hematocrit (Bld) [Volume 35.8 % Normal 34.0-46.0 [facility] ([place]) fraction] Comment on above: Performed By: #### CBC, ADIF F, ANEU, GFR, BMP, MG #### [place] [id number] Hemoglobin (Bld) [Mass/Vol] 11.4 G/dL Low 12.0-16.0 [facility] ([place]) Comment on above: Performed By: #### CBC, ADIF F, ANEU, GFR, BMP, MG #### [place] [id number] MCH (RBC) [Entitic mass] 29.6 pg Normal 27.0-33.0 [facility] ([place]) Comment on above: Performed By: #### CBC, ADIF F, ANEU, GFR, BMP, MG #### [address] [address] MCHC (RBC) [Mass/Vol] 31.8 G/dL Low 32.0-36.0 [facility] ([place]) Comment on above: Performed By: #### CBC, ADIF F, ANEU, GFR, BMP, MG #### [place] [address] MCV (RBC) [Entitic vol] 93.1 fL Normal 80.0-99.0 [facility] ([place]) Comment on above: Performed By: #### CBC, ADIF F, ANEU, GFR, BMP, MG #### [place] [address] RBC (Bld) [#/Vol] 3.85 10 6/mcL Low 4.10-5.30 [facility] ([place]) Comment on above: Performed By: #### CBC, ADIF F, ANEU, GFR, BMP, MG #### [place] [id number] WBC (Bld) [#/Vol] 11.70 10 3/mcL High 4.50-10.80 [facility] ([place]) Comment on above: Performed By: #### CBC, ADIF F, ANEU, GFR, BMP, MG #### [place] [address] CMP on 02-05-2019 Albumin/Globulin [Mass ratio] 0.5 {ratio} Low 0.9-1.6 [facility] ([place]) Comment on above: Performed By: #### CBC, ADIF F, ANEU, GFR, BMP, MG #### [place] [id number] ALP [Catalytic activity/Vol] 91 U/L Normal 38-126 [facility] ([place]) Comment on above: Performed By: #### CBC, ADIF F, ANEU, GFR, BMP, MG #### [place] [id number] Globulin (S) [Mass/Vol] 4.4 G/dL High 1.5-3.8 [facility] ([place]) Comment on above: Performed By: #### CBC, ADIF F, ANEU, GFR, BMP, MG #### [address] [address] Protein [Mass/Vol] 6.7 G/dL Normal 6.0-8.5 [facility] ([place]) Comment on above: Performed By: #### CBC, ADIF F, ANEU, GFR, BMP, MG #### [place] [id number] Albumin [Mass/Vol] 2.3 G/dL Low 3.2-4.8 [facility] ([place]) Comment on above: Performed By: #### CBC, ADIF F, ANEU, GFR, BMP, MG #### [place] [id number] ALT [Catalytic activity/Vol] 23 U/L Normal 10-49 [facility] ([place]) Comment on above: Performed By: #### CBC, ADIF F, ANEU, GFR, BMP, MG #### [place] [id number] AST [Catalytic activity/Vol] 20 U/L Normal 8-34 [facility] ([place]) Comment on above: Performed By: #### CBC, ADIF F, ANEU, GFR, BMP, MG #### [place] [id number] Bili Total 0.3 mg/dL Normal 0.2-1.2 [facility] ([place]) Comment on above: Performed By: #### CBC, ADIF F, ANEU, GFR, BMP, MG #### [place] [id number] Calcium [Mass/Vol] 8.9 mg/dL Normal 8.4-10.1 [facility] ([place]) Comment on above: Performed By: #### CBC, ADIF F, ANEU, GFR, BMP, MG #### [place] [id number] Chloride [Moles/Vol] 98 mmol/L Normal 98-110 [facility] ([place]) Comment on above: Performed By: #### CBC, ADIF F, ANEU, GFR, BMP, MG #### [address] [address] CO2 [Moles/Vol] 40 mmol/L High 22-32 [facility] ([place]) Comment on above: Performed By: #### CBC, ADIF F, ANEU, GFR, BMP, MG #### [address] [address] Creatinine [Mass/Vol] 0.50 mg/dL Normal 0.50-1.20 [facility] ([place]) Comment on above: Performed By: #### CBC, ADIF F, ANEU, GFR, BMP, MG #### [address] [address] Electrolyte Balance 6.0 mEq/L Normal 4.0-15.0 [facility] ([place]) Comment on above: Performed By: #### CBC, ADIF F, ANEU, GFR, BMP, MG #### [address] [address] Glucose [Mass/Vol] 194 mg/dL High 82-115 [facility] ([place]) Comment on above: Performed By: #### CBC, ADIF F, ANEU, GFR, BMP, MG #### [address] [address] Potassium [Moles/Vol] 4.4 mmol/L Normal 3.5-5.0 [facility] ([place]) Comment on above: Performed By: #### CBC, ADIF F, ANEU, GFR, BMP, MG #### [address] [address] Sodium [Moles/Vol] 144 mmol/L Normal 136-145 [facility] ([place]) Comment on above: Performed By: #### CBC, ADIF F, ANEU, GFR, BMP, MG #### [address] [address] Urea nitrogen [Mass/Vol] 19.0 mg/dL Normal 8.0-22.0 [facility] ([place]) Comment on above: Performed By: #### CBC, ADIF F, ANEU, GFR, BMP, MG #### [address] [address] Urea nitrogen/Creatinine [Mass 38.0 ratio High 10.0-22.0 [facility] ratio] ([place]) Comment on above: Performed By: #### CBC, ADIF F, ANEU, GFR, BMP, MG #### [facility] [address] [place] [address] LAC on 02-05-2019 Lactic Acid Lvl 0.9 mmol/L Normal 0.2-2.0 [facility] ([place]) Comment on above: Performed By: #### CBC, ADIF F, ANEU, GFR, BMP, MG #### [address] [address] MYCO on 02-05-2019 Mycoplasma IgM Negative Normal [facility] ([place]) Comment on above: Result Comment: INTERPRETATI ON OF MYCOPLASMA BY EIA (Effective 05/21/04): Negative No detectable antib odies to M. pneumoniae. Indicates absence of current or previous infection. Positive Reactive for antibo dies to M. pneumoniae. Indicates a past or recent i nfection. Equivocal Equivocal for anti bodies to M. pneumoniae. Repeat testing by an alterna te method suggested. Performed By: #### CBC, ADIF F, ANEU, GFR, BMP, MG #### [address] [address] PRO on 02-05-2019 INR Coag (PPP) [Relative time] 1.1 {INR} Normal [facility] ([place]) Comment on above: Result Comment: [employer] [place] [employer] (CHEST, 1992, [id number]) recommended therapeutic rang e for oral anticoagulant therapy is: LOW RISK: Prophylaxis of raudel ous thrombosis INR: 2.0-3.0 Treatment of pulmonary embol ism 2.0-3.0 Prevention of systemic embol ism 2.0-3.0 HIGH RISK: Mechanical prosth etic valves 2.5-3.5 Performed By: #### CBC, ADIF F, ANEU, GFR, BMP, MG #### [facility] [address] [place] [address] PT Coag (PPP) [Time] 12.9 s Normal 9.0-14.6 [facility] ([place]) Comment on above: Result Comment: Effective , Protime results may be affected by some antibiotics (i.e. Ci profloxacin, Azithromycin, Bactrim) which may potentiate the act ion of oral anticoagulants, with further increases in Protime /INR. Performed By: #### CBC, ADIF F, ANEU, GFR, BMP, MG #### [address] [address] PTH on 02-05-2019 PTH, Intact 52.4 pg/mL Normal 18.5-88.0 [facility] ([place]) Comment on above: Performed By: #### CBC, ADIF F, ANEU, GFR, CMP #### [address] [address] TROPI on 02-05-2019 Troponin I.cardiac [Mass/Vol] ng/mL Normal 0.000-0.040 [facility] ([place]) Comment on above: Result Comment: Troponin I r eference ranges (01/21/14): 0.00-0.040 ng/mL Negative an d non-diagnostic. >0.040 ng/mL Consistent with cardiac damage, increased clinical risk and possibility of myocardial in farction. Serial measurements, a rise & fall in test results, clinical histo ry, appropriate symptoms and/or ECG changes may help assess possibility of LA. *Other non-acute coronary sy ndrome conditions such as CHF, myoc arditis, pulmonary emboli, sepsis and cardiac surgery could result in myoc ardial damage and increased troponi n levels. Performed By: #### CBC, ADIF F, ANEU, GFR, CMP #### [address] [address] Troponin I.cardiac [Mass/Vol] ng/mL Normal 0.000-0.040 [facility] ([place]) Comment on above: Result Comment: Troponin I r eference ranges (01/21/14): 0.00-0.040 ng/mL Negative an d non-diagnostic. >0.040 ng/mL Consistent with cardiac damage, increased clinical risk and possibility of myocardial in farction. Serial measurements, a rise & fall in test results, clinical histo ry, appropriate symptoms and/or ECG changes may help assess possibility of LA. *Other non-acute coronary sy ndrome conditions such as CHF, myoc arditis, pulmonary emboli, sepsis and cardiac surgery could result in myoc ardial damage and increased troponi n levels. Performed By: #### CBC, ADIF F, ANEU, GFR, BMP, MG #### [facility] [address] [place] [address] XR CHEST 1 VIEW on 02-05-2019 XR CHEST 1 VIEW ORIGINAL Normal [facility] XR CHEST 1 VIEW ([place]) CLINICAL STATEMENT: Pneumonia, follow-up. COMPARISON: Chest x-ray on 02/04/2019 FINDINGS: Moderate size LEFT pleural effusion with associated LEFT basilar lung consolidation is unchanged. No acute abnormality the RIGHT lung is seen. No new abnormality has developed. IMPRESSION: Moderate size LEFT pleural e ffusion with LEFT basilar lung consolidation without change since the prior day. Interpreted By: Gary Baltazar MD Preliminary Report By: Gary Baltazar MD Electronically Signed By: Gary Baltazar MD Dictated Date: 02/05/2019 6:34:01 AM Prelim Date: 02/05/2019 6:34:01 AM Sign Date: 02/05/2019 6:35:53 AM XR CHEST 1 VIEW ORIGINAL Normal [facility] XR CHEST 1 VIEW PORTABLE AP [place] ([place]) DATE AND TIME: 02/04/2019 9:59 PM CLINICAL STATEMENT: Pneumonia, evaluate for possible t umor COMPARISON: 01/26/2019 FINDINGS: The cardiomediasti nal contours are normal. Pulmonary vasculature is not congested. Homogeneous opacification in the LEFT lower chest is unchanged with obscuration LEFT heart border and LEFT he midiaphragm with a meniscus sign. There is increased pleural thickening in the LEFT apex. RIGHT lung remains clear and normally expanded. No pneumothorax. Aorta is atherosclerotic. There are bilateral shoulder prostheses. IMPRESSION: Moderate-sized L EFT pleural effusion with LEFT basilar atelectasis/consolidation. Pleural thickening LEFT apex most likely due to extension of pleural fluid. Interpreted By: Star Bo MD Preliminary Report By: Star Bo MD Electronically Signed By: Star Bo MD Dictated Date: 02/04/2019 9:59:47 PM Prelim Date: 02/04/2019 9:59:47 PM Sign Date: 02/04/2019 10:07:41 PM Hemoglobin A1c on 01-29-2019 HbA1c (Bld) [Mass fraction] 6.9 % High 4.3-5.6 [facility] Comment on above: Performed By: #### HBA1C ### # [facility] [address] [place], [place] [address] HbA1c (Bld) [Mass fraction] 151 mg/dL Normal [facility] Comment on above: Performed By: #### HBA1C ### # [facility] [address] [place], [place] [address] .GFR on 01-26-2019 GFR >60 Normal [facility] ([place]) Comment on above: Result Comment: GFR Population mean for Afri can [place], Non- Americans Ages 20-29 = 116 mL/min/1.73 sq.m. Ages 30-39 = 107 mL/min/1.73 sq.m. Ages 40-49 = 99 mL/min/1.73 sq.m. Ages 50-59 = 93 mL/min/1.73 sq.m. Ages 60-69 = 85 mL/min/1.73 sq.m. Ages 70+ = 75 mL/min/1.73 sq .m. Chronic Kidney Disease: Less than 60 mL/min/1.73 square meters End Stage Renal Disease: Les s than 15 mL/min/1.73 square meters Performed By: #### CBC, ADIF F, ANEU, GFR, BMP, MG #### [place] [address] GFR Non- >60 Normal [facility] ([place]) Comment on above: Result Comment: GFR Population mean for Afri can [place], Non- Americans Ages 20-29 = 116 mL/min/1.73 sq.m. Ages 30-39 = 107 mL/min/1.73 sq.m. Ages 40-49 = 99 mL/min/1.73 sq.m. Ages 50-59 = 93 mL/min/1.73 sq.m. Ages 60-69 = 85 mL/min/1.73 sq.m. Ages 70+ = 75 mL/min/1.73 sq .m. Chronic Kidney Disease: Less than 60 mL/min/1.73 square meters End Stage Renal Disease: Les s than 15 mL/min/1.73 square meters Performed By: #### CBC, ADIF F, ANEU, GFR, BMP, MG #### [address] [address] BMP on 01-26-2019 Calcium [Mass/Vol] 8.0 mg/dL Low 8.4-10.1 [facility] ([place]) Comment on above: Performed By: #### CBC, ADIF F, ANEU, GFR, BMP, MG #### [place] [id number] Chloride [Moles/Vol] 100 mmol/L Normal 98-110 [facility] ([place]) Comment on above: Performed By: #### CBC, ADIF F, ANEU, GFR, BMP, MG #### [address] [address] CO2 [Moles/Vol] 36 mmol/L High 22-32 [facility] ([place]) Comment on above: Performed By: #### CBC, ADIF F, ANEU, GFR, BMP, MG #### [address] [address] Creatinine [Mass/Vol] 0.53 mg/dL Normal 0.50-1.20 [facility] ([place]) Comment on above: Performed By: #### CBC, ADIF F, ANEU, GFR, BMP, MG #### [address] [address] Electrolyte Balance 6.0 mEq/L Normal 4.0-15.0 [facility] ([place]) Comment on above: Performed By: #### CBC, ADIF F, ANEU, GFR, BMP, MG #### [address] [address] Glucose [Mass/Vol] 177 mg/dL High 82-115 [facility] ([place]) Comment on above: Performed By: #### CBC, ADIF F, ANEU, GFR, BMP, MG #### [address] [address] Potassium [Moles/Vol] 3.3 mmol/L Low 3.5-5.0 [facility] ([place]) Comment on above: Performed By: #### CBC, ADIF F, ANEU, GFR, BMP, MG #### [address] [address] Sodium [Moles/Vol] 142 mmol/L Normal 136-145 [facility] ([place]) Comment on above: Performed By: #### CBC, ADIF F, ANEU, GFR, BMP, MG #### [address] [address] Urea nitrogen [Mass/Vol] 19.0 mg/dL Normal 8.0-22.0 [facility] ([place]) Comment on above: Performed By: #### CBC, ADIF F, ANEU, GFR, BMP, MG #### [address] [address] Urea nitrogen/Creatinine [Mass 35.8 ratio High 10.0-22.0 [facility] ratio] ([place]) Comment on above: Performed By: #### CBC, ADIF F, ANEU, GFR, BMP, MG #### [address] [address] XR CHEST 2 VIEWS on 01-26-2019 XR CHEST 2 VIEWS ORIGINAL Normal [facility] XR CHEST 2 VIEWS ([place]) Clinical Statement: effusion, please obtain early am f or DC reasons. COMPARISON: 01/24/2019 FINDINGS: LEFT basilar infil trate is unchanged. There is probably also LEFT pleural fluid.. No pleural fluid or pneumothorax. The heart size is within normal limits. No aggressive osseous lesions are id entified and there are no vi sible acute fractures. Bilateral shoulder hardware is present. There are calcifications in aortic arch. IMPRESSION: No significant change. Interpreted By: Sergio Candelario Preliminary Report By: Sergio Candelario Electronically Signed By: Sergio Candelario Dictated Date: 01/26/2019 6:19:41 AM Prelim Date: 01/26/2019 6:19:41 AM Sign Date: 01/26/2019 6:20:21 AM .Auto Diff on 01-25-2019 Ammonia (P) [Mass/Vol] 0.80 10 3/mcL Normal 0.09-1.40 [facility] ([place]) Comment on above: Performed By: #### CBC, ADIF F, ANEU, GFR, BMP, MG #### [address] [address] Basophils (Bld) [#/Vol] 0.00 10 3/mcL Normal 0.00-0.27 [facility] ([place]) Comment on above: Performed By: #### CBC, ADIF F, ANEU, GFR, BMP, MG #### [address] [address] Basophils/100 WBC (Bld) 0.4 % Normal 0.0-2.5 [facility] ([place]) Comment on above: Performed By: #### CBC, ADIF F, ANEU, GFR, BMP, MG #### [address] [address] Eosinophils (Bld) [#/Vol] 0.20 10 3/mcL Normal 0.00-0.65 [facility] ([place]) Comment on above: Performed By: #### CBC, ADIF F, ANEU, GFR, BMP, MG #### [address] [address] Eosinophils/100 WBC (Bld) 1.8 % Normal 0.0-6.0 [facility] ([place]) Comment on above: Performed By: #### CBC, ADIF F, ANEU, GFR, BMP, MG #### [address] [address] Lymphocytes (Bld) [#/Vol] 1.40 10 3/mcL Normal 0.90-4.32 [facility] ([place]) Comment on above: Performed By: #### CBC, ADIF F, ANEU, GFR, BMP, MG #### [address] [address] Lymphocytes/100 WBC (Bld) 13.8 % Low 20.0-40.0 [facility] ([place]) Comment on above: Performed By: #### CBC, ADIF F, ANEU, GFR, BMP, MG #### [address] [address] Monocytes/100 WBC (Bld) 8.0 % Normal 2.0-13.0 [facility] ([place]) Comment on above: Performed By: #### CBC, ADIF F, ANEU, GFR, BMP, MG #### [place] [address] Neutrophils/100 WBC (Bld) 76.0 % High 50.0-75.0 [facility] ([place]) Comment on above: Performed By: #### CBC, ADIF F, ANEU, GFR, BMP, MG #### [place] [address] .NEUABS on 01-25-2019 Neutrophils (Bld) [#/Vol] 7.90 10 3/mcL Normal 2.25-8.10 [facility] ([place]) Comment on above: Performed By: #### CBC, ADIF F, ANEU, GFR, BMP, MG #### [place] [address] CBC on 01-25-2019 Erythrocyte distribution width 14.1 % Normal 11.5-15.5 [facility] (RBC) [Ratio] ([place]) Comment on above: Performed By: #### CBC, ADIF F, ANEU, GFR, BMP, MG #### [place] [address] Hematocrit (Bld) [Volume 34.6 % Normal 34.0-46.0 [facility] ([place]) fraction] Comment on above: Performed By: #### CBC, ADIF F, ANEU, GFR, BMP, MG #### [place] [address] Hemoglobin (Bld) [Mass/Vol] 11.4 G/dL Low 12.0-16.0 [facility] ([place]) Comment on above: Performed By: #### CBC, ADIF F, ANEU, GFR, BMP, MG #### [place] [address] MCH (RBC) [Entitic mass] 30.5 pg Normal 27.0-33.0 [facility] ([place]) Comment on above: Performed By: #### CBC, ADIF F, ANEU, GFR, BMP, MG #### [facility] [address] [place], [place] [address] MCHC (RBC) [Mass/Vol] 33.0 G/dL Normal 32.0-36.0 [facility] ([place]) Comment on above: Performed By: #### CBC, ADIF F, ANEU, GFR, BMP, MG #### [address] [address] MCV (RBC) [Entitic vol] 92.3 fL Normal 80.0-99.0 [facility] ([place]) Comment on above: Performed By: #### CBC, ADIF F, ANEU, GFR, BMP, MG #### [place] [id number] Platelet mean volume (Bld) 7.9 fL Normal 6.6-10.5 [facility] ([place]) [Entitic vol] Comment on above: Performed By: #### CBC, ADIF F, ANEU, GFR, BMP, MG #### [address] [address] Platelets (Bld) [#/Vol] 267 10 3/mcL Normal 150-450 [facility] ([place]) Comment on above: Performed By: #### CBC, ADIF F, ANEU, GFR, BMP, MG #### [address] [address] RBC (Bld) [#/Vol] 3.75 10 6/mcL Low 4.10-5.30 [facility] ([place]) Comment on above: Performed By: #### CBC, ADIF F, ANEU, GFR, BMP, MG #### [address] [address] WBC (Bld) [#/Vol] 10.40 10 3/mcL Normal 4.50-10.80 [facility] ([place]) Comment on above: Performed By: #### CBC, ADIF F, ANEU, GFR, BMP, MG #### [address] [address] XR CHEST 2 VIEWS on 01-24-2019 XR CHEST 2 VIEWS ORIGINAL Normal [facility] XR CHEST 2 VIEWS [facility] ([place]) AP upright and lateral CLINICAL INDICATION: atelectasis COMPARISON: 01/21/2019 FINDINGS: The cardiac silhou ette is mildly enlarged. The aorta is tortuous. The tyrese are not enlarged. There is blunting of the LEFT lateral costophrenic angle and opacity at the LEFT lung base likely d ue to moderate LEFT pleural effusion with adjacent atelectasis. There is a minimal RIGHT pleural effusion. There are old LEFT rib fractures and bilateral shoulder prostheses noted. Moderate degenerative changes are noted in the spine. IMPRESSION: Moderate LEFT pl eural effusion with adjacent atelectasis/infiltrate. Minimal RIGHT pleural effusion. Mild cardiomegaly. Findings are similar to the prior study. Interpreted By: Rd Seth MD Preliminary Report By: Rd Seth MD Electronically Signed By: Rd Seth MD Dictated Date: 01/24/2019 9:58:19 AM Prelim Date: 01/24/2019 9:58:19 AM Sign Date: 01/24/2019 10:00:50 AM .Auto Diff on 01-23-2019 Ammonia (P) [Mass/Vol] 1.00 10 3/mcL Normal 0.09-1.40 [facility] ([place]) Comment on above: Performed By: #### CBC, ADIF F, ANEU, GFR, BMP, MG #### [address] [address] Basophils (Bld) [#/Vol] 0.10 10 3/mcL Normal 0.00-0.27 [facility] ([place]) Comment on above: Performed By: #### CBC, ADIF F, ANEU, GFR, BMP, MG #### [address] [address] Basophils/100 WBC (Bld) 0.6 % Normal 0.0-2.5 [facility] ([place]) Comment on above: Performed By: #### CBC, ADIF F, ANEU, GFR, BMP, MG #### [address] [address] Eosinophils (Bld) [#/Vol] 0.50 10 3/mcL Normal 0.00-0.65 [facility] ([place]) Comment on above: Performed By: #### CBC, ADIF F, ANEU, GFR, BMP, MG #### [address] [address] Eosinophils/100 WBC (Bld) 3.8 % Normal 0.0-6.0 [facility] ([place]) Comment on above: Performed By: #### CBC, ADIF F, ANEU, GFR, BMP, MG #### [address] [address] Lymphocytes (Bld) [#/Vol] 1.30 10 3/mcL Normal 0.90-4.32 [facility] ([place]) Comment on above: Performed By: #### CBC, ADIF F, ANEU, GFR, BMP, MG #### [address] [address] Lymphocytes/100 WBC (Bld) 9.5 % Low 20.0-40.0 [facility] ([place]) Comment on above: Performed By: #### CBC, ADIF F, ANEU, GFR, BMP, MG #### [address] [address] Monocytes/100 WBC (Bld) 7.3 % Normal 2.0-13.0 [facility] ([place]) Comment on above: Performed By: #### CBC, ADIF F, ANEU, GFR, BMP, MG #### [address] [address] Neutrophils/100 WBC (Bld) 78.8 % High 50.0-75.0 [facility] ([place]) Comment on above: Performed By: #### CBC, ADIF F, ANEU, GFR, BMP, MG #### [address] [address] .Morph on 01-23-2019 Platelets (Bld) [#/Vol] Normal Normal [facility] ([place]) Comment on above: Performed By: #### CBC, ADIF F, ANEU, GFR, BMP, MG #### [address] [address] RBC morphology finding Nom (Bld) Normal Normal [facility] ([place]) Comment on above: Performed By: #### CBC, ADIF F, ANEU, GFR, BMP, MG #### [address] [address] .NEUABS on 01-23-2019 Neutrophils (Bld) [#/Vol] 10.40 10 3/mcL High 2.25-8.10 [facility] ([place]) Comment on above: Performed By: #### CBC, ADIF F, ANEU, GFR, BMP, MG #### [address] [address] CBC on 01-23-2019 Platelet mean volume (Bld) 8.4 fL Normal 6.6-10.5 [facility] ([place]) [Entitic vol] Comment on above: Performed By: #### CBC, ADIF F, ANEU, GFR, BMP, MG #### [place] [id number] Platelets (Bld) [#/Vol] 254 10 3/mcL Normal 150-450 [facility] ([place]) Comment on above: Performed By: #### CBC, ADIF F, ANEU, GFR, BMP, MG #### [place] [id number] WBC (Bld) [#/Vol] 13.20 10 3/mcL High 4.50-10.80 [facility] ([place]) Comment on above: Performed By: #### CBC, ADIF F, ANEU, GFR, BMP, MG #### [place] [address] Erythrocyte distribution width 14.4 % Normal 11.5-15.5 [facility] (RBC) [Ratio] ([place]) Comment on above: Performed By: #### CBC, ADIF F, ANEU, GFR, BMP, MG #### [place] [id number] Hematocrit (Bld) [Volume 32.6 % Low 34.0-46.0 [facility] ([place]) fraction] Comment on above: Performed By: #### CBC, ADIF F, ANEU, GFR, BMP, MG #### [place] [id number] Hemoglobin (Bld) [Mass/Vol] 11.6 G/dL Low 12.0-16.0 [facility] ([place]) Comment on above: Performed By: #### CBC, ADIF F, ANEU, GFR, BMP, MG #### [place] [address] MCH (RBC) [Entitic mass] 33.2 pg High 27.0-33.0 [facility] ([place]) Comment on above: Performed By: #### CBC, ADIF F, ANEU, GFR, BMP, MG #### [place] [address] MCHC (RBC) [Mass/Vol] 35.5 G/dL Normal 32.0-36.0 [facility] ([place]) Comment on above: Performed By: #### CBC, ADIF F, ANEU, GFR, BMP, MG #### [place] [address] MCV (RBC) [Entitic vol] 93.4 fL Normal 80.0-99.0 [facility] ([place]) Comment on above: Performed By: #### CBC, ADIF F, ANEU, GFR, BMP, MG #### [place] [address] RBC (Bld) [#/Vol] 3.49 10 6/mcL Low 4.10-5.30 [facility] ([place]) Comment on above: Performed By: #### CBC, ADIF F, ANEU, GFR, BMP, MG #### [place] [address] .GFR on 01-22-2019 GFR >60 Normal [facility] ([place]) Comment on above: Result Comment: GFR Population mean for Afri can [place], Non- Americans Ages 20-29 = 116 mL/min/1.73 sq.m. Ages 30-39 = 107 mL/min/1.73 sq.m. Ages 40-49 = 99 mL/min/1.73 sq.m. Ages 50-59 = 93 mL/min/1.73 sq.m. Ages 60-69 = 85 mL/min/1.73 sq.m. Ages 70+ = 75 mL/min/1.73 sq .m. Chronic Kidney Disease: Less than 60 mL/min/1.73 square meters End Stage Renal Disease: Les s than 15 mL/min/1.73 square meters Performed By: #### CBC, ADIF F, ANEU, GFR, BMP, MG #### [address] [address] GFR Non- >60 Normal [facility] ([place]) Comment on above: Result Comment: GFR Population mean for Afri can [place], Non- Americans Ages 20-29 = 116 mL/min/1.73 sq.m. Ages 30-39 = 107 mL/min/1.73 sq.m. Ages 40-49 = 99 mL/min/1.73 sq.m. Ages 50-59 = 93 mL/min/1.73 sq.m. Ages 60-69 = 85 mL/min/1.73 sq.m. Ages 70+ = 75 mL/min/1.73 sq .m. Chronic Kidney Disease: Less than 60 mL/min/1.73 square meters End Stage Renal Disease: Les s than 15 mL/min/1.73 square meters Performed By: #### CBC, ADIF F, ANEU, GFR, BMP, MG #### [address] [address] .Manual Diff on 01-22-2019 Basophil %, Manual 0.0 % Normal 0.0-2.5 [facility] ([place]) Comment on above: Performed By: #### CBC, ADIF F, ANEU, GFR, BMP, MG #### [address] [address] Basophil, Abs Manual 0.00 10 3/mcL Normal 0.00-0.27 [facility] ([place]) Comment on above: Performed By: #### CBC, ADIF F, ANEU, GFR, BMP, MG #### [address] [address] Cells Counted 100 Normal [facility] ([place]) Comment on above: Performed By: #### CBC, ADIF F, ANEU, GFR, BMP, MG #### [address] [address] Eosinophil %, Manual 5.0 % Normal 0.0-6.0 [facility] ([place]) Comment on above: Performed By: #### CBC, ADIF F, ANEU, GFR, BMP, MG #### [address] [address] Eosinophil, Abs Manual 0.64 10 3/mcL Normal 0.00-0.65 [facility] ([place]) Comment on above: Performed By: #### CBC, ADIF F, ANEU, GFR, BMP, MG #### [place] [id number] Lymphocyte %, Manual 9.0 % Low 20.0-40.0 [facility] ([place]) Comment on above: Performed By: #### CBC, ADIF F, ANEU, GFR, BMP, MG #### [place] [id number] Lymphocyte, Abs Manual 1.14 10 3/mcL Normal 0.90-4.32 [facility] ([place]) Comment on above: Performed By: #### CBC, ADIF F, ANEU, GFR, BMP, MG #### [place] [address] Metamyelocytes/100 WBC (Bld) 1.0 % Normal [facility] ([place]) Comment on above: Performed By: #### CBC, ADIF F, ANEU, GFR, BMP, MG #### [place] [id number] Monocyte %, Manual 6.0 % Normal 2.0-13.0 [facility] ([place]) Comment on above: Performed By: #### CBC, ADIF F, ANEU, GFR, BMP, MG #### [place] [id number] Monocyte, Abs Manual 0.76 10 3/mcL Normal 0.09-1.40 [facility] ([place]) Comment on above: Performed By: #### CBC, ADIF F, ANEU, GFR, BMP, MG #### [address] [address] Myelocyte 1.0 % Normal [facility] ([place]) Comment on above: Performed By: #### CBC, ADIF F, ANEU, GFR, BMP, MG #### [place] [address] Neutrophil %, Manual 78.0 % High 50.0-75.0 [facility] ([place]) Comment on above: Performed By: #### CBC, ADIF F, ANEU, GFR, BMP, MG #### [place] [address] Neutrophil, Abs Manual 9.91 10 3/mcL High 2.25-8.10 [facility] ([place]) Comment on above: Performed By: #### CBC, ADIF F, ANEU, GFR, BMP, MG #### [address] [address] .Morph on 01-22-2019 Platelets (Bld) [#/Vol] Normal Normal [facility] ([place]) Comment on above: Performed By: #### CBC, ADIF F, ANEU, GFR, BMP, MG #### [place] [address] Polychrom Slight Normal [facility] ([place]) Comment on above: Performed By: #### CBC, ADIF F, ANEU, GFR, BMP, MG #### [place] [address] BMP on 01-22-2019 Calcium [Mass/Vol] 8.6 mg/dL Normal 8.4-10.1 [facility] ([place]) Comment on above: Performed By: #### CBC, ADIF F, ANEU, GFR, BMP, MG #### [place] [address] Chloride [Moles/Vol] 105 mmol/L Normal 98-110 [facility] ([place]) Comment on above: Performed By: #### CBC, ADIF F, ANEU, GFR, BMP, MG #### [place] [address] CO2 [Moles/Vol] 29 mmol/L Normal 22-32 [facility] ([place]) Comment on above: Performed By: #### CBC, ADIF F, ANEU, GFR, BMP, MG #### [place] [address] Creatinine [Mass/Vol] 0.68 mg/dL Normal 0.50-1.20 [facility] ([place]) Comment on above: Performed By: #### CBC, ADIF F, ANEU, GFR, BMP, MG #### [address] [address] Electrolyte Balance 9.0 mEq/L Normal 4.0-15.0 [facility] ([place]) Comment on above: Performed By: #### CBC, ADIF F, ANEU, GFR, BMP, MG #### [address] [address] Glucose [Mass/Vol] 151 mg/dL High 82-115 [facility] ([place]) Comment on above: Performed By: #### CBC, ADIF F, ANEU, GFR, BMP, MG #### [address] [address] Potassium [Moles/Vol] 3.9 mmol/L Normal 3.5-5.0 [facility] ([place]) Comment on above: Performed By: #### CBC, ADIF F, ANEU, GFR, BMP, MG #### [place] [id number] Sodium [Moles/Vol] 143 mmol/L Normal 136-145 [facility] ([place]) Comment on above: Performed By: #### CBC, ADIF F, ANEU, GFR, BMP, MG #### [address] [address] Urea nitrogen [Mass/Vol] 16.0 mg/dL Normal 8.0-22.0 [facility] ([place]) Comment on above: Performed By: #### CBC, ADIF F, ANEU, GFR, BMP, MG #### [address] [address] Urea nitrogen/Creatinine [Mass 23.5 ratio High 10.0-22.0 [facility] ratio] ([place]) Comment on above: Performed By: #### CBC, ADIF F, ANEU, GFR, BMP, MG #### [address] [address] CBC on 01-22-2019 Platelet mean volume (Bld) 8.1 fL Normal 6.6-10.5 [facility] ([place]) [Entitic vol] Comment on above: Performed By: #### CBC, ADIF F, ANEU, GFR, BMP, MG #### [place] [id number] Platelets (Bld) [#/Vol] 192 10 3/mcL Normal 150-450 [facility] ([place]) Comment on above: Performed By: #### CBC, ADIF F, ANEU, GFR, BMP, MG #### [place] [address] WBC (Bld) [#/Vol] 12.70 10 3/mcL High 4.50-10.80 [facility] ([place]) Comment on above: Performed By: #### CBC, ADIF F, ANEU, GFR, BMP, MG #### [place] [address] Erythrocyte distribution width 14.6 % Normal 11.5-15.5 [facility] (RBC) [Ratio] ([place]) Comment on above: Performed By: #### CBC, ADIF F, ANEU, GFR, BMP, MG #### [place] [address] Hematocrit (Bld) [Volume 37.8 % Normal 34.0-46.0 [facility] ([place]) fraction] Comment on above: Performed By: #### CBC, ADIF F, ANEU, GFR, BMP, MG #### [place] [id number] Hemoglobin (Bld) [Mass/Vol] 12.2 G/dL Normal 12.0-16.0 [facility] ([place]) Comment on above: Performed By: #### CBC, ADIF F, ANEU, GFR, BMP, MG #### [place] [address] MCH (RBC) [Entitic mass] 30.3 pg Normal 27.0-33.0 [facility] ([place]) Comment on above: Performed By: #### CBC, ADIF F, ANEU, GFR, BMP, MG #### [place] [id number] MCHC (RBC) [Mass/Vol] 32.2 G/dL Normal 32.0-36.0 [facility] ([place]) Comment on above: Performed By: #### CBC, ADIF F, ANEU, GFR, BMP, MG #### [place] [address] MCV (RBC) [Entitic vol] 94.1 fL Normal 80.0-99.0 [facility] ([place]) Comment on above: Performed By: #### CBC, ADIF F, ANEU, GFR, BMP, MG #### [place] [address] RBC (Bld) [#/Vol] 4.01 10 6/mcL Low 4.10-5.30 [facility] ([place]) Comment on above: Performed By: #### CBC, ADIF F, ANEU, GFR, BMP, MG #### [place] [address] MG on 01-22-2019 Magnesium [Mass/Vol] 1.9 mg/dL Normal 1.6-2.4 [facility] ([place]) Comment on above: Performed By: #### CBC, ADIF F, ANEU, GFR, BMP, MG #### [place] [address] PHOS on 01-22-2019 Phosphate [Mass/Vol] 4.2 mg/dL Normal 2.5-4.5 [facility] ([place]) Comment on above: Performed By: #### CBC, ADIF F, ANEU, GFR, BMP, MG #### [place] [address] .Auto Diff on 01-21-2019 Ammonia (P) [Mass/Vol] 1.20 10 3/mcL Normal 0.09-1.40 [facility] ([place]) Comment on above: Performed By: #### CBC, ADIF F, ANEU, GFR, BMP, MG #### [place] [address] Basophils (Bld) [#/Vol] 0.00 10 3/mcL Normal 0.00-0.27 [facility] ([place]) Comment on above: Performed By: #### CBC, ADIF F, ANEU, GFR, BMP, MG #### [address] [address] Basophils/100 WBC (Bld) 0.3 % Normal 0.0-2.5 [facility] ([place]) Comment on above: Performed By: #### CBC, ADIF F, ANEU, GFR, BMP, MG #### [address] [address] Eosinophils (Bld) [#/Vol] 0.20 10 3/mcL Normal 0.00-0.65 [facility] ([place]) Comment on above: Performed By: #### CBC, ADIF F, ANEU, GFR, BMP, MG #### [address] [address] Eosinophils/100 WBC (Bld) 1.3 % Normal 0.0-6.0 [facility] ([place]) Comment on above: Performed By: #### CBC, ADIF F, ANEU, GFR, BMP, MG #### [address] [address] Lymphocytes (Bld) [#/Vol] 1.00 10 3/mcL Normal 0.90-4.32 [facility] ([place]) Comment on above: Performed By: #### CBC, ADIF F, ANEU, GFR, BMP, MG #### [address] [address] Lymphocytes/100 WBC (Bld) 8.4 % Low 20.0-40.0 [facility] ([place]) Comment on above: Performed By: #### CBC, ADIF F, ANEU, GFR, BMP, MG #### [address] [address] Monocytes/100 WBC (Bld) 9.9 % Normal 2.0-13.0 [facility] ([place]) Comment on above: Performed By: #### CBC, ADIF F, ANEU, GFR, BMP, MG #### [address] [address] Neutrophils/100 WBC (Bld) 80.1 % High 50.0-75.0 [facility] ([place]) Comment on above: Performed By: #### CBC, ADIF F, ANEU, GFR, BMP, MG #### [address] [address] .GFR on 01-21-2019 GFR >60 Normal [facility] ([place]) Comment on above: Result Comment: GFR Population mean for Afri can [place] Islander, Non- Americans Ages 20-29 = 116 mL/min/1.73 sq.m. Ages 30-39 = 107 mL/min/1.73 sq.m. Ages 40-49 = 99 mL/min/1.73 sq.m. Ages 50-59 = 93 mL/min/1.73 sq.m. Ages 60-69 = 85 mL/min/1.73 sq.m. Ages 70+ = 75 mL/min/1.73 sq .m. Chronic Kidney Disease: Less than 60 mL/min/1.73 square meters End Stage Renal Disease: Les s than 15 mL/min/1.73 square meters Performed By: #### CBC, ADIF F, ANEU, GFR, BMP, MG #### [address] [address] GFR Non- >60 Normal [facility] ([place]) Comment on above: Result Comment: GFR Population mean for Afri can [place], Non- Americans Ages 20-29 = 116 mL/min/1.73 sq.m. Ages 30-39 = 107 mL/min/1.73 sq.m. Ages 40-49 = 99 mL/min/1.73 sq.m. Ages 50-59 = 93 mL/min/1.73 sq.m. Ages 60-69 = 85 mL/min/1.73 sq.m. Ages 70+ = 75 mL/min/1.73 sq .m. Chronic Kidney Disease: Less than 60 mL/min/1.73 square meters End Stage Renal Disease: Les s than 15 mL/min/1.73 square meters Performed By: #### CBC, ADIF F, ANEU, GFR, BMP, MG #### [address] [address] .NEUABS on 01-21-2019 Neutrophils (Bld) [#/Vol] 9.90 10 3/mcL High 2.25-8.10 [facility] ([place]) Comment on above: Performed By: #### CBC, ADIF F, ANEU, GFR, BMP, MG #### [address] [address] BMP on 01-21-2019 Creatinine [Mass/Vol] 0.64 mg/dL Normal 0.50-1.20 [facility] ([place]) Comment on above: Performed By: #### CBC, ADIF F, ANEU, GFR, BMP, MG #### [address] [address] Urea nitrogen/Creatinine [Mass 21.9 ratio Normal 10.0-22.0 [facility] ([place]) Comment on above: Performed By: #### CBC, ADIF F, ANEU, GFR, BMP, MG #### [place] [id number] Calcium [Mass/Vol] 8.7 mg/dL Normal 8.4-10.1 [facility] ([place]) Comment on above: Performed By: #### CBC, ADIF F, ANEU, GFR, BMP, MG #### [place] [address] Chloride [Moles/Vol] 104 mmol/L Normal 98-110 [facility] ([place]) Comment on above: Performed By: #### CBC, ADIF F, ANEU, GFR, BMP, MG #### [place] [id number] CO2 [Moles/Vol] 26 mmol/L Normal 22-32 [facility] ([place]) Comment on above: Performed By: #### CBC, ADIF F, ANEU, GFR, BMP, MG #### [place] [address] Electrolyte Balance 14.0 mEq/L Normal 4.0-15.0 [facility] ([place]) Comment on above: Performed By: #### CBC, ADIF F, ANEU, GFR, BMP, MG #### [place] [id number] Glucose [Mass/Vol] 132 mg/dL High 82-115 [facility] ([place]) Comment on above: Performed By: #### CBC, ADIF F, ANEU, GFR, BMP, MG #### [place] [id number] Potassium [Moles/Vol] 3.3 mmol/L Low 3.5-5.0 [facility] ([place]) Comment on above: Performed By: #### CBC, ADIF F, ANEU, GFR, BMP, MG #### [place] [id number] Sodium [Moles/Vol] 144 mmol/L Normal 136-145 [facility] ([place]) Comment on above: Performed By: #### CBC, ADIF F, ANEU, GFR, BMP, MG #### [place] [address] Urea nitrogen [Mass/Vol] 14.0 mg/dL Normal 8.0-22.0 [facility] ([place]) Comment on above: Performed By: #### CBC, ADIF F, ANEU, GFR, BMP, MG #### [address] [address] CBC on 01-21-2019 Erythrocyte distribution width 14.3 % Normal 11.5-15.5 [facility] (RBC) [Ratio] ([place]) Comment on above: Performed By: #### CBC, ADIF F, ANEU, GFR, BMP, MG #### [place] [id number] Hematocrit (Bld) [Volume 37.5 % Normal 34.0-46.0 [facility] ([place]) fraction] Comment on above: Performed By: #### CBC, ADIF F, ANEU, GFR, BMP, MG #### [place] [id number] Hemoglobin (Bld) [Mass/Vol] 12.1 G/dL Normal 12.0-16.0 [facility] ([place]) Comment on above: Performed By: #### CBC, ADIF F, ANEU, GFR, BMP, MG #### [address] [address] MCH (RBC) [Entitic mass] 30.0 pg Normal 27.0-33.0 [facility] ([place]) Comment on above: Performed By: #### CBC, ADIF F, ANEU, GFR, BMP, MG #### [address] [address] MCHC (RBC) [Mass/Vol] 32.2 G/dL Normal 32.0-36.0 [facility] ([place]) Comment on above: Performed By: #### CBC, ADIF F, ANEU, GFR, BMP, MG #### [place] [address] MCV (RBC) [Entitic vol] 93.2 fL Normal 80.0-99.0 [facility] ([place]) Comment on above: Performed By: #### CBC, ADIF F, ANEU, GFR, BMP, MG #### [place] [id number] Platelet mean volume (Bld) 8.2 fL Normal 6.6-10.5 [facility] ([place]) [Entitic vol] Comment on above: Performed By: #### CBC, ADIF F, ANEU, GFR, BMP, MG #### [place] [id number] Platelets (Bld) [#/Vol] 210 10 3/mcL Normal 150-450 [facility] ([place]) Comment on above: Performed By: #### CBC, ADIF F, ANEU, GFR, BMP, MG #### [place] [id number] RBC (Bld) [#/Vol] 4.03 10 6/mcL Low 4.10-5.30 [facility] ([place]) Comment on above: Performed By: #### CBC, ADIF F, ANEU, GFR, BMP, MG #### [place] [id number] WBC (Bld) [#/Vol] 12.40 10 3/mcL High 4.50-10.80 [facility] ([place]) Comment on above: Performed By: #### CBC, ADIF F, ANEU, GFR, BMP, MG #### [address] [address] XR CHEST 1 VIEW on 01-21-2019 XR CHEST 1 VIEW ORIGINAL Normal [facility] XR CHEST 1 VIEW ([place]) CLINICAL STATEMENT: abn breath sounds COMPARISON: 01/20/2019 FINDINGS: The aeration of the lungs is grossly stable compared t o the prior exam. No pneumothorax. The cardiac size is stable. The osseous structures are unchanged. IMPRESSION: No significant change from the prior exam. Interpreted By: Sergio Candelario Preliminary Report By: Sergio Candelario Electronically Signed By: Sergio Candelario Dictated Date: 01/21/2019 5:26:01 AM Prelim Date: 01/21/2019 5:26:01 AM Sign Date: 01/21/2019 5:26:53 AM .Auto Diff on 01-20-2019 Ammonia (P) [Mass/Vol] 1.30 10 3/mcL Normal 0.09-1.40 [facility] ([place]) Comment on above: Performed By: #### CBC, ADIF F, ANEU, GFR, BMP, MG #### [address] [address] Basophils (Bld) [#/Vol] 0.00 10 3/mcL Normal 0.00-0.27 [facility] ([place]) Comment on above: Performed By: #### CBC, ADIF F, ANEU, GFR, BMP, MG #### [address] [address] Basophils/100 WBC (Bld) 0.3 % Normal 0.0-2.5 [facility] ([place]) Comment on above: Performed By: #### CBC, ADIF F, ANEU, GFR, BMP, MG #### [address] [address] Eosinophils (Bld) [#/Vol] 0.20 10 3/mcL Normal 0.00-0.65 [facility] ([place]) Comment on above: Performed By: #### CBC, ADIF F, ANEU, GFR, BMP, MG #### [address] [address] Eosinophils/100 WBC (Bld) 1.1 % Normal 0.0-6.0 [facility] ([place]) Comment on above: Performed By: #### CBC, ADIF F, ANEU, GFR, BMP, MG #### [address] [address] Lymphocytes (Bld) [#/Vol] 0.90 10 3/mcL Normal 0.90-4.32 [facility] ([place]) Comment on above: Performed By: #### CBC, ADIF F, ANEU, GFR, BMP, MG #### [address] [address] Lymphocytes/100 WBC (Bld) 6.3 % Low 20.0-40.0 [facility] ([place]) Comment on above: Performed By: #### CBC, ADIF F, ANEU, GFR, BMP, MG #### [address] [address] Monocytes/100 WBC (Bld) 8.9 % Normal 2.0-13.0 [facility] ([place]) Comment on above: Performed By: #### CBC, ADIF F, ANEU, GFR, BMP, MG #### [address] [address] Neutrophils/100 WBC (Bld) 83.4 % High 50.0-75.0 [facility] ([place]) Comment on above: Performed By: #### CBC, ADIF F, ANEU, GFR, BMP, MG #### [address] [address] .GFR on 01-20-2019 GFR >60 Normal [facility] ([place]) Comment on above: Result Comment: GFR Population mean for Afri can [place] Islander, Non- Americans Ages 20-29 = 116 mL/min/1.73 sq.m. Ages 30-39 = 107 mL/min/1.73 sq.m. Ages 40-49 = 99 mL/min/1.73 sq.m. Ages 50-59 = 93 mL/min/1.73 sq.m. Ages 60-69 = 85 mL/min/1.73 sq.m. Ages 70+ = 75 mL/min/1.73 sq .m. Chronic Kidney Disease: Less than 60 mL/min/1.73 square meters End Stage Renal Disease: Les s than 15 mL/min/1.73 square meters Performed By: #### CBC, ADIF F, ANEU, GFR, BMP, MG #### [address] [address] GFR Non- >60 Normal [facility] ([place]) Comment on above: Result Comment: GFR Population mean for Afri can [place], Non- Americans Ages 20-29 = 116 mL/min/1.73 sq.m. Ages 30-39 = 107 mL/min/1.73 sq.m. Ages 40-49 = 99 mL/min/1.73 sq.m. Ages 50-59 = 93 mL/min/1.73 sq.m. Ages 60-69 = 85 mL/min/1.73 sq.m. Ages 70+ = 75 mL/min/1.73 sq .m. Chronic Kidney Disease: Less than 60 mL/min/1.73 square meters End Stage Renal Disease: Les s than 15 mL/min/1.73 square meters Performed By: #### CBC, ADIF F, ANEU, GFR, BMP, MG #### [address] [address] .NEUABS on 01-20-2019 Neutrophils (Bld) [#/Vol] 12.10 10 3/mcL High 2.25-8.10 [facility] ([place]) Comment on above: Performed By: #### CBC, ADIF F, ANEU, GFR, BMP, MG #### [address] [address] BMP on 01-20-2019 Calcium [Mass/Vol] 8.4 mg/dL Normal 8.4-10.1 [facility] ([place]) Comment on above: Performed By: #### CBC, ADIF F, ANEU, GFR, BMP, MG #### [address] [address] Chloride [Moles/Vol] 108 mmol/L Normal 98-110 [facility] ([place]) Comment on above: Performed By: #### CBC, ADIF F, ANEU, GFR, BMP, MG #### [address] [address] CO2 [Moles/Vol] 26 mmol/L Normal 22-32 [facility] ([place]) Comment on above: Performed By: #### CBC, ADIF F, ANEU, GFR, BMP, MG #### [address] [address] Creatinine [Mass/Vol] 0.63 mg/dL Normal 0.50-1.20 [facility] ([place]) Comment on above: Performed By: #### CBC, ADIF F, ANEU, GFR, BMP, MG #### [address] [address] Electrolyte Balance 12.0 mEq/L Normal 4.0-15.0 [facility] ([place]) Comment on above: Performed By: #### CBC, ADIF F, ANEU, GFR, BMP, MG #### [address] [address] Glucose [Mass/Vol] 139 mg/dL High 82-115 [facility] ([place]) Comment on above: Performed By: #### CBC, ADIF F, ANEU, GFR, BMP, MG #### [address] [address] Potassium [Moles/Vol] 3.2 mmol/L Low 3.5-5.0 [facility] ([place]) Comment on above: Performed By: #### CBC, ADIF F, ANEU, GFR, BMP, MG #### [address] [address] Sodium [Moles/Vol] 146 mmol/L High 136-145 [facility] ([place]) Comment on above: Performed By: #### CBC, ADIF F, ANEU, GFR, BMP, MG #### [address] [address] Urea nitrogen [Mass/Vol] 10.0 mg/dL Normal 8.0-22.0 [facility] ([place]) Comment on above: Performed By: #### CBC, ADIF F, ANEU, GFR, BMP, MG #### [address] [address] Urea nitrogen/Creatinine [Mass 15.9 ratio Normal 10.0-22.0 [facility]] [facility] ([place]) Comment on above: Performed By: #### CBC, ADIF F, ANEU, GFR, BMP, MG #### [place] [address] CBC on 01-20-2019 Erythrocyte distribution width 14.4 % Normal 11.5-15.5 [facility] (RBC) [Ratio] ([place]) Comment on above: Performed By: #### CBC, ADIF F, ANEU, GFR, BMP, MG #### [place] [address] Hematocrit (Bld) [Volume 35.9 % Normal 34.0-46.0 [facility] ([place]) fraction] Comment on above: Performed By: #### CBC, ADIF F, ANEU, GFR, BMP, MG #### [place] [address] Hemoglobin (Bld) [Mass/Vol] 11.4 G/dL Low 12.0-16.0 [facility] ([place]) Comment on above: Performed By: #### CBC, ADIF F, ANEU, GFR, BMP, MG #### [place] [address] MCH (RBC) [Entitic mass] 29.6 pg Normal 27.0-33.0 [facility] ([place]) Comment on above: Performed By: #### CBC, ADIF F, ANEU, GFR, BMP, MG #### [place] [id number] MCHC (RBC) [Mass/Vol] 31.8 G/dL Low 32.0-36.0 [facility] ([place]) Comment on above: Performed By: #### CBC, ADIF F, ANEU, GFR, BMP, MG #### [place] [id number] MCV (RBC) [Entitic vol] 93.1 fL Normal 80.0-99.0 [facility] ([place]) Comment on above: Performed By: #### CBC, ADIF F, ANEU, GFR, BMP, MG #### [address] [address] Platelet mean volume (Bld) 7.9 fL Normal 6.6-10.5 [facility] ([place]) [Entitic vol] Comment on above: Performed By: #### CBC, ADIF F, ANEU, GFR, BMP, MG #### [address] [address] Platelets (Bld) [#/Vol] 200 10 3/mcL Normal 150-450 [facility] ([place]) Comment on above: Performed By: #### CBC, ADIF F, ANEU, GFR, BMP, MG #### [address] [address] RBC (Bld) [#/Vol] 3.86 10 6/mcL Low 4.10-5.30 [facility] ([place]) Comment on above: Performed By: #### CBC, ADIF F, ANEU, GFR, BMP, MG #### [place] [id number] WBC (Bld) [#/Vol] 14.50 10 3/mcL High 4.50-10.80 [facility] ([place]) Comment on above: Performed By: #### CBC, ADIF F, ANEU, GFR, BMP, MG #### [address] [address] MG on 01-20-2019 Magnesium [Mass/Vol] 1.8 mg/dL Normal 1.6-2.4 [facility] ([place]) Comment on above: Performed By: #### CBC, ADIF F, ANEU, GFR, BMP, MG #### [address] [address] PHOS on 01-20-2019 Phosphate [Mass/Vol] 3.1 mg/dL Normal 2.5-4.5 [facility] ([place]) Comment on above: Performed By: #### CBC, ADIF F, ANEU, GFR, BMP, MG #### [address] [address] XR CHEST 1 VIEW on 01-20-2019 XR CHEST 1 VIEW ORIGINAL Normal [facility] XR CHEST 1 VIEW ([place]) CLINICAL STATEMENT: shortness of breath. COMPARISON: Chest x-ray on 01/19/2019 FINDINGS: The endotracheal t ube and the enteric tube have been removed. The LEFT pleural fluid and LEFT basilar lung consolidation are unchanged. No acute abnormality is seen in the RIGHT lung. There is no pneumothorax. IMPRESSION: Stable LEFT pleural effusion and LEFT basilar infiltra te. Patient has been extubated. Interpreted By: Gary Baltazar MD Preliminary Report By: Gary Baltazar MD Electronically Signed By: Gary Baltazar MD Dictated Date: 01/20/2019 6:20:33 AM Prelim Date: 01/20/2019 6:20:33 AM Sign Date: 01/20/2019 6:21:52 AM .Auto Diff on 01-19-2019 Ammonia (P) [Mass/Vol] 0.80 10 3/mcL Normal 0.09-1.40 [facility] ([place]) Comment on above: Performed By: #### CBC, ADIF F, ANEU, GFR, CMP #### [address] [address] Basophils (Bld) [#/Vol] 0.00 10 3/mcL Normal 0.00-0.27 [facility] ([place]) Comment on above: Performed By: #### CBC, ADIF F, ANEU, GFR, CMP #### [address] [address] Basophils/100 WBC (Bld) 0.1 % Normal 0.0-2.5 [facility] ([place]) Comment on above: Performed By: #### CBC, ADIF F, ANEU, GFR, CMP #### [address] [address] Eosinophils (Bld) [#/Vol] 0.10 10 3/mcL Normal 0.00-0.65 [facility] ([place]) Comment on above: Performed By: #### CBC, ADIF F, ANEU, GFR, CMP #### [address] [address] Eosinophils/100 WBC (Bld) 0.9 % Normal 0.0-6.0 [facility] ([place]) Comment on above: Performed By: #### CBC, ADIF F, ANEU, GFR, CMP #### [address] [address] Lymphocytes (Bld) [#/Vol] 0.80 10 3/mcL Low 0.90-4.32 [facility] ([place]) Comment on above: Performed By: #### CBC, ADIF F, ANEU, GFR, CMP #### [address] [address] Lymphocytes/100 WBC (Bld) 5.8 % Low 20.0-40.0 [facility] ([place]) Comment on above: Performed By: #### CBC, ADIF F, ANEU, GFR, CMP #### [address] [address] Monocytes/100 WBC (Bld) 5.9 % Normal 2.0-13.0 [facility] ([place]) Comment on above: Performed By: #### CBC, ADIF F, ANEU, GFR, CMP #### [address] [address] Neutrophils/100 WBC (Bld) 87.3 % High 50.0-75.0 [facility] ([place]) Comment on above: Performed By: #### CBC, ADIF F, ANEU, GFR, CMP #### [address] [address] .GFR on 01-19-2019 GFR >60 Normal [facility] ([place]) Comment on above: Result Comment: GFR Population mean for Afri can [place]er, Non- Americans Ages 20-29 = 116 mL/min/1.73 sq.m. Ages 30-39 = 107 mL/min/1.73 sq.m. Ages 40-49 = 99 mL/min/1.73 sq.m. Ages 50-59 = 93 mL/min/1.73 sq.m. Ages 60-69 = 85 mL/min/1.73 sq.m. Ages 70+ = 75 mL/min/1.73 sq .m. Chronic Kidney Disease: Less than 60 mL/min/1.73 square meters End Stage Renal Disease: Les s than 15 mL/min/1.73 square meters Performed By: #### CBC, ADIF F, ANEU, GFR, CMP #### [address] [address] GFR Non- >60 Normal [facility] ([place]) Comment on above: Result Comment: GFR Population mean for Afri can [place], Non- Americans Ages 20-29 = 116 mL/min/1.73 sq.m. Ages 30-39 = 107 mL/min/1.73 sq.m. Ages 40-49 = 99 mL/min/1.73 sq.m. Ages 50-59 = 93 mL/min/1.73 sq.m. Ages 60-69 = 85 mL/min/1.73 sq.m. Ages 70+ = 75 mL/min/1.73 sq .m. Chronic Kidney Disease: Less than 60 mL/min/1.73 square meters End Stage Renal Disease: Les s than 15 mL/min/1.73 square meters Performed By: #### CBC, ADIF F, ANEU, GFR, CMP #### [place] [address] .NEUABS on 01-19-2019 Neutrophils (Bld) [#/Vol] 12.50 10 3/mcL High 2.25-8.10 [facility] ([place]) Comment on above: Performed By: #### CBC, ADIF F, ANEU, GFR, CMP #### [place] [id number] BG on 01-19-2019 Barometric Pressure 731 mmHg Normal [facility] ([place]) Comment on above: Performed By: #### CBC, ADIF F, ANEU, GFR, CMP #### [place] [address] Base excess Calc (Bld) [Moles/Vol] 1.0 mmol/L Normal [facility] ([place]) Comment on above: Performed By: #### CBC, ADIF F, ANEU, GFR, CMP #### [place] [address] CO2 [Moles/Vol] 26.8 mmol/L Normal 22.0-30.0 [facility] ([place]) Comment on above: Performed By: #### CBC, ADIF F, ANEU, GFR, CMP #### [place] [id number] HCO3 (Bld) [Moles/Vol] 25.6 mmol/L Normal 21.0-29.0 [facility] ([place]) Comment on above: Performed By: #### CBC, ADIF F, ANEU, GFR, CMP #### [place] [id number] Oxygen (Bld) [Partial 73.0 mm[Hg] Low 74.0-108.0 [facility] pressure] ([place]) Comment on above: Performed By: #### CBC, ADIF F, ANEU, GFR, CMP #### [place] [address] Oxygen saturation in Blood 94.9 % Normal 92.0-96.0 [facility] ([place]) Comment on above: Performed By: #### CBC, ADIF F, ANEU, GFR, CMP #### [place] [address] pCO2 40.6 mmHg Normal 32.0-46.0 [facility] ([place]) Comment on above: Performed By: #### CBC, ADIF F, ANEU, GFR, CMP #### [place] [address] pH (Bld) 7.417 [pH] Normal 7.380-7.460 [facility] ([place]) Comment on above: Performed By: #### CBC, ADIF F, ANEU, GFR, CMP #### [place] [id number] BMP on 01-19-2019 Calcium [Mass/Vol] 8.4 mg/dL Normal 8.4-10.1 [facility] ([place]) Comment on above: Performed By: #### CBC, ADIF F, ANEU, GFR, CMP #### [place] [address] Chloride [Moles/Vol] 112 mmol/L High 98-110 [facility] ([place]) Comment on above: Performed By: #### CBC, ADIF F, ANEU, GFR, CMP #### [address] [address] CO2 [Moles/Vol] 22 mmol/L Normal 22-32 [facility] ([place]) Comment on above: Performed By: #### CBC, ADIF F, ANEU, GFR, CMP #### [address] [address] Creatinine [Mass/Vol] 0.61 mg/dL Normal 0.50-1.20 [facility] ([place]) Comment on above: Performed By: #### CBC, ADIF F, ANEU, GFR, CMP #### [address] [address] Electrolyte Balance 12.0 mEq/L Normal 4.0-15.0 [facility] ([place]) Comment on above: Performed By: #### CBC, ADIF F, ANEU, GFR, CMP #### [address] [address] Glucose [Mass/Vol] 130 mg/dL High 82-115 [facility] ([place]) Comment on above: Performed By: #### CBC, ADIF F, ANEU, GFR, CMP #### [address] [address] Potassium [Moles/Vol] 3.4 mmol/L Low 3.5-5.0 [facility] ([place]) Comment on above: Performed By: #### CBC, ADIF F, ANEU, GFR, CMP #### [address] [address] Sodium [Moles/Vol] 146 mmol/L High 136-145 [facility] ([place]) Comment on above: Performed By: #### CBC, ADIF F, ANEU, GFR, CMP #### [address] [address] Urea nitrogen [Mass/Vol] 14.0 mg/dL Normal 8.0-22.0 [facility] ([place]) Comment on above: Performed By: #### CBC, ADIF F, ANEU, GFR, CMP #### [address] [address] Urea nitrogen/Creatinine [Mass 23.0 ratio High 10.0-22.0 [facility] ratio] ([place]) Comment on above: Performed By: #### CBC, ADIF F, ANEU, GFR, CMP #### [place] [address] CBC on 01-19-2019 Erythrocyte distribution width 14.8 % Normal 11.5-15.5 [facility] (RBC) [Ratio] ([place]) Comment on above: Performed By: #### CBC, ADIF F, ANEU, GFR, CMP #### [place] [address] Hematocrit (Bld) [Volume 35.3 % Normal 34.0-46.0 [facility] ([place]) fraction] Comment on above: Performed By: #### CBC, ADIF F, ANEU, GFR, CMP #### [place] [address] Hemoglobin (Bld) [Mass/Vol] 11.1 G/dL Low 12.0-16.0 [facility] ([place]) Comment on above: Performed By: #### CBC, ADIF F, ANEU, GFR, CMP #### [place] [address] MCH (RBC) [Entitic mass] 29.8 pg Normal 27.0-33.0 [facility] ([place]) Comment on above: Performed By: #### CBC, ADIF F, ANEU, GFR, CMP #### [place] [address] MCHC (RBC) [Mass/Vol] 31.5 G/dL Low 32.0-36.0 [facility] ([place]) Comment on above: Performed By: #### CBC, ADIF F, ANEU, GFR, CMP #### [place] [id number] MCV (RBC) [Entitic vol] 94.6 fL Normal 80.0-99.0 [facility] ([place]) Comment on above: Performed By: #### CBC, ADIF F, ANEU, GFR, CMP #### [place] [address] Platelet mean volume (Bld) 8.1 fL Normal 6.6-10.5 [facility] ([place]) [Entitic vol] Comment on above: Performed By: #### CBC, ADIF F, ANEU, GFR, CMP #### [address] [address] Platelets (Bld) [#/Vol] 181 10 3/mcL Normal 150-450 [facility] ([place]) Comment on above: Performed By: #### CBC, ADIF F, ANEU, GFR, CMP #### [address] [address] RBC (Bld) [#/Vol] 3.73 10 6/mcL Low 4.10-5.30 [facility] ([place]) Comment on above: Performed By: #### CBC, ADIF F, ANEU, GFR, CMP #### [address] [address] WBC (Bld) [#/Vol] 14.40 10 3/mcL High 4.50-10.80 [facility] ([place]) Comment on above: Performed By: #### CBC, ADIF F, ANEU, GFR, CMP #### [address] [address] Final Surgical Pathology Report on Final Surgical . [facility] Pathology Report Pathology Reports [facility] ([place]) Accession: Collected Date/Time: Received Date/Time: Adrian thologist: [id number] 01/17/2019 16:27 EDT 01/18/2019 09:06 EDT MD ELVA THURMAN Final Surgical Pathology Report DIAGNOSIS: STOMACH, BIOPSY: ULCER BED WITH INFLAMED GRANULATION TISSUE AND FOCAL A SSOCIATED FIBRINOPURULENT DEBRIS. IMMUNOPEROXIDASE STAIN FOR CYTOKERATIN A E1/3 STAINS MINUTE FRAGMENTS OF BENIGN SURFACE EPITHELIUM. IMMUNOPEROXIDASE STAIN FOR CD34 STAINS VESSELS IN THE GRANULATION TISSUE. CLINICAL INFORMATION: Procedure: EXPLORATORY LAPAR OTOMY, POSSIBLE BOWEL RESECTION, POSSIBLE COLOSTOMY Preoperative diagnosis: PERFORATED VISCUS Postoperative diagnosis: PERFORATED VISCUS SPECIMEN: A STOM, BX - GASTRIC ULCER BIOPSY GROSS DESCRIPTION: Received in formalin labeled gastric ulcer biopsy is a 0.9 cm cook glistening soft tissue. TS -1 Dictated by Berenice VOGT ([facility]) MICROSCOPIC DESCRIPTION: Slides reviewed. Electronically Signed by Pathology Report verified by [facility] Electronically signed by ELVA CORTEZ MD Sign out Date: 01/19/2019 15:49 Performing Lab: [facility], [address] [place] [address] Comment on above: Performed By: #### CBC, ADIF F, ANEU, GFR, BMP, MG #### [place] [address] MG on 01-19-2019 Magnesium [Mass/Vol] 1.9 mg/dL Normal 1.6-2.4 [facility] ([place]) Comment on above: Result Comment: Specimen sli ghtly hemolyzed. Results may be falsely elevated. Performed By: #### CBC, ADIF F, ANEU, GFR, BMP, MG #### [place] [address] PHOS on 01-19-2019 Phosphate [Mass/Vol] 1.9 mg/dL Low 2.5-4.5 [facility] ([place]) Comment on above: Performed By: #### CBC, ADIF F, ANEU, GFR, BMP, MG #### [place] [address] XR CHEST 1 VIEW on 01-19-2019 XR CHEST 1 VIEW ORIGINAL Normal [facility] XR CHEST 1 VIEW ([place]) CLINICAL STATEMENT: abn breath sounds. COMPARISON: Chest x-ray on 01/18/2019 FINDINGS: The endotracheal t ube and the enteric tube are in satisfactory position. LEFT basilar lung infiltrate and small LEFT pleural effusion are unchanged. Small RIGHT basilar infiltrate has improved since the prior day. No sig nificant RIGHT pleural fluid is present. There is no new abnormality. IMPRESSION: Persistent LEFT pleural fluid and LEFT basilar infiltr ate. Slightly improved aeration o f RIGHT lung base with small residual RIGHT basilar infiltrate. Interpreted By: Gary Baltazar MD Preliminary Report By: Gary Baltazar MD Electronically Signed By: Gary Baltazar MD Dictated Date: 01/19/2019 6:01:32 AM Prelim Date: 01/19/2019 6:01:32 AM Sign Date: 01/19/2019 6:03:29 AM .Auto Diff on 01-18-2019 Ammonia (P) [Mass/Vol] 0.50 10 3/mcL Normal 0.09-1.40 [facility] ([place]) Comment on above: Performed By: #### CBC, ADIF F, ANEU, GFR, CMP #### [address] [address] Basophils (Bld) [#/Vol] 0.00 10 3/mcL Normal 0.00-0.27 [facility] ([place]) Comment on above: Performed By: #### CBC, ADIF F, ANEU, GFR, CMP #### [address] [address] Basophils/100 WBC (Bld) 0.3 % Normal 0.0-2.5 [facility] ([place]) Comment on above: Performed By: #### CBC, ADIF F, ANEU, GFR, CMP #### [address] [address] Eosinophils (Bld) [#/Vol] 0.10 10 3/mcL Normal 0.00-0.65 [facility] ([place]) Comment on above: Performed By: #### CBC, ADIF F, ANEU, GFR, CMP #### [address] [address] Eosinophils/100 WBC (Bld) 0.5 % Normal 0.0-6.0 [facility] ([place]) Comment on above: Performed By: #### CBC, ADIF F, ANEU, GFR, CMP #### [address] [address] Lymphocytes (Bld) [#/Vol] 0.60 10 3/mcL Low 0.90-4.32 [facility] ([place]) Comment on above: Performed By: #### CBC, ADIF F, ANEU, GFR, CMP #### [address] [address] Lymphocytes/100 WBC (Bld) 5.8 % Low 20.0-40.0 [facility] ([place]) Comment on above: Performed By: #### CBC, ADIF F, ANEU, GFR, CMP #### [address] [address] Monocytes/100 WBC (Bld) 5.1 % Normal 2.0-13.0 [facility] ([place]) Comment on above: Performed By: #### CBC, ADIF F, ANEU, GFR, CMP #### [address] [address] Neutrophils/100 WBC (Bld) 88.3 % High 50.0-75.0 [facility] ([place]) Comment on above: Performed By: #### CBC, ADIF F, ANEU, GFR, CMP #### [address] [address] .GFR on 01-18-2019 GFR >60 Normal [facility] ([place]) Comment on above: Result Comment: GFR Population mean for Afri can [place], Non- Americans Ages 20-29 = 116 mL/min/1.73 sq.m. Ages 30-39 = 107 mL/min/1.73 sq.m. Ages 40-49 = 99 mL/min/1.73 sq.m. Ages 50-59 = 93 mL/min/1.73 sq.m. Ages 60-69 = 85 mL/min/1.73 sq.m. Ages 70+ = 75 mL/min/1.73 sq .m. Chronic Kidney Disease: Less than 60 mL/min/1.73 square meters End Stage Renal Disease: Les s than 15 mL/min/1.73 square meters Performed By: #### CBC, ADIF F, ANEU, GFR, CMP #### [address] [address] GFR Non- >60 Normal [facility] ([place]) Comment on above: Result Comment: GFR Population mean for Afri can [place], Non- Americans Ages 20-29 = 116 mL/min/1.73 sq.m. Ages 30-39 = 107 mL/min/1.73 sq.m. Ages 40-49 = 99 mL/min/1.73 sq.m. Ages 50-59 = 93 mL/min/1.73 sq.m. Ages 60-69 = 85 mL/min/1.73 sq.m. Ages 70+ = 75 mL/min/1.73 sq .m. Chronic Kidney Disease: Less than 60 mL/min/1.73 square meters End Stage Renal Disease: Les s than 15 mL/min/1.73 square meters Performed By: #### CBC, ADIF F, ANEU, GFR, CMP #### [address] [address] .NEUABS on 01-18-2019 Neutrophils (Bld) [#/Vol] 8.90 10 3/mcL High 2.25-8.10 [facility] ([place]) Comment on above: Performed By: #### CBC, ADIF F, ANEU, GFR, CMP #### [place] [address] A1C on 01-18-2019 HbA1c (Bld) [Mass fraction] 6.9 % High 4.0-6.0 [facility] ([place]) Comment on above: Performed By: #### CBC, ADIF F, ANEU, GFR, CMP #### [place] [id number] BG on 01-18-2019 Barometric Pressure 737 mmHg Normal [facility] ([place]) Comment on above: Performed By: #### CBC, ADIF F, ANEU, GFR, CMP #### [place] [id number] Base excess Calc (Bld) -0.6 mmol/L Normal [facility] ([place]) [Moles/Vol] Comment on above: Performed By: #### CBC, ADIF F, ANEU, GFR, CMP #### [place] [id number] CO2 [Moles/Vol] 26.1 mmol/L Normal 22.0-30.0 [facility] ([place]) Comment on above: Performed By: #### CBC, ADIF F, ANEU, GFR, CMP #### [place] [id number] HCO3 (Bld) [Moles/Vol] 24.8 mmol/L Normal 21.0-29.0 [facility] ([place]) Comment on above: Performed By: #### CBC, ADIF F, ANEU, GFR, CMP #### [facility] [address] [place], [place] [address] Oxygen (Bld) [Partial 83.0 mm[Hg] Normal 74.0-108.0 [facility] pressure] ([place]) Comment on above: Performed By: #### CBC, ADIF F, ANEU, GFR, CMP #### [address] [address] Oxygen saturation in Blood 95.9 % Normal 92.0-96.0 [facility] ([place]) Comment on above: Performed By: #### CBC, ADIF F, ANEU, GFR, CMP #### [address] [address] pCO2 43.6 mmHg Normal 32.0-46.0 [facility] ([place]) Comment on above: Performed By: #### CBC, ADIF F, ANEU, GFR, CMP #### [address] [address] pH (Bld) 7.372 [pH] Low 7.380-7.460 [facility] ([place]) Comment on above: Performed By: #### CBC, ADIF F, ANEU, GFR, CMP #### [address] [address] Barometric Pressure 734 mmHg Normal [facility] ([place]) Comment on above: Performed By: #### CBC, ADIF F, ANEU, GFR, CMP #### [address] [address] Base excess Calc (Bld) -1.0 mmol/L Normal [facility] ([place]) [Moles/Vol] Comment on above: Performed By: #### CBC, ADIF F, ANEU, GFR, CMP #### [address] [address] CO2 [Moles/Vol] 27.1 mmol/L Normal 22.0-30.0 [facility] ([place]) Comment on above: Performed By: #### CBC, ADIF F, ANEU, GFR, CMP #### [address] [address] HCO3 (Bld) [Moles/Vol] 25.5 mmol/L Normal 21.0-29.0 [facility] ([place]) Comment on above: Performed By: #### CBC, ADIF F, ANEU, GFR, CMP #### [place] [id number] Oxygen (Bld) [Partial 85.9 mm[Hg] Normal 74.0-108.0 [facility] pressure] ([place]) Comment on above: Performed By: #### CBC, ADIF F, ANEU, GFR, CMP #### [place] [id number] Oxygen saturation in Blood 96.3 % High 92.0-96.0 [facility] ([place]) Comment on above: Performed By: #### CBC, ADIF F, ANEU, GFR, CMP #### [place] [id number] pCO2 50.6 mmHg High 32.0-46.0 [facility] ([place]) Comment on above: Performed By: #### CBC, ADIF F, ANEU, GFR, CMP #### [address] [address] pH (Bld) 7.321 [pH] Low 7.380-7.460 [facility] ([place]) Comment on above: Performed By: #### CBC, ADIF F, ANEU, GFR, CMP #### [address] [address] BMP on 01-18-2019 Calcium [Mass/Vol] 8.2 mg/dL Low 8.4-10.1 [facility] ([place]) Comment on above: Performed By: #### CBC, ADIF F, ANEU, GFR, CMP #### [address] [address] Chloride [Moles/Vol] 111 mmol/L High 98-110 [facility] ([place]) Comment on above: Performed By: #### CBC, ADIF F, ANEU, GFR, CMP #### [place] [id number] CO2 [Moles/Vol] 25 mmol/L Normal 22-32 [facility] ([place]) Comment on above: Performed By: #### CBC, ADIF F, ANEU, GFR, CMP #### [address] [address] Creatinine [Mass/Vol] 0.80 mg/dL Normal 0.50-1.20 [facility] ([place]) Comment on above: Performed By: #### CBC, ADIF F, ANEU, GFR, CMP #### [address] [address] Electrolyte Balance 9.0 mEq/L Normal 4.0-15.0 [facility] ([place]) Comment on above: Performed By: #### CBC, ADIF F, ANEU, GFR, CMP #### [address] [address] Glucose [Mass/Vol] 112 mg/dL Normal 82-115 [facility] ([place]) Comment on above: Performed By: #### CBC, ADIF F, ANEU, GFR, CMP #### [address] [address] Potassium [Moles/Vol] 4.0 mmol/L Normal 3.5-5.0 [facility] ([place]) Comment on above: Performed By: #### CBC, ADIF F, ANEU, GFR, CMP #### [place] [address] Sodium [Moles/Vol] 145 mmol/L Normal 136-145 [facility] ([place]) Comment on above: Performed By: #### CBC, ADIF F, ANEU, GFR, CMP #### [address] [address] Urea nitrogen [Mass/Vol] 26.0 mg/dL High 8.0-22.0 [facility] ([place]) Comment on above: Performed By: #### CBC, ADIF F, ANEU, GFR, CMP #### [address] [address] Urea nitrogen/Creatinine [Mass 32.5 ratio High 10.0-22.0 [facility] ratio] ([place]) Comment on above: Performed By: #### CBC, ADIF F, ANEU, GFR, CMP #### [address] [address] CBC on 01-18-2019 Erythrocyte distribution width 14.5 % Normal 11.5-15.5 [facility] (RBC) [Ratio] ([place]) Comment on above: Performed By: #### CBC, ADIF F, ANEU, GFR, CMP #### [place] [id number] Hematocrit (Bld) [Volume 32.7 % Low 34.0-46.0 [facility] ([place]) fraction] Comment on above: Performed By: #### CBC, ADIF F, ANEU, GFR, CMP #### [place] [id number] Hemoglobin (Bld) [Mass/Vol] 10.7 G/dL Low 12.0-16.0 [facility] ([place]) Comment on above: Performed By: #### CBC, ADIF F, ANEU, GFR, CMP #### [place] [id number] MCH (RBC) [Entitic mass] 30.5 pg Normal 27.0-33.0 [facility] ([place]) Comment on above: Performed By: #### CBC, ADIF F, ANEU, GFR, CMP #### [place] [id number] MCHC (RBC) [Mass/Vol] 32.9 G/dL Normal 32.0-36.0 [facility] ([place]) Comment on above: Performed By: #### CBC, ADIF F, ANEU, GFR, CMP #### [place] [id number] MCV (RBC) [Entitic vol] 92.9 fL Normal 80.0-99.0 [facility] ([place]) Comment on above: Performed By: #### CBC, ADIF F, ANEU, GFR, CMP #### [place] [id number] Platelet mean volume (Bld) 8.2 fL Normal 6.6-10.5 [facility] ([place]) [Entitic vol] Comment on above: Performed By: #### CBC, ADIF F, ANEU, GFR, CMP #### [address] [address] Platelets (Bld) [#/Vol] 171 10 3/mcL Normal 150-450 [facility] ([place]) Comment on above: Performed By: #### CBC, ADIF F, ANEU, GFR, CMP #### [address] [address] RBC (Bld) [#/Vol] 3.52 10 6/mcL Low 4.10-5.30 [facility] ([place]) Comment on above: Performed By: #### CBC, ADIF F, ANEU, GFR, CMP #### [address] [address] WBC (Bld) [#/Vol] 10.10 10 3/mcL Normal 4.50-10.80 [facility] ([place]) Comment on above: Performed By: #### CBC, ADIF F, ANEU, GFR, CMP #### [address] [address] TROPI on 01-18-2019 Troponin I.cardiac [Mass/Vol] ng/mL Normal 0.000-0.040 [facility] ([place]) Comment on above: Result Comment: Troponin I r eference ranges (01/21/14): 0.00-0.040 ng/mL Negative an d non-diagnostic. >0.040 ng/mL Consistent with cardiac damage, increased clinical risk and possibility of myocardial in farction. Serial measurements, a rise & fall in test results, clinical histo ry, appropriate symptoms and/or ECG changes may help assess possibility of LA. *Other non-acute coronary sy ndrome conditions such as CHF, myoc arditis, pulmonary emboli, sepsis and cardiac surgery could result in myoc ardial damage and increased troponi n levels. Performed By: #### CBC, ADIF F, ANEU, GFR, CMP #### [address] [address] Troponin I.cardiac [Mass/Vol] ng/mL Normal 0.000-0.040 [facility] ([place]) Comment on above: Result Comment: Troponin I r eference ranges (01/21/14): 0.00-0.040 ng/mL Negative an d non-diagnostic. >0.040 ng/mL Consistent with cardiac damage, increased clinical risk and possibility of myocardial in farction. Serial measurements, a rise & fall in test results, clinical histo ry, appropriate symptoms and/or ECG changes may help assess possibility of LA. *Other non-acute coronary sy ndrome conditions such as CHF, myoc arditis, pulmonary emboli, sepsis and cardiac surgery could result in myoc ardial damage and increased troponi n levels. Performed By: #### CBC, ADIF F, ANEU, GFR, CMP #### [address] [address] Troponin I.cardiac [Mass/Vol] ng/mL Normal 0.000-0.040 [facility] ([place]) Comment on above: Result Comment: Troponin I r eference ranges (01/21/14): 0.00-0.040 ng/mL Negative an d non-diagnostic. >0.040 ng/mL Consistent with cardiac damage, increased clinical risk and possibility of myocardial in farction. Serial measurements, a rise & fall in test results, clinical histo ry, appropriate symptoms and/or ECG changes may help assess possibility of LA. *Other non-acute coronary sy ndrome conditions such as CHF, myoc arditis, pulmonary emboli, sepsis and cardiac surgery could result in myoc ardial damage and increased troponi n levels. Performed By: #### CBC, ADIF F, ANEU, GFR, CMP #### [place] [id number] XR CHEST 1 VIEW on 01-18-2019 XR CHEST 1 VIEW ORIGINAL Normal [facility] XR CHEST 1 VIEW ([place]) CLINICAL STATEMENT: sob, intubated, abn breath sounds. COMPARISON: Chest x-ray on 01/17/2019 FINDINGS: The endotracheal t ube tip is in satisfactory position. Enteric tube passes down the esophagus into the stomach. There is evidence of bilater al pleural fluid and basilar lung consolidation. This is greater on the LEFT than on the RIGHT. There is increasing density at the LEFT lung base since the prior exam. There is no pneumothorax. There is no pulmonary edema. IMPRESSION: Bilateral pleura l fluid and basilar infiltrates with increasing LEFT pleural fluid and lung consolidation than on the prior day. Interpreted By: Gary Baltazar MD Preliminary Report By: Gary Baltazar MD Electronically Signed By: Gary Baltazar MD Dictated Date: 01/18/2019 5:40:43 AM Prelim Date: 01/18/2019 5:40:43 AM Sign Date: 01/18/2019 5:44:16 AM .Auto Diff on 01-17-2019 Ammonia (P) [Mass/Vol] 0.80 10 3/mcL Normal 0.09-1.40 [facility] ([place]) Comment on above: Performed By: #### CBC, ADIF F, ANEU, GFR, CMP #### [address] [address] Basophils (Bld) [#/Vol] 0.00 10 3/mcL Normal 0.00-0.27 [facility] ([place]) Comment on above: Performed By: #### CBC, ADIF F, ANEU, GFR, CMP #### [address] [address] Basophils/100 WBC (Bld) 0.1 % Normal 0.0-2.5 [facility] ([place]) Comment on above: Performed By: #### CBC, ADIF F, ANEU, GFR, CMP #### [address] [address] Eosinophils (Bld) [#/Vol] 0.00 10 3/mcL Normal 0.00-0.65 [facility] ([place]) Comment on above: Performed By: #### CBC, ADIF F, ANEU, GFR, CMP #### [address] [address] Eosinophils/100 WBC (Bld) 0.2 % Normal 0.0-6.0 [facility] ([place]) Comment on above: Performed By: #### CBC, ADIF F, ANEU, GFR, CMP #### [address] [address] Lymphocytes (Bld) [#/Vol] 0.60 10 3/mcL Low 0.90-4.32 [facility] ([place]) Comment on above: Performed By: #### CBC, ADIF F, ANEU, GFR, CMP #### [address] [address] Lymphocytes/100 WBC (Bld) 5.1 % Low 20.0-40.0 [facility] ([place]) Comment on above: Performed By: #### CBC, ADIF F, ANEU, GFR, CMP #### [address] [address] Monocytes/100 WBC (Bld) 6.1 % Normal 2.0-13.0 [facility] ([place]) Comment on above: Performed By: #### CBC, ADIF F, ANEU, GFR, CMP #### [address] [address] Neutrophils/100 WBC (Bld) 88.5 % High 50.0-75.0 [facility] ([place]) Comment on above: Performed By: #### CBC, ADIF F, ANEU, GFR, CMP #### [address] [address] Ammonia (P) [Mass/Vol] 1.00 10 3/mcL Normal 0.09-1.40 [facility] ([place]) Comment on above: Performed By: #### CBC, ADIF F, ANEU, GFR, BMP, MG #### [address] [address] Basophils (Bld) [#/Vol] 0.00 10 3/mcL Normal 0.00-0.27 [facility] ([place]) Comment on above: Performed By: #### CBC, ADIF F, ANEU, GFR, BMP, MG #### [address] [address] Basophils/100 WBC (Bld) 0.1 % Normal 0.0-2.5 [facility] ([place]) Comment on above: Performed By: #### CBC, ADIF F, ANEU, GFR, BMP, MG #### [address] [address] Eosinophils (Bld) [#/Vol] 0.00 10 3/mcL Normal 0.00-0.65 [facility] ([place]) Comment on above: Performed By: #### CBC, ADIF F, ANEU, GFR, BMP, MG #### [address] [address] Eosinophils/100 WBC (Bld) 0.0 % Normal 0.0-6.0 [facility] ([place]) Comment on above: Performed By: #### CBC, ADIF F, ANEU, GFR, BMP, MG #### [address] [address] Lymphocytes (Bld) [#/Vol] 1.00 10 3/mcL Normal 0.90-4.32 [facility] ([place]) Comment on above: Performed By: #### CBC, ADIF F, ANEU, GFR, BMP, MG #### [address] [address] Lymphocytes/100 WBC (Bld) 6.8 % Low 20.0-40.0 [facility] ([place]) Comment on above: Performed By: #### CBC, ADIF F, ANEU, GFR, BMP, MG #### [address] [address] Monocytes/100 WBC (Bld) 6.7 % Normal 2.0-13.0 [facility] ([place]) Comment on above: Performed By: #### CBC, ADIF F, ANEU, GFR, BMP, MG #### [address] [address] Neutrophils/100 WBC (Bld) 86.4 % High 50.0-75.0 [facility] ([place]) Comment on above: Performed By: #### CBC, ADIF F, ANEU, GFR, BMP, MG #### [address] [address] .GFR on 01-17-2019 GFR >60 Normal [facility] ([place]) Comment on above: Result Comment: GFR Population mean for Afri can [place], Non- Americans Ages 20-29 = 116 mL/min/1.73 sq.m. Ages 30-39 = 107 mL/min/1.73 sq.m. Ages 40-49 = 99 mL/min/1.73 sq.m. Ages 50-59 = 93 mL/min/1.73 sq.m. Ages 60-69 = 85 mL/min/1.73 sq.m. Ages 70+ = 75 mL/min/1.73 sq .m. Chronic Kidney Disease: Less than 60 mL/min/1.73 square meters End Stage Renal Disease: Les s than 15 mL/min/1.73 square meters Performed By: #### CBC, ADIF F, ANEU, GFR, CMP #### [address] [address] GFR Non- 59 ml/min/1.73sqm Normal [facility] ([place]) Comment on above: Result Comment: GFR Population mean for Afri can [place], Non- Americans Ages 20-29 = 116 mL/min/1.73 sq.m. Ages 30-39 = 107 mL/min/1.73 sq.m. Ages 40-49 = 99 mL/min/1.73 sq.m. Ages 50-59 = 93 mL/min/1.73 sq.m. Ages 60-69 = 85 mL/min/1.73 sq.m. Ages 70+ = 75 mL/min/1.73 sq .m. Chronic Kidney Disease: Less than 60 mL/min/1.73 square meters End Stage Renal Disease: Les s than 15 mL/min/1.73 square meters Performed By: #### CBC, ADIF F, ANEU, GFR, CMP #### [address] [address] GFR >60 Normal [facility] ([place]) Comment on above: Result Comment: GFR Population mean for Afri can [place], Non- Americans Ages 20-29 = 116 mL/min/1.73 sq.m. Ages 30-39 = 107 mL/min/1.73 sq.m. Ages 40-49 = 99 mL/min/1.73 sq.m. Ages 50-59 = 93 mL/min/1.73 sq.m. Ages 60-69 = 85 mL/min/1.73 sq.m. Ages 70+ = 75 mL/min/1.73 sq .m. Chronic Kidney Disease: Less than 60 mL/min/1.73 square meters End Stage Renal Disease: Les s than 15 mL/min/1.73 square meters Performed By: #### CBC, ADIF F, ANEU, GFR, BMP, MG #### [address] [address] GFR Non- >60 Normal [facility] ([place]) Comment on above: Result Comment: GFR Population mean for Afri can [place], Non- Americans Ages 20-29 = 116 mL/min/1.73 sq.m. Ages 30-39 = 107 mL/min/1.73 sq.m. Ages 40-49 = 99 mL/min/1.73 sq.m. Ages 50-59 = 93 mL/min/1.73 sq.m. Ages 60-69 = 85 mL/min/1.73 sq.m. Ages 70+ = 75 mL/min/1.73 sq .m. Chronic Kidney Disease: Less than 60 mL/min/1.73 square meters End Stage Renal Disease: Les s than 15 mL/min/1.73 square meters Performed By: #### CBC, ADIF F, ANEU, GFR, BMP, MG #### [address] [address] .NEUABS on 01-17-2019 Neutrophils (Bld) [#/Vol] 11.20 10 3/mcL High 2.25-8.10 [facility] ([place]) Comment on above: Performed By: #### CBC, ADIF F, ANEU, GFR, CMP #### [address] [address] Neutrophils (Bld) [#/Vol] 13.30 10 3/mcL High 2.25-8.10 [facility] ([place]) Comment on above: Performed By: #### CBC, ADIF F, ANEU, GFR, BMP, MG #### [address] [address] BG on 01-17-2019 Barometric Pressure 736 mmHg Normal [facility] ([place]) Comment on above: Performed By: #### CBC, ADIF F, ANEU, GFR, CMP #### [place] [address] Base excess Calc (Bld) -3.0 mmol/L Normal [facility] ([place]) [Moles/Vol] Comment on above: Performed By: #### CBC, ADIF F, ANEU, GFR, CMP #### [address] [address] CO2 [Moles/Vol] 25.6 mmol/L Normal 22.0-30.0 [facility] ([place]) Comment on above: Performed By: #### CBC, ADIF F, ANEU, GFR, CMP #### [address] [address] HCO3 (Bld) [Moles/Vol] 24.0 mmol/L Normal 21.0-29.0 [facility] ([place]) Comment on above: Performed By: #### CBC, ADIF F, ANEU, GFR, CMP #### [place] [id number] Oxygen (Bld) [Partial 113.2 mm[Hg] High 74.0-108.0 [facility] pressure] ([place]) Comment on above: Performed By: #### CBC, ADIF F, ANEU, GFR, CMP #### [place] [id number] Oxygen saturation in Blood 98.0 % High 92.0-96.0 [facility] ([place]) Comment on above: Performed By: #### CBC, ADIF F, ANEU, GFR, CMP #### [address] [address] pCO2 51.1 mmHg High 32.0-46.0 [facility] ([place]) Comment on above: Performed By: #### CBC, ADIF F, ANEU, GFR, CMP #### [address] [address] pH (Bld) 7.290 [pH] Low 7.380-7.460 [facility] ([place]) Comment on above: Performed By: #### CBC, ADIF F, ANEU, GFR, CMP #### [place] [id number] Barometric Pressure 732 mmHg Normal [facility] ([place]) Comment on above: Performed By: #### CBC, ADIF F, ANEU, GFR, CMP #### [place] [id number] Base excess Calc (Bld) -1.7 mmol/L Normal [facility] ([place]) [Moles/Vol] Comment on above: Performed By: #### CBC, ADIF F, ANEU, GFR, CMP #### [address] [address] CO2 [Moles/Vol] 26.2 mmol/L Normal 22.0-30.0 [facility] ([place]) Comment on above: Performed By: #### CBC, ADIF F, ANEU, GFR, CMP #### [address] [address] HCO3 (Bld) [Moles/Vol] 24.7 mmol/L Normal 21.0-29.0 [facility] ([place]) Comment on above: Performed By: #### CBC, ADIF F, ANEU, GFR, CMP #### [address] [address] Oxygen (Bld) [Partial 89.8 mm[Hg] Normal 74.0-108.0 [facility] pressure] ([place]) Comment on above: Performed By: #### CBC, ADIF F, ANEU, GFR, CMP #### [place] [id number] Oxygen saturation in Blood 96.8 % High 92.0-96.0 [facility] ([place]) Comment on above: Performed By: #### CBC, ADIF F, ANEU, GFR, CMP #### [address] [address] pCO2 48.2 mmHg High 32.0-46.0 [facility] ([place]) Comment on above: Performed By: #### CBC, ADIF F, ANEU, GFR, CMP #### [address] [address] pH (Bld) 7.327 [pH] Low 7.380-7.460 [facility] ([place]) Comment on above: Performed By: #### CBC, ADIF F, ANEU, GFR, CMP #### [address] [address] BGDC on 01-17-2019 Patient Location OPEN HEART Normal [facility] ([place]) Comment on above: Performed By: #### CBC, ADIF F, ANEU, GFR, CMP #### [address] [address] BMP on 01-17-2019 Creatinine [Mass/Vol] 0.92 mg/dL Normal 0.50-1.20 [facility] ([place]) Comment on above: Performed By: #### CBC, ADIF F, ANEU, GFR, CMP #### [address] [address] Urea nitrogen/Creatinine [Mass 32.6 ratio High 10.0-22.0 [facility] ratio] ([place]) Comment on above: Performed By: #### CBC, ADIF F, ANEU, GFR, CMP #### [place] [id number] Calcium [Mass/Vol] 7.6 mg/dL Low 8.4-10.1 [facility] ([place]) Comment on above: Performed By: #### CBC, ADIF F, ANEU, GFR, CMP #### [place] [address] Chloride [Moles/Vol] 111 mmol/L High 98-110 [facility] ([place]) Comment on above: Performed By: #### CBC, ADIF F, ANEU, GFR, CMP #### [address] [address] CO2 [Moles/Vol] 24 mmol/L Normal 22-32 [facility] ([place]) Comment on above: Performed By: #### CBC, ADIF F, ANEU, GFR, CMP #### [address] [address] Electrolyte Balance 9.0 mEq/L Normal 4.0-15.0 [facility] ([place]) Comment on above: Performed By: #### CBC, ADIF F, ANEU, GFR, CMP #### [address] [address] Glucose [Mass/Vol] 155 mg/dL High 82-115 [facility] ([place]) Comment on above: Performed By: #### CBC, ADIF F, ANEU, GFR, CMP #### [address] [address] Potassium [Moles/Vol] 4.5 mmol/L Normal 3.5-5.0 [facility] ([place]) Comment on above: Performed By: #### CBC, ADIF F, ANEU, GFR, CMP #### [address] [address] Sodium [Moles/Vol] 144 mmol/L Normal 136-145 [facility] ([place]) Comment on above: Performed By: #### CBC, ADIF F, ANEU, GFR, CMP #### [address] [address] Urea nitrogen [Mass/Vol] 30.0 mg/dL High 8.0-22.0 [facility] ([place]) Comment on above: Performed By: #### CBC, ADIF F, ANEU, GFR, CMP #### [address] [address] Potassium [Moles/Vol] 5.5 mmol/L High 3.5-5.0 [facility] ([place]) Comment on above: Result Comment: Specimen sli ghtly hemolyzed. Results may be falsely elevated. Performed By: #### CBC, ADIF F, ANEU, GFR, BMP, MG #### [address] [address] Creatinine [Mass/Vol] 0.90 mg/dL Normal 0.50-1.20 [facility] ([place]) Comment on above: Performed By: #### CBC, ADIF F, ANEU, GFR, BMP, MG #### [address] [address] Glucose [Mass/Vol] 134 mg/dL High 82-115 [facility] ([place]) Comment on above: Performed By: #### CBC, ADIF F, ANEU, GFR, BMP, MG #### [address] [address] Urea nitrogen/Creatinine [Mass 33.3 ratio High 10.0-22.0 [facility] ratio] ([place]) Comment on above: Performed By: #### CBC, ADIF F, ANEU, GFR, BMP, MG #### [place] [id number] Calcium [Mass/Vol] 8.5 mg/dL Normal 8.4-10.1 [facility] ([place]) Comment on above: Performed By: #### CBC, ADIF F, ANEU, GFR, BMP, MG #### [place] [id number] Chloride [Moles/Vol] 107 mmol/L Normal 98-110 [facility] ([place]) Comment on above: Performed By: #### CBC, ADIF F, ANEU, GFR, BMP, MG #### [place] [id number] CO2 [Moles/Vol] 24 mmol/L Normal 22-32 [facility] ([place]) Comment on above: Performed By: #### CBC, ADIF F, ANEU, GFR, BMP, MG #### [place] [address] Electrolyte Balance 10.0 mEq/L Normal 4.0-15.0 [facility] ([place]) Comment on above: Performed By: #### CBC, ADIF F, ANEU, GFR, BMP, MG #### [place] [id number] Sodium [Moles/Vol] 141 mmol/L Normal 136-145 [facility] ([place]) Comment on above: Performed By: #### CBC, ADIF F, ANEU, GFR, BMP, MG #### [place] [id number] Urea nitrogen [Mass/Vol] 30.0 mg/dL High 8.0-22.0 [facility] ([place]) Comment on above: Performed By: #### CBC, ADIF F, ANEU, GFR, BMP, MG #### [address] [address] CAOR on 01-17-2019 Calcium Ionized OR 1.09 mmol/L Low 1.12-1.32 [facility] ([place]) Comment on above: Performed By: #### CBC, ADIF F, ANEU, GFR, CMP #### [place] [id number] CBC on 01-17-2019 Erythrocyte distribution width 14.5 % Normal 11.5-15.5 [facility] (RBC) [Ratio] ([place]) Comment on above: Performed By: #### CBC, ADIF F, ANEU, GFR, CMP #### [place] [id number] Hematocrit (Bld) [Volume 37.5 % Normal 34.0-46.0 [facility] ([place]) fraction] Comment on above: Performed By: #### CBC, ADIF F, ANEU, GFR, CMP #### [place] [address] Hemoglobin (Bld) [Mass/Vol] 11.9 G/dL Low 12.0-16.0 [facility] ([place]) Comment on above: Performed By: #### CBC, ADIF F, ANEU, GFR, CMP #### [place] [address] MCH (RBC) [Entitic mass] 29.9 pg Normal 27.0-33.0 [facility] ([place]) Comment on above: Performed By: #### CBC, ADIF F, ANEU, GFR, CMP #### [place] [id number] MCHC (RBC) [Mass/Vol] 31.8 G/dL Low 32.0-36.0 [facility] ([place]) Comment on above: Performed By: #### CBC, ADIF F, ANEU, GFR, CMP #### [place] [id number] MCV (RBC) [Entitic vol] 94.1 fL Normal 80.0-99.0 [facility] ([place]) Comment on above: Performed By: #### CBC, ADIF F, ANEU, GFR, CMP #### [place] [address] Platelet mean volume (Bld) 7.7 fL Normal 6.6-10.5 [facility] ([place]) [Entitic vol] Comment on above: Performed By: #### CBC, ADIF F, ANEU, GFR, CMP #### [address] [address] Platelets (Bld) [#/Vol] 204 10 3/mcL Normal 150-450 [facility] ([place]) Comment on above: Performed By: #### CBC, ADIF F, ANEU, GFR, CMP #### [place] [id number] RBC (Bld) [#/Vol] 3.98 10 6/mcL Low 4.10-5.30 [facility] ([place]) Comment on above: Performed By: #### CBC, ADIF F, ANEU, GFR, CMP #### [place] [id number] WBC (Bld) [#/Vol] 12.70 10 3/mcL High 4.50-10.80 [facility] ([place]) Comment on above: Performed By: #### CBC, ADIF F, ANEU, GFR, CMP #### [place] [id number] Erythrocyte distribution width 14.6 % Normal 11.5-15.5 [facility] (RBC) [Ratio] ([place]) Comment on above: Performed By: #### CBC, ADIF F, ANEU, GFR, BMP, MG #### [place] [id number] Hematocrit (Bld) [Volume 44.5 % Normal 34.0-46.0 [facility] ([place]) fraction] Comment on above: Performed By: #### CBC, ADIF F, ANEU, GFR, BMP, MG #### [place] [id number] Hemoglobin (Bld) [Mass/Vol] 14.5 G/dL Normal 12.0-16.0 [facility] ([place]) Comment on above: Performed By: #### CBC, ADIF F, ANEU, GFR, BMP, MG #### [place] [id number] MCH (RBC) [Entitic mass] 30.5 pg Normal 27.0-33.0 [facility] ([place]) Comment on above: Performed By: #### CBC, ADIF F, ANEU, GFR, BMP, MG #### [address] [address] MCHC (RBC) [Mass/Vol] 32.5 G/dL Normal 32.0-36.0 [facility] ([place]) Comment on above: Performed By: #### CBC, ADIF F, ANEU, GFR, BMP, MG #### [place] [id number] MCV (RBC) [Entitic vol] 93.9 fL Normal 80.0-99.0 [facility] ([place]) Comment on above: Performed By: #### CBC, ADIF F, ANEU, GFR, BMP, MG #### [place] [id number] Platelet mean volume (Bld) 8.5 fL Normal 6.6-10.5 [facility] ([place]) [Entitic vol] Comment on above: Performed By: #### CBC, ADIF F, ANEU, GFR, BMP, MG #### [address] [address] Platelets (Bld) [#/Vol] 233 10 3/mcL Normal 150-450 [facility] ([place]) Comment on above: Performed By: #### CBC, ADIF F, ANEU, GFR, BMP, MG #### [place] [id number] RBC (Bld) [#/Vol] 4.74 10 6/mcL Normal 4.10-5.30 [facility] ([place]) Comment on above: Performed By: #### CBC, ADIF F, ANEU, GFR, BMP, MG #### [place] [id number] WBC (Bld) [#/Vol] 15.40 10 3/mcL High 4.50-10.80 [facility] ([place]) Comment on above: Performed By: #### CBC, ADIF F, ANEU, GFR, BMP, MG #### [address] [address] [address] ABD/PELVIS W/ IV CONTRAST ONLY on 0 01-17-2019 CT ABD/PELVIS W/ IV ORIGINAL Normal [facility] CONTRAST ONLY CT ABD/PELVIS W/ IV CONTRAST ONLY [facility] ([place]) CLINICAL STATEMENT: known pe rorated viscus, possible diverticulitis, compare to yesterday's CT COMPARISON: CT abdomen pelvis 01/16/2019 TECHNIQUE: Axial images were obtained from the lung bases through the pubic symphysis after the administration of IV contrast. Coronal and sagittal reformatted images were generated from the axial datas et. This exam was performed according to our departmental dose optimization program, and includes the following measures where applicable: automated exposure control, adjustment of the mAs and/or kVp ac cording to patient size and/ or exam, and an iterative reconstruction algorithm. FINDINGS: Bibasilar consolidations are noted greater o n the LEFT. The liver, spleen, adrenal g lands, kidneys, and pancreas are within normal limits. The gallbladder is distended. There is a small hiatal marquis ia. The large and small bowel are normal in course and caliber. The appendix is normal. There is a moderate amount of free intraperitoneal fluid and air, which is increased f rom the prior exam particula rly in the LEFT upper quadrant. There is mild wall thickening at the splenic flexure, which is where the most prominent air-fluid level is seen, but the source of the perforated viscus is not definitely identified. There is no lymphadenopathy. The aorta is atherosclerotic, but normal in caliber. The bladder is well distended. The uterus is visualize d. No adnexal mass. There is no visible fracture or aggressive osseous lesion. Degenerative and postoperative changes are seen in the lumbar spine. IMPRESSION: Moderate amount of free flui d and pneumoperitoneum, which is worsened since the prior exam. There is mild wall thickening of the splenic flexure, which is where the largest air-fluid level is seen. Mustafa ale, a definite source of perforation is not identifie d. Interpreted By: Zak Burgess MD Preliminary Report By: Zak Burgess MD Electronically Signed By: Zak Burgess MD Dictated Date: 01/17/2019 10:46:18 AM Prelim Date: 01/17/2019 10:46:18 AM Sign Date: 01/17/2019 10:59:16 AM GLUOR on 01-17-2019 Glucose [Mass/Vol] 144 mg/dL High 82-115 [facility] ([place]) Comment on above: Performed By: #### CBC, ADIF F, ANEU, GFR, CMP #### [address] [address] HCTOR on 01-17-2019 Hematocrit (Bld) [Volume 39.0 % Normal 37.0-47.0 [facility] ([place]) fraction] Comment on above: Performed By: #### CBC, ADIF F, ANEU, GFR, CMP #### [address] [address] HGBOR on 01-17-2019 Hemoglobin (Bld) [Mass/Vol] 13.3 G/dL Normal 12.0-16.0 [facility] ([place]) Comment on above: Performed By: #### CBC, ADIF F, ANEU, GFR, CMP #### [address] [address] KOR on 01-17-2019 Potassium [Moles/Vol] 4.9 mmol/L Normal 3.5-5.0 [facility] ([place]) Comment on above: Performed By: #### CBC, ADIF F, ANEU, GFR, CMP #### [address] [address] LAC on 01-17-2019 Lactic Acid Lvl 1.6 mmol/L Normal 0.2-2.0 [facility] ([place]) Comment on above: Performed By: #### CBC, ADIF F, ANEU, GFR, CMP #### [address] [address] MG on 01-17-2019 Magnesium [Mass/Vol] 2.0 mg/dL Normal 1.6-2.4 [facility] ([place]) Comment on above: Result Comment: Specimen sli ghtly hemolyzed. Results may be falsely elevated. Performed By: #### CBC, ADIF F, ANEU, GFR, CMP #### [address] [address] MGOR on 01-17-2019 Magnesium [Mass/Vol] 1.8 mg/dL Normal 1.6-2.4 [facility] ([place]) Comment on above: Performed By: #### CBC, ADIF F, ANEU, GFR, CMP #### [address] [address] NAOR on 01-17-2019 Sodium [Moles/Vol] 139 mmol/L Normal 136-145 [facility] ([place]) Comment on above: Performed By: #### CBC, ADIF F, ANEU, GFR, CMP #### [place] [id number] TROPI on 01-17-2019 Troponin I.cardiac [Mass/Vol] ng/mL Normal 0.000-0.040 [facility] ([place]) Comment on above: Result Comment: Troponin I r eference ranges (01/21/14): 0.00-0.040 ng/mL Negative an d non-diagnostic. >0.040 ng/mL Consistent with cardiac damage, increased clinical risk and possibility of myocardial in farction. Serial measurements, a rise & fall in test results, clinical histo ry, appropriate symptoms and/or ECG changes may help assess possibility of LA. *Other non-acute coronary sy ndrome conditions such as CHF, myoc arditis, pulmonary emboli, sepsis and cardiac surgery could result in myoc ardial damage and increased troponi n levels. Performed By: #### CBC, ADIF F, ANEU, GFR, CMP #### [place] [address] XR ABDOMEN AP on 01-17-2019 XR ABDOMEN AP ORIGINAL Normal [facility] XR ABDOMEN AP portable supine 6:25 PM ([place]) CLINICAL STATEMENT: gastric tube placement. Enteric tu be placement COMPARISON: CT abdomen/pelvis 01/17/2019 FINDINGS: An enteric tube is present w ith the tip at the mid gastric body with the side port hole beyond the gastroesophageal junction. A nonobstructive bowel gas pattern is visualized. Fusion hardware is noted of the lumbar spine. Surgical estella are noted. IMPRESSION: Appropriate position of enteric tube. I have personally reviewed t he images of this examination and agree with the resident's findings and interpretation. Interpreted By: Diomedes Smith MD Preliminary Report By: Abril Botello DO Electronically Signed By: Diomedes Smith MD Dictated Date: 01/17/2019 6:49:36 PM Prelim Date: 01/17/2019 6:50:53 PM Sign Date: 01/17/2019 7:23:07 PM XR CHEST 1 VIEW on 01-17-2019 XR CHEST 1 VIEW ORIGINAL Normal [facility] XR CHEST 1 VIEW ([place]) CLINICAL STATEMENT: Endotracheal tube placement, post surgical. COMPARISON: Abdominal radiograph 01/17/2019 FINDINGS: The heart size and cardia me diastinal contours are within normal limits. There is calcified atherosclerosis of the thoracic aorta. The endotracheal tube tip is at the level of the aortic arch. An enteri c tube is present with the t ip not included on this exam. There is a small LEFT pleural effusion. No focal consolidation or pneumothorax is seen. There is bilateral shoulder arthroplasty hardware. Hazy opacity in the lungs with some interstitial prominence . IMPRESSION: Appropriate position of endotracheal tube. Small LEFT pleural effusion and adjacent LEFT basilar atelectasis. There may be a small RIGHT effusion also.. Interstitial edema is not excluded. Evaluate clinically. I have personally reviewed t images of this examination and agree with the resident's findings and interpretation. Interpreted By: Diomedes Smith MD Preliminary Report By: Abril Botello DO Electronically Signed By: Diomedes Smith MD Dictated Date: 01/17/2019 6:47:54 PM Prelim Date: 01/17/2019 6:49:27 PM Sign Date: 01/17/2019 7:30:23 PM .Auto Diff on 01-16-2019 Ammonia (P) [Mass/Vol] 0.70 10 3/mcL Normal 0.09-1.40 [facility] ([place]) Comment on above: Performed By: #### CBC, ADIF F, ANEU, GFR, CMP #### [address] [address] Basophils (Bld) [#/Vol] 0.00 10 3/mcL Normal 0.00-0.27 [facility] ([place]) Comment on above: Performed By: #### CBC, ADIF F, ANEU, GFR, CMP #### [address] [address] Basophils/100 WBC (Bld) 0.0 % Normal 0.0-2.5 [facility] ([place]) Comment on above: Performed By: #### CBC, ADIF F, ANEU, GFR, CMP #### [address] [address] Eosinophils (Bld) [#/Vol] 0.00 10 3/mcL Normal 0.00-0.65 [facility] ([place]) Comment on above: Performed By: #### CBC, ADIF F, ANEU, GFR, CMP #### [address] [address] Eosinophils/100 WBC (Bld) 0.0 % Normal 0.0-6.0 [facility] ([place]) Comment on above: Performed By: #### CBC, ADIF F, ANEU, GFR, CMP #### [address] [address] Lymphocytes (Bld) [#/Vol] 0.50 10 3/mcL Low 0.90-4.32 [facility] ([place]) Comment on above: Performed By: #### CBC, ADIF F, ANEU, GFR, CMP #### [address] [address] Lymphocytes/100 WBC (Bld) 4.4 % Low 20.0-40.0 [facility] ([place]) Comment on above: Performed By: #### CBC, ADIF F, ANEU, GFR, CMP #### [address] [address] Monocytes/100 WBC (Bld) 6.2 % Normal 2.0-13.0 [facility] ([place]) Comment on above: Performed By: #### CBC, ADIF F, ANEU, GFR, CMP #### [address] [address] Neutrophils/100 WBC (Bld) 89.4 % High 50.0-75.0 [facility] ([place]) Comment on above: Performed By: #### CBC, ADIF F, ANEU, GFR, CMP #### [address] [address] .GFR on 01-16-2019 GFR Non- 55 ml/min/1.73sqm Normal [facility] ([place]) Comment on above: Result Comment: GFR Population mean for Afri can [place], Non- Americans Ages 20-29 = 116 mL/min/1.73 sq.m. Ages 30-39 = 107 mL/min/1.73 sq.m. Ages 40-49 = 99 mL/min/1.73 sq.m. Ages 50-59 = 93 mL/min/1.73 sq.m. Ages 60-69 = 85 mL/min/1.73 sq.m. Ages 70+ = 75 mL/min/1.73 sq .m. Chronic Kidney Disease: Less than 60 mL/min/1.73 square meters End Stage Renal Disease: Les s than 15 mL/min/1.73 square meters Performed By: #### CBC, ADIF F, ANEU, GFR, CMP #### [address] [address] GFR >60 Normal [facility] ([place]) Comment on above: Result Comment: GFR Population mean for Afri can [place], Non- Americans Ages 20-29 = 116 mL/min/1.73 sq.m. Ages 30-39 = 107 mL/min/1.73 sq.m. Ages 40-49 = 99 mL/min/1.73 sq.m. Ages 50-59 = 93 mL/min/1.73 sq.m. Ages 60-69 = 85 mL/min/1.73 sq.m. Ages 70+ = 75 mL/min/1.73 sq .m. Chronic Kidney Disease: Less than 60 mL/min/1.73 square meters End Stage Renal Disease: Les s than 15 mL/min/1.73 square meters Performed By: #### CBC, ADIF F, ANEU, GFR, CMP #### [address] [address] .NEUABS on 01-16-2019 Neutrophils (Bld) [#/Vol] 10.00 10 3/mcL High 2.25-8.10 [facility] ([place]) Comment on above: Performed By: #### CBC, ADIF F, ANEU, GFR, CMP #### [address] [address] CBC on 01-16-2019 Erythrocyte distribution width 14.8 % Normal 11.5-15.5 [facility] (RBC) [Ratio] ([place]) Comment on above: Performed By: #### CBC, ADIF F, ANEU, GFR, CMP #### [place] [id number] Hematocrit (Bld) [Volume 45.0 % Normal 34.0-46.0 [facility] ([place]) fraction] Comment on above: Performed By: #### CBC, ADIF F, ANEU, GFR, CMP #### [place] [id number] Hemoglobin (Bld) [Mass/Vol] 14.4 G/dL Normal 12.0-16.0 [facility] ([place]) Comment on above: Performed By: #### CBC, ADIF F, ANEU, GFR, CMP #### [place] [id number] MCH (RBC) [Entitic mass] 30.4 pg Normal 27.0-33.0 [facility] ([place]) Comment on above: Performed By: #### CBC, ADIF F, ANEU, GFR, CMP #### [place] [id number] MCHC (RBC) [Mass/Vol] 32.0 G/dL Normal 32.0-36.0 [facility] ([place]) Comment on above: Performed By: #### CBC, ADIF F, ANEU, GFR, CMP #### [place] [id number] MCV (RBC) [Entitic vol] 95.0 fL Normal 80.0-99.0 [facility] ([place]) Comment on above: Performed By: #### CBC, ADIF F, ANEU, GFR, CMP #### [place] [id number] Platelet mean volume (Bld) 8.3 fL Normal 6.6-10.5 [facility] ([place]) [Entitic vol] Comment on above: Performed By: #### CBC, ADIF F, ANEU, GFR, CMP #### [place] [id number] Platelets (Bld) [#/Vol] 234 10 3/mcL Normal 150-450 [facility] ([place]) Comment on above: Performed By: #### CBC, ADIF F, ANEU, GFR, CMP #### [place] [address] RBC (Bld) [#/Vol] 4.73 10 6/mcL Normal 4.10-5.30 [facility] ([place]) Comment on above: Performed By: #### CBC, ADIF F, ANEU, GFR, CMP #### [place] [address] WBC (Bld) [#/Vol] 11.20 10 3/mcL High 4.50-10.80 [facility] ([place]) Comment on above: Performed By: #### CBC, ADIF F, ANEU, GFR, CMP #### [place] [address] CMP on 01-16-2019 Albumin/Globulin [Mass ratio] 0.8 {ratio} Low 0.9-1.6 [facility] ([place]) Comment on above: Performed By: #### CBC, ADIF F, ANEU, GFR, CMP #### [place] [address] ALP [Catalytic activity/Vol] 91 U/L Normal 38-126 [facility] ([place]) Comment on above: Performed By: #### CBC, ADIF F, ANEU, GFR, CMP #### [place] [address] Bili Total 0.6 mg/dL Normal 0.2-1.2 [facility] ([place]) Comment on above: Performed By: #### CBC, ADIF F, ANEU, GFR, CMP #### [place] [address] Globulin (S) [Mass/Vol] 4.0 G/dL High 1.5-3.8 [facility] ([place]) Comment on above: Performed By: #### CBC, ADIF F, ANEU, GFR, CMP #### [place] [address] Protein [Mass/Vol] 7.1 G/dL Normal 6.0-8.5 [facility] ([place]) Comment on above: Performed By: #### CBC, ADIF F, ANEU, GFR, CMP #### [address] [address] Albumin [Mass/Vol] 3.1 G/dL Low 3.2-4.8 [facility] ([place]) Comment on above: Performed By: #### CBC, ADIF F, ANEU, GFR, CMP #### [address] [address] ALT [Catalytic activity/Vol] 15 U/L Normal 10-49 [facility] ([place]) Comment on above: Performed By: #### CBC, ADIF F, ANEU, GFR, CMP #### [address] [address] AST [Catalytic activity/Vol] 15 U/L Normal 8-34 [facility] ([place]) Comment on above: Performed By: #### CBC, ADIF F, ANEU, GFR, CMP #### [address] [address] Calcium [Mass/Vol] 8.5 mg/dL Normal 8.4-10.1 [facility] ([place]) Comment on above: Performed By: #### CBC, ADIF F, ANEU, GFR, CMP #### [address] [address] Chloride [Moles/Vol] 105 mmol/L Normal 98-110 [facility] ([place]) Comment on above: Performed By: #### CBC, ADIF F, ANEU, GFR, CMP #### [address] [address] CO2 [Moles/Vol] 27 mmol/L Normal 22-32 [facility] ([place]) Comment on above: Performed By: #### CBC, ADIF F, ANEU, GFR, CMP #### [address] [address] Creatinine [Mass/Vol] 0.98 mg/dL Normal 0.50-1.20 [facility] ([place]) Comment on above: Performed By: #### CBC, ADIF F, ANEU, GFR, CMP #### [address] [address] Electrolyte Balance 8.0 mEq/L Normal 4.0-15.0 [facility] ([place]) Comment on above: Performed By: #### CBC, ADIF F, ANEU, GFR, CMP #### [address] [address] Glucose [Mass/Vol] 147 mg/dL High 82-115 [facility] ([place]) Comment on above: Performed By: #### CBC, ADIF F, ANEU, GFR, CMP #### [address] [address] Potassium [Moles/Vol] 5.1 mmol/L High 3.5-5.0 [facility] ([place]) Comment on above: Performed By: #### CBC, ADIF F, ANEU, GFR, CMP #### [address] [address] Sodium [Moles/Vol] 140 mmol/L Normal 136-145 [facility] ([place]) Comment on above: Performed By: #### CBC, ADIF F, ANEU, GFR, CMP #### [address] [address] Urea nitrogen [Mass/Vol] 25.0 mg/dL High 8.0-22.0 [facility] ([place]) Comment on above: Performed By: #### CBC, ADIF F, ANEU, GFR, CMP #### [address] [address] Urea nitrogen/Creatinine [Mass 25.5 ratio High 10.0-22.0 [facility] ratio] ([place]) Comment on above: Performed By: #### CBC, ADIF F, ANEU, GFR, CMP #### [address] [address] Basic Metabolic Panel on 10-28-2018 Anion gap molar conc 11.0 mmol/L Normal 6.0-18.0 [facility] Comment on above: Performed By: #### 05739-6, 1987-, 77803-9, 98305-4v7, 71339- 9 #### [facility], [address] [facility] [place], [place]. Calcium mass conc 8.8 mg/dL Low 8.9-10.3 [facility] Comment on above: Performed By: #### 98950-1, 1987-09, 95582-7, 05238-1k9, 68522- 9 #### [facility], [address] [facility] [facility] [facility] [place], [place]. Chloride molar conc 106 mmol/L Normal 98-107 [facility] Comment on above: Performed By: #### 72061-0, 1987-09, 64327-7, 74506-5n0, 80527- 9 #### [facility], [address] [facility] [facility] [facility] [place], [place]. CO2 molar conc 23 mmol/L Normal 22-32 [facility] Comment on above: Performed By: #### 37009-6, 1987-09, 23561-9, 56996-9w9, 95103- 9 #### [facility], [address] [facility] [facility] [facility] [place], [place]. Creatinine mass conc 0.78 mg/dL Normal 0.66-1.30 [facility] Comment on above: Performed By: #### 18684-4, 1987-09, 23251-5, 39578-4d3, 22112- 9 #### [facility], [address] [facility] [facility] [place], [place]. Glucose mass conc 140 mg/dL High 70-99 [facility] Comment on above: Result Comment: Updated A DA Reference Range A normal fasting glucose con centration is less than 100 mg/dL. An impaired fasting glucose concentration is 100-125 mg/dL. A provisional diagnosis of arely betes mellitus can be made when a fasting glucose concentratio n is greater than 125 mg/dL. Performed By: #### 33517-4, 1987-09, 36676-5, 05203-0r5, 75386-2 #### [facility], [address] [facility], [place], [place]. Potassium molar conc 4.6 mmol/L Normal 3.6-5.1 [facility] Comment on above: Performed By: #### 43568-6, 1987-09, 65024-7, 44019-3f9, 38513- 9 #### [facility], [address] [facility], [place], [place]. Sodium molar conc 140 mmol/L Normal 136-145 [facility] Comment on above: Performed By: #### 73382-5, 1987-09, 81664-3, 10267-8d6, 57322- 9 #### [facility], [address] [place], [place]. Urea nitrogen mass conc (BldV) 23 mg/dL High 8-20 [facility] Comment on above: Performed By: #### 41216-6, 1987-09, 68991-1, 95162-3i5, 68352- 9 #### [facility], [address] [facility], [place], [place]. C-Reactive Protein on 10-28-2018 CRP mass conc mg/L Normal <1.0 [facility] Comment on above: Performed By: #### 55361-6, 1987-09, 35335-0, 65215-0v1, 00548- 9 #### [facility], [address] [facility], [place], [place]. CBC with Differential on 10-28-2018 Basophils #/vol (Bld) 0.4 % Normal 0.0-2.0 [facility] Comment on above: Performed By: #### 80041-7 # ### [facility], [address] [place], [place]. Basophils #/vol (Bld) 0.10 thou/mcL Normal 0.00-0.20 [facility] Comment on above: Performed By: #### 97422-3 # ### [facility], [address], [place]. Eosinophils #/vol (Bld) 0.10 thou/mcL Normal 0.00-0.70 [facility] Comment on above: Performed By: #### 14946-8 # ### [facility], [address], [place]. Eosinophils/100 WBC (Bld) 0.8 % Normal 0.0-7.0 Mo [facility] Comment on above: Performed By: #### 02249-2 # ### [facility], [facility] [address] [place]. Erythrocyte distribution width 14.4 % Normal 11.0-14.8 [facility] Entitic volume (RBC) Comment on above: Performed By: #### 91210-0 # ### [facility], [facility] [place]. Hematocrit Volume Fraction (Bld) 39.6 % Normal 35.0-45. 0 [facility] Comment on above: Performed By: #### 68152-7 # ### [facility], [facility] [place]. Hemoglobin mass conc (Bld) 13.5 g/dL Normal 12.0-16.0 [facility] Comment on above: Performed By: #### 41493-8 # ### [facility], [facility] [address]. Lymphocytes #/vol (Bld) 1.10 thou/mcL Normal 1.00-4.80 [facility] Comment on above: Performed By: #### 19899-6 # ### [facility], [facility] [address]. Lymphocytes/100 WBC (Bld) 8.7 % Low 22.0-44.0 Mo [facility] Comment on above: Performed By: #### 76024-0 # ### [facility], [facility] [address], [place]. MCH Entitic mass (RBC) 31.4 Picograms Normal 27.0-34.0 [facility] Comment on above: Performed By: #### 27229-5 # ### [facility], [address] [facility] [facility] MCHC mass conc (RBC) 34.0 g/dL Normal 32.0-36.0 [facility] Comment on above: Performed By: #### 52674-5 # ### [facility], [address], [place]. MCV Entitic volume (RBC) 92.5 fL Normal 80.0-97.0 [facility] Comment on above: Performed By: #### 56058-1 # ### [facility], [facility] Monocytes #/vol (Bld) 0.40 thou/mcL Normal 0.00-0.90 [facility] Comment on above: Performed By: #### 40227-2 # ### [facility], [facility] Monocytes/100 WBC (Bld) 3.1 % Normal 0.0-12.0 [facility] Comment on above: Performed By: #### 76908-8 # ### [facility], [facility] [address]. Neutrophils #/vol (Bld) 11.10 thou/mcL High 1.80-7.70 Mo [facility] Comment on above: Performed By: #### 52300-8 # ### [facility], [facility] [address]. Neutrophils/100 WBC (Bld) 87.0 % High 40.0-70.0 Mo [facility] Comment on above: Performed By: #### 24504-4 # ### [facility], [facility] [address]. Platelet mean volume Entitic volume 7.8 fL Normal 6.2-1 2.1 [facility] (Bld) Comment on above: Performed By: #### 49740-6 # ### [facility], [address] [facility], [place], [place]. Platelets #/vol (Bld) 211 thou/mcL Normal 142-424 [facility] Comment on above: Performed By: #### 00483-2 # ### [facility], [address] [facility], [place], [place]. RBC #/vol (Bld) 4.28 million/mcL Normal 3.80-5.10 [facility] Comment on above: Performed By: #### 07258-5 # ### [facility], [address] [facility], [place], [place]. WBC #/vol (Bld) 12.8 thou/mcL High 4.6-10.2 [facility] Comment on above: Performed By: #### 02228-4 # ### [facility], [address] [place] [address]. CT Ang Neck w and/or w/o Contrast on CTA Neck vessels WO and EXAMINATION TYPE: CT Head w/ o Contrast, CT Ang Neck w and/or w/o Contrast Normal [facility] W contrast IV DATE OF EXAM : 10/28/2018 3:31 PM System HISTORY: Headaches FINDINGS: The sinuses are clear. The v entricles are normal in size. There is no mass effect, midline shift or hemorrhage. IMPRESSION: Normal brain CTA NECK: FINDINGS: There are axial im ages with 3-D MIPS reformatted images of the cervical vessels. The origins of the great vessels at the aortic arch are not included in the spiyx-gg-yoyo. The carotid arteries are tortuous and ectatic. T he vertebral arteries are both large vessels and are patent to the basilar artery. There is atherosclerotic calcification at the origin of the left internal carotid artery wi th approximately 50% stenosi s. There is no significant narrowing of the right internal carotid artery. Both vessels are tortuous and approach the midline. They are patent to the skull base. The soft tis sues of the neck are normal. The lung apices are clear with changes of emphysema. IMPRESSION: Atherosclerotic calcification with 50% stenosis left internal carotid artery. No significant stenosis is seen on the right. The right vertebral artery is much larger than the left Luigi Rloand thanks you for the opportunity to care fo r your patient. Workstation ID: [id number] - [id number] FINAL REPORT Dictated By: Ann Vanessa MD 10/28/2018 15:35 Assigned Physician: Ann Vanessa MD Reviewed and Electronically Signed By: Landy Vanessa MD 10/28/2018 15:39 Transcribed by: NOAH 10/28/2018 15:35 Technologist: VICKY DUNCAN S CT Head w/o Contrast on 10-28-2018 CT Head WO contrast EXAMINATION TYPE: CT Head w/ o Contrast, CT Ang Neck w and/or w/o Contrast Normal [facility] DATE OF EXAM : 10/28/2018 3:31 PM System HISTORY: Headaches FINDINGS: The sinuses are clear. The v entricles are normal in size. There is no mass effect, midline shift or hemorrhage. IMPRESSION: Normal brain CTA NECK: FINDINGS: There are axial im ages with 3-D MIPS reformatted images of the cervical vessels. The origins of the great vessels at the aortic arch are not included in the xqske-jt-[id number]. The carotid arteries are tortuous and ectatic. T he vertebral arteries are both large vessels and are patent to the basilar artery. There is atherosclerotic calcification at the origin of the left internal carotid artery wi th approximately 50% stenosi s. There is no significant narrowing of the right internal carotid artery. Both vessels are tortuous and approach the midline. They are patent to the skull base. The soft tis sues of the neck are normal. The lung apices are clear with changes of emphysema. IMPRESSION: Atherosclerotic calcification with 50% stenosis left internal carotid artery. No significant stenosis is seen on the right. The right vertebral artery is much larger than the left Luigi Roland thanks you for the opportunity to care fo r your patient. Workstation ID: [id number] - [id number] FINAL REPORT Dictated By: Ann Vanessa MD 10/28/2018 15:35 Assigned Physician: Ann Vanessa MD Reviewed and Electronically Signed By: Landy Vanessa MD 10/28/2018 15:39 Transcribed by: NOAH 10/28/2018 15:35 Technologist: VICKY DUNCANS ED Pat Edu on 10-28-2018 ED Pat [facility] Normal [facility] [address] System Emergency Department Discharge Instructions MIKEY SORAYA G , Please pr ovide this information to your Primary Care/Specialist Name : SORAYA JENSEN Current Date : 10/28/2018 18:0 2:54 : 1940 12:00 PM Primary Care Physician: MARGIE Shah Unknown Diagnosis : 1:Carotid stenosis Follow-Up Instructions: SORAYA JENSEN has been given these follow-up instru ctions: FOLLOW-UP APPOINTMENTS: Provider: Specialty: Address: Date: Leonel Hernandez MD Vascular Surg [address] [place] [address] (9) 2 to 3 weeks Provider: Specialty: Address: Date: PCP Unknown Physician Family Practice Follow-up as nee ded Provider: Specialty: Address: Date: Return to Emergency Department Follow-up as needed Comment: Return for dizzines s, lightheadedness, slurring speech, facial droop, or other focal deficits. Laboratory Orders: Name: Status: Basic Metabolic Panel Completed CBC with Differential Completed Troponin I Completed GFRaa Completed GFRbb Completed Sedimentation Rate rbc Completed C-Reactive Protein Completed Radiology Orders: Name: Status: XR Chest [address] Head w/o Contrast Completed CT Ang Neck w and/or w/o Contrast Completed Diagnostic Tests: Name: Status: ECG 12 Lead Completed Duplex Extracranial Arteries Complete Bilateral Comple cal Procedure(s) and Patient Edu cation(s) : *Public Custom Instruction TEMPLATE (CUSTOM); Carotid Artery Disease EMERGENCY SERVICES MEDICATION LIST Lista de Medicaciones de los Servicios de Emergencia Name SORAYA JENSEN MRN (COL)-[id number] [phone] PLEASE READ THE FOLLOWING REGARDING YOUR MEDICATIONS Based on the information roldan ilable during your visit we have given you the medication instructions below. Continue taking medications you took prior to your visit unless you have been told to change. Pl ease share this information with your own doctor. Carry a list of your medications with you in case of an emergency. Update it when medications are stopped, doses are changed, or new medications (includ ing zevv-ohq-zvimacm product s) are added. If you have any questions, check with your doctor. Por la informaci??n disponib le alli mack visita, las instrucciones de medicaci??n aparecen debajo. Favor de continuar tomando las medicaciones Ud. jacki?? antes de mack visita por lo menos que hay cambios. Favor de compartir esta inf ormaci??n con mack medico. Lleva kurt lista de medicaciones consigo por nick de emergenc??a. Actualiza la lista cuando Ud. ivone de erica las medicaciones, si cambian las dosis, o si hay nuevas medicaciones a??adidas (incluyendo medicaciones vendidas sin prescripci??n). Favor de preguntar a mack medico por cualquier mateo. THESE ARE THE MEDICATIONS YOU SHOULD BE TAKING Acetaminophen-OxyCODONE (Per cocet 5 mg/325 mg) 1 Tab(s) By Mouth 3 Times a day as needed Pain/Discomfort. AmLODIPine (amLODipine 10 mg oral tablet) 1 Tab(s) By Mouth once a day. am. aspirin (aspirin 81 mg oral tablet) 1 Tab(s) By Mouth once a day. am. atorvastatin (atorvastatin 10 mg oral tablet) 1 Tab(s) By Mouth Bedtime. HydrALAZINE (hydrALAZINE 25 mg oral tablet) 1 Tab(s) B y Mouth 3 Times a day. insulin glargine (Lantus Keiko ostar Pen 100 units/mL subcutaneous solution) , Do NOT mix with any other insulin product meloxicam (Mobic 7.5 mg oral tablet) 1 Tab(s) By Mouth Bedtime. metoprolol (Lopressor 50 mg oral tablet) 1.5 Tab(s) By Mouth Twice a day., Beta-B' multivitamin 1 Tab(s) By Mouth once a day. pregabalin (Lyrica 50 mg oral capsule) 1 Capsule By Mo uth 3 Times a day. secukinumab (Cosentyx Sensoready Pen 150 mg/mL subcuta neous solution) MEDICATIONS GIVEN DURING MEDICAL VISIT acetaminophen-oxycodone 1 Ta b last dose given on 10/28/2018 at 16:16 Route: By Mouth Maximum 4 Gm Acetaminophen/Day for Adults NON-MEDICATION PRESCRIPTION SCHEDULING PHONE NUMBER: MEDICATION CHANGE DETAILS (Not your Final Home Medicat ion List) During the course of your vi sit, your home medication list was updated with the most current information. The details of those changes are shown below: NEW MEDICATIONS None UPDATED MEDICATIONS None UNCHANGED MEDICATIONS Other Medications Acetaminophen-OxyCODONE (Per cocet 5 mg/325 mg) 1 Tab(s) By Mouth 3 Times a day as needed Pain/Discomfort. Comment AmLODIPine (amLODipine 10 mg oral tablet) 1 Tab(s) By Mouth once a day. am. Comment aspirin (aspirin 81 mg oral tablet) 1 Tab(s) By Mouth once a day. am. Comment atorvastatin (atorvastatin 10 mg oral tablet) 1 Tab(s) By Mouth Bedtime. Comment HydrALAZINE (hydrALAZINE 25 mg oral tablet) 1 Tab(s) B y Mouth 3 Times a day. Comment insulin glargine (Lantus Keiko ostar Pen 100 units/mL subcutaneous solution) , Do NOT mix with any other insulin product Comment meloxicam (Mobic 7.5 mg oral tablet) 1 Tab(s) By Mouth Bedtime. Comment metoprolol (Lopressor 50 mg oral tablet) 1.5 Tab(s) By Mouth Twice a day., Beta-B' Comment multivitamin 1 Tab(s) By Mouth once a day. Comment pregabalin (Lyrica 50 mg oral capsule) 1 Capsule By [facility] 3 Times a day. Comment secukinumab (Cosentyx Sensoready Pen 150 mg/mL subcuta neous solution) Comment STOP TAKING THESE MEDICATIONS None DO NOT TAKE UNTIL YOU TALK TO YOUR DOCTOR None [place] [id number] Emergency Department Discharge Instructions Name: SORAYA JENSEN Current Date: 10/28/2018 18:02: 56 : 1940 12:00 PM Primary Physician: Physician, PCP Unknown We would like to thank you f or choosing [facility] for your emergency medical needs. We examined and treated you today on an emergency basis only. This was not a substitute for, or an effort to provide, comple te medical care. In most cases, you must let your doctor (or the doctor we referred you to) check you again. Tell your doctor about any new or lasting problems. We cannot rec ognize and treat all injurie s or illnesses in one emergency department visit. After you leave, you should follow the directions attached. Instructions for obtaining X-rays: When following up with your doctor, you may need to take copies of your x-rays that were done in the Emergency Department. If you didn't receive these upon your discharge from the emergency department, please call . When the final report becomes available and it is reviewed, the emergency department will attempt to contact you if there are any changes in your instructions. It is importan t that you leave accurate in formation with us on how to contact you. IF you cannot be contacted, YOU must contact the follow-up doctor that you were assigned to make sure that the final official x-ray r eport does not require a change in your treatment. Instructions for obtaining medical records: If you need a copy of your edical records for follow-up, please contact the Health Information Management Department at . Their office hours are 8 AM- 4:30 PM, Tuesday through Tuesday. Nelda bright note: Results are not imm ediately available. Please allow a minimum of 36 hours for documentation and results. If you were prescribed an antibiotic: Antibiotics are life-saving drugs and they need to be used properly. Your team might change your antibiotic because test results show that a different antibiotic would be better to treat your infection. Like all medications, antib iotics have side effects. Some can be serious. This includes the risk of getting an antibiotic-resistant infection later, which may be difficult to treat. Remember to take yo ur antibiotics as prescribed . If you have any questions please talk to your healthcare team. Seatbelts: There is no doubt that seatb elts save lives. Every day, people without seatbelts have more serious injuries. Have everyone buckle up, using age appropriate seatbelts or car seats, to reduce their risk of injury. Smoking: If you do smoke, we encourag e you to stop. Smoking affects all aspects of your health and the health of those around you. Call the [employer] [employer] at 1-725-DVTX-USA or the [employer] [employer] at 3-462-YRY-0653 for more information. High blood pressure: Your screening blood pressur e today was 135 mm Hg / . Hypertension (high blood pressure) is blood pressure over 120/80. People with hypertension should contact their primary care provider within 30 days to follow up. Check your [employer] portal for additional blood pressure information. Immunizations: Immunization is a way to pro tect against deadly infections. Discuss this with your child's residential remodeling subcontractor, or Public Health Department. Your family practice doctor can determine if you need pneumonia or f jose luis vaccine. The [facility][1] Department can be reac hed at . Substance Abuse Program: Concerns with addiction to a lcohol, benzodiazepines (Ativan or Xanax) and Opiates (Heroin, Percocet, OxyContin, Methadone or Fentanyl)? [facility] offers an inpatient Substance Abuse Pro gram to help treat the sympt oms associated with medical detoxification of addictive substances. The new program offers care for non- adults (18 and older) looking to break the chain to addictive chemicals. The Substance Ab use Program is a voluntary inpatient admission and it starts with a pre-screening phone call to a medical social worker. During the call, goals and objectives for recovery and how th e patient will transition to outpatient care will be established. Please call [phone] to get help today. Domestic Violence: If you are a victim of domes tic violence (physical, verbal, or emotional), you are not alone. Discuss this with your physician or a friend and call Choices Hotline ( for assistance and support. You are the most important factor in your recovery. Follow the provided instruct ions carefully. Take your medications as prescribed. Most importantly, see a doctor again as discussed. If you have problems that we have not discussed, call or visit your do ctor right away. If you do n ot have a primary care physician, we have provided one for you to follow up with. When you call for an appointment, please inform them that you were seen in the emergency dep artment and the date of your visit. If you are unable to reach your doctor and are still experiencing problems, return to the emergency department. For assistance finding a primary care physician, call the Physician Referral Line at . Suicide Hotline: Your mental and emotional we ll-being is important. If you are in a mental health crisis or are having thoughts of suicide, please call the nationwide suicide hotline, anytime day or night, at 5-584-414-NMAD. Pharmacy Information: Below is a list of 24 hour p harmacies that we are aware of. We suggest that you call the specific pharmacy for their hours before traveling to a location. Hours may vary on holidays. [facility] [address], [place] [phone] [address] [place], [place] [address] [phone] [address] [place], [place] [address] [phone] [address], [place] [phone] [address], [place] [phone] [address] [place], [place] [phone] [address] [place], [place] [phone] Take all medications as dire cted. If you need prescription assistance, contact the following agencies: ?? Partnership for Prescription Assistance at 1- 173.716.2260 or www.[employer].org ?? [place] at or www.[facility] Universitybestrx. org ?? www.[employer] is a site with many valuable coupons Patient Education Materials SORAYA JENSNE has been given the following patient education materials: continue taking a baby aspirin daily Cardiovascular Carotid Artery Disease The carotid arteries are the two main arteries on either side of the neck that supply blood to the brain. Carotid artery disease, also called carotid artery stenosis, is the narrowing or blockage of one or both carotid arteries. C arotid artery disease increases your risk for a stroke or a transient ischemic attack (TIA). A TIA is an episode in which a waxy, fatty substance that accumulates within the artery (plaque) blocks blood flow to the brain. A TIA is considered a warning stroke. CAUSES ???Buildup of plaque inside the carotid arteries (athe rosclerosis) (common). ???A weakened outpouching in an artery (aneurysm). ???Inflammation of the carotid artery (arteritis). ???A fibrous growth within the carotid artery (fibromu scular dysplasia). ???Tissue within the c arotid artery due to radiation treatment (post- radiation necrosis). ???Decreased blood flow due to spasms of the carotid a rtery (vasospasm). ???Separation of the neff of the carotid artery (berman tid dissection). RISK FACTORS ???High cholesterol (dyslipidemia). ?High blood pressure (hypertension). ?Smoking. ?Obesity. ?Diabetes. ?Family history of cardiovascular disease. ?Inactivity or lack of regular exercise. ?Being male. Men have an i ncreased risk of developing atherosclerosis earlier in life than women. ? SYMPTOMS Carotid artery disease does not cause symptoms. DIAGNOSIS Diagnosis of carotid artery disease may include: ???A physical exam. Your [facility] care provider may hear an abnormal sound (bruit) when listening to the carotid arteries. ?Specific tests that look at the blood flow in the carotid arteries. These tests include: ?Carotid artery ultrasonography. ?Carotid or cerebral angiography. ?Computerized tomographic angiography (CTA). ?Magnetic resonance angiography (MRA). ? TREATMENT Treatment of carotid artery disease can include a combination of treatments. Treatment options include: ???Surgery. You may have: ?A carotid endarterectomy. This is a surgery to remove the blockages in the carotid arteries. ?A carotid angioplasty wit h stenting. This is a nonsurgical interventional procedure. A wire mesh (stent) is used to widen the blocked carotid arteries. ?Medicines to control bloo d pressure, cholesterol, and reduce blood clotting (antiplatelet therapy). ?Adjusting your diet. ?Lifestyle changes such as: ?Quitting smoking. ?Exercising as tolerated or as directed by your [facility] care provider. ?Controlling and maintaining a good blood pressure. ?Keeping cholesterol levels under control. ? HOME CARE INSTRUCTIONS ???Take medicines only as di rected by your health care provider. Make sure you understand all your medicine instructions. Do not stop your medicines without talking to your health care provider. ?Follow your health care p anabell's diet instructions. It is important to eat a healthy diet that is low in saturated fats and includes plenty of fresh fruits, vegetables, and lean meats. High-fat, hi gh-sodium foods as well as f oods that are fried, overly processed, or have poor nutritional value should be avoided. ???Maintain a healthy weight. ?Stay physically active. I t is recommended that you get at least 30 minutes of activity every day. ?Do not use any tobacco pr oducts including cigarettes, chewing tobacco, or electronic cigarettes. If you need help quitting, ask your health care provider. ???Limit alcohol use to: ?No more than 2 drinks per day for men. ?No more than 1 drink per day for non women. ?Do not use illegal drugs. ?Keep all follow-up visits as directed by your [facility] care provider. ? SEEK IMMEDIATE MEDICAL CARE IF: You develop TIA or stroke symptoms. These include: ???Sudden weakness or numbne ss on one side of the body, such as in the face, arm, or leg. ?Sudden confusion. ?Trouble speaking (aphasia) or understanding. ?Sudden trouble seeing out of one or both eyes. ?Sudden trouble walking. ?Dizziness or feeling like you might faint. ?Loss of balance or coordination. ?Sudden severe headache with no known cause. ?Sudden trouble swallowing (dysphagia). ? If you have any of these sym ptoms, call your local emergency services (911 in [place] Do not drive yourself to the clinic or hospital. This is a medical emergency. This information is not inte nded to replace advice given to you by your health care provider. Make sure you discuss any questions you have with your health care provider. Document Released: 3 Document Revised: 05/23/2015 Document Reviewed: 10/31/2013 [employer] Interactive Patient Education ?2016 [employer] <><><><><><><><><><><><><><><><><><><><><><><><><> Patient Visit Summary Signature SORAYA JENSEN has been gi raudel the following list of patient education materials, prescriptions and follow-up instructions: MIKEY Espinosa JANET G, have re ceived the above patient education materials/instructions and have verbalized understanding: Date Time Patient Signature Date Time Provider Signature GFRaa on 10-28-2018 GFR/1.73 sq M predicted among mL/min/{1.73_m2} Normal [facility] blacks MDRD vol rate/area (S/P/Bld) Comment on above: Result Comment: The MDRD equ ation has not been validated for those over 70 years, women, patients with serious co-morbid conditions, or with extremes of body size, muscle mass of nutriti onal status. Performed By: #### 09068-4, 1987-09, 98872-6, 05036-6f2, 91292-8 #### [facility], [address] [place], [place]. GFRbb on 10-28-2018 GFR/1.73 sq M predicted among mL/min/{1.73_m2} Normal [facility] non-blacks MDRD vol rate/area (S/P/Bld) Comment on above: Performed By: #### 20801-9, 1987-09, 33128-5, 85529-8p0, 9 #### [facility], [address] [facility], [place]. Progress Notes on 10-28-2018 Protein mass conc I have reviewed the nurse's note. I introduced myself as the Physician Urban Anthropologist and informed the patient of the supervising physician who is available upon request, Dr. Joselin Bonner [facility] Patient is a 78 years old fe male with known history of high blood pressure, high cholesterol presenting to the ED for a wooshy sound to the left side of neck and at times on the right side of the neck s System nicho yesterday. No other rel ated symptoms with this. Patient is concerned about blockage to the carotid artery. Patient would be sent to the main for further evaluation Constitutional: [Well-appearing, in no acute distress] EENMT: [Conjunctive pink, sc marcela non-icteric; no posterior erythema or lesions] Neck: [Supple, non-tender; no lymphadenopathy] Cardiovascular: [Regular rate and rhythm, no S3, S4, o r murmur] Respiratory: [Clear to auscu ltation bilaterally without wheezes or rhonchi. Good, equal air exchange without accessory muscle use] Neurologic: [Awake, alert, a nswers questions appropriately without slurred speech] I saw this patient briefly and did an MSE in triage. Initial orders were placed i n order to facilitate care for the ED provider who will be seeing patient in the [facility]. Please see their notes for detail documentation Sedimentation Rate rbc on 10-28-2018 ESR Velocity (Bld) 111 mm/h High 0-20 [facility] Comment on above: Performed By: #### 32115-3 # ### [facility], [address] [place], [place]. Troponin I on 10-28-2018 Troponin I.cardiac mass conc ng/mL Normal <0.06 [facility] Comment on above: Performed By: #### 84301-7, 1988-5, 44022-5, 12929-2k3, 60949- 9 #### [facility], [address] [place], [place]. XR Chest 1 View on 10-28-2018 XR Chest Single view EXAMINATION TYPE: XR Chest 1 View Normal [facility] DATE OF EXAM : 10/28/2018 2:30 PM System HISTORY: Chest Pain, COMPARISON: NONE FINDINGS: Limited assessment of the jose luis ng bases due to habitus and technique. No focal pneumonia or edema. No effusion or pneumothorax. The cardiomediastinal silhouette is within normal limits for technique. No ac [place] findings in the visualized upper abdomen. Healed s ided rib fractures. IMPRESSION: No acute cardiopulmonary disease demonstrated. Luigi Roland thanks you for the opportunity to care fo r your patient. Workstation ID: [id number] FINAL REPORT Dictated By: Marina Reinoso MD 10/28/2018 14:32 Assigned Physician: Marina Reinoso MD Reviewed and Electronically Signed By: Marina Reinoos MD 14:33 Transcribed by: NOAH 10/28/2018 14:32 Encounters Encounter Date Encounter Type Care Provider Facility Start: 01-16-2022 Emergency department KARTHIKEYAN de anda End: 01-17-2022 [facility] Start: 12-10-2021 ambulatory THO Carbone End: 12-10-2021 [facility] Start: 09-17-2021 Emergency department JARRETT Schmitz End: 09-18-2021 patient [facility] Start: 06-16-2021 ambulatory THO Carbone End: 06-16-2021 [facility] Procedures Date Procedure Procedure Detail Performing Clin ician Start: 01-16-2022 Urinalysis JARRETT RIVERA Comment on above: Result Comment: URINALYSIS Performed By: #### [id number] ## ## [facility] Schmitz [facility],[address] [place] [address] Payers Date Payer Category Payer Unknown [id number] 1940 Unknown [id number] 1940 Unknown [id number] 1940 Unknown [id number] Medicare [id number] Private Health Insurance [id number] V Unknown [id number] Summary Purpose Family History No Family History Records FoundNo Family History Records FoundNo Family History Records FoundNo Family History Records Found Advance Directives No Advanced Directives Records FoundNo Advanced Directives Records FoundNo Advanced Directives Records FoundNo Advanced Directives Records Found Hospital Course Note EMERGENCY DEPARTMENT DISCHARGE SUMMARY PATIENT NAME:SORAYA JENSEN AGE: 78 Years SEX: Femal e PHONE:[phone] DOS: 10/28/2018 11:49 AM : 1940 ATTENDING PHYSICIAN:Jonathan Mary MD PCP: Physician, PCP Unknown CHIEF COMPLAINT: hearing wooshing sound in n rosa elena Allergies sulfa drugs () Problems Active Hypertension High cholesterol Psoriatic arthritis Osteoarthritis Sepsis Frequent UTI Diabetes mellitus Post-operative nausea and vomiting DISCHARGE DIAGNOSIS: 1:Carotid stenosis DISCHARGE INSTRUCTIONS: *Public Custom Instruction TEMPLATE (CUSTOM); Carotid Artery Disease ED PHYSICIAN DOCU MENTATION: DISPOSITION: Time of Departure From ER 10/28/2018 18:02 Discharge/Trans kartik From ER Home 01 MEDICATION LISTS: CURRENT MEDICATION LIST Acetaminophen-OxyCODONE (Percocet 5 mg/325 mg) 1 Tab(s) By Mouth 3 Times a day as needed Pain/Discomfort. A mLODIPine (amLODipine 10 mg oral tablet) 1 Tab(s) By Mouth once a day. am. aspirin (aspirin 81 mg oral tablet) 1 Tab(s) By Mouth onc (more content not included)... Additional Source Comments INFORMATION SOURCE (unrecognized section and content) DATE CREATED AUTHOR AUTHOR'S ORGANIZ ATION 10/29/2018 [facility] DATE CREATED AUTHOR AUTHOR'S ORGANIZATIO N 01/29/2019 [facility] DATE CREATED AUTHOR AUTHOR'S ORGANIZATIO N 02/21/2019 [facility] ([place]) DATE CREATED AUTHOR AUTHOR'S ORGANIZATIO N 01/17/2022 [facility] FOR RECORDS PERTAINING TO PATIENTS WHO ARE OR HAVE BEEN ENROLLED IN A CHEMICAL DEPENDENCY/SUBSTANCE ABUSE PROGRAM, SOME INFORMATION MAY BE OMITTED. This clinical summary was aggregated from multiple sources. Caution should be exercised in using it in the provision of clinical care. This summary normalizes information from multiple sources, and as a consequence, information in this document may materially change the coding, format and clinical context of patient data. In addition, data may be omittedin some cases. CLINICAL DECISIONS SHOULD BE BASED ON THE PRIMARY CLINICAL RECORDS. [facility]. provides no warranty or guarantee of the accuracy or completeness of information in this document.
--- NOTE | 2022-01-17 09:22 | EX.PCM.CON.S ---
Assessment & Plan Assessment/Plan (1) Sepsis due to infected central venous catheter: PLAN: This point the patient has been placed on IV heparin secondary to an elevated D-dimer. PTT was elevated to a critical level and they have turned off the heparin. I am going to wait until 230 this afternoon and take her to surgery then and remove this port and culture the tip of the catheter. Risk benefits to include bleeding infection have been reviewed with the patient. And she agrees to proceed. HPI Consult Data Date of Consult: 01/17/22 HPI Narrative HPI Narrative: SORAYA JENSEN, is a 81 F who presents as a transfer from [facility] in [facility]. She was admitted there under weakness and was noted to have redness around a port placement site on the right chest area she had tenderness going up into her neck area. She was spiking temperatures to 103. And subsequently was transferred from there to [facility] for further evaluation and removal of an infected port. [facility] Medical History (Updated 01/17/22 @ 09:[address] August Devries, DO) Anxiety Cancer Chronic constipation Chronic pain CINV (chemotherapy-induced nausea and vomiting) COPD (chronic obstructive pulmonary disease) CPAP (continuous positive airway pressure) dependence Diabetes mellitus Encounter for education Former smoker GERD (gastroesophageal reflux disease) History of gastrointestinal ulcer Hyperlipidemia Hypertension Liver nodule Lung cancer Lung metastasis Osteoarthritis Osteoporosis PONV (postoperative nausea and vomiting) Port-A-Cath in place Primary cancer of left lung Psoriasis Psoriatic arthritis Regional lymph node metastasis present Sleep apnea TIA (transient ischemic attack) Walker as ambulation aid Wears glasses Wears partial dentures Home Medications amlodipine 10 mg tablet 10 mg PO DAILY BP 09/20/13 [History Last Taken 10/07/21] atorvastatin 10 mg tablet 10 mg PO QHS Cholesterol 09/20/13 [History Last Taken Unknown] hydralazine 25 mg tablet 25 mg PO TID BP 09/20/13 [History Last Taken 10/07/21] multivitamin with folic acid 400 mcg tablet 1 tab PO DAILY Supplement 03/11/15 [History Last Taken Unknown] oxycodone-acetaminophen 5 mg-325 mg tablet 1 tab PO TID PRN Pain #90 tabs 10/31/18 [History Last Taken Unknown] latanoprost 0.005 % eye drops 1 drp ophthalmic (eye) BID Glaucoma 09/24/20 [History Last Taken Unknown] omeprazole 20 mg capsule,delayed release 20 mg PO DAILY GERD 09/24/20 [History Last Taken 10/07/21] oxybutynin chloride 10 mg tablet,extended release 24 hr (Ditropan XL) 15 mg PO DAILY Over active bladder 09/24/20 [History Last Taken 11/30/21 05:30] polyethylene glycol 3350 17 gram/dose oral powder (Miralax) 4 g PO DAILY Constipation 10/20/21 [History Last Taken Unknown] metoprolol tartrate 50 mg tablet 25 mg PO BID BP/HR 11/17/21 [History Last Taken Unknown] pregabalin 50 mg capsule (Lyrica) 150 mg PO TID Nerve pain 11/17/21 [History Last Taken Unknown] insulin glargine 100 unit/mL (3 mL) subcutaneous pen (Lantus Solostar U-100 Insulin) 25 unit subcut QHS Diabetes 11/24/21 [History Last Taken Unknown] lidocaine-prilocaine 2.5 %-2.5 % topical cream 1 applic topical ONCE PRN port access 30 days #30 grams 12/08/21 [Rx Last Taken Unknown] ondansetron 8 mg disintegrating tablet 8 mg PO Q8H PRN nausea and vomiting #30 tabs 12/08/21 [Rx Last Taken Unknown] prochlorperazine maleate 10 mg tablet 10 mg PO Q6H PRN nausea and vomiting #30 tabs 12/08/21 [Rx Last Taken Unknown] dexamethasone 4 mg tablet 4 mg PO .COMPLEX Chemo 01/17/22 [History Last Taken Unknown] Allergy/AdvReac Type Severity Reaction Status Date / Time Sulfa (Sulfonamide Allergy Rash Verified 01/05/22 11:07 Antibiotics) Family History Father Cancer Arthritis Mother Arthritis Surgical History History of back surgery History of carpal tunnel surgery of left wrist History of total hip replacement partial shoulder replacement s/p right hip Status post bilateral knee replacements Social History Smoking Status: Former smoker how long ago did patient quit smokin alcohol intake: never substance use type: does not use ROS Constitutional Constitutional: Reports chills and fever(s) Eyes Eyes: Denies change in vision ENT HEENT: Denies dysphagia Cardiovascular Cardiovascular: Denies chest pain at rest Respiratory/Chest Respiratory/Chest: Denies dyspnea Gastrointestinal Gastrointestinal: Denies abdominal pain Physical Exam Const alert, oriented x3 and no apparent distress HEENT normocephalic and head/scalp atraumatic Eyes PERRL and EOMs intact bilaterally Chest Chest Narrative: Right IJ PowerPort is a seen. The port site itself is red and there is tenderness extending all the way up into the neck. It is also red and slightly warm. Cardio Rate: regular rate Rhythm: regular rhythm GI normal to inspection, nondistended, normoactive bowel sounds Lab / Micro Data Result Diagrams: 01/17/22 10:45 01/17/22 12:35
--- NOTE | 2022-01-17 09:36 | CT_ITS ---
STUDY: CTA CHEST REASON FOR EXAM: Female, 81 years old. hypoxic resp failure RADIATION DOSAGE (If Supplied By Facility): CTDIvol = ( 13.85 ) mGy, DLP = ( 518.88 ) mGycm TECHNIQUE: The examination was performed with the intravenous administration of IV 100mL Isovue-370. Post-processing of the angiographic images was performed, with multiplanar reformation and 3D reconstruction. Individualized dose optimization techniques were used for this CT. COMPARISON: None. FINDINGS: Normal enhancement of the main pulmonary artery and right and left pulmonary arteries. Normal enhancement of the bilateral peripheral pulmonary arteries. There is no demonstrated pulmonary embolism. Normal thoracic aorta and visualized great vessels. There is no demonstrated aortic dissection. Normal heart and pericardium. There are calcifications of the coronary arteries. Normal mediastinum. Normal hilar regions. Normal visualized trachea and bronchi. The lungs are well expanded. Mild emphysema. 2 cm noncalcified nodule in the subpleural posterior right upper lobe on image 173 worrisome for bronchogenic carcinoma.. The patient has had recent PET CT scan. Small bilateral pleural effusions with bibasilar atelectasis. Normal chest wall structures. Status post bilateral shoulder arthroplasty which produces streak artifact. Normal visualized upper abdomen. CT/CTA Chest W/WO Contrast IMPRESSION: Normal CTA chest examination, without a demonstrated pulmonary embolism or arterial dissection. Mild emphysema with a 2 cm noncalcified subpleural nodule in the posterior right upper lobe the lungs worrisome for bronchogenic carcinoma. The patient has had recent PET/CT. Small bilateral pleural effusions with some bibasilar atelectasis. Electronically Signed: Ernesto Jaffe MD at 17:47 EDT ,
--- NOTE | 2022-01-17 09:36 | PCM.HP.STD ---
HPI - General General Date of Admission: 01/17/22 Date of Service: 01/17/22 Chief Complaint: fever. weakness HPI Narrative SORAYA JENSEN, is a 81 F who presents after being found sleeping on the toilet. Patient nonchalantly says that she was just sleeping on the toilet but does state that she has never done this before. Had not sleeping there for about 4 hours per her description. Patient was sent to [facility] and patient was found to have a temperature of 103.5. Patient was having cough and congestion. Patient was found to have an abnormal urinalysis. Patient was also noted to have redness around her port site on her right chest. Patient does tell me that she was advised by her oncologist to use an antibacterial ointment which seem to cause irritation. Patient was found to have an elevated D-dimer greater than 3 times upper limit of normal and elevated BNP. White count was elevated at 13.7. They attempted to do a CT angiogram but were not able to place a large IV line to do so. Patient was started on heparin drip in the interim. She did have a chest x-ray, report is not included, but they did inform the night physician that there was nothing concerning for pneumonia. She did have blood cultures as well as urine cultures performed there. Patient was noted to be 82% room air and placed on nasal cannula oxygen. Dr. Romano, general surgery was contacted and was agreed to see the patient for possible catheter removal. Patient is groggy and rather poor historian at this time so much of the history is obtained in the signout that I received from the night physician. [facility] Medical History (Updated 01/17/22 @ 09:[address] August Devries, ) Anxiety Cancer Chronic constipation Chronic pain CINV (chemotherapy-induced nausea and vomiting) COPD (chronic obstructive pulmonary disease) CPAP (continuous positive airway pressure) dependence Diabetes mellitus Encounter for education Former smoker GERD (gastroesophageal reflux disease) History of gastrointestinal ulcer Hyperlipidemia Hypertension Liver nodule Lung cancer Lung metastasis Osteoarthritis Osteoporosis PONV (postoperative nausea and vomiting) Port-A-Cath in place Primary cancer of left lung Psoriasis Psoriatic arthritis Regional lymph node metastasis present Sleep apnea TIA (transient ischemic attack) Walker as ambulation aid Wears glasses Wears partial dentures Home Medications amlodipine 10 mg tablet 10 mg PO DAILY 09/20/13 [History Last Taken 10/07/21] atorvastatin 10 mg tablet 10 mg PO QHS 09/20/13 [History Last Taken Unknown] hydralazine 25 mg tablet 25 mg PO TID 09/20/13 [History Last Taken 10/07/21] multivitamin with folic acid 400 mcg tablet 1 tab PO DAILY 03/11/15 [History Last Taken Unknown] oxycodone-acetaminophen 5 mg-325 mg tablet 1 tab PO TID PRN Pain #90 tabs 10/31/18 [History Last Taken Unknown] latanoprost 0.005 % eye drops 1 drp ophthalmic (eye) BID 09/24/20 [History Last Taken Unknown] omeprazole 20 mg capsule,delayed release 20 mg PO DAILY 09/24/20 [History Last Taken 10/07/21] oxybutynin chloride 10 mg tablet,extended release 24 hr (Ditropan XL) 15 mg PO DAILY 09/24/20 [History Last Taken 11/30/21 05:30] polyethylene glycol 3350 17 gram/dose oral powder (Miralax) 4 g PO DAILY 10/20/21 [History Last Taken Unknown] metoprolol tartrate 50 mg tablet 25 mg PO BID 11/17/21 [History Last Taken Unknown] pregabalin 50 mg capsule (Lyrica) 150 mg PO TID 11/17/21 [History Last Taken Unknown] insulin glargine 100 unit/mL (3 mL) subcutaneous pen (Lantus Solostar U-100 Insulin) 25 unit subcut QHS 11/24/21 [History Last Taken Unknown] lidocaine-prilocaine 2.5 %-2.5 % topical cream 1 applic topical ONCE PRN port access 30 days #30 grams 12/08/21 [Rx Last Taken Unknown] ondansetron 8 mg disintegrating tablet 8 mg PO Q8H PRN nausea and vomiting #30 tabs 12/08/21 [Rx Last Taken Unknown] prochlorperazine maleate 10 mg tablet 10 mg PO Q6H PRN nausea and vomiting #30 tabs 12/08/21 [Rx Last Taken Unknown] dexamethasone 4 mg tablet 4 mg PO .COMPLEX #6 tabs 12/29/21 [Rx Last Taken Unknown] Allergy/AdvReac Type Severity Reaction Status Date / Time Sulfa (Sulfonamide Allergy Rash Verified 01/05/22 11:07 Antibiotics) Family History Father Cancer Arthritis Mother Arthritis Surgical History History of back surgery History of carpal tunnel surgery of left wrist History of total hip replacement partial shoulder replacement s/p right hip Status post bilateral knee replacements Social History Smoking Status: Former smoker how long ago did patient quit smokin alcohol intake: never substance use type: does not use ROS ROS Narrative Limited review of systems as patient is very groggy and confused at present. Review of Systems ROS Unobtainable: due to encephalopathy Vital Signs Vital Signs Vital Signs: 01/17/22 09:05 01/17/22 09:25 Temperature 36.9 C 39.4 C H Temperature Source Temporal Oral Pulse Rate 95 86 Respiratory Rate 20 H 24 H Blood Pressure 94/72 136/60 H Blood Pressure Mean 79 85 Blood Pressure Source Monitor Monitor Blood Pressure Position Semi-Fowlers Semi-Fowlers Blood Pressure Location Left Forearm Left Forearm Pulse Ox 94 95 Oxygen Delivery Method Nasal Cannula Nasal Cannula Oxygen Flow Rate (L/min) 5 5 Weight Weight: 104 kg Body Mass Index (BMI) 40.6 Physical Exam Const Constitutional Narrative: Groggy. Listless. No respiratory distress. No conversational dyspnea. On nasal cannula. HEENT normocephalic and head/scalp atraumatic Neck no lymphadenopathy Resp Resp Narrative: Coarse breath sounds bilaterally Cardio regular rate, regular rhythm, S1 normal heart sound and S2 normal heart sound GI normal to inspection, nondistended, normoactive bowel sounds, soft to palpation, non-tender and non-distended GI Narrative: Obese Extremity normal to inspection and no clubbing, cyanosis or edema Skin Skin Narrative: Erythema over the right chest port. Slightly tender palpation without significant induration. Neuro Sensorium / Orientation: awake Speech: speech normal Results Medical Records Data Attestation: I reviewed the patient's medical records Medical records narrative: From outside facility: CBC: White count 13.7, hemoglobin 1.1, platelets 94 Troponin 21.4 BMP: Sodium 138, potassium 4, glucose 175, creatinine 0.8, AST 36, alk phos 173, calcium 8.3, protein 7, almond 2.9, ALT 24 Lactate 1.2 Rapid influenza was negative for a and B Rapid strep was negative BNP 1229 Urinalysis specific gravity 1.01, white count or 1115, RBCs 0-5 4+ bacteria Chest x-ray report not included with material Assessment & Plan Assessment/Plan (1) Sepsis due to infected central venous catheter: QUALIFIERS: Encounter type: initial encounter Qualified Code(s): T80.211A - Bloodstream infection due to central venous catheter, initial encounter; A41.9 - Sepsis, unspecified organism PLAN: Port infection is high likelihood given the localized erythema but cannot rule out other processes at this time Follow-up cultures performed at the outside facility. Patient's urinalysis was unremarkable for urinary tract infection. Broad-spectrum antibiotics with vancomycin and piperacillin/tazobactam This is an emergent procedure to have this removed. Did discuss with Dr. Romano and the plan is to have her port removed at 1430 Currently hemodynamically stable Will administer IV fluids (2) Acute respiratory failure with hypoxia: PLAN: Unclear etiology at this time. Chest x-ray was apparently negative for pneumonia. But given the acute onset with an underlying malignancy, will check a CT angiogram of the chest as the patient's D-dimer was elevated Patient was started on heparin drip at the outside hospital. Currently on hold in light of the upcoming procedure today Resume heparin drip after the procedure or if we confirm the patient does not have a pulmonary embolism then patient could be placed on prophylactic dosing of enoxaparin (3) Thrombocytopenia: PLAN: Previously patient platelets had been normal on 05 January. Now down to 94. Cannot rule out low-grade DIC. In light of the patient's elevated D-dimer. This could be due to underlying sepsis. Monitor closely (4) Metabolic encephalopathy: PLAN: Due to underlying sepsis. Patient's present had a brain MRI that was negative for any malignancy. (5) Lung cancer: PLAN: Stage IV squamous cell Patient has received chemotherapy with carboplatin and Taxol and immunotherapy with pambrolizumab Follow-up with oncology as outpatient PLAN: Plan Chronic conditions Diabetes mellitus type 2: Insulin-dependent. Continue with Lantus. Sliding scale insulin Hypertension: Stable. Continue with amlodipine, hydralazine and metoprolol VTE prophylaxis: SCDs for now. CODE STATUS: Addressed with the patient. Patient was unsure. Informed patient that we will leave her at full code. Patient states that she has never thought about CODE STATUS before. Charges/Coding Visit Charges Inpatient E&M: 18957 Init Hosp L3
[2022-01-17 10:55] LABS: Troponin-I HS 43 pg/mL (3.0-54.0)
[2022-01-17] MEDS: 0.9% Normal Saline 1,000 ML 150 ML IV (11:00)
[2022-01-17] MEDS: amLODIPine 10 MG Tablet PO (11:01)
[2022-01-17] MEDS: 0.9% Saline Lock 10 ML Syringe IV (11:01)
[2022-01-17] MEDS: Pantoprazole Sodium 20 MG Tablet PO (11:01)
[2022-01-17] MEDS: Metoprolol Tartrate 25 MG Tablet PO ×2 (11:01→20:28)
[2022-01-17] MEDS: Acetaminophen 325 MG Tablet 650 MG PO ×2 (11:03→20:07)
[2022-01-17 11:31] LABS: Lactic Acid 0.8 mmol/L (0.4-1.9)
[2022-01-17 12:00] LABS: Bedside Glucose 106 mg/dL (74-106)
--- NOTE | 2022-01-17 12:04 | NURSING ---
Patient told RN that she has received two COVID vaccines and two booster shots. Will try to obtain dates of administration for records.
--- NOTE | 2022-01-17 12:29 | EKG12_ITS ---
Test Reason : pre op Blood Pressure : / mmHG Vent. Rate : 071 BPM Atrial Rate : 071 BPM P-R Int : 158 ms QRS Dur : 082 ms QT Int : 384 ms P-R-T Axes : 048 -02 026 degrees QTc Int : 417 ms Normal sinus rhythm Normal ECG When compared with ECG of 11-MAR-2015 10:49, No significant change was found Confirmed by KELSEA LOPEZ, ESTEBAN ([id number]), editor index RONNIE OGDEN ([id number]) on 01/19/2022 9:24:22 AM Referred By: Verna Confirmed By:MARYAN ENAMORADO MD
[2022-01-17 12:48] LABS: Absolute Lymphocyte Count 0.36 X10^3/uL (0.83-4.51); Absolute Neutrophil Count 10.9 X10^3/uL (2.0-7.7); Basophil# 0.11 X10^3/uL; Basophil% 0.9 % (0-1); Hematocrit 32.7 % (37-47); Lymphocyte # 0.36 X10^3/ul (0.83-4.51); Mean Corp Hgb Conc 30.6 g/dL (32-36); Mean Corpuscular Hgb 29.2 pg (27.0-32.0); Mean Corpuscular Volume 95.3 fL (81-99); Mean Platelet Vol. 11.4 fl (6.2-12.0); Monocyte# 0.54 X10^3/uL; Monocyte% 4.5 % (0-10); NRBC Flagged by Analyzer 0.2 % (0-5); Neutrophil # 10.85 X10^3/uL (2.7-7.7); POSITIVE COUNT YES; POSITIVE DIFFERENTIAL YES; POSITIVE MORPHOLOGY YES; Platelet Count 67 K/mm3 (150-450); RBC Distribution Width CV 19.6 % (11.6-14.6); Red Blood Count 3.43 M/mm3 (4.2-5.4); White Blood Count 12.1 K/mm3 (4.4-11.0)
[2022-01-17 12:49] LABS: International Normalized Ratio 1.2; Prothrombin Time (Protime)PT. 15.3 SECONDS (11.7-14.9)
[2022-01-17 12:50] LABS: Partial Thromboplast Time 47.2 Seconds (24.1-36.2)
[2022-01-17 12:51] LABS: Differential Indicated SCAN CRITERIA MET
[2022-01-17 13:04] LABS: Anion Gap 9 (5-15); BUN 16 mg/dL (7-18); BUN/Creat Ratio 21.1 RATIO (10-20); Calcium,Total 7.8 mg/dL (8.5-10.1); Chloride 113 mmol/L (98-107); Creatinine, Serum 0.76 mg/dL (0.55-1.02); EST Glomerular Filtration Rate 78 mL/min (>60); Est Glom Filt Rate - Afr Amer 94 mL/min (>60); Estimated Creatinine Clearance 37.74 ml/min; Glucose 101 mg/dL (74-106); Sodium Level 140 mmol/L (136-145); Troponin-I HS 46 pg/mL (3.0-54.0)
[2022-01-17 13:13] LABS: Differential Comment SCANNED
[2022-01-17 13:14] LABS: Anisocytosis 2+; Macrocytosis 1+; Microcytosis 1+; Platelet Estimate MOD DEC (ADEQ)
--- NOTE | 2022-01-17 13:16 | PCM.RX.CS ---
Consult Prior Doses of Antibiotics Received/Current Regimen: Medications Discontinued Medications Vancomycin HCl 2,000 mg/ (Sodium Chloride) 540 mls @ 250 mls/hr IV X1 ONE Stop: 01/17/22 13:09 Last Admin: 01/17/22 11:44 Dose: 250 mls/hr Labs: Sodium 140 mmol/L (136-145) 01/17/22 12:35 Potassium 5.0 mmol/L (3.5-5.1) 01/17/22 12:35 Chloride 113 mmol/L (98-107) H 01/17/22 12:35 Carbon Dioxide 18.0 mmol/L (21.0-32.0) L 01/17/22 12:35 Anion Gap 9 (5-15) 01/17/22 12:35 BUN 16 mg/dL (7-18) 01/17/22 12:35 Creatinine 0.76 mg/dL (0.55-1.02) 01/17/22 12:35 Est GFR (MDRD) Af Amer 94 mL/min (>60) 01/17/22 12:35 Est GFR (MDRD) Non-Af 78 mL/min (>60) 01/17/22 12:35 BUN/Creatinine Ratio 21.1 RATIO (10-20) H 01/17/22 12:35 Glucose 101 mg/dL (74-106) 01/17/22 12:35 Microbiology: Microbiology 01/17/22 10:15 Nasal Secretion SARS-CoV-2 Antigen (Rapid) - Final Weight used for dosin kg Estimated Creatinine Clearance: 50 Goal Trough: 15-20 mcg/mL Pharmacy Plan for Drug Dosinmg given x1, 1000mg IV q12 with trough prior to 4th dose per policy. Pharmacy Service will continue to monitor and adjust dosing as required. Follow-Up Labs: Trough Vancomycin - 01/18 @ 2230
[2022-01-17 13:22] LABS: Hemoglobin A1c 6.2 % (3.8-5.6)
[2022-01-17] MEDS: Bupivacaine 0.25% 30 ML Vial (14:51)
--- NOTE | 2022-01-17 15:01 | PCM.OPRPT ---
Problems Associated Problem List Diagnoses (1) Sepsis due to infected central venous catheter: Report of Operation Date of Procedure: 01/17/22 Pre-Operative Diagnosis: Sepsis due to an infected right IJ PowerPort Post-Operative Diagnosis: Same Surgery/Procedure Performed:: Removal infected right IJ PowerPort with irrigation of pus pocket right chest Surgeon: Junior Romano radiator core tester: None Type of Anesthesia: Local MAC Anesthesiologist: Lobo Schreiber Specimen's removed: Infected right IJ PowerPort Estimated Blood Loss (mL): < 5 cc Description of Procedure: Patient was brought into the operating room. Placed in the supine position. Under excellent MAC sedation right chest area was sterilely prepped and draped in usual fashion. Local was injected I opened up the previous incision purulent material (pus) was encountered immediately. This was cultured with both aerobic and anaerobic cultures I remove the catheter in its entirety I sent the tip off for culture and sensitivity as well. I irrigated out the pocket with a mixture of peroxide and normal saline 50-50. I had excellent hemostasis. I packed the wound with a Betadine soaked 4 x 4. Sterile dressings were applied patient tolerated the procedure well. Admit VTE Documentation VTE Present on Admission: No VTE Mechan Device Prophylaxis: None VTE Pharm Prophylaxis ordered?: No Reason prophylaxis not ordered:: Treatment Not Indicated
[2022-01-17] MEDS: Pregabalin 75 MG Capsule 150 MG PO ×2 (16:25→20:07)
[2022-01-17 16:50] LABS: Bedside Glucose 78 mg/dL (74-106)
[2022-01-17 17:31] LABS: Troponin-I HS 39 pg/mL (3.0-54.0)
[2022-01-17] MEDS: Latanoprost 0.005% 1 Bottle 1 DRP OPHTHALMIC (20:04)
[2022-01-17] MEDS: Insulin Glargine-YFGN 100 UNIT/ML Pen 25 UNIT SC (20:05)
[2022-01-17] MEDS: hydrALAZINE 25 MG Tablet PO (20:05)
[2022-01-17] MEDS: Atorvastatin Calcium 10 MG Tablet PO (20:05)
[2022-01-17 21:40] LABS: Bedside Glucose 153 mg/dL (74-106)
[2022-01-17] MEDS: Ibuprofen 400 MG Tablet PO (22:21)
[2022-01-18] VITALS (16 sets, daily range): BP systolic 94–124; BP diastolic 47–91; PULSE 66–92; RESP 18–20; TEMP 36.3–37.3; O2SAT 93–97
[2022-01-18] MEDS: Vancomycin IV 1,000 MG/200 ML BAG 200 MG IV ×3 (00:20→23:25)
[2022-01-18 06:10] LABS: Absolute Lymphocyte Count 0.67 X10^3/uL (0.83-4.51); Absolute Neutrophil Count 7.9 X10^3/uL (2.0-7.7); Basophil# 0.07 X10^3/uL; Basophil% 0.8 % (0-1); Eosinophil# 0.05 X10^3/uL; Eosinophils% 0.5 % (0-5); Hematocrit 35.8 % (37-47); Hemoglobin 10.8 g/dL (12.0-15.0); Lymphocyte # 0.67 X10^3/ul (0.83-4.51); Lymphocyte % 7.3 % (19-41); Mean Corp Hgb Conc 30.2 g/dL (32-36); Mean Corpuscular Hgb 29.1 pg (27.0-32.0); Mean Corpuscular Volume 96.5 fL (81-99); Mean Platelet Vol. 12.4 fl (6.2-12.0); Monocyte# 0.39 X10^3/uL; Monocyte% 4.3 % (0-10); NRBC Flagged by Analyzer 0 % (0-5); Neutrophil # 7.85 X10^3/uL (2.7-7.7); Neutrophil % 85.9 % (47-70); POSITIVE COUNT YES; POSITIVE MORPHOLOGY YES; Platelet Count 20 K/mm3 (150-450); RBC Distribution Width CV 19.8 % (11.6-14.6); RBC Distribution Width SD 67.7 fl (35.1-43.9); Red Blood Count 3.71 M/mm3 (4.2-5.4); White Blood Count 9.1 K/mm3 (4.4-11.0)
[2022-01-18 06:41] LABS: Differential Indicated SCAN CRITERIA MET
[2022-01-18 06:46] LABS: Platelet Estimate MKD DEC (ADEQ)
[2022-01-18 06:47] LABS: Anisocytosis 2+
[2022-01-18] MEDS: hydrALAZINE 25 MG Tablet PO (06:47)
[2022-01-18] MEDS: Pregabalin 75 MG Capsule 150 MG PO ×3 (06:47→21:16)
[2022-01-18] MEDS: Ibuprofen 400 MG Tablet PO (06:47)
[2022-01-18 06:54] LABS: ALB/GLOB Ratio 0.5 RATIO (0.9-2.4); AST(SGOT) 71 U/L (15-37); Alanine Aminotransfer ALT/SGPT 41 U/L (13-56); Alkaline Phosphatase 122 U/L (45-117); Anion Gap 6 (5-15); BUN 14 mg/dL (7-18); BUN/Creat Ratio 19.7 RATIO (10-20); Calcium,Total 8.2 mg/dL (8.5-10.1); Chloride 111 mmol/L (98-107); Creatinine, Serum 0.71 mg/dL (0.55-1.02); EST Glomerular Filtration Rate 84 mL/min (>60); Est Glom Filt Rate - Afr Amer 102 mL/min (>60); Estimated Creatinine Clearance 37.74 ml/min; Globulin 3.9 g/dL (2.2-4.2); Glucose 93 mg/dL (74-106); Potassium 3.9 mmol/L (3.5-5.1); Protein, Total 5.9 g/dL (6.4-8.2); Sodium Level 138 mmol/L (136-145)
[2022-01-18 07:15] LABS: Bedside Glucose 75 mg/dL (74-106)
[2022-01-18] MEDS: Latanoprost 0.005% 1 Bottle 1 DRP OPHTHALMIC ×2 (08:29→21:14)
[2022-01-18] MEDS: Metoprolol Tartrate 25 MG Tablet PO (08:29)
[2022-01-18] MEDS: Multivitamins,Therapeutic Tablet 1 TABLET PO (08:30)
[2022-01-18] MEDS: Pantoprazole Sodium 20 MG Tablet PO (08:30)
[2022-01-18] MEDS: amLODIPine 10 MG Tablet PO (08:30)
--- NOTE | 2022-01-18 08:51 | PCM.PN.HOSP ---
Subjective Subjective Patient is a 81-year-old lady with history of lung CA (non-small cell lung CA) admitted with sepsis secondary to infected port. Consult was placed to general surgery patient underwent removal of infected right IJ PowerPort with irrigation of right pocket of pus. Started on broad-spectrum antibiotic therapy subsequently Objective Data Objective Data Vital Signs: Vital Signs Temp Pulse Resp BP Pulse Ox O2 Del Method O2 Flow Rate 97.6 F L 80 18 109/88 H 93 Nasal Cannula 4 01/18/22 06:44 01/18/22 08:29 01/18/22 06:44 01/18/22 06:47 01/18/22 07:30 01/18/22 07:30 01/18/22 08:13 Oxygen Flow Rate (L/min) 4 Oxygen Delivery Method Nasal Cannula Weight: 104 kg Body Mass Index (BMI) 40.6 Intake & Output: Intake and Output for Last 24 Hours 01/16/22 01/17/22 01/18/22 23:59 23:59 23:59 Intake Total 1690 / 1765 325 / 325 Output Total 650 / 1300 1250 / 1250 Balance 1040 / 465 -925 / -925 Lab / Micro Data Result Diagrams: 01/18/22 06:02 01/18/22 06:02 Labs: Laboratory Results - last 24 hr 01/17/22 10:30: Troponin I High Sens 43 01/17/22 10:45: Lactic Acid 0.8 01/17/22 10:45: WBC 12.1 H, RBC 3.43 L, Hgb 10.0 L, Hct 32.7 L, MCV 95.3, MCH 29.2, MCHC 30.6 L, RDW Std Deviation 67.0 H, RDW Coeff of Patricia 19.6 H, Plt Count 67 L, MPV 11.4, Immature Gran % (Auto) 1.600 H, Neut % (Auto) 90.0 H, Lymph % (Auto) 3.0 L, Sunflower % (Auto) 4.5, Eos % (Auto) 0.0, Baso % (Auto) 0.9, Absolute Neuts (auto) 10.9 H, Absolute Lymphs (auto) 0.36 L, Nucleated RBC % 0.2, Differential Comment SCANNED, Platelet Estimate MOD DEC, Anisocytosis 2+, Microcytosis 1+, Macrocytosis 1+ 01/17/22 10:45: PT 15.3 H, INR 1.2, APTT 47.2 H 01/17/22 10:45: Hemoglobin A1c 6.2 H 01/17/22 11:34: POC Glucose 106 01/17/22 12:35: Sodium 140, Potassium 5.0, Chloride 113 H, Carbon Dioxide 18.0 L, Anion Gap 9, BUN 16, Creatinine 0.76, Estim Creat Clear Calc 37.74, Est GFR (MDRD) Af Amer 94, Est GFR (MDRD) Non-Af 78, BUN/Creatinine Ratio 21.1 H, Glucose 101, Calcium 7.8 L, Troponin I High Sens 46 01/17/22 16:29: POC Glucose 78 01/17/22 17:00: Troponin I High Sens 39 01/17/22 20:02: POC Glucose 153 H 01/18/22 06:02: WBC 9.1, RBC 3.71 L, Hgb 10.8 L, Hct 35.8 L, MCV 96.5, MCH 29.1, MCHC 30.2 L, RDW Std Deviation 67.7 H, RDW Coeff of Patricia 19.8 H, Plt Count 20 L*, MPV 12.4 H, Immature Gran % (Auto) 1.200 H, Neut % (Auto) 85.9 H, Lymph % (Auto) 7.3 L, Sunflower % (Auto) 4.3, Eos % (Auto) 0.5, Baso % (Auto) 0.8, Absolute Neuts (auto) 7.9 H, Absolute Lymphs (auto) 0.67 L, Nucleated RBC % 0, Diff Path Review September anyi, Platelet Estimate MKD DEC, Anisocytosis 2+ 01/18/22 06:02: Sodium 138, Potassium 3.9, Chloride 111 H, Carbon Dioxide 21.0, Anion Gap 6, BUN 14, Creatinine 0.71, Estim Creat Clear Calc 37.74, Est GFR (MDRD) Af Amer 102, Est GFR (MDRD) Non-Af 84, BUN/Creatinine Ratio 19.7, Glucose 93, Calcium 8.2 L, Total Bilirubin 0.40, AST 71 H, ALT 41, Alkaline Phosphatase 122 H, Total Protein 5.9 L, Albumin 2.0 L, Globulin 3.9, Albumin/Globulin Ratio 0.5 L 01/18/22 06:52: POC Glucose 75 Micro: Microbiology 01/17/22 10:45 Blood Culture (Wb) - Other Bacteria Detection (PCR) - Final Meth. resistant Staph. aureus 01/17/22 10:45 Blood Culture (Wb) - Other Blood Culture - Preliminary 01/17/22 Unknown Catheter tip - Subclavian Wound Culture - Preliminary Staphylococcus aureus 01/17/22 Unknown Wound - Chest Wound Culture - Preliminary Staphylococcus aureus 01/17/22 10:55 Blood Culture (Wb) - Other Blood Culture - Preliminary 01/17/22 10:15 Nasal Secretion SARS-CoV-2 Antigen (Rapid) - Final Radiography Diagnostic Testing: Radiology Impression Chest CTA 01/17/22 09:36 IMPRESSION: Normal CTA chest examination, without a demonstrated pulmonary embolism or arterial dissection. Mild emphysema with a 2 cm noncalcified subpleural nodule in the posterior right upper lobe the lungs worrisome for bronchogenic carcinoma. The patient has had recent PET/CT. Small bilateral pleural effusions with some bibasilar atelectasis. Electronically Signed: Ernesto Jaffe MD at 17:47 EDT , Physical Exam Narrative GENERAL: cooperative HEENT: Atraumatic; EYES; Anicteric, Normal Conjunctiva NECK; supple, normal thyroid, RESPIRATORY: Diminished to auscultation CARDIOVASCULAR: Regular S1 S2, GI: soft, normoactive bowel sounds, : No Renal angle tenderness; EXTREMITIES: No edema, no clubbing, MUSCULOSKELETAL: no muscle wasting NEURO: Awake; no lateralizing signs. SKIN: No Rash PSYCH; Flat affect Assessment & Plan Assessment/Plan (1) Sepsis due to infected central venous catheter: QUALIFIERS: Encounter type: initial encounter Qualified Code(s): T80.211A - Bloodstream infection due to central venous catheter, initial encounter; A41.9 - Sepsis, unspecified organism (2) Acute respiratory failure with hypoxia: (3) Thrombocytopenia: (4) Metabolic encephalopathy: (5) Lung cancer: PLAN: Plan Patient is a 81-year-old lady with history of lung CA (non-small cell lung CA) admitted with sepsis secondary to infected port. Consult was placed to general surgery patient underwent removal of infected right IJ PowerPort with irrigation of right pocket of pus. Started on broad-spectrum antibiotic therapy subsequently 1. Sepsis secondary to infected port ? Patient was managed per protocol with aggressive antibiotic therapy IV fluid resuscitation and culture sent. Consult was placed to general surgery patient underwent port removal on 01/17/2022 2. Acute hypoxic respiratory failure ? Suspected to be secondary to patient underlying lung CA. Patient was found to have elevated D-dimer plan is for patient to undergo CTA of the chest to rule out PE 3. 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 Acute metabolic encephalopathy ? Secondary to patient underlying sepsis 5. Non-small cell lung CA ? Patient is on chemotherapy with carboplatin and Taxol and immunotherapy with pambrolizumab. Consult placed to patient's oncologist 6. Hypertension - Blood pressure controlled, home medications continued with dose adjustment as needed 7. Diabetes mellitus type II -patient's oral hypoglycemics held. Placed on long acting insulin, Accu-Cheks a.c. and at bedtime and covered with sliding scale insulin 8. Dyslipidemia -Patient is on statin therapy, continued at home dose Follow-up with oncology as outpatient 9. DVT prophylaxis ? SCDs for now Charges/Coding Visit Charges Inpatient E&M: 03987 Subs Hosp L2
[2022-01-18 11:35] LABS: Bedside Glucose 116 mg/dL (74-106)
[2022-01-18] MEDS: Acetaminophen 325 MG Tablet 650 MG PO (12:36)
[2022-01-18] MEDS: oxyCODONE 5 MG Tablet PO ×2 (12:37→21:16)
--- NOTE | 2022-01-18 14:32 | ONC.CONSULT ---
Assessment & Plan Assessment/Plan (1) Sepsis due to infected central venous catheter: Status: Acute Code(s): T80.211A - Bloodstream infection due to central venous catheter, initial encounter; A41.9 - Sepsis, unspecified organism Qualifiers: Encounter type: initial encounter Qualified Code(s): T80.211A - Bloodstream infection due to central venous catheter, initial encounter; A41.9 - Sepsis, unspecified organism Plan: To continue Antibiotics since Port has been removed. (2) Thrombocytopenia: Status: Acute Code(s): D69.6 - Thrombocytopenia, unspecified Plan: Etiology is multifactorial including sepsis, antibiotics and chemotherapy effect. Since she has a big bruise on the Left arm, suggest Platelet transfusion to keep Platelets above 20-30K. (3) Lung cancer: Status: Acute Code(s): C34.90 - Malignant neoplasm of unspecified part of unspecified bronchus or lung Plan: To do observation while on admission. When she is stable, discharge home for outpatient follow up and management. Will not follow further on this admission. HPI Consult Data Date of Service:: 01/18/22 PCP / Referring Provider: Dr. Venita Aguilar MD Attending: Dr. Zak Pineda MD Chief Complaint Chief Complaint: Asked to see Pt for thrombocytopenia. History of Present Illness History of Present Illness: 81y.o.woman was found to have a left lower lobe non-small cell lung cancer, squamous histology favored clinical and radiologic stage IV (T3, N2, M1) with metastases to the contralateral right lung and pleura and indeterminate liver nodule, PD-L1 +5% on 10/07/2021 . Port was placed on 11/30/2021. Started systemic therapy with combination chemotherapy (carboplatin and Taxol) = immune therapy (pembrolizumab) December 15, 2021. Got C2 on 01/05/2022. She was admitted with Fever, lethargy, erythema and tenderness around the R IC port so it was removed on 01/17/2022. This morning, she is feeling better. Advanced Directives Power of Director Of Property Management: Yes Living Will: Yes [facility] Medical History (Updated 01/17/22 @ 09:[address] August Devries DO) Anxiety Cancer Chronic constipation Chronic pain CINV (chemotherapy-induced nausea and vomiting) COPD (chronic obstructive pulmonary disease) CPAP (continuous positive airway pressure) dependence Diabetes mellitus Encounter for education Former smoker GERD (gastroesophageal reflux disease) History of gastrointestinal ulcer Hyperlipidemia Hypertension Liver nodule Lung cancer Lung metastasis Osteoarthritis Osteoporosis PONV (postoperative nausea and vomiting) Port-A-Cath in place Primary cancer of left lung Psoriasis Psoriatic arthritis Regional lymph node metastasis present Sleep apnea TIA (transient ischemic attack) Walker as ambulation aid Wears glasses Wears partial dentures Home Medications amlodipine 10 mg tablet 10 mg PO DAILY BP 09/20/13 [History Last Taken 10/07/21] atorvastatin 10 mg tablet 10 mg PO QHS Cholesterol 09/20/13 [History Last Taken Unknown] hydralazine 25 mg tablet 25 mg PO TID BP 09/20/13 [History Last Taken 10/07/21] multivitamin with folic acid 400 mcg tablet 1 tab PO DAILY Supplement 03/11/15 [History Last Taken Unknown] oxycodone-acetaminophen 5 mg-325 mg tablet 1 tab PO TID PRN Pain #90 tabs 10/31/18 [History Last Taken Unknown] latanoprost 0.005 % eye drops 1 drp ophthalmic (eye) BID Glaucoma 09/24/20 [History Last Taken Unknown] omeprazole 20 mg capsule,delayed release 20 mg PO DAILY GERD 09/24/20 [History Last Taken 10/07/21] oxybutynin chloride 10 mg tablet,extended release 24 hr (Ditropan XL) 15 mg PO DAILY Over active bladder 09/24/20 [History Last Taken 11/30/21 05:30] polyethylene glycol 3350 17 gram/dose oral powder (Miralax) 4 g PO DAILY Constipation 10/20/21 [History Last Taken Unknown] metoprolol tartrate 50 mg tablet 25 mg PO BID BP/HR 11/17/21 [History Last Taken Unknown] pregabalin 50 mg capsule (Lyrica) 150 mg PO TID Nerve pain 11/17/21 [History Last Taken Unknown] insulin glargine 100 unit/mL (3 mL) subcutaneous pen (Lantus Solostar U-100 Insulin) 25 unit subcut QHS Diabetes 11/24/21 [History Last Taken Unknown] lidocaine-prilocaine 2.5 %-2.5 % topical cream 1 applic topical ONCE PRN port access 30 days #30 grams 12/08/21 [Rx Last Taken Unknown] ondansetron 8 mg disintegrating tablet 8 mg PO Q8H PRN nausea and vomiting #30 tabs 12/08/21 [Rx Last Taken Unknown] prochlorperazine maleate 10 mg tablet 10 mg PO Q6H PRN nausea and vomiting #30 tabs 12/08/21 [Rx Last Taken Unknown] dexamethasone 4 mg tablet 4 mg PO .COMPLEX Chemo 01/17/22 [History Last Taken Unknown] Allergy/AdvReac Type Severity Reaction Status Date / Time Sulfa (Sulfonamide Allergy Rash Verified 01/05/22 11:07 Antibiotics) Family History Father Cancer Arthritis Mother Arthritis Surgical History History of back surgery History of carpal tunnel surgery of left wrist History of total hip replacement partial shoulder replacement s/p right hip Status post bilateral knee replacements Social History Smoking Status: Former smoker how long ago did patient quit smokin alcohol intake: never substance use type: does not use ROS Constitutional Constitutional: Reports systems reviewed and no addt'l complaints, except as documented and other Details: Her activities are chronically limited because of arthritis ; Denies fatigue, fever(s) or weight loss Eyes Eyes: Reports systems reviewed and no addt'l complaints, except as documented; Denies change in vision ENT HEENT: Reports systems reviewed and no addt'l complaints, except as documented; Denies headache(s) or mouth lesions Cardiovascular Cardiovascular: Reports systems reviewed and no addt'l complaints, except as documented Respiratory/Chest Respiratory/Chest: Reports systems reviewed and no addt'l complaints, except as documented and dyspnea on exertion; Denies cough or hemoptysis Gastrointestinal Gastrointestinal: Reports systems reviewed and no addt'l complaints, except as documented and constipation; Denies change in bowel habits, hematochezia or melena Genitourinary Genitourinary: Reports systems reviewed and no addt'l complaints, except as documented; Denies dysuria Musculoskeletal Musculoskeletal: Reports systems reviewed and no addt'l complaints, except as documented, arthralgias, back pain and joint pain Integumentary Integumentary: Reports systems reviewed and no addt'l complaints, except as documented and alopecia; Denies lesions or rash Neurologic Neurologic: Reports systems reviewed and no addt'l complaints, except as documented; Denies focal weakness or paresthesias Psychiatric Psychiatric: Reports systems reviewed and no addt'l complaints, except as documented Endocrine Endocrinology: Reports systems reviewed and no addt'l complaints, except as documented Hematologic/Lymphatic Hematologic/Lymphatic: Reports systems reviewed and no addt'l complaints, except as documented Allergic/Immunologic Allergic/Immunologic: Reports systems reviewed and no addt'l complaints, except as documented Physical Exam Narrative Elderly woman Const alert, oriented x3 and no apparent distress HEENT normocephalic and oropharynx normal Eyes PERRL and no scleral icterus Neck no lymphadenopathy Lymph Lymphatic: no lymphadenopathy noted Chest Chest Narrative: + dressing R anterior chest wall. Resp normal respiratory effort and clear to auscultation bilaterally Cardio regular rate, regular rhythm, S1 normal heart sound and S2 normal heart sound GI normal to inspection, nondistended, normoactive bowel sounds Extremity normal to inspection and no clubbing, cyanosis or edema Skin Skin Narrative: +bruises L upper extremity. Neuro CN's II-XII intact bilaterally, moves all extremities, no focal motor deficits and no sensory deficits noted Psych mental status grossly normal Vital Signs Temperature 97.8 F 01/18/22 09:45 Temperature Source Temporal 01/18/22 09:45 Pulse Rate 80 01/18/22 09:45 Pulse Strength Normal (2+) 01/18/22 10:29 Respiratory Rate 20 H 01/18/22 09:45 Respiratory Effort Non-Labored 01/18/22 10:33 Respiratory Depth Normal 01/18/22 10:33 Respiratory Pattern Normal 01/18/22 10:33 Blood Pressure 104/49 L 01/18/22 13:52 Blood Pressure Mean 72 01/18/22 09:45 Blood Pressure Source Monitor 01/18/22 09:45 Blood Pressure Position Semi-Fowlers 01/18/22 09:45 Blood Pressure Location Right Arm 01/18/22 09:45 Baseline BP 103/56 01/17/22 15:45 Pulse Ox 94 01/18/22 09:45 Oxygen Delivery Method Nasal Cannula 01/18/22 10:33 Oxygen Flow Rate (L/min) 4 01/18/22 10:33 Laboratory Results - last 24 hr 01/17/22 10:45: Lactic Acid 0.8 01/17/22 16:29: POC Glucose 78 01/17/22 17:00: Troponin I High Sens 39 01/17/22 20:02: POC Glucose 153 H 01/18/22 06:02: WBC 9.1, RBC 3.71 L, Hgb 10.8 L, Hct 35.8 L, MCV 96.5, MCH 29.1, MCHC 30.2 L, RDW Std Deviation 67.7 H, RDW Coeff of Patricia 19.8 H, Plt Count 20 L*, MPV 12.4 H, Immature Gran % (Auto) 1.200 H, Neut % (Auto) 85.9 H, Lymph % (Auto) 7.3 L, Izard % (Auto) 4.3, Eos % (Auto) 0.5, Baso % (Auto) 0.8, Absolute Neuts (auto) 7.9 H, Absolute Lymphs (auto) 0.67 L, Nucleated RBC % 0, Diff Path Review September, Platelet Estimate MKD DEC, Anisocytosis 2+ 01/18/22 06:02: Sodium 138, Potassium 3.9, Chloride 111 H, Carbon Dioxide 21.0, Anion Gap 6, BUN 14, Creatinine 0.71, Estim Creat Clear Calc 37.74, Est GFR (MDRD) Af Amer 102, Est GFR (MDRD) Non-Af 84, BUN/Creatinine Ratio 19.7, Glucose 93, Calcium 8.2 L, Total Bilirubin 0.40, AST 71 H, ALT 41, Alkaline Phosphatase 122 H, Total Protein 5.9 L, Albumin 2.0 L, Globulin 3.9, Albumin/Globulin Ratio 0.5 L 01/18/22 06:52: POC Glucose 75 01/18/22 11:11: POC Glucose 116 H Microbiology 01/17/22 Unknown Catheter tip - Subclavian Gram Stain - Final 01/17/22 Unknown Catheter tip - Subclavian Wound Culture - Preliminary Staphylococcus aureus 01/17/22 Unknown Wound - Chest Gram Stain - Final 01/17/22 Unknown Wound - Chest Wound Culture - Preliminary Staphylococcus aureus 01/17/22 10:45 Blood Culture (Wb) - Other Bacteria Detection (PCR) - Final Meth. resistant Staph. aureus 01/17/22 10:45 Blood Culture (Wb) - Other Blood Culture - Preliminary 01/17/22 10:55 Blood Culture (Wb) - Other Blood Culture - Preliminary 01/17/22 10:15 Nasal Secretion SARS-CoV-2 Antigen (Rapid) - Final Diagnostic Data Chest CTA 01/17/22 09:36 IMPRESSION: Normal CTA chest examination, without a demonstrated pulmonary embolism or arterial dissection. Mild emphysema with a 2 cm noncalcified subpleural nodule in the posterior right upper lobe the lungs worrisome for bronchogenic carcinoma. The patient has had recent PET/CT. Small bilateral pleural effusions with some bibasilar atelectasis. Electronically Signed: Ernesto Jaffe MD at 17:47 EDT , Charges/Coding Multi Select Codes Visit Charges Office Visit/Consults: 82780 IP Consult L4
[2022-01-18 17:46] LABS: Bedside Glucose 154 mg/dL (74-106)
[2022-01-18] MEDS: Insulin Glargine-YFGN 100 UNIT/ML Pen 25 UNIT SC (21:13)
[2022-01-18] MEDS: Atorvastatin Calcium 10 MG Tablet PO (21:15)
[2022-01-18 21:50] LABS: Bedside Glucose 156 mg/dL (74-106)
[2022-01-18 22:56] LABS: Vancomycin, Trough Level 17.8 ug/mL (5.0-15.0)
--- NOTE | 2022-01-18 23:05 | PCM.RX.CS ---
Consult Pharmacy has been consulted to manage selected antiobiotic: Vancomycin Type of Consult: Follow-up Suspected Infection: Sepsis Prior Doses of Antibiotics Received/Current Regimen: Medications Vancomycin HCl (Vancomycin) 1,000 mg in 200 mls @ 200 mls/hr IV Q12H BECKY Last Admin: 01/18/22 12:13 Dose: Infused Labs: Sodium 138 mmol/L (136-145) 01/18/22 06:02 Potassium 3.9 mmol/L (3.5-5.1) 01/18/22 06:02 Chloride 111 mmol/L (98-107) H 01/18/22 06:02 Carbon Dioxide 21.0 mmol/L (21.0-32.0) 01/18/22 06:02 Anion Gap 6 (5-15) 01/18/22 06:02 BUN 14 mg/dL (7-18) 01/18/22 06:02 Creatinine 0.71 mg/dL (0.55-1.02) 01/18/22 06:02 Est GFR (MDRD) Af Amer 102 mL/min (>60) 01/18/22 06:02 Est GFR (MDRD) Non-Af 84 mL/min (>60) 01/18/22 06:02 BUN/Creatinine Ratio 19.7 RATIO (10-20) 01/18/22 06:02 Glucose 93 mg/dL (74-106) 01/18/22 06:02 Vancomycin Trough 17.8 ug/mL (5.0-15.0) H 01/18/22 22:25 Microbiology: Microbiology 01/17/22 Unknown Catheter tip - Subclavian Gram Stain - Final 01/17/22 Unknown Catheter tip - Subclavian Wound Culture - Preliminary Staphylococcus aureus 01/17/22 Unknown Wound - Chest Gram Stain - Final 01/17/22 Unknown Wound - Chest Wound Culture - Preliminary Staphylococcus aureus 01/17/22 10:45 Blood Culture (Wb) - Other Bacteria Detection (PCR) - Final Meth. resistant Staph. aureus 01/17/22 10:45 Blood Culture (Wb) - Other Blood Culture - Preliminary 01/17/22 10:55 Blood Culture (Wb) - Other Blood Culture - Preliminary 01/17/22 10:15 Nasal Secretion SARS-CoV-2 Antigen (Rapid) - Final Weight used for dosin kg Estimated Creatinine Clearance: 74 (by ABW Goal Trough: 15-20 mcg/mL Pharmacy Plan for Drug Dosing: Pharmacy Service will continue to monitor and adjust dosing as required. Follow-Up Labs: Trough Vancomycin Labs to be done on [date and time ordered]: 01/20/22 @8640
[2022-01-18] MEDS: 0.9% Saline Lock 10 ML Syringe IV (23:26)
[2022-01-19] VITALS (16 sets, daily range): BP systolic 96–131; BP diastolic 42–71; PULSE 54–107; RESP 16–20; TEMP 36.2–38; O2SAT 93–94
[2022-01-19] MEDS: Acetaminophen 325 MG Tablet 650 MG PO ×3 (00:29→14:54)
[2022-01-19] MEDS: Ibuprofen 400 MG Tablet PO ×2 (01:50→18:08)
[2022-01-19] MEDS: oxyCODONE 5 MG Tablet PO ×4 (01:51→22:15)
[2022-01-19] MEDS: Ondansetron 4 MG/2 ML Vial IV (02:57)
[2022-01-19] MEDS: Morphine 2 MG/ML Syringe 1 MG IV (02:57)
[2022-01-19] MEDS: 0.9% Saline Lock 10 ML Syringe IV ×2 (02:58→22:30)
[2022-01-19] MEDS: Pregabalin 75 MG Capsule 150 MG PO ×3 (06:24→20:49)
[2022-01-19 06:50] LABS: Bedside Glucose 99 mg/dL (74-106)
--- NOTE | 2022-01-19 07:40 | PCM.PN.HOSP ---
Subjective Subjective Patient seen was transfused with platelets the day prior. Platelet count up to 56,000. Blood cultures came back positive for MRSA. Consult placed to ID Objective Data Objective Data Vital Signs: Vital Signs Temp Pulse Resp BP Pulse Ox O2 Del Method O2 Flow Rate 99.7 F H 81 20 H 106/53 L 93 Nasal Cannula 4 01/19/22 03:25 01/19/22 06:23 01/19/22 03:25 01/19/22 06:23 01/19/22 03:25 01/19/22 03:25 01/19/22 03:25 Oxygen Flow Rate (L/min) 4 Oxygen Delivery Method Nasal Cannula Weight: 104 kg Body Mass Index (BMI) 40.6 Intake & Output: Intake and Output for Last 24 Hours 01/17/22 01/18/22 01/19/22 23:59 23:59 23:59 Intake Total 1690 / 1765 1615 / 1615 490 / 490 Output Total 650 / 1300 2025 / 2025 550 / 550 Balance 1040 / 465 -410 / -410 -60 / -60 Lab / Micro Data Result Diagrams: 01/19/22 05:40 01/19/22 05:40 Labs: Laboratory Results - last 24 hr 01/17/22 10:45: Lactic Acid 0.8 01/18/22 11:11: POC Glucose 116 H 01/18/22 15:35: Blood Type O POSITIVE 01/18/22 16:06: POC Glucose 154 H 01/18/22 21:11: POC Glucose 156 H 01/18/22 22:25: Vancomycin Trough 17.8 H 01/19/22 06:20: POC Glucose 99 Micro: Microbiology 01/17/22 10:55 Blood Culture (Wb) - Other Blood Culture - Preliminary 01/17/22 10:45 Blood Culture (Wb) - Other Bacteria Detection (PCR) - Final Meth. resistant Staph. aureus 01/17/22 10:45 Blood Culture (Wb) - Other Blood Culture - Preliminary Staphylococcus aureus 01/17/22 Unknown Catheter tip - Subclavian Gram Stain - Final 01/17/22 Unknown Catheter tip - Subclavian Wound Culture - Final Meth. resistant Staph. aureus 01/17/22 Unknown Wound - Chest Gram Stain - Final 01/17/22 Unknown Wound - Chest Wound Culture - Final Meth. resistant Staph. aureus 01/17/22 10:15 Nasal Secretion SARS-CoV-2 Antigen (Rapid) - Final Physical Exam Narrative GENERAL: cooperative HEENT: Atraumatic; EYES; Anicteric, Normal Conjunctiva NECK; supple, normal thyroid, RESPIRATORY: Diminished to auscultation CARDIOVASCULAR: Regular S1 S2, GI: soft, normoactive bowel sounds, : No Renal angle tenderness; EXTREMITIES: No edema, no clubbing, MUSCULOSKELETAL: no muscle wasting NEURO: Awake; no lateralizing signs. SKIN: No Rash PSYCH; Flat affect Assessment & Plan Assessment/Plan (1) Sepsis due to infected central venous catheter: QUALIFIERS: Encounter type: initial encounter Qualified Code(s): T80.211A - Bloodstream infection due to central venous catheter, initial encounter; A41.9 - Sepsis, unspecified organism (2) Acute respiratory failure with hypoxia: (3) Thrombocytopenia: (4) Metabolic encephalopathy: (5) Lung cancer: PLAN: Plan Follow-up withPatient is a 81-year-old lady with history of lung CA (non-small cell lung CA) admitted with sepsis secondary to infected port. Consult was placed to general surgery patient underwent removal of infected right IJ PowerPort with irrigation of right pocket of pus. Started on broad-spectrum antibiotic therapy subsequently 1. Sepsis secondary to infected port ? Patient was managed per protocol with aggressive antibiotic therapy IV fluid resuscitation and culture sent. Consult was placed to general surgery patient underwent port removal on 01/17/2022 ?01/19/2022 blood cultures positive for MRSA infectious disease Case discussed with Dr. Bernal. Plan is repeat blood cultures and order TTE and continue with current antibiotic therapy 2. Acute hypoxic respiratory failure ? Suspected to be secondary to patient underlying lung CA. Patient was found to have elevated D-dimer plan is for patient to undergo CTA of the chest to rule out PE 3. 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 Case was discussed with Dr Simmons with oncology 4. Acute metabolic encephalopathy ? Secondary to patient underlying sepsis 5. Non-small cell lung CA ? Patient is on chemotherapy with carboplatin and Taxol and immunotherapy with pambrolizumab. Consult placed to patient's oncologist 6. Hypertension - Blood pressure controlled, home medications continued with dose adjustment as needed 7. Diabetes mellitus type II -patient's oral hypoglycemics held. Placed on long acting insulin, Accu-Cheks a.c. and at bedtime and covered with sliding scale insulin 8. Dyslipidemia -Patient is on statin therapy, continued at home dose Follow-up with oncology as outpatient 9. DVT prophylaxis ? SCDs for now Charges/Coding Visit Charges Inpatient E&M: 08199 Subs Hosp L3
[2022-01-19 07:59] LABS: Absolute Lymphocyte Count 1.02 X10^3/uL (0.83-4.51); Absolute Neutrophil Count 8.5 X10^3/uL (2.0-7.7); Basophil# 0.03 X10^3/uL; Basophil% 0.3 % (0-1); Eosinophil# 0.09 X10^3/uL; Eosinophils% 0.8 % (0-5); Hematocrit 31.4 % (37-47); Hemoglobin 9.4 g/dL (12.0-15.0); Lymphocyte # 1.02 X10^3/ul (0.83-4.51); Lymphocyte % 9.6 % (19-41); Mean Corp Hgb Conc 29.9 g/dL (32-36); Mean Corpuscular Volume 96.9 fL (81-99); Mean Platelet Vol. 12.1 fl (6.2-12.0); Monocyte# 0.92 X10^3/uL; Monocyte% 8.6 % (0-10); NRBC Flagged by Analyzer 0 % (0-5); Neutrophil # 8.48 X10^3/uL (2.7-7.7); Neutrophil % 79.8 % (47-70); POSITIVE COUNT YES; POSITIVE MORPHOLOGY YES; Platelet Count 56 K/mm3 (150-450); RBC Distribution Width CV 19.3 % (11.6-14.6); RBC Distribution Width SD 67.4 fl (35.1-43.9); Red Blood Count 3.24 M/mm3 (4.2-5.4); White Blood Count 10.6 K/mm3 (4.4-11.0)
[2022-01-19 08:00] LABS: Differential Indicated SCAN CRITERIA MET
[2022-01-19 08:07] LABS: Anion Gap 4 (5-15); BUN 15 mg/dL (7-18); BUN/Creat Ratio 21.3 RATIO (10-20); Calcium,Total 8.4 mg/dL (8.5-10.1); Chloride 109 mmol/L (98-107); EST Glomerular Filtration Rate 85 mL/min (>60); Est Glom Filt Rate - Afr Amer 103 mL/min (>60); Estimated Creatinine Clearance 37.74 ml/min; Glucose 104 mg/dL (74-106); Potassium 3.7 mmol/L (3.5-5.1); Sodium Level 140 mmol/L (136-145)
[2022-01-19 08:54] LABS: Anisocytosis 1+; Platelet Estimate MOD DEC (ADEQ)
--- NOTE | 2022-01-19 09:14 | ECHOD_ITS ---
Reason For Study: MURMUR Procedure This was a 2D Doppler, Color Flow transthoracic echocardiogram. The study was technically difficult. PT was coughing throughout exam. Exam performed portable in patient room. Left Ventricle Normal LV size. Left ventricular systolic function is normal. The estimated ejection fraction is 60 %. Stage 1 diastolic dysfunction. No regional wall motion abnormalities noted. Right Ventricle Normal RV size. Normal systolic function. Atria The left atrium is moderately enlarged. The right atrium is mildly enlarged. Mitral Valve There is moderate mitral annular calcification. Tricuspid Valve Normal tricuspid valve. Mild to moderate (1-2+) tricuspid valve insufficiency. Pulmonary artery systolic pressure is 41 mmHg. Aortic Valve Trisinus/trileaflet aortic valve. Mild focal aortic valve calcification. Peak aortic valve gradient 20 mmHg. Mean aortic valve gradient 10 mmHg. Pulmonic Valve Normal pulmonic valve. Great Vessels Normal aortic root. The pulmonary artery is normal size. Normal inferior vena cava. Pericardium/Pleural No pericardial effusion. MMode/2D Measurements & Calculations LVIDd: 4.3 cm IVSd: 0.85 cm LVOT diam: 2.2 cm LVIDs: 2.8 cm LVPWd: 0.99 cm LVOT area: 3.8 cm2 RVDd: 3.5 cm FS: 35.7 % Ao root diam: 3.2 cm LAV(MOD-bp): 108.7 ml LA A4 area: 28.6 cm2 LAV(MOD-bp) Indexed: 53.1 ml/m2 LAV(MOD-sp2): 103.8 ml LAV(MOD-sp4): 115.4 ml LA dimension(2D): 4.7 cm RA A4 area: 23.5 cm2 Time Measurements MV dec time: 0.36 sec Doppler Measurements & Calculations MV E max billy: 99.0 cm/sec Lat Peak E' Billy: 11.7 cm/sec Med Peak E' Billy: 8.1 cm/sec MV A max billy: 153.6 cm/sec E/E' lat: 8.5 E/E' med: 12.2 MV E/A: 0.64 MV V2 max: 178.4 cm/sec MV dec slope: 278.5 cm/sec2 Ao V2 max: 224.4 cm/sec MV max P.0 mmHg Ao max P.2 mmHg MV V2 mean: 99.2 cm/sec Ao V2 mean: 148.5 cm/sec MV mean P.5 mmHg Ao mean P.9 mmHg MV V2 VTI: 41.6 cm Ao V2 VTI: 42.7 cm MVA(VTI): 3.2 cm2 RONNY(I,D): 3.1 cm2 RONNY(V,D): 2.4 cm2 LV V1 max: 142.1 cm/sec SV(LVOT): 132.0 ml PA V2 max: 115.5 cm/sec LV V1 max P.1 mmHg LV V1 mean P.4 mmHg LV V1 mean: 100.3 cm/sec LV V1 VTI: 34.8 cm TR max billy: 310.8 cm/sec TR max P.6 mmHg ECHO/Echo Complete Interpretation Summary Normal LV size. Left ventricular systolic function is normal. The estimated ejection fraction is 60 %. There is moderate mitral annular calcification. Mild focal aortic valve calcification. Stage 1 diastolic dysfunction. The left atrium is moderately enlarged. Ordering Physician: Jak Bernal Referring Physician: Venita Aguilar Performed By: Yoana Thacker, SAM, RVT
--- NOTE | 2022-01-19 10:00 | CASEMGMT ---
RN CM Face to Face with patient for initial transition planning/care coordination assessment. RN CM introduced self and role at [facility]. Patient lying in bed, alert and oriented. Patient willing to participate in assessment and is able to answer all questions appropriately. Care providers, pharmacy, and demographics verified. Patient wishes to discharge unsure of disposition at discharge, possible SNF vs HHC. Patient states she has no further needs or concerns at this time. CM to follow for discharge planning needs that may arise. PCP: Jeff Specialists: Edgardo pain; Kanchan montessori lead teacher Preferred Pharmacy: [facility] Insurance: [employer] [facility] Prescription Benefit: yes Living Will/HPOA: friendJayde HPOA LNOK: sister, friend Living Arrangements: Patient lives with friend in a single story cabin with 23 steps and stair lift to enter the home. Patient states she is normally independent at home. Transportation: self, friend DME/HHC: Patient states she has tub bench, cane, walker, rollator, grab bars, NIV, and pulse ox at home. Patient has had [facility] in the past. Patient has been to [facility] in the past. Disposition Plan: TBD by course of treatment, anticipate patient will need SNF vs HHC at discharge. Mayra WILBURN, RN, CM
--- NOTE | 2022-01-19 10:00 | PCM.CONS.GEN ---
Assessment & Plan Assessment/Plan (1) Lung cancer: (2) MRSA bacteremia: PLAN: MRSA bacteremia due to port infection - recently started chemo for NSCLC. Port removed 01/17/[address] Romano. Will check repeat bcx and TTE. On vanc, will stop zosyn. Will follow, thank you, d/w Dr. Pineda (3) Sepsis due to infected central venous catheter: QUALIFIERS: Encounter type: initial encounter Qualified Code(s): T80.211A - Bloodstream infection due to central venous catheter, initial encounter; A41.9 - Sepsis, unspecified organism HPI Consult Data Date of Consult: 01/19/22 HPI Narrative Reason for Consultation: bacteremia HPI Narrative: SORAYA JENSEN, is a 81 F with COPD and NSCLC, started chemo 12/15/2021, who presented 01/17 with acute onset fever, cough, lethargy. Reports having redness over port. Has chronic wheezing, cough. Went to [place], transferred here, admitted on vanc/zosyn. Port removed 01/[address] Romano. Bcx with MRSA. Feeling a little better, fever improved. No new joint pain. Full ROS performed and neg except as noted above. [facility] Medical History Anxiety Cancer Chronic constipation Chronic pain CINV (chemotherapy-induced nausea and vomiting) COPD (chronic obstructive pulmonary disease) CPAP (continuous positive airway pressure) dependence Diabetes mellitus Encounter for education Former smoker GERD (gastroesophageal reflux disease) History of gastrointestinal ulcer Hyperlipidemia Hypertension Liver nodule Lung cancer Lung metastasis Osteoarthritis Osteoporosis PONV (postoperative nausea and vomiting) Port-A-Cath in place Primary cancer of left lung Psoriasis Psoriatic arthritis Regional lymph node metastasis present Sleep apnea TIA (transient ischemic attack) Walker as ambulation aid Wears glasses Wears partial dentures Home Medications amlodipine 10 mg tablet 10 mg PO DAILY BP 09/20/13 [History Last Taken 10/07/21] atorvastatin 10 mg tablet 10 mg PO QHS Cholesterol 09/20/13 [History Last Taken Unknown] hydralazine 25 mg tablet 25 mg PO TID BP 09/20/13 [History Last Taken 10/07/21] multivitamin with folic acid 400 mcg tablet 1 tab PO DAILY Supplement 03/11/15 [History Last Taken Unknown] oxycodone-acetaminophen 5 mg-325 mg tablet 1 tab PO TID PRN Pain #90 tabs 10/31/18 [History Last Taken Unknown] latanoprost 0.005 % eye drops 1 drp ophthalmic (eye) BID Glaucoma 09/24/20 [History Last Taken Unknown] omeprazole 20 mg capsule,delayed release 20 mg PO DAILY GERD 09/24/20 [History Last Taken 10/07/21] oxybutynin chloride 10 mg tablet,extended release 24 hr (Ditropan XL) 15 mg PO DAILY Over active bladder 09/24/20 [History Last Taken 11/30/21 05:30] polyethylene glycol 3350 17 gram/dose oral powder (Miralax) 4 g PO DAILY Constipation 10/20/21 [History Last Taken Unknown] metoprolol tartrate 50 mg tablet 25 mg PO BID BP/HR 11/17/21 [History Last Taken Unknown] pregabalin 50 mg capsule (Lyrica) 150 mg PO TID Nerve pain 11/17/21 [History Last Taken Unknown] insulin glargine 100 unit/mL (3 mL) subcutaneous pen (Lantus Solostar U-100 Insulin) 25 unit subcut QHS Diabetes 11/24/21 [History Last Taken Unknown] lidocaine-prilocaine 2.5 %-2.5 % topical cream 1 applic topical ONCE PRN port access 30 days #30 grams 12/08/21 [Rx Last Taken Unknown] ondansetron 8 mg disintegrating tablet 8 mg PO Q8H PRN nausea and vomiting #30 tabs 12/08/21 [Rx Last Taken Unknown] prochlorperazine maleate 10 mg tablet 10 mg PO Q6H PRN nausea and vomiting #30 tabs 12/08/21 [Rx Last Taken Unknown] dexamethasone 4 mg tablet 4 mg PO .COMPLEX Chemo 01/17/22 [History Last Taken Unknown] Allergy/AdvReac Type Severity Reaction Status Date / Time Sulfa (Sulfonamide Allergy Rash Verified 01/05/22 11:07 Antibiotics) Family History Father Cancer Arthritis Mother Arthritis Surgical History History of back surgery History of carpal tunnel surgery of left wrist History of total hip replacement partial shoulder replacement s/p right hip Status post bilateral knee replacements Social History Smoking Status: Former smoker how long ago did patient quit smokin alcohol intake: never substance use type: does not use Physical Exam Const alert and no apparent distress General Appearance: cooperative HEENT normocephalic and head/scalp atraumatic Eyes PERRL and EOMs intact bilaterally Neck supple and No nodes Resp Auscultation: rhonchi and wheezes Cardio regular rate, regular rhythm and no murmurs GI soft to palpation, non-tender and non-distended Extremity Extremity Narrative: No spine tenderness, no focal joint pain/swelling/warmth General Extremity: Negative for edema Skin no rashes or lesions noted Skin Narrative: R chest site bandaged, minimal redness. No splinter hemorrhages on hands or feet Neuro CN's II-XII intact bilaterally Lab / Micro Data Attestation: I reviewed the patient's lab results. Result Diagrams: 01/19/22 05:40 01/19/22 05:40 Labs: Laboratory Results - last 24 hr 01/17/22 10:45: Lactic Acid 0.8 01/18/22 11:11: POC Glucose 116 H 01/18/22 15:35: Blood Type O POSITIVE 01/18/22 16:06: POC Glucose 154 H 01/18/22 21:11: POC Glucose 156 H 01/18/22 22:25: Vancomycin Trough 17.8 H 01/19/22 05:40: WBC 10.6, RBC 3.24 L, Hgb 9.4 L, Hct 31.4 L, MCV 96.9, MCH 29.0, MCHC 29.9 L, RDW Std Deviation 67.4 H, RDW Coeff of Patricia 19.3 H, Plt Count 56 L, MPV 12.1 H, Immature Gran % (Auto) 0.900, Neut % (Auto) 79.8 H, Lymph % (Auto) 9.6 L, [place] % (Auto) 8.6, Eos % (Auto) 0.8, Baso % (Auto) 0.3, Absolute Neuts (auto) 8.5 H, Absolute Lymphs (auto) 1.02, Nucleated RBC % 0, Platelet Estimate MOD DEC, Anisocytosis 1+ 01/19/22 05:40: Sodium 140, Potassium 3.7, Chloride 109 H, Carbon Dioxide 27.0, Anion Gap 4 L, BUN 15, Creatinine 0.70, Estim Creat Clear Calc 37.74, Est GFR (MDRD) Af Amer 103, Est GFR (MDRD) Non-Af 85, BUN/Creatinine Ratio 21.3 H, Glucose 104, Calcium 8.4 L 01/19/22 06:20: POC Glucose 99 Micro: Microbiology 01/17/22 Unknown Catheter tip - Subclavian Gram Stain - Final 01/17/22 Unknown Catheter tip - Subclavian Wound Culture - Final Meth. resistant Staph. aureus 01/17/22 Unknown Catheter tip - Subclavian Anaerobic Culture - Final No anaerobic bacteria isolated. 01/17/22 Unknown Wound - Chest Gram Stain - Final 01/17/22 Unknown Wound - Chest Wound Culture - Final Meth. resistant Staph. aureus 01/17/22 Unknown Wound - Chest Anaerobic Culture - Final No anaerobic bacteria isolated. 01/17/22 10:55 Blood Culture (Wb) - Other Blood Culture - Preliminary Staphylococcus aureus 01/17/22 10:45 Blood Culture (Wb) - Other Bacteria Detection (PCR) - Final Meth. resistant Staph. aureus 01/17/22 10:45 Blood Culture (Wb) - Other Blood Culture - Preliminary Staphylococcus aureus
[2022-01-19] MEDS: Vancomycin IV 1,000 MG/200 ML BAG 200 MG IV ×2 (11:11→22:23)
[2022-01-19] MEDS: Multivitamins,Therapeutic Tablet 1 TABLET PO (11:23)
[2022-01-19] MEDS: Latanoprost 0.005% 1 Bottle 1 DRP OPHTHALMIC ×2 (11:24→22:19)
[2022-01-19] MEDS: Pantoprazole Sodium 20 MG Tablet PO (11:24)
[2022-01-19] MEDS: amLODIPine 10 MG Tablet PO (11:24)
[2022-01-19 11:55] LABS: Bedside Glucose 113 mg/dL (74-106)
[2022-01-19 13:46] LABS: Pathologist Review Reviewed
--- NOTE | 2022-01-19 15:18 | CHAPLAIN ---
Type of Pastoral Visit _x__ Initial Visit ___ Follow-up Visit ___ On-call Visit ___ General Patient Visit ___ Spiritual Assessment ___ Family Conference ___ Bereavement ___ Rapid Response ___ Code Blue ___ Other (describe below) Pastoral Care Referral From ___ Patient ___ Family ___ Nurse ___ Physician ___ Carrier Packer _x__ Rn Care Manager ___ Other (describe below) Sacrament/Intervention _x__ Active listening ___ Anointing ___ Oriental Orthodox ___ Bereavement ___ Communion _x__ Fallon exploration ___ _x__ Life review _x__ Prayer ___ Reconciliation ___ Sacrament of Sick _x__ Supportive presence ___ Wedding ___ Other (describe below) Pastoral Comments referred by CM due to additional anxiety and acknowledgement of need for more support; pt is open to speak of her condition, needs, fears, uncertainties about future and decisions, loved one, and life review; pt also spoke about spiritual fallon although admitted that she is not practicing her fallon through latter day involvement; pt finds peace through her music and playing the piano; pt also was supported by a pet but the dog has ; pt has a house mate and sisters for her immediate support but they will count on me to fight this; pt uncertain about if, how, and how long to submit to treatments; pt welcomes presence and prayers; pt is open to future visits of spiritual care
[2022-01-19 16:30] LABS: Bedside Glucose 127 mg/dL (74-106)
[2022-01-19] MEDS: hydrALAZINE 25 MG Tablet PO (20:50)
[2022-01-19] MEDS: Metoprolol Tartrate 25 MG Tablet PO (20:52)
[2022-01-19] MEDS: Atorvastatin Calcium 10 MG Tablet PO (22:15)
[2022-01-19] MEDS: Insulin Glargine-YFGN 100 UNIT/ML Pen 25 UNIT SC (22:17)
[2022-01-19 23:10] LABS: Bedside Glucose 156 mg/dL (74-106)
[2022-01-20] VITALS (20 sets, daily range): BP systolic 119–150; BP diastolic 53–74; PULSE 71–112; RESP 18–20; TEMP 35.7–37.4; O2SAT 92–96
[2022-01-20] MEDS: Pregabalin 75 MG Capsule 150 MG PO ×3 (05:20→22:42)
[2022-01-20] MEDS: oxyCODONE 5 MG Tablet PO ×4 (05:21→22:43)
[2022-01-20] MEDS: hydrALAZINE 25 MG Tablet PO ×3 (05:21→22:38)
[2022-01-20 06:14] LABS: Absolute Lymphocyte Count 1.01 X10^3/uL (0.83-4.51); Absolute Neutrophil Count 13.1 X10^3/uL (2.0-7.7); Basophil# 0.06 X10^3/uL; Basophil% 0.4 % (0-1); Eosinophil# 0.11 X10^3/uL; Eosinophils% 0.7 % (0-5); Hematocrit 34.5 % (37-47); Hemoglobin 10.5 g/dL (12.0-15.0); Lymphocyte # 1.01 X10^3/ul (0.83-4.51); Lymphocyte % 6.4 % (19-41); Mean Corp Hgb Conc 30.4 g/dL (32-36); Mean Corpuscular Hgb 29.7 pg (27.0-32.0); Mean Corpuscular Volume 97.5 fL (81-99); Mean Platelet Vol. 11.5 fl (6.2-12.0); Monocyte# 1.25 X10^3/uL; Monocyte% 7.9 % (0-10); NRBC Flagged by Analyzer 0 % (0-5); Neutrophil # 13.14 X10^3/uL (2.7-7.7); Neutrophil % 83.3 % (47-70); POSITIVE COUNT YES; POSITIVE MORPHOLOGY YES; Platelet Count 52 K/mm3 (150-450); RBC Distribution Width CV 18.9 % (11.6-14.6); RBC Distribution Width SD 67.3 fl (35.1-43.9); Red Blood Count 3.54 M/mm3 (4.2-5.4); White Blood Count 15.8 K/mm3 (4.4-11.0)
[2022-01-20 06:21] LABS: Differential Indicated SCAN CRITERIA MET
[2022-01-20 06:36] LABS: Anisocytosis 2+; Platelet Estimate MOD DEC (ADEQ)
[2022-01-20 06:49] LABS: Anion Gap 6 (5-15); BUN 11 mg/dL (7-18); BUN/Creat Ratio 18.4 RATIO (10-20); Calcium,Total 9.2 mg/dL (8.5-10.1); Chloride 106 mmol/L (98-107); EST Glomerular Filtration Rate 103 mL/min (>60); Est Glom Filt Rate - Afr Amer 125 mL/min (>60); Estimated Creatinine Clearance 37.74 ml/min; Glucose 135 mg/dL (74-106); Magnesium 1.8 mg/dL (1.6-2.6); Phosphorus 3.2 mg/dL (2.5-4.9); Potassium 4.2 mmol/L (3.5-5.1); Sodium Level 139 mmol/L (136-145)
[2022-01-20 08:05] LABS: Bedside Glucose 127 mg/dL (74-106)
--- NOTE | 2022-01-20 08:19 | PN.HOSP_ITS ---
Subjective Subjective Patient seen complaining of shortness of breath. Subsequently ordered chest x- ray, giving Lasix for symptomatic relief Objective Data Objective Data Vital Signs: Vital Signs Temp Pulse Resp BP Pulse Ox O2 Del Method O2 Flow Rate 99.3 F H 110 H 18 119/59 L 92 Nasal Cannula 6 01/20/22 08:00 01/20/22 08:00 01/20/22 08:00 01/20/22 08:00 01/20/22 08:00 01/20/22 08:00 01/20/22 08:00 Oxygen Flow Rate (L/min) 6 Oxygen Delivery Method Nasal Cannula Weight: 104 kg Body Mass Index (BMI) 40.6 Intake & Output: Intake and Output for Last 24 Hours 01/18/22 01/19/22 01/20/22 23:59 23:59 23:59 Intake Total 1615 / 1615 940 / 940 Output Total 2024 / 2024 1200 / 1800 1525 / 1525 Balance -410 / -410 -260 / -860 -1525 / -1525 Lab / Micro Data Result Diagrams: 01/20/22 06:00 01/20/22 06:00 Labs: Laboratory Results - last 24 hr 01/17/22 10:45: Lactic Acid 0.8 01/18/22 06:02: Diff Path Review Reviewed 01/19/22 05:40: Platelet Estimate MOD DEC, Anisocytosis 1+ 01/19/22 11:28: POC Glucose 113 H 01/19/22 16:07: POC Glucose 127 H 01/19/22 20:42: POC Glucose 156 H 01/20/22 06:00: WBC 15.8 H, RBC 3.54 L, Hgb 10.5 L, Hct 34.5 L, MCV 97.5, MCH 29.7, MCHC 30.4 L, RDW Std Deviation 67.3 H, RDW Coeff of Patricia 18.9 H, Plt Count 52 L, MPV 11.5, Immature Gran % (Auto) 1.300 H, Neut % (Auto) 83.3 H, Lymph % (Auto) 6.4 L, [place] % (Auto) 7.9, Eos % (Auto) 0.7, Baso % (Auto) 0.4, Absolute Neuts (auto) 13.1 H, Absolute Lymphs (auto) 1.01, Nucleated RBC % 0, Platelet Estimate MOD DEC, Anisocytosis 2+ 01/20/22 06:00: Sodium 139, Potassium 4.2, Chloride 106, Carbon Dioxide 27.0, Anion Gap 6, BUN 11, Creatinine 0.60, Estim Creat Clear Calc 37.74, Est GFR (MDRD) Af Amer 125, Est GFR (MDRD) Non-Af 103, BUN/Creatinine Ratio 18.4, Glucose 135 H, Calcium 9.2, Phosphorus 3.2, Magnesium 1.8 01/20/22 06:47: POC Glucose 127 H Micro: Microbiology 01/17/22 10:55 Blood Culture (Wb) - Other Blood Culture - Preliminary Staphylococcus aureus 01/17/22 10:45 Blood Culture (Wb) - Other Bacteria Detection (PCR) - Final Meth. resistant Staph. aureus 01/17/22 10:45 Blood Culture (Wb) - Other Blood Culture - Preliminary Meth. resistant Staph. aureus 01/17/22 Unknown Catheter tip - Subclavian Gram Stain - Final 01/17/22 Unknown Catheter tip - Subclavian Wound Culture - Final Meth. resistant Staph. aureus 01/17/22 Unknown Catheter tip - Subclavian Anaerobic Culture - Final No anaerobic bacteria isolated. 01/17/22 Unknown Wound - Chest Gram Stain - Final 01/17/22 Unknown Wound - Chest Wound Culture - Final Meth. resistant Staph. aureus 01/17/22 Unknown Wound - Chest Anaerobic Culture - Final No anaerobic bacteria isolated. 01/17/22 10:15 Nasal Secretion SARS-CoV-2 Antigen (Rapid) - Final Radiography Diagnostic Testing: Radiology Impression Echocardiogram 01/19/22 09:14 Interpretation Summary Normal LV size. Left ventricular systolic function is normal. The estimated ejection fraction is 60 %. There is moderate mitral annular calcification. Mild focal aortic valve calcification. Stage 1 diastolic dysfunction. The left atrium is moderately enlarged. Ordering Physician: Jak Bernal Referring Physician: Venita Aguilar Performed By: Kedar, Yoana, RDCS, RVT Physical Exam Narrative GENERAL: Dyspneic at rest, using accessory muscles in breathing HEENT: Atraumatic; EYES; Anicteric, Normal Conjunctiva NECK; supple, normal thyroid, RESPIRATORY: Diminished to auscultation, bibasilar crackles CARDIOVASCULAR: Regular S1 S2, GI: soft, normoactive bowel sounds, : No Renal angle tenderness; EXTREMITIES: Bipedal edema, no clubbing, MUSCULOSKELETAL: no muscle wasting NEURO: Awake; no lateralizing signs. SKIN: No Rash PSYCH; Flat affect Assessment & Plan Assessment/Plan (1) Sepsis due to infected central venous catheter: QUALIFIERS: Encounter type: initial encounter Qualified Code(s): T80.211A - Bloodstream infection due to central venous catheter, initial encounter; A41.9 - Sepsis, unspecified organism (2) Acute respiratory failure with hypoxia: (3) Thrombocytopenia: (4) Metabolic encephalopathy: (5) Lung cancer: PLAN: Plan Follow-up withPatient is a 81-year-old lady with history of lung CA (non-small cell lung CA) admitted with sepsis secondary to infected port. Consult was placed to general surgery patient underwent removal of infected right IJ Po werPort with irrigation of right pocket of pus. Started on broad-spectrum antibiotic therapy subsequently 1. Sepsis secondary to infected port ? Patient was managed per protocol with aggressive antibiotic therapy IV fluid resuscitation and culture sent. Consult was placed to general surgery patient underwent port removal on 01/17/2022 ?01/19/2022 blood cultures positive for MRSA infectious disease Case discussed with Dr. Bernal. Plan is repeat blood cultures and order TTE and continue with current antibiotic therapy -01/20/2022 Echo obtained on 01/19/2022 as part of evaluation of her MRSA ba cteremia demonstrated no vegetations patient was however found to have EF of 60% and stage I diastolic dysfunction with a moderately enlarged left atrium 2. Acute hypoxic respiratory failure ? Suspected to be secondary to patient underlying lung CA. Patient was found to have elevated D-dimer plan is for patient to undergo CTA of the chest to rule out PE ? 01/20/2022 patient had recurrence of her respiratory distress. Physical examination demonstrated patient in significant respiratory distress using accessory muscles in breathing auscultation did reveal bilateral crackles. An order was given for patient to undergo subsequent evaluation with chest x-ray which demonstrated basilar congestion with mild degree of CHF. Patient was given Lasix and placed on supplemental oxygen 3. Acute congestive heart failure with preserved ejection fraction ? 01/20/2022 Echo obtained on 01/19/2022 as part of evaluation of her MRSA bacteremia demonstrated no vegetations patient was however found to have EF of 60% and stage I diastolic dysfunction with a moderately enlarged left atrium 4. 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 Case was discussed with Dr Simmons with oncology ? 01/20/2022 no significant change patient platelet count still relatively low at 52 5. Anemia - Secondary to chronic disorder monitoring H&H and transfuse if patient becomes symptomatic or hemoglobin falls below 7 6. Acute metabolic encephalopathy ? Secondary to patient underlying sepsis 7. Non-small cell lung CA ? Patient is on chemotherapy with carboplatin and Taxol and immunotherapy with pambrolizumab. Consult placed to patient's oncologist 8. Hypertension - Blood pressure controlled, home medications continued with dose adjustment as needed 9. Diabetes mellitus type II -patient's oral hypoglycemics held. Placed on long acting insulin, Accu-Cheks a.c. and at bedtime and covered with sliding scale insulin 10. Dyslipidemia -Patient is on statin therapy, continued at home dose 11. DVT prophylaxis ? SCDs for now Charges/Coding Visit Charges Inpatient E&M: [id number] [facility] Hosp L3
--- NOTE | 2022-01-20 08:25 | RAD_ITS ---
STUDY: X-RAY CHEST REASON FOR EXAM: Female, 81 years old. SOB TECHNIQUE: Single AP portable view of the chest. COMPARISON: Comparison is made with prior study dated 01/16/2022. FINDINGS: EKG electrodes are seen. There is evidence of vascular congestion and mild degree of CHF. Blunting of both costophrenic angles. Normal size heart. Normal mediastinum and tyrese. Normal visualized pulmonary arteries. There is atherosclerotic calcification of the aortic arch with tortuosity. There are diffuse degenerative changes of the visualized thoracic spine. Dextroscoliosis. Bilateral total shoulder replacement. There is no demonstrated abnormality of the visualized soft tissue structures of the upper abdomen. RAD/Chest 1 View (Portable) IMPRESSION: Basilar congestion mild degree of CHF. Electronically Signed: Preston Coleman MD at 9:37 EDT ,
[2022-01-20] MEDS: amLODIPine 10 MG Tablet PO (09:09)
[2022-01-20] MEDS: 0.9% Saline Lock 10 ML Syringe IV ×2 (09:09→10:40)
[2022-01-20] MEDS: Ibuprofen 400 MG Tablet PO (09:09)
[2022-01-20] MEDS: Latanoprost 0.005% 1 Bottle 1 DRP OPHTHALMIC ×2 (09:09→22:44)
[2022-01-20] MEDS: Metoprolol Tartrate 25 MG Tablet PO ×2 (09:09→22:41)
[2022-01-20] MEDS: Pantoprazole Sodium 20 MG Tablet PO (09:09)
[2022-01-20] MEDS: Multivitamins,Therapeutic Tablet 1 TABLET PO (09:15)
[2022-01-20] MEDS: Furosemide 100 MG/10 ML Vial 60 MG IV (09:15)
--- NOTE | 2022-01-20 09:52 | PCM.PN.ID ---
Physical Exam Narrative Feeling a little better, no fever, no n/v/d. Still some cough but less sputum. Const alert and no apparent distress Resp Auscultation: rhonchi Cardio regular rate and regular rhythm GI soft to palpation, non-tender and non-distended Skin no rashes or lesions noted ID ID: Route of nutrition/ use of supplements: [] Nutritional Intake: [] IV Site: [] Park Catheter: [] Assessment & Plan Assessment/Plan (1) Lung cancer: (2) MRSA bacteremia: PLAN: MRSA bacteremia due to port infection - recently started chemo for NSCLC. Port removed 01/17/[address] Romano. Will check repeat bcx. TTE showed no veg. On vanc. Will follow (3) Sepsis due to infected central venous catheter: QUALIFIERS: Encounter type: initial encounter Qualified Code(s): T80.211A - Bloodstream infection due to central venous catheter, initial encounter; A41.9 - Sepsis, unspecified organism
[2022-01-20] MEDS: Acetaminophen 325 MG Tablet 650 MG PO ×2 (10:39→17:16)
[2022-01-20] MEDS: Vancomycin IV 1,000 MG/200 ML BAG 200 MG IV (10:40)
[2022-01-20 11:16] LABS: Bedside Glucose 133 mg/dL (74-106)
[2022-01-20] MEDS: Furosemide 40 MG Tablet PO ×2 (12:01→17:15)
--- NOTE | 2022-01-20 14:19 | CASEMGMT ---
SW met with patient. Patient was dozing off, but SW kept waking patient up. SW asked patient about her discharge plan. SW mentioned to patient it is being recommended she go somewhere for rehab. Patient mentioned patient has been to [facility] in the past. SW asked patient if she would want to go back to [facility] or would she like a list. Patient seemed to mumble [facility] was okay, however patient would not stay awake long enough. SW did ask if SW could call patient's sister and patient responded, Oh my sister called? SW told her no, but can SW call her sister and patient nodded her head. SW will check back with patient. Danni Michael LEAD INFRASTRUCTURE ARCHITECT SELVIN
--- NOTE | 2022-01-20 14:52 | WOUNDNOTE ---
wound photo: right chest
[2022-01-20 16:06] LABS: Bedside Glucose 113 mg/dL (74-106)
[2022-01-20] MEDS: Insulin Glargine-YFGN 100 UNIT/ML Pen 25 UNIT SC (22:40)
[2022-01-20] MEDS: Atorvastatin Calcium 10 MG Tablet PO (22:48)
[2022-01-20 23:26] LABS: Vancomycin, Trough Level 17.9 ug/mL (5.0-15.0)
--- NOTE | 2022-01-20 23:52 | PCM.RX.CS ---
Consult Pharmacy has been consulted to manage selected antiobiotic: Vancomycin Type of Consult: Follow-up Suspected Infection: Sepsis Prior Doses of Antibiotics Received/Current Regimen: Medications Vancomycin HCl (Vancomycin) 1,000 mg in 200 mls @ 200 mls/hr IV Q12H BECKY Last Admin: 01/20/22 11:40 Dose: Infused Labs: Sodium 139 mmol/L (136-145) 01/20/22 06:00 Potassium 4.2 mmol/L (3.5-5.1) 01/20/22 06:00 Chloride 106 mmol/L (98-107) 01/20/22 06:00 Carbon Dioxide 27.0 mmol/L (21.0-32.0) 01/20/22 06:00 Anion Gap 6 (5-15) 01/20/22 06:00 BUN 11 mg/dL (7-18) 01/20/22 06:00 Creatinine 0.60 mg/dL (0.55-1.02) 01/20/22 06:00 Est GFR (MDRD) Af Amer 125 mL/min (>60) 01/20/22 06:00 Est GFR (MDRD) Non-Af 103 mL/min (>60) 01/20/22 06:00 BUN/Creatinine Ratio 18.4 RATIO (10-20) 01/20/22 06:00 Glucose 135 mg/dL (74-106) H 01/20/22 06:00 Vancomycin Trough 17.9 ug/mL (5.0-15.0) H 01/20/22 22:30 Microbiology: Microbiology 01/19/22 11:20 Blood Culture (Wb) - No Site/Description Given Blood Culture - Preliminary 01/17/22 10:55 Blood Culture (Wb) - Other Blood Culture - Preliminary Meth. resistant Staph. aureus 01/17/22 10:45 Blood Culture (Wb) - Other Bacteria Detection (PCR) - Final Meth. resistant Staph. aureus 01/17/22 10:45 Blood Culture (Wb) - Other Blood Culture - Preliminary Meth. resistant Staph. aureus 01/17/22 Unknown Catheter tip - Subclavian Gram Stain - Final 01/17/22 Unknown Catheter tip - Subclavian Wound Culture - Final Meth. resistant Staph. aureus 01/17/22 Unknown Catheter tip - Subclavian Anaerobic Culture - Final No anaerobic bacteria isolated. 01/17/22 Unknown Wound - Chest Gram Stain - Final 01/17/22 Unknown Wound - Chest Wound Culture - Final Meth. resistant Staph. aureus 01/17/22 Unknown Wound - Chest Anaerobic Culture - Final No anaerobic bacteria isolated. 01/17/22 10:15 Nasal Secretion SARS-CoV-2 Antigen (Rapid) - Final Weight used for dosin kg Estimated Creatinine Clearance: 88 Goal Trough: 15-20 mcg/mL Pharmacy Plan for Drug Dosing: Vancomycin trough level of 17.9 was within target range of 15-20. Will continue same dosing. With steady levels from two draws, will have another trough drawn in five days. Pharmacy Service will continue to monitor and adjust dosing as required. Follow-Up Labs: Trough Vancomycin Labs to be done on [date and time ordered]: 01/25/22 @[id number]
[2022-01-21] VITALS (15 sets, daily range): BP systolic 123–162; BP diastolic 55–78; PULSE 66–107; RESP 16–28; TEMP 36.2–38; O2SAT 93–94
[2022-01-21] MEDS: Vancomycin IV 1,000 MG/200 ML BAG 200 MG IV ×3 (00:29→22:56)
[2022-01-21] MEDS: 0.9% Saline Lock 10 ML Syringe IV (00:29)
[2022-01-21 00:31] LABS: Bedside Glucose 142 mg/dL (74-106)
[2022-01-21] MEDS: Acetaminophen 325 MG Tablet 650 MG PO ×2 (05:29→23:14)
[2022-01-21] MEDS: Pregabalin 75 MG Capsule 150 MG PO ×3 (05:30→23:07)
[2022-01-21] MEDS: hydrALAZINE 25 MG Tablet PO ×3 (05:30→22:51)
[2022-01-21 06:19] LABS: Absolute Lymphocyte Count 1.03 X10^3/uL (0.83-4.51); Absolute Neutrophil Count 9.1 X10^3/uL (2.0-7.7); Basophil# 0.02 X10^3/uL; Basophil% 0.2 % (0-1); Eosinophil# 0.05 X10^3/uL; Eosinophils% 0.4 % (0-5); Hematocrit 33.7 % (37-47); Hemoglobin 10.1 g/dL (12.0-15.0); Lymphocyte # 1.03 X10^3/ul (0.83-4.51); Lymphocyte % 9.2 % (19-41); Mean Corpuscular Hgb 28.6 pg (27.0-32.0); Mean Corpuscular Volume 95.5 fL (81-99); Mean Platelet Vol. 11.4 fl (6.2-12.0); Monocyte# 0.94 X10^3/uL; Monocyte% 8.4 % (0-10); NRBC Flagged by Analyzer 0 % (0-5); Neutrophil # 9.08 X10^3/uL (2.7-7.7); POSITIVE COUNT YES; Platelet Count 54 K/mm3 (150-450); RBC Distribution Width CV 18.7 % (11.6-14.6); RBC Distribution Width SD 64.4 fl (35.1-43.9); Red Blood Count 3.53 M/mm3 (4.2-5.4); White Blood Count 11.2 K/mm3 (4.4-11.0)
[2022-01-21 06:50] LABS: Anion Gap 7 (5-15); BUN 15 mg/dL (7-18); BUN/Creat Ratio 20.4 RATIO (10-20); Calcium,Total 8.8 mg/dL (8.5-10.1); Chloride 99 mmol/L (98-107); Creatinine, Serum 0.74 mg/dL (0.55-1.02); EST Glomerular Filtration Rate 81 mL/min (>60); Est Glom Filt Rate - Afr Amer 98 mL/min (>60); Estimated Creatinine Clearance 37.74 ml/min; Glucose 144 mg/dL (74-106); Potassium 3.4 mmol/L (3.5-5.1); Sodium Level 140 mmol/L (136-145)
[2022-01-21] MEDS: Multivitamins,Therapeutic Tablet 1 TABLET PO (08:02)
[2022-01-21 08:15] LABS: Bedside Glucose 129 mg/dL (74-106)
--- NOTE | 2022-01-21 09:03 | CASEMGMT ---
SHANT stopped by patient's room. There was a visitor present and SW asked if the visitor was patient's friend or sister. The visitor spoke up and said she is patient's house mate, Jayde. Jayde said she is patient's Healthcare Power of [employer]. She has the papers. SHANT introduced self and role at [facility]. SW asked patient and Jayde if the discharge plan is to go to a fpc short term for rehab as that is what therapy is recommending. SW also mentioned [facility] as patient has been there before. Patient then mentioned that when she is surrounded by people asking her questions (SW was the only person in the room asking questions until a student nurse came in, who did not ask any questions) and she doesn't answer people think she is confused. Patient said she is confused with all of the questions. Patient said she needs to think. SW told patient that is fine SW does not need an answer right now. SW will stop by a little later. Danni Michael QUILL MACHINE OPERATOR SELVIN
--- NOTE | 2022-01-21 09:08 | CASEMGMT ---
Addendum entered by Mayra Freeman 01/21/22 09:22: BLUE Long from Palliative here to see pt. Christian LUCAS CM Original Note: Per [facility], pt already had a referral to them and plan was to meet with pt today at home. Palliative DIVORCE ATTORNEY still plans to meet with pt today here at [facility] and order placed for palliative per Heather MCARTHUR. CM to follow. Christian LUCAS CM
[2022-01-21] MEDS: oxyCODONE 5 MG Tablet PO ×2 (09:39→23:12)
--- NOTE | 2022-01-21 10:14 | PCM.PN.ID ---
Physical Exam Narrative Feeling ok, cough better, no fever Const alert and no apparent distress Resp normal air movement and clear to auscultation bilaterally Cardio regular rate and regular rhythm GI soft to palpation, non-tender and non-distended Skin no rashes or lesions noted ID ID: Route of nutrition/ use of supplements: [] Nutritional Intake: [] IV Site: [] Park Catheter: [] Assessment & Plan Assessment/Plan (1) Lung cancer: (2) MRSA bacteremia: PLAN: MRSA bacteremia due to port infection - recently started chemo for NSCLC. Port removed 01/17/[address] Romano. Bcx neg since 01/19. TTE showed no veg. On vanc. Plan on picc tomorrow if bcx remain neg, then discharge on 4 weeks iv vanc, stop date 02/16/22 with weekly labs. Wrote rx, d/w binder caser. Will follow (3) Sepsis due to infected central venous catheter: QUALIFIERS: Encounter type: initial encounter Qualified Code(s): T80.211A - Bloodstream infection due to central venous catheter, initial encounter; A41.9 - Sepsis, unspecified organism
--- NOTE | 2022-01-21 10:23 | CASEMGMT ---
SW went to patient's room to discuss d/c plan. Patient was eating, but was okay with SW talking to her. SW asked patient about going somewhere for short term rehab. SW was not able to get an answer out of patient as she kept talking about her oxygen, then she would wince in pain and close her eyes. SHANT told patient SHANT will stop back by. Danni Michael MSW SELVIN
[2022-01-21] MEDS: Metoprolol Tartrate 25 MG Tablet PO ×2 (10:45→22:51)
[2022-01-21] MEDS: Furosemide 40 MG Tablet PO ×2 (10:45→17:31)
[2022-01-21] MEDS: amLODIPine 10 MG Tablet PO (10:47)
[2022-01-21] MEDS: Pantoprazole Sodium 20 MG Tablet PO (10:47)
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
--- NOTE | 2022-01-21 10:58 | CASEMGMT ---
Armida from Palliative Care notified SW that patient and her HCPOA are interested in Palliative Care. They would also like [facility] TCU. SW went to patient's room and spoke with patient's friend/HCPOA, Jayde. Jayde requested TCU. SHANT offered a list of other facilities in case TCU is not available and SW was denied. SW will make the referral to TCU and if they cannot take her SW will provide them with a list of facilities. SHANT called [facility] regarding referral. Danni Michael INSTRUMENT WORKER SELVIN
--- NOTE | 2022-01-21 11:27 | CASEMGMT ---
TCU can take patient. Patient will not be able to get chemo while she is on the TCU. SHANT went to patient's room and notified Jayde that TCU can take patient. SW also let Jayde know that patient will not be able to get chemo while on TCU. Jayde was worried about knowing what the plan will be. SHANT told Jayde that [facility] and notify them that patient will be going to [facility] TCU at d/c. SHANT called [facility] offices and spoke with Rosemary, one of the nurses. SW let her know that patient will be going to [facility] TCU at discharge and will not be able to get chemo while she is on TCU. SHANT also told Rosemary that patient's friend and HCPOA Jayde is concerned aobut the plan. Danni MONTALVO
[2022-01-21] MEDS: Polyethylene Glycol 3350 17 GM PACKET PO (11:57)
[2022-01-21] MEDS: Latanoprost 0.005% 1 Bottle 1 DRP OPHTHALMIC ×2 (11:59→22:44)
[2022-01-21] MEDS: Glucerna Shake 120 ML LIQUID PO ×2 (12:00→16:14)
[2022-01-21] MEDS: Insulin Lispro 100 UNIT/ML INSULN.PEN SC ×2 (12:04→16:14)
--- NOTE | 2022-01-21 12:41 | PCM.PN.HOSP ---
Documented by User: Enedelia Mosqueda NP, KITCHEN AND COUNTER WORKER-C 01/21/22 13:05 Subjective Subjective Patient seen and examined. Reports generalized pain including back and hip area. Reports nonproductive cough, patient states secondary to phlegm. Denies fever, chills. Denies other symptoms or complaints. Objective Data Objective Data Vital Signs: Vital Signs Temp Pulse Resp BP Pulse Ox O2 Del Method O2 Flow Rate 98.6 F 98 28 H 148/59 H 94 Nasal Cannula 6 01/21/22 10:00 01/21/22 11:00 01/21/22 10:00 01/21/22 10:45 01/21/22 10:00 01/21/22 10:00 01/21/22 08:04 Oxygen Flow Rate (L/min) 6 Oxygen Delivery Method Nasal Cannula Weight: 229 lb 4.492 oz Body Mass Index (BMI) 40.6 Intake & Output: Intake and Output for Last 24 Hours 01/19/22 01/20/22 01/21/22 23:59 23:59 23:59 Intake Total 940 / 940 860 / 860 560 / 560 Output Total 1200 / 1800 4175 / 4875 1999 Balance -260 / -860 -3315 / -4015 -1440 / -1440 Lab / Micro Data Result Diagrams: 01/21/22 06:00 01/21/22 06:00 Labs: Laboratory Results - last 24 hr 01/20/22 15:43: POC Glucose 113 H 01/20/22 22:30: Vancomycin Trough 17.9 H 01/20/22 22:37: POC Glucose 142 H 01/21/22 06:00: WBC 11.2 H, RBC 3.53 L, Hgb 10.1 L, Hct 33.7 L, MCV 95.5, MCH 28.6, MCHC 30.0 L, RDW Std Deviation 64.4 H, RDW Coeff of Patricia 18.7 H, Plt Count 54 L, MPV 11.4, Immature Gran % (Auto) 0.800, Neut % (Auto) 81.0 H, Lymph % (Auto) 9.2 L, [place] % (Auto) 8.4, Eos % (Auto) 0.4, Baso % (Auto) 0.2, Absolute Neuts (auto) 9.1 H, Absolute Lymphs (auto) 1.03, Nucleated RBC % 0 01/21/22 06:00: Sodium 140, Potassium 3.4 L, Chloride 99, Carbon Dioxide 34.0 H, Anion Gap 7, BUN 15, Creatinine 0.74, Estim Creat Clear Calc 37.74, Est GFR (MDRD) Af Amer 98, Est GFR (MDRD) Non-Af 81, BUN/Creatinine Ratio 20.4 H, Glucose 144 H, Calcium 8.8 01/21/22 07:57: POC Glucose 129 H Micro: Microbiology 01/19/22 11:20 Blood Culture (Wb) - No Site/Description Given Blood Culture - Preliminary 01/17/22 10:55 Blood Culture (Wb) - Other Blood Culture - Preliminary Meth. resistant Staph. aureus 01/17/22 10:45 Blood Culture (Wb) - Other Bacteria Detection (PCR) - Final Meth. resistant Staph. aureus 01/17/22 10:45 Blood Culture (Wb) - Other Blood Culture - Preliminary Meth. resistant Staph. aureus 01/17/22 Unknown Catheter tip - Subclavian Gram Stain - Final 01/17/22 Unknown Catheter tip - Subclavian Wound Culture - Final Meth. resistant Staph. aureus 01/17/22 Unknown Catheter tip - Subclavian Anaerobic Culture - Final No anaerobic bacteria isolated. 01/17/22 Unknown Wound - Chest Gram Stain - Final 01/17/22 Unknown Wound - Chest Wound Culture - Final Meth. resistant Staph. aureus 01/17/22 Unknown Wound - Chest Anaerobic Culture - Final No anaerobic bacteria isolated. 01/17/22 10:15 Nasal Secretion SARS-CoV-2 Antigen (Rapid) - Final Physical Exam Const alert and oriented x3 Nutritional Appearance: obese HEENT normocephalic and moist oral mucous membranes Eyes PERRL, EOMs intact bilaterally and conjunctivae normal Neck no lymphadenopathy Resp Auscultation: crackles and diminished lung sounds Cardio regular rate, regular rhythm and no murmurs Peripheral Pulses: pulses 2+ throughout GI normal to inspection, nondistended, normoactive bowel sounds, non-tender and non-distended Extremity normal to inspection General Extremity: edema bilateral lower extremity Skin no rashes or lesions noted Skin Narrative: Right chest area erythema. Lesions: no lesions Rashes: no rashes Trauma: no lacerations or abrasions Neuro CN's II-XII intact bilaterally, no focal motor deficits, no sensory deficits noted and deep tendon reflexes 2+ bilaterally Psych mental status grossly normal Assessment & Plan Assessment/Plan (1) Sepsis due to infected central venous catheter: QUALIFIERS: Encounter type: initial encounter Qualified Code(s): T80.211A - Bloodstream infection due to central venous catheter, initial encounter; A41.9 - Sepsis, unspecified organism PLAN: Plan 1. Sepsis secondary to right chest port infection with associated MRSA bacteremia-ID consulted. Port removed by surgery 01/17/2022. TTE with no vegetation. On IV vancomycin. Plan for PICC line placement tomorrow with ongoing IV antibiotics with stop date 02/16/2022. 2. Acute hypoxic respiratory failure secondary to acute heart failure with preserved ejection fraction-initially placed on IV Lasix, transitioned to oral Lasix. Echocardiogram with EF 60%, stage I diastolic dysfunction. Strict I&O. Daily weight. Continue supplement oxygen to maintain O2 sat above 90%. Chest x-ray with CHF. 3. Acute metabolic encephalopathy-secondary to #1/#2. Continue treatment per above. 4. Thrombocytopenia-hematology/oncology consulted due to concern for HIT. 1 unit platelet transfused. Trend CBC. 5. Anemia of chronic disease-appears stable. Trend CBC. 6. Non-small cell CA-oncology consulted. On chemotherapy. 7. Hypertension-stable, continue home regimen. 8. Type 2 diabetes [id number] with sliding scale insulin. 9. Hyperlipidemia-continue statin. DVT prophylaxis-SCDs This patient was seen by ROSSY Choi under the supervision of Dr. Pineda. Documented by User: Dr. Zak Pineda MD 01/21/22 14:09 Objective Data Lab / Micro Data Result Diagrams: 01/21/22 06:00 01/21/22 06:00 Assessment & Plan Assessment/Plan (1) Sepsis due to infected central venous catheter: QUALIFIERS: Encounter type: initial encounter Qualified Code(s): T80.211A - Bloodstream infection due to central venous catheter, initial encounter; A41.9 - Sepsis, unspecified organism Addt'l Comments This patient was seen in conjunction with ROSSY Choi . I have independently interviewed and examined the patient and reviewed pertinent historical, laboratory, and other data. Please refer to ROSSY Choi note for details of this patient's presentation, findings, and recommendations. I have reviewed ROSSY Choi note and concur with documented findings. In brief, Patient is a 81-year-old lady with history of lung CA (non-small cell lung CA) admitted with sepsis secondary to infected port.? Consult was placed to general surgery patient underwent removal of infected right IJ PowerPort with irrigation of right pocket of pus.? Started on broad-spectrum antibiotic therapy subsequently Physical Examination: GENERAL: Cooperative HEENT: Atraumatic; EYES; Anicteric, Normal Conjunctiva NECK; supple, normal thyroid, RESPIRATORY: Diminished to auscultation, bibasilar crackles CARDIOVASCULAR:? Regular S1 S2, GI:? soft, normoactive bowel sounds, : No Renal angle tenderness; EXTREMITIES: Bipedal edema, no clubbing, MUSCULOSKELETAL:? no muscle wasting NEURO:? Awake;? no lateralizing signs. SKIN:? No Rash PSYCH; Flat? affect Assessment: 1.? Sepsis secondary to infected port 2. MRSA bacteremia 3.? Acute hypoxic respiratory failure 4.? Acute congestive heart failure with preserved ejection fraction - EF of 60% and stage I diastolic dysfunction with a moderately enlarged left atrium 5.? Thrombocytopenia 6.? Anemia- Secondary to chronic 7.? Non-small cell lung CA 8.? Hypertension 9.? Diabetes mellitus type II 10.? Dyslipidemia 11.? DVT prophylaxis Recommendations: 1. I have discussed the results of my overview and impressions with the patient 2. Options for management were reviewed Total time spent by myself and the advanced practice practitioner evaluating patient, reviewing labs, subsequent management decisions, discussion with patient as well as other providers 40 minutes ( 25 of which was spent by myself) Charges/Coding Visit Charges Inpatient E&M: 25062 Subs Hosp L2
[2022-01-21 12:50] LABS: Bedside Glucose 189 mg/dL (74-106)
[2022-01-21] MEDS: Potassium Chloride Oral Tablet 20 MEQ 40 MEQ PO (14:40)
[2022-01-21 16:36] LABS: Bedside Glucose 150 mg/dL (74-106)
[2022-01-21 16:42] LABS: Heparin-Induced Plt Ab 0.051 OD (0.000-0.400)
[2022-01-21] MEDS: Atorvastatin Calcium 10 MG Tablet PO (22:51)
[2022-01-21] MEDS: Insulin Glargine-YFGN 100 UNIT/ML Pen 25 UNIT SC (23:03)
[2022-01-21 23:41] LABS: Bedside Glucose 127 mg/dL (74-106)
[2022-01-22] VITALS (15 sets, daily range): BP systolic 108–129; BP diastolic 54–71; PULSE 79–101; RESP 16–20; TEMP 37–38.1; O2SAT 93–98
[2022-01-22] MEDS: Pregabalin 75 MG Capsule 150 MG PO ×3 (06:36→21:45)
[2022-01-22 06:42] LABS: Absolute Lymphocyte Count 1.32 X10^3/uL (0.83-4.51); Absolute Neutrophil Count 7.3 X10^3/uL (2.0-7.7); Basophil# 0.05 X10^3/uL; Basophil% 0.5 % (0-1); Eosinophil# 0.07 X10^3/uL; Eosinophils% 0.7 % (0-5); Hematocrit 31.7 % (37-47); Hemoglobin 9.7 g/dL (12.0-15.0); Lymphocyte # 1.32 X10^3/ul (0.83-4.51); Lymphocyte % 13.1 % (19-41); Mean Corp Hgb Conc 30.6 g/dL (32-36); Mean Corpuscular Volume 94.6 fL (81-99); Mean Platelet Vol. 11.2 fl (6.2-12.0); Monocyte% 11.9 % (0-10); NRBC Flagged by Analyzer 0 % (0-5); Neutrophil % 72.6 % (47-70); POSITIVE COUNT YES; Platelet Count 62 K/mm3 (150-450); RBC Distribution Width CV 18.6 % (11.6-14.6); RBC Distribution Width SD 63.4 fl (35.1-43.9); Red Blood Count 3.35 M/mm3 (4.2-5.4); White Blood Count 10.1 K/mm3 (4.4-11.0)
[2022-01-22 07:11] LABS: Anion Gap 5 (5-15); BUN 18 mg/dL (7-18); BUN/Creat Ratio 22.6 RATIO (10-20); Calcium,Total 8.5 mg/dL (8.5-10.1); Chloride 95 mmol/L (98-107); EST Glomerular Filtration Rate 74 mL/min (>60); Est Glom Filt Rate - Afr Amer 89 mL/min (>60); Estimated Creatinine Clearance 47.17 ml/min; Glucose 108 mg/dL (74-106); Potassium 3.3 mmol/L (3.5-5.1); Sodium Level 140 mmol/L (136-145)
[2022-01-22 07:15] LABS: Bedside Glucose 112 mg/dL (74-106)
[2022-01-22] MEDS: Pantoprazole Sodium 20 MG Tablet PO (09:14)
[2022-01-22] MEDS: Multivitamins,Therapeutic Tablet 1 TABLET PO (09:14)
[2022-01-22] MEDS: Polyethylene Glycol 3350 17 GM PACKET PO (09:14)
[2022-01-22] MEDS: Glucerna Shake 120 ML LIQUID PO ×3 (09:14→16:49)
[2022-01-22] MEDS: Furosemide 40 MG Tablet PO ×2 (09:14→16:49)
[2022-01-22] MEDS: amLODIPine 10 MG Tablet PO (09:16)
[2022-01-22] MEDS: Metoprolol Tartrate 25 MG Tablet PO (09:16)
[2022-01-22] MEDS: Latanoprost 0.005% 1 Bottle 1 DRP OPHTHALMIC (09:17)
[2022-01-22] MEDS: oxyCODONE 5 MG Tablet PO ×3 (09:24→19:52)
--- NOTE | 2022-01-22 09:41 | PCM.PN.ID ---
Physical Exam Narrative Feeling better, no fever, breathing improved Const alert and no apparent distress Resp normal air movement and clear to auscultation bilaterally Cardio regular rate and regular rhythm GI soft to palpation, non-tender and non-distended Skin no rashes or lesions noted ID ID: Route of nutrition/ use of supplements: [] Nutritional Intake: [] IV Site: [] Park Catheter: [] Assessment & Plan Assessment/Plan (1) Lung cancer: (2) MRSA bacteremia: PLAN: MRSA bacteremia due to port infection - recently started chemo for NSCLC. Port removed 01/17/[address] Romano. Bcx neg since 01/19. TTE showed no veg. On vanc. Plan on picc tomorrow if bcx remain neg and afebrile, then discharge on 4 weeks iv vanc, stop date 02/16/22 with weekly labs. Wrote rx, d/w primary team. Will order bcx and covid for today given temp of 100.4 last night. Will follow (3) Sepsis due to infected central venous catheter: QUALIFIERS: Encounter type: initial encounter Qualified Code(s): T80.211A - Bloodstream infection due to central venous catheter, initial encounter; A41.9 - Sepsis, unspecified organism
[2022-01-22] MEDS: Insulin Lispro 100 UNIT/ML INSULN.PEN SC ×2 (11:33→16:49)
[2022-01-22] MEDS: Vancomycin IV 1,000 MG/200 ML BAG 200 MG IV ×2 (11:33→21:45)
[2022-01-22 12:05] LABS: Bedside Glucose 232 mg/dL (74-106)
--- NOTE | 2022-01-22 12:42 | PN.HOSP_ITS ---
Documented by User: Enedelia Mosqueda NP, TAPPING MACHINE OPERATOR-C 01/22/22 12:52 Subjective Subjective Patient seen and examined. Appears more comfortable today. Resting in bed. Cough improved as well. Awaiting PICC line placement and approval to SNF. Objective Data Objective Data Vital Signs: Vital Signs Temp Pulse Resp BP Pulse Ox O2 Del Method O2 Flow Rate 99.6 F H 86 18 112/57 L 97 Nasal Cannula 2 01/22/22 10:10 01/22/22 10:10 01/22/22 10:10 01/22/22 10:10 01/22/22 10:10 01/22/22 10:10 01/22/22 10:10 Oxygen Flow Rate (L/min) 2 Oxygen Delivery Method Nasal Cannula Weight: 229 lb 4.492 oz Body Mass Index (BMI) 40.6 Intake & Output: Intake and Output for Last 24 Hours 01/20/22 01/21/22 01/22/22 23:59 23:59 23:59 Intake Total 860 / 860 1120 / 1320 400 / 400 Output Total 4175 / 4875 3600 / 4100 2275 / 2275 Balance -3315 / -4015 -2480 / -2780 -1875 / -1875 Lab / Micro Data Result Diagrams: 01/22/22 06:15 01/22/22 06:15 Labs: Laboratory Results - last 24 hr 01/19/22 05:40: Heparin-induced Plt Ab 0.051 01/21/22 11:42: POC Glucose 189 H 01/21/22 16:06: POC Glucose 150 H 01/21/22 23:02: POC Glucose 127 H 01/22/22 06:15: WBC 10.1, RBC 3.35 L, Hgb 9.7 L, Hct 31.7 L, MCV 94.6, MCH 29.0, MCHC 30.6 L, RDW Std Deviation 63.4 H, RDW Coeff of Patricia 18.6 H, Plt Count 62 L, MPV 11.2, Immature Gran % (Auto) 1.200 H, Neut % (Auto) 72.6 H, Lymph % (Auto) 13.1 L, [place] % (Auto) 11.9 H, Eos % (Auto) 0.7, Baso % (Auto) 0.5, Absolute Neuts (auto) 7.3, Absolute Lymphs (auto) 1.32, Nucleated RBC % 0 01/22/22 06:15: Sodium 140, Potassium 3.3 L, Chloride 95 L, Carbon Dioxide 40.0 H, Anion Gap 5, BUN 18, Creatinine 0.80, Estim Creat Clear Calc 47.17, Est GFR (MDRD) Af Amer 89, Est GFR (MDRD) Non-Af 74, BUN/Creatinine Ratio 22.6 H, Glucose 108 H, Calcium 8.5 01/22/22 06:30: POC Glucose 112 H 01/22/22 11:32: POC Glucose 232 H Micro: Microbiology 01/19/22 11:20 Blood Culture (Wb) - No Site/Description Given Blood Culture - Preliminary Meth. resistant Staph. aureus 01/20/22 10:09 Blood Culture (Wb) - Left Hand Blood Culture - Preliminary No growth in 48 hours. 01/17/22 10:55 Blood Culture (Wb) - Other Blood Culture - Preliminary Meth. resistant Staph. aureus 01/17/22 10:45 Blood Culture (Wb) - Other Bacteria Detection (PCR) - Final Meth. resistant Staph. aureus 01/17/22 10:45 Blood Culture (Wb) - Other Blood Culture - Preliminary Meth. resistant Staph. aureus 01/17/22 Unknown Catheter tip - Subclavian Gram Stain - Final 01/17/22 Unknown Catheter tip - Subclavian Wound Culture - Final Meth. resistant Staph. aureus 01/17/22 Unknown Catheter tip - Subclavian Anaerobic Culture - Final No anaerobic bacteria isolated. 01/17/22 Unknown Wound - Chest Gram Stain - Final 01/17/22 Unknown Wound - Chest Wound Culture - Final Meth. resistant Staph. aureus 01/17/22 Unknown Wound - Chest Anaerobic Culture - Final No anaerobic bacteria isolated. 01/17/22 10:15 Nasal Secretion SARS-CoV-2 Antigen (Rapid) - Final Physical Exam Const alert and oriented x3 Nutritional Appearance: obese HEENT normocephalic and moist oral mucous membranes Eyes PERRL, EOMs intact bilaterally and conjunctivae normal Neck no lymphadenopathy Resp clear to auscultation bilaterally Auscultation: diminished lung sounds Cardio regular rate, regular rhythm and no murmurs Peripheral Pulses: pulses 2+ throughout GI normal to inspection, nondistended, normoactive bowel sounds, non-tender and non-distended Extremity normal to inspection General Extremity: edema bilateral lower extremity Skin no rashes or lesions noted Skin Narrative: Right chest area erythema. Lesions: no lesions Rashes: no rashes Trauma: no lacerations or abrasions Neuro CN's II-XII intact bilaterally, no focal motor deficits, no sensory deficits noted and deep tendon reflexes 2+ bilaterally Psych mental status grossly normal and affect normal Assessment & Plan Assessment/Plan (1) Acute respiratory failure with hypoxia: (2) Sepsis due to infected central venous catheter: QUALIFIERS: Encounter type: initial encounter Qualified Code(s): T80.211A - Bloodstream infection due to central venous catheter, initial encounter; A41.9 - Sepsis, unspecified organism (3) MRSA bacteremia: PLAN: Plan 1.? Sepsis secondary to right chest port infection with associated MRSA bacteremia-ID consulted.? Port removed by surgery 01/17/2022.? TTE with no vegetation.? On IV vancomycin.? Plan for PICC line placement tomorrow with ongoing IV antibiotics with stop date 02/16/2022. Repeat blood cultures with no growth. 2.? Acute hypoxic respiratory failure secondary to acute heart failure with preserved ejection fraction-initially placed on IV Lasix, transitioned to oral Lasix.? Echocardiogram with EF 60%, stage I diastolic dysfunction.? Strict I&O.? Daily weight.? Continue supplement oxygen to maintain O2 sat above 90%.? Chest x-ray with CHF. 3. Acute metabolic encephalopathy-secondary to #1/#2.? Continue treatment per above. Improved. 4. Thrombocytopenia-hematology/oncology consulted due to concern for HIT.? 1 uni t platelet transfused.? Trend CBC. Improving. 5. Anemia of chronic disease-appears stable.? Trend CBC. 6. Non-small cell CA-oncology consulted.? On chemotherapy. 7. Hypertension-stable, continue home regimen. 8. Type 2 diabetes [id number] with sliding scale insulin. 9. Hyperlipidemia-continue statin. DVT prophylaxis-SCDs Discharge planning: Awaiting approval to [facility]. This patient was seen by ROSSY Choi under the supervision of Dr. Pineda. Documented by User: Dr. Zak Pineda MD 01/22/22 14:06 Objective Data Lab / Micro Data Result Diagrams: 01/22/22 06:15 01/22/22 06:15 Assessment & Plan Assessment/Plan (1) Acute respiratory failure with hypoxia: (2) Sepsis due to infected central venous catheter: QUALIFIERS: Encounter type: initial encounter Qualified Code(s): T80.211A - Bloodstream infection due to central venous catheter, initial encounter; A41.9 - Sepsis, unspecified organism (3) MRSA bacteremia: Addt'l Comments This patient was seen in conjunction with ROSSY Choi .? I have independently interviewed and examined the patient and reviewed pertinent historical, laboratory, and other data.? Please refer to ROSSY Choi? note for details of this patient's presentation, findings, and recommendations.? I have reviewed? ROSSY Choi ? note and concur? with documented findings. In brief, Patient is a 81-year-old lady with history of lung CA (non-small cell lung CA) admitted with sepsis secondary to infected port.? Consult was placed to general surgery patient underwent removal of infected right IJ PowerPort with irrigation of right pocket of pus.? Started on broad-spectrum antibiotic therapy subsequently 01/22/2022; plan was for patient to have had a PICC line placed however with patient developing low-grade fever this had to be postponed. Case discussed with Dr. Bernal with infectious disease if patient remains afebrile on 01/23/2022 we will proceed with PICC line placement. Patient appears to be delirious this a.m. Physical Examination: GENERAL: Cooperative but delirious HEENT: Atraumatic; EYES; Anicteric, Normal Conjunctiva NECK; supple, normal thyroid, RESPIRATORY: Diminished to auscultation, bibasilar crackles CARDIOVASCULAR:? Regular S1 S2, GI:? soft, normoactive bowel sounds, : No Renal angle tenderness; EXTREMITIES: Bipedal edema, no clubbing, MUSCULOSKELETAL:? no muscle wasting NEURO:? Awake;? no lateralizing signs. SKIN:? No Rash PSYCH; Flat? affect Assessment:? 1.? Sepsis secondary to infected port 2.? MRSA bacteremia 3.? Acute hypoxic respiratory failure 4.? Acute congestive heart failure with preserved ejection fraction - EF of 60% and stage I diastolic dysfunction with a moderately enlarged left atrium 5.? Thrombocytopenia 6.? Anemia- Secondary to chronic 7.? Non-small cell lung CA 8.? Hypertension 9.? Diabetes mellitus type II 10.? Dyslipidemia 11.? DVT prophylaxis Recommendations: 1.? I have discussed the results of my overview and impressions with the patient 2.? Options for management were reviewed Total time spent by myself and the advanced practice practitioner evaluating patient, reviewing labs, subsequent management decisions, discussion with patient as well as other providers 40 minutes ( 25 of which was spent by myself) Charges/Coding Visit Charges Inpatient E&M: 86371 Subs Hosp L2
[2022-01-22] MEDS: hydrALAZINE 25 MG Tablet PO (14:20)
[2022-01-22] MEDS: Acetaminophen 325 MG Tablet 650 MG PO (15:23)
--- NOTE | 2022-01-22 17:07 | CASEMGMT ---
SHANT placed a green sheet on chart in the event Belén gets authorization for patient and she is ready. Plan: d/c to [facility] pending insruance authorization. Danni MONTALVO
[2022-01-22 17:15] LABS: Bedside Glucose 166 mg/dL (74-106)
[2022-01-22] MEDS: Insulin Glargine-YFGN 100 UNIT/ML Pen 25 UNIT SC (21:43)
[2022-01-22] MEDS: Atorvastatin Calcium 10 MG Tablet PO (21:45)
[2022-01-22 22:15] LABS: Bedside Glucose 189 mg/dL (74-106)
[2022-01-23] VITALS (15 sets, daily range): BP systolic 111–130; BP diastolic 53–63; PULSE 74–99; RESP 16–20; TEMP 36.8–37; O2SAT 93–95
[2022-01-23] MEDS: Acetaminophen 325 MG Tablet 650 MG PO (05:05)
[2022-01-23] MEDS: hydrALAZINE 25 MG Tablet PO ×3 (05:05→21:25)
[2022-01-23] MEDS: Pregabalin 75 MG Capsule 150 MG PO ×3 (05:06→21:26)
[2022-01-23] MEDS: oxyCODONE 5 MG Tablet PO ×3 (05:06→20:02)
[2022-01-23 07:10] LABS: Bedside Glucose 145 mg/dL (74-106)
[2022-01-23 08:14] LABS: Absolute Lymphocyte Count 1.34 X10^3/uL (0.83-4.51); Absolute Neutrophil Count 7.2 X10^3/uL (2.0-7.7); Basophil# 0.05 X10^3/uL; Basophil% 0.5 % (0-1); Eosinophil# 0.12 X10^3/uL; Eosinophils% 1.2 % (0-5); Hematocrit 32.8 % (37-47); Lymphocyte # 1.34 X10^3/ul (0.83-4.51); Mean Corp Hgb Conc 30.5 g/dL (32-36); Mean Corpuscular Hgb 29.1 pg (27.0-32.0); Mean Corpuscular Volume 95.3 fL (81-99); Mean Platelet Vol. 11.5 fl (6.2-12.0); Monocyte% 15.5 % (0-10); NRBC Flagged by Analyzer 0 % (0-5); Neutrophil # 7.16 X10^3/uL (2.7-7.7); Neutrophil % 69.1 % (47-70); POSITIVE COUNT YES; POSITIVE DIFFERENTIAL YES; Platelet Count 75 K/mm3 (150-450); RBC Distribution Width CV 18.6 % (11.6-14.6); RBC Distribution Width SD 63.9 fl (35.1-43.9); Red Blood Count 3.44 M/mm3 (4.2-5.4); White Blood Count 10.3 K/mm3 (4.4-11.0)
[2022-01-23 08:21] LABS: Anion Gap 6 (5-15); BUN 29 mg/dL (7-18); BUN/Creat Ratio 27.9 RATIO (10-20); Calcium,Total 8.4 mg/dL (8.5-10.1); Chloride 93 mmol/L (98-107); Creatinine, Serum 1.04 mg/dL (0.55-1.02); EST Glomerular Filtration Rate 54 mL/min (>60); Est Glom Filt Rate - Afr Amer 66 mL/min (>60); Estimated Creatinine Clearance 36.28 ml/min; Glucose 130 mg/dL (74-106); Potassium 3.2 mmol/L (3.5-5.1); Sodium Level 139 mmol/L (136-145)
[2022-01-23 08:23] LABS: Differential Indicated SCAN CRITERIA MET
[2022-01-23] MEDS: Pantoprazole Sodium 20 MG Tablet PO (08:48)
[2022-01-23] MEDS: Furosemide 40 MG Tablet PO ×2 (08:48→18:03)
[2022-01-23] MEDS: Multivitamins,Therapeutic Tablet 1 TABLET PO (08:48)
[2022-01-23] MEDS: Glucerna Shake 120 ML LIQUID PO ×3 (08:48→16:26)
[2022-01-23] MEDS: Metoprolol Tartrate 25 MG Tablet PO ×2 (08:49→21:25)
[2022-01-23] MEDS: amLODIPine 10 MG Tablet PO (08:49)
--- NOTE | 2022-01-23 09:32 | PCM.PN.HOSP ---
Documented by User: Enedelia Mosqueda NP, RESERVATION SALES AGENT-C 01/23/22 09:40 Subjective Subjective Patient seen and examined. Resting comfortably in bed. Denies shortness of breath, cough. Denies fever, chills. Objective Data Objective Data Vital Signs: Vital Signs Temp Pulse Resp BP Pulse Ox O2 Del Method O2 Flow Rate 98.5 F 74 16 111/62 93 Nasal Cannula 6 01/23/22 08:45 01/23/22 08:49 01/23/22 08:45 01/23/22 08:49 01/23/22 08:45 01/23/22 08:45 01/23/22 08:45 Oxygen Flow Rate (L/min) 6 Oxygen Delivery Method Nasal Cannula Weight: 229 lb 4.492 oz Body Mass Index (BMI) 40.6 Intake & Output: Intake and Output for Last 24 Hours 01/21/22 01/22/22 01/23/22 23:59 23:59 23:59 Intake Total 1120 / 1320 800 / 1160 410 / 410 Output Total 3600 / 4100 2725 / 3550 1075 / 1075 Balance -2480 / -2780 -1925 / -2390 -665 / -665 Lab / Micro Data Result Diagrams: 01/23/22 07:33 01/23/22 07:33 Labs: Laboratory Results - last 24 hr 01/22/22 11:20: COVID-19 ([place]) Not Detected 01/22/22 11:32: POC Glucose 232 H 01/22/22 16:47: POC Glucose 166 H 01/22/22 21:42: POC Glucose 189 H 01/23/22 06:40: POC Glucose 145 H 01/23/22 07:33: WBC 10.3, RBC 3.44 L, Hgb 10.0 L, Hct 32.8 L, MCV 95.3, MCH 29.1, MCHC 30.5 L, RDW Std Deviation 63.9 H, RDW Coeff of Patricia 18.6 H, Plt Count 75 L, MPV 11.5, Immature Gran % (Auto) 0.700, Neut % (Auto) 69.1, Lymph % (Auto) 13.0 L, [place] % (Auto) 15.5 H, Eos % (Auto) 1.2, Baso % (Auto) 0.5, Absolute Neuts (auto) 7.2, Absolute Lymphs (auto) 1.34, Nucleated RBC % 0 01/23/22 07:33: Sodium 139, Potassium 3.2 L, Chloride 93 L, Carbon Dioxide 40.0 H, Anion Gap 6, BUN 29 H, Creatinine 1.04 H, Estim Creat Clear Calc 36.28, Est GFR (MDRD) Af Amer 66, Est GFR (MDRD) Non-Af 54 L, BUN/Creatinine Ratio 27.9 H, Glucose 130 H, Calcium 8.4 L Micro: Microbiology 01/19/22 11:20 Blood Culture (Wb) - No Site/Description Given Blood Culture - Final Meth. resistant Staph. aureus 01/22/22 09:50 Blood Culture (Wb) - Left Forearm Blood Culture - Preliminary 01/17/22 10:55 Blood Culture (Wb) - Other Blood Culture - Final Meth. resistant Staph. aureus 01/17/22 10:45 Blood Culture (Wb) - Other Bacteria Detection (PCR) - Final Meth. resistant Staph. aureus 01/17/22 10:45 Blood Culture (Wb) - Other Blood Culture - Final Meth. resistant Staph. aureus 01/20/22 10:09 Blood Culture (Wb) - Left Hand Blood Culture - Preliminary No growth in 48 hours. 01/17/22 Unknown Catheter tip - Subclavian Gram Stain - Final 01/17/22 Unknown Catheter tip - Subclavian Wound Culture - Final Meth. resistant Staph. aureus 01/17/22 Unknown Catheter tip - Subclavian Anaerobic Culture - Final No anaerobic bacteria isolated. 01/17/22 Unknown Wound - Chest Gram Stain - Final 01/17/22 Unknown Wound - Chest Wound Culture - Final Meth. resistant Staph. aureus 01/17/22 Unknown Wound - Chest Anaerobic Culture - Final No anaerobic bacteria isolated. 01/17/22 10:15 Nasal Secretion SARS-CoV-2 Antigen (Rapid) - Final Physical Exam Const alert and oriented x3 Nutritional Appearance: obese HEENT normocephalic and moist oral mucous membranes Eyes PERRL, EOMs intact bilaterally and conjunctivae normal Neck no lymphadenopathy Resp clear to auscultation bilaterally Auscultation: diminished lung sounds Cardio regular rate, regular rhythm and no murmurs Peripheral Pulses: pulses 2+ throughout GI normal to inspection, nondistended, normoactive bowel sounds, non-tender and non-distended Extremity normal to inspection General Extremity: edema bilateral lower extremity Skin no rashes or lesions noted Skin Narrative: Right chest dressing intact. Lesions: no lesions Rashes: no rashes Trauma: no lacerations or abrasions Neuro CN's II-XII intact bilaterally, no focal motor deficits, no sensory deficits noted and deep tendon reflexes 2+ bilaterally Psych mental status grossly normal and affect normal Assessment & Plan Assessment/Plan (1) Sepsis due to infected central venous catheter: QUALIFIERS: Encounter type: initial encounter Qualified Code(s): T80.211A - Bloodstream infection due to central venous catheter, initial encounter; A41.9 - Sepsis, unspecified organism (2) MRSA bacteremia: PLAN: Plan 1.? Sepsis secondary to right chest port infection with associated MRSA bacteremia-ID consulted.? Port removed by surgery 01/17/2022.? TTE with no vegetation.? On IV vancomycin.? Plan for ongoing IV antibiotics with stop date 02/16/2022.? 01/20/2022 blood culture with no growth however 01/22/2022 blood culture pulmonary growing gram-positive cocci. Hold off on PICC line. Repeat blood culture ordered. Obtain AVE. 2.? Acute hypoxic respiratory failure secondary to acute heart failure with preserved ejection fraction-initially placed on IV Lasix, transitioned to oral Lasix.? Echocardiogram with EF 60%, stage I diastolic dysfunction.? Strict I&O.? Daily weight.? Continue supplement oxygen to maintain O2 sat above 90%.? Chest x-ray with CHF. 3. Acute metabolic encephalopathy-secondary to #1/#2.? Continue treatment per above. Improved. 4. Thrombocytopenia-hematology/oncology consulted due to concern for HIT.? 1 unit platelet transfused.? Trend CBC.? Improving. 5. Anemia of chronic disease-appears stable.? Trend CBC. 6. Non-small cell CA-oncology consulted.? On chemotherapy. 7. Hypertension-stable, continue home regimen. 8. Type 2 diabetes [id number] with sliding scale insulin. 9. Hyperlipidemia-continue statin. DVT prophylaxis-SCDs This patient was seen by ROSSY Choi under the supervision of Dr. Pineda. Documented by User: Dr. Zak Pineda MD 01/23/22 11:22 Objective Data Lab / Micro Data Result Diagrams: 01/23/22 07:33 01/23/22 07:33 Assessment & Plan Assessment/Plan (1) Sepsis due to infected central venous catheter: QUALIFIERS: Encounter type: initial encounter Qualified Code(s): T80.211A - Bloodstream infection due to central venous catheter, initial encounter; A41.9 - Sepsis, unspecified organism (2) MRSA bacteremia: Addt'l Comments This patient was seen in conjunction with ROSSY Choi .? I have independently interviewed and examined the patient and reviewed pertinent historical, laboratory, and other data.? Please refer to ROSSY Choi? note for details of this patient's presentation, findings, and recommendations.? I have reviewed? ROSSY Choi ? note and concur? with documented findings. In brief, Patient is a 81-year-old lady with history of lung CA (non-small cell lung CA) admitted with sepsis secondary to infected port.? Consult was placed to general surgery patient underwent removal of infected right IJ PowerPort with irrigation of right pocket of pus.? Started on broad-spectrum antibiotic therapy subsequently 01/22/2022; plan was for patient to have had a PICC line placed however with patient developing low-grade fever this had to be postponed.? Case discussed with Dr. Bernal with infectious disease if patient remains afebrile on 01/23/2022 we will proceed with PICC line placement.? Patient appears to be delirious this a.m. 01/23/2022; repeat blood cultures obtained the day prior coming back positive for gram-positive cocci in clusters. We will continue with current antibiotic therapy deferred to PICC line placement request for AVE to be performed on 01/25/2022 Physical Examination: GENERAL: Cooperative but delirious HEENT: Atraumatic; EYES; Anicteric, Normal Conjunctiva NECK; supple, normal thyroid, RESPIRATORY: Diminished to auscultation, bibasilar crackles CARDIOVASCULAR:? Regular S1 S2, GI:? soft, normoactive bowel sounds, : No Renal angle tenderness; EXTREMITIES: Bipedal edema, no clubbing, MUSCULOSKELETAL:? no muscle wasting NEURO:? Awake;? no lateralizing signs. SKIN:? No Rash PSYCH; Flat? affect Assessment:? 1.? Sepsis secondary to infected port 2.? MRSA bacteremia 3.? Acute hypoxic respiratory failure 4.? Acute congestive heart failure with preserved ejection fraction - EF of 60% and stage I diastolic dysfunction with a moderately enlarged left atrium 5.? Thrombocytopenia 6.? Anemia- Secondary to chronic 7.? Non-small cell lung CA 8.? Hypertension 9.? Diabetes mellitus type II 10.? Dyslipidemia 11.? DVT prophylaxis Recommendations: 1.? I have discussed the results of my overview and impressions with the patient 2.? Options for management were reviewed Total time spent by myself and the advanced practice practitioner evaluating patient, reviewing labs, subsequent management decisions, discussion with patient as well as other providers 45 minutes ( 25 of which was spent by myself) Charges/Coding Visit Charges Inpatient E&M: 53566 [facility] Hosp L3
--- NOTE | 2022-01-23 09:38 | ECHOTEE_ITS ---
Version 2 Reason For Study: bacteremia Medication AVE probe 6VT-D (SN [id number]) passed without difficulty. No complications were noted. Cetacaine Topical [place] given X3 orally. Versed 2 mg given slow IVP. Fentanyl 50 mcg given slow IVP. Left Ventricle Normal LV size. Left ventricular systolic function is normal. The estimated ejection fraction is 60 %. No regional wall motion abnormalities noted. Right Ventricle Normal RV size. Normal systolic function. Atria Normal left atrium. No thrombus is detected in the left atrial appendage. Normal right atrium. Mitral Valve Normal mitral valve. Mild (1+) eccentric mitral valve insufficiency. Tricuspid Valve Normal tricuspid valve. Aortic Valve Trisinus/trileaflet aortic valve. Pulmonic Valve Normal pulmonic valve. Vessels Normal aortic root. The pulmonary artery is normal size. Pericardium No pericardial effusion. ECHO/Echo Transesophageal (AVE) Interpretation Summary There is no evidence of a mass or vegetation. This does not rule out endocardit is. Normal LV size. Left ventricular systolic function is normal. The estimated ejection fraction is 60 %. Ordering Physician: Enedelia Mosqueda Performed By: Yoana Thacker, SAM, RVT
[2022-01-23] MEDS: Polyethylene Glycol 3350 17 GM PACKET PO (11:22)
[2022-01-23 11:23] LABS: Differential Comment SCANNED
[2022-01-23] MEDS: Vancomycin IV 1,000 MG/200 ML BAG 200 MG IV ×2 (11:23→23:12)
[2022-01-23 12:00] LABS: Bedside Glucose 110 mg/dL (74-106)
[2022-01-23] MEDS: Insulin Lispro 100 UNIT/ML INSULN.PEN SC (16:26)
[2022-01-23] MEDS: Ibuprofen 400 MG Tablet PO (16:26)
[2022-01-23 16:55] LABS: Bedside Glucose 210 mg/dL (74-106)
[2022-01-23] MEDS: Glycerin/Hypromellose/PEG400 15 ml Bottle 2 DRP EACH EYE (18:03)
[2022-01-23] MEDS: Hydrocortisone 2.5% Crm 1 APPLIC TOPICAL (18:03)
[2022-01-23] MEDS: Atorvastatin Calcium 10 MG Tablet PO (21:26)
[2022-01-23] MEDS: Insulin Glargine-YFGN 100 UNIT/ML Pen 25 UNIT SC (21:26)
[2022-01-23] MEDS: Latanoprost 0.005% 1 Bottle 1 DRP OPHTHALMIC (21:31)
[2022-01-24] VITALS (19 sets, daily range): BP systolic 109–146; BP diastolic 46–76; PULSE 74–161; RESP 16–18; TEMP 36.7–37.4; O2SAT 93–99
[2022-01-24 00:46] LABS: Bedside Glucose 176 mg/dL (74-106)
[2022-01-24] MEDS: hydrALAZINE 25 MG Tablet PO ×3 (06:46→23:08)
[2022-01-24] MEDS: Pregabalin 75 MG Capsule 150 MG PO ×3 (06:47→23:08)
[2022-01-24 06:48] LABS: Absolute Lymphocyte Count 1.22 X10^3/uL (0.83-4.51); Absolute Neutrophil Count 8.3 X10^3/uL (2.0-7.7); Basophil# 0.04 X10^3/uL; Basophil% 0.3 % (0-1); Eosinophil# 0.16 X10^3/uL; Eosinophils% 1.4 % (0-5); Hematocrit 32.3 % (37-47); Hemoglobin 9.9 g/dL (12.0-15.0); Lymphocyte # 1.22 X10^3/ul (0.83-4.51); Lymphocyte % 10.6 % (19-41); Mean Corp Hgb Conc 30.7 g/dL (32-36); Mean Corpuscular Hgb 29.2 pg (27.0-32.0); Mean Corpuscular Volume 95.3 fL (81-99); Mean Platelet Vol. 11.9 fl (6.2-12.0); Monocyte# 1.77 X10^3/uL; Monocyte% 15.3 % (0-10); NRBC Flagged by Analyzer 0 % (0-5); Neutrophil % 71.8 % (47-70); POSITIVE DIFFERENTIAL YES; Platelet Count 100 K/mm3 (150-450); RBC Distribution Width CV 18.6 % (11.6-14.6); Red Blood Count 3.39 M/mm3 (4.2-5.4); White Blood Count 11.6 K/mm3 (4.4-11.0)
[2022-01-24 07:02] LABS: Differential Indicated SCAN CRITERIA MET
[2022-01-24 07:10] LABS: Anion Gap 6 (5-15); BUN 34 mg/dL (7-18); BUN/Creat Ratio 27.4 RATIO (10-20); Calcium,Total 8.4 mg/dL (8.5-10.1); Chloride 92 mmol/L (98-107); Creatinine, Serum 1.24 mg/dL (0.55-1.02); EST Glomerular Filtration Rate 44 mL/min (>60); Est Glom Filt Rate - Afr Amer 54 mL/min (>60); Estimated Creatinine Clearance 30.43 ml/min; Glucose 123 mg/dL (74-106); Potassium 3.1 mmol/L (3.5-5.1); Sodium Level 137 mmol/L (136-145)
[2022-01-24] MEDS: Glucerna Shake 120 ML LIQUID PO ×3 (07:40→16:54)
[2022-01-24] MEDS: Multivitamins,Therapeutic Tablet 1 TABLET PO (07:40)
[2022-01-24 08:16] LABS: Bedside Glucose 122 mg/dL (74-106)
--- NOTE | 2022-01-24 08:16 | NURSING ---
Belén called and informed this nurse that precertification was approved for TCU.
[2022-01-24] MEDS: amLODIPine 10 MG Tablet PO (09:48)
[2022-01-24] MEDS: Furosemide 40 MG Tablet PO ×2 (09:48→16:55)
[2022-01-24] MEDS: oxyCODONE 5 MG Tablet PO ×2 (09:48→17:53)
[2022-01-24] MEDS: Pantoprazole Sodium 20 MG Tablet PO (09:49)
[2022-01-24] MEDS: Polyethylene Glycol 3350 17 GM PACKET PO (09:50)
[2022-01-24 09:55] LABS: Differential Comment SCANNED
--- NOTE | 2022-01-24 10:18 | PN.HOSP_ITS ---
Documented by User: Enedelia Mosqueda NP, RECOVERY COORDINATOR-C 01/24/22 10:32 Subjective Subjective Patient seen and examined. Resting comfortably in bed. Denies new symptoms or complaints. Objective Data Objective Data Vital Signs: Vital Signs Temp Pulse Resp BP Pulse Ox O2 Del Method O2 Flow Rate 98.3 F 97 16 113/53 L 96 Nasal Cannula 6 01/24/22 09:45 01/24/22 09:49 01/24/22 09:45 01/24/22 09:49 01/24/22 09:45 01/24/22 09:45 01/24/22 09:45 Oxygen Flow Rate (L/min) 6 Oxygen Delivery Method Nasal Cannula Weight: 229 lb 4.492 oz Body Mass Index (BMI) 40.6 Intake & Output: Intake and Output for Last 24 Hours 01/22/22 01/23/22 01/24/22 23:59 23:59 23:59 Intake Total 800 / 1160 1370 / 1370 200 / 200 Output Total 2725 / 3550 1950 / 2250 700 / 700 Balance -1925 / -2390 -580 / -880 -500 / -500 Lab / Micro Data Result Diagrams: 01/24/22 06:34 01/24/22 06:34 Labs: Laboratory Results - last 24 hr 01/23/22 07:33: Differential Comment SCANNED 01/23/22 11:19: POC Glucose 110 H 01/23/22 16:24: POC Glucose 210 H 01/23/22 21:30: POC Glucose 176 H 01/24/22 06:34: WBC 11.6 H, RBC 3.39 L, Hgb 9.9 L, Hct 32.3 L, MCV 95.3, MCH 29.2, MCHC 30.7 L, RDW Std Deviation 64.0 H, RDW Coeff of Patricia 18.6 H, Plt Count 100 L, MPV 11.9, Immature Gran % (Auto) 0.600, Neut % (Auto) 71.8 H, Lymph % (Auto) 10.6 L, Collin % (Auto) 15.3 H, Eos % (Auto) 1.4, Baso % (Auto) 0.3, Absolute Neuts (auto) 8.3 H, Absolute Lymphs (auto) 1.22, Nucleated RBC % 0, Differential Comment SCANNED, Diff Path Review September01/24/22 06:34: Sodium 137, Potassium 3.1 L, Chloride 92 L, Carbon Dioxide 39.0 H, Anion Gap 6, BUN 34 H, Creatinine 1.24 H, Estim Creat Clear Calc 30.43, Est GFR (MDRD) Af Amer 54 L, Est GFR (MDRD) Non-Af 44 L, BUN/Creatinine Ratio 27.4 H , Glucose 123 H, Calcium 8.4 L 01/24/22 07:38: POC Glucose 122 H Micro: Microbiology 01/19/22 11:20 Blood Culture (Wb) - No Site/Description Given Blood Culture - Final Meth. resistant Staph. aureus 01/22/22 09:50 Blood Culture (Wb) - Left Forearm Blood Culture - Preliminary 01/17/22 10:55 Blood Culture (Wb) - Other Blood Culture - Final Meth. resistant Staph. aureus 01/17/22 10:45 Blood Culture (Wb) - Other Bacteria Detection (PCR) - Final Meth. resistant Staph. aureus 01/17/22 10:45 Blood Culture (Wb) - Other Blood Culture - Final Meth. resistant Staph. aureus 01/20/22 10:09 Blood Culture (Wb) - Left Hand Blood Culture - Preliminary No growth in 48 hours. 01/17/22 Unknown Catheter tip - Subclavian Gram Stain - Final 01/17/22 Unknown Catheter tip - Subclavian Wound Culture - Final Meth. resistant Staph. aureus 01/17/22 Unknown Catheter tip - Subclavian Anaerobic Culture - Final No anaerobic bacteria isolated. 01/17/22 Unknown Wound - Chest Gram Stain - Final 01/17/22 Unknown Wound - Chest Wound Culture - Final Meth. resistant Staph. aureus 01/17/22 Unknown Wound - Chest Anaerobic Culture - Final No anaerobic bacteria isolated. 01/17/22 10:15 Nasal Secretion SARS-CoV-2 Antigen (Rapid) - Final Physical Exam Const alert and oriented x3 Nutritional Appearance: obese HEENT normocephalic and moist oral mucous membranes Eyes PERRL, EOMs intact bilaterally and conjunctivae normal Neck no lymphadenopathy Resp clear to auscultation bilaterally Auscultation: diminished lung sounds Cardio regular rate, regular rhythm and no murmurs Peripheral Pulses: pulses 2+ throughout GI normal to inspection, nondistended, normoactive bowel sounds, non-tender and non-distended Extremity normal to inspection General Extremity: edema bilateral Skin no rashes or lesions noted Lesions: no lesions Rashes: no rashes Trauma: no lacerations or abrasions Neuro CN's II-XII intact bilaterally, no focal motor deficits, no sensory deficits noted and deep tendon reflexes 2+ bilaterally Psych mental status grossly normal and affect normal Assessment & Plan Assessment/Plan (1) Sepsis due to infected central venous catheter: QUALIFIERS: Encounter type: initial encounter Qualified Code(s): T80.211A - Bloodstream infection due to central venous catheter, initial encounter; A41.9 - Sepsis, unspecified organism PLAN: Plan 1.? Sepsis secondary to right chest port infection with associated MRSA bacteremia-ID consulted.? Port removed by surgery 01/17/2022.? TTE with no vegetation.? On IV vancomycin.? Plan for ongoing IV antibiotics with stop date 02/16/2022.? 01/20/2022 blood culture with no growth however 01/22/2022 blood culture pulmonary growing gram-positive cocci.? Hold off on PICC line. Repeat blood culture pending. Obtain AVE. 2.? Acute hypoxic respiratory failure secondary to acute heart failure with preserved ejection fraction-initially placed on IV Lasix, transitioned to oral Lasix.? Echocardiogram with EF 60%, stage I diastolic dysfunction.? Strict I&O.? Daily weight.? Continue supplement oxygen to maintain O2 sat above 90%. 3. Acute metabolic encephalopathy-secondary to #1/#2.? Continue treatment per above. Mental status at baseline. 4. Thrombocytopenia-hematology/oncology consulted due to concern for HIT.? 1 unit platelet transfused.? Trend CBC.? Improving. 5. Anemia of chronic disease-appears stable.? Trend CBC. 6. Non-small cell CA-oncology consulted.? On chemotherapy. 7. Hypertension-stable, continue home regimen. 8. Type 2 diabetes [id number] with sliding scale insulin. 9. Hyperlipidemia-continue statin. DVT prophylaxis-SCDs This patient was seen by ROSSY Choi under the supervision of Dr. Pineda. Documented by User: Dr. Zak Pineda MD 01/24/22 10:35 Objective Data Lab / Micro Data Result Diagrams: 01/24/22 06:34 01/24/22 06:34 Assessment & Plan Assessment/Plan (1) Sepsis due to infected central venous catheter: QUALIFIERS: Encounter type: initial encounter Qualified Code(s): T80.211A - Bloodstream infection due to central venous catheter, initial encounter; A41.9 - Sepsis, unspecified organism Addt'l Comments This patient was seen in conjunction with ROSSY Choi .? I have independently interviewed and examined the patient and reviewed pertinent historical, laboratory, and other data.? Please refer to ROSSY Choi? note for details of this patient's presentation, findings, and recommendations.? I have reviewed? ROSSY Choi ? note and concur? with documented shawn marie. In brief, Patient is a 81-year-old lady with history of lung CA (non-small cell lung CA) admitted with sepsis secondary to infected port.? Consult was placed to general surgery patient underwent removal of infected right IJ PowerPort with irrigation of right pocket of pus.? Started on broad-spectrum antibiotic therapy subsequently 01/22/2022; plan was for patient to have had a PICC line placed however with patient developing low-grade fever this had to be postponed.? Case discussed with Dr. Bernal with infectious disease if patient remains afebrile on 01/23/2022 we will proceed with PICC line placement.? Patient appears to be delirious this a.m. 01/23/2022; repeat blood cultures obtained the day prior coming back positive for gram-positive cocci in clusters.? We will continue with current antibiotic therapy deferred to PICC line placement request for AVE to be performed on 202101/24/2022; repeat blood cultures came back positive for Staphylococcus species. AVE ordered for 01/25/2022; Physical Examination: GENERAL: Cooperative HEENT: Atraumatic; EYES; Anicteric, Normal Conjunctiva NECK; supple, normal thyroid, RESPIRATORY: Diminished to auscultation, bibasilar crackles CARDIOVASCULAR:? Regular S1 S2, GI:? soft, normoactive bowel sounds, : No Renal angle tenderness; EXTREMITIES: Bipedal edema, no clubbing, MUSCULOSKELETAL:? no muscle wasting NEURO:? Awake;? no lateralizing signs. SKIN:? No Rash PSYCH; Flat? affect Assessment:? 1.? Sepsis secondary to infected port 2.? MRSA bacteremia 3.? Acute hypoxic respiratory failure 4.? Acute congestive heart failure with preserved ejection fraction - EF of 60% and stage I diastolic dysfunction with a moderately enlarged left atrium 5.? Thrombocytopenia 6.? Anemia- Secondary to chronic 7.? Non-small cell lung CA 8.? Hypertension 9.? Diabetes mellitus type II 10.? Dyslipidemia 11.? DVT prophylaxis Recommendations: 1.? I have discussed the results of my overview and impressions with the patient 2.? Options for management were reviewed Total time spent by myself and the advanced practice practitioner evaluating patient, reviewing labs, subsequent management decisions, discussion with patient as well as other providers 40 minutes ( 25 of which was spent by myself) Charges/Coding Visit Charges Inpatient E&M: 37135 Subs Hosp L2
[2022-01-24] MEDS: Insulin Lispro 100 UNIT/ML INSULN.PEN SC ×2 (11:11→16:54)
[2022-01-24] MEDS: Vancomycin IV 1,000 MG/200 ML BAG 200 MG IV (11:16)
[2022-01-24 11:40] LABS: Bedside Glucose 213 mg/dL (74-106)
--- NOTE | 2022-01-24 13:57 | PCM.RX.CS ---
Consult Pharmacy has been consulted to manage selected antiobiotic: Vancomycin Type of Consult: Follow-up Labs: Sodium 137 mmol/L (136-145) 01/24/22 06:34 Potassium 3.1 mmol/L (3.5-5.1) L 01/24/22 06:34 Chloride 92 mmol/L (98-107) L 01/24/22 06:34 Carbon Dioxide 39.0 mmol/L (21.0-32.0) H 01/24/22 06:34 Anion Gap 6 (5-15) 01/24/22 06:34 BUN 34 mg/dL (7-18) H 01/24/22 06:34 Creatinine 1.24 mg/dL (0.55-1.02) H 01/24/22 06:34 Est GFR (MDRD) Af Amer 54 mL/min (>60) L 01/24/22 06:34 Est GFR (MDRD) Non-Af 44 mL/min (>60) L 01/24/22 06:34 BUN/Creatinine Ratio 27.4 RATIO (10-20) H 01/24/22 06:34 Glucose 123 mg/dL (74-106) H 01/24/22 06:34 Vancomycin Trough 17.9 ug/mL (5.0-15.0) H 01/20/22 22:30 Microbiology: Microbiology 01/22/22 09:50 Blood Culture (Wb) - Left Forearm Blood Culture - Preliminary Staphylococcus species 01/19/22 11:20 Blood Culture (Wb) - No Site/Description Given Blood Culture - Final Meth. resistant Staph. aureus 01/17/22 10:55 Blood Culture (Wb) - Other Blood Culture - Final Meth. resistant Staph. aureus 01/17/22 10:45 Blood Culture (Wb) - Other Bacteria Detection (PCR) - Final Meth. resistant Staph. aureus 01/17/22 10:45 Blood Culture (Wb) - Other Blood Culture - Final Meth. resistant Staph. aureus 01/20/22 10:09 Blood Culture (Wb) - Left Hand Blood Culture - Preliminary No growth in 48 hours. 01/17/22 Unknown Catheter tip - Subclavian Gram Stain - Final 01/17/22 Unknown Catheter tip - Subclavian Wound Culture - Final Meth. resistant Staph. aureus 01/17/22 Unknown Catheter tip - Subclavian Anaerobic Culture - Final No anaerobic bacteria isolated. 01/17/22 Unknown Wound - Chest Gram Stain - Final 01/17/22 Unknown Wound - Chest Wound Culture - Final Meth. resistant Staph. aureus 01/17/22 Unknown Wound - Chest Anaerobic Culture - Final No anaerobic bacteria isolated. 01/17/22 10:15 Nasal Secretion SARS-CoV-2 Antigen (Rapid) - Final Pharmacy Plan for Drug Dosing: DAILY ASSESSMENT Current Vancomcyin Dose: 1000mg q12h (,23) Number of Doses Received: Current Renal Function: SrCr 1.24 Renal Function Trend: SrCr increased from 0.6 on 01/20/22 Lab/Micro: Any Change in Vanc Plan: recommend holding future Vancomycin doses due to increase in SrCr and checking a trough/random level 01/24/22 at 2230 Pending Level: 01/24/22 at 2230 Pharmacy Service will continue to monitor and adjust dosing as required. Follow-Up Labs: Trough Vancomycin - 01/24/22 at 2230
[2022-01-24] MEDS: Acetaminophen 325 MG Tablet 650 MG PO (13:58)
[2022-01-24 17:20] LABS: Bedside Glucose 190 mg/dL (74-106)
--- NOTE | 2022-01-24 22:53 | EKG12_ITS ---
Test Reason : tachy Blood Pressure : / mmHG Vent. Rate : 162 BPM Atrial Rate : 162 BPM P-R Int : 148 ms QRS Dur : 088 ms QT Int : 196 ms P-R-T Axes : 000 -09 206 degrees QTc Int : 321 ms Atrial flutter with 2 to [address] abnormality, possible lateral subendocardial injury Abnormal ECG When compared with ECG of 17-JAN-2022 13:17, Vent. rate has increased BY [address] now depressed in Anterolateral leads T wave inversion now evident in Inferior leads T wave inversion now evident in Anterolateral leads Confirmed by HETAL LOPEZ, ASHLIE ([id number]), script editor RONNIE OGDEN ([id number]) on 01/27/2022 2:07:07 PM Referred By: Confirmed By:ASHLIE FONG MD
[2022-01-24] MEDS: Metoprolol Tartrate 25 MG Tablet PO (22:54)
[2022-01-24] MEDS: Atorvastatin Calcium 10 MG Tablet PO (23:08)
[2022-01-24] MEDS: Latanoprost 0.005% 1 Bottle 1 DRP OPHTHALMIC (23:09)
[2022-01-24] MEDS: Insulin Glargine-YFGN 100 UNIT/ML Pen 25 UNIT SC (23:09)
[2022-01-24 23:41] LABS: Bedside Glucose 178 mg/dL (74-106)
[2022-01-25] VITALS (18 sets, daily range): BP systolic 78–111; BP diastolic 34–72; PULSE 78–91; RESP 14–18; TEMP 36.6–37.7; O2SAT 92–96
[2022-01-25 00:57] LABS: Vancomycin, Trough Level > 100.0 ug/mL (5.0-15.0)
[2022-01-25 06:40] LABS: Absolute Lymphocyte Count 1.06 X10^3/uL (0.83-4.51); Absolute Neutrophil Count 10.9 X10^3/uL (2.0-7.7); Basophil# 0.05 X10^3/uL; Basophil% 0.4 % (0-1); Eosinophil# 0.12 X10^3/uL; Eosinophils% 0.8 % (0-5); Hematocrit 30.6 % (37-47); Hemoglobin 9.3 g/dL (12.0-15.0); Lymphocyte # 1.06 X10^3/ul (0.83-4.51); Lymphocyte % 7.4 % (19-41); Mean Corp Hgb Conc 30.4 g/dL (32-36); Mean Corpuscular Volume 95.3 fL (81-99); Mean Platelet Vol. 11.8 fl (6.2-12.0); Monocyte# 1.93 X10^3/uL; Monocyte% 13.6 % (0-10); NRBC Flagged by Analyzer 0 % (0-5); Neutrophil # 10.94 X10^3/uL (2.7-7.7); Neutrophil % 76.9 % (47-70); POSITIVE DIFFERENTIAL YES; Platelet Count 140 K/mm3 (150-450); RBC Distribution Width CV 18.4 % (11.6-14.6); RBC Distribution Width SD 63.5 fl (35.1-43.9); Red Blood Count 3.21 M/mm3 (4.2-5.4); White Blood Count 14.2 K/mm3 (4.4-11.0)
[2022-01-25 06:44] LABS: Differential Indicated SCAN CRITERIA MET
[2022-01-25 06:59] LABS: Anisocytosis 2+
[2022-01-25 07:00] LABS: Bedside Glucose 128 mg/dL (74-106)
[2022-01-25 07:01] LABS: Anion Gap 7 (5-15); BUN 36 mg/dL (7-18); BUN/Creat Ratio 26.1 RATIO (10-20); Calcium,Total 8.7 mg/dL (8.5-10.1); Chloride 90 mmol/L (98-107); Creatinine, Serum 1.38 mg/dL (0.55-1.02); EST Glomerular Filtration Rate 39 mL/min (>60); Est Glom Filt Rate - Afr Amer 47 mL/min (>60); Estimated Creatinine Clearance 27.34 ml/min; Glucose 134 mg/dL (74-106); Potassium 3.3 mmol/L (3.5-5.1); Sodium Level 136 mmol/L (136-145)
--- NOTE | 2022-01-25 10:20 | WOUNDNOTE ---
wound photo: right chest
[2022-01-25] MEDS: Multivitamins,Therapeutic Tablet 1 TABLET PO (12:46)
[2022-01-25] MEDS: Glucerna Shake 120 ML LIQUID PO ×2 (12:46→17:51)
[2022-01-25] MEDS: Pantoprazole Sodium 20 MG Tablet PO (12:46)
[2022-01-25] MEDS: Polyethylene Glycol 3350 17 GM PACKET PO (12:46)
[2022-01-25] MEDS: Furosemide 40 MG Tablet PO (12:46)
[2022-01-25 13:10] LABS: Bedside Glucose 96 mg/dL (74-106)
[2022-01-25 13:45] LABS: Pathologist Review Reviewed
[2022-01-25] MEDS: oxyCODONE 5 MG Tablet PO ×2 (14:17→21:13)
[2022-01-25] MEDS: Acetaminophen 325 MG Tablet 650 MG PO ×2 (14:18→21:13)
--- NOTE | 2022-01-25 14:20 | PN.HOSP_ITS ---
Documented by User: Enedelia Mosqueda NP, FAMILY AND CONSUMER SCIENCES PROFESSOR-C 01/25/22 14:26 Subjective Subjective Patient seen and examined. Drowsy this morning following AVE. AVE without mass or vegetation. Continues to have low-grade fever. Objective Data Objective Data Vital Signs: Vital Signs Temp Pulse Resp BP Pulse Ox O2 Del Method O2 Flow Rate 98.8 F 88 14 110/72 94 Nasal Cannula 6 01/25/22 09:30 01/25/22 12:50 01/25/22 10:00 01/25/22 12:50 01/25/22 10:00 01/25/22 10:00 01/25/22 10:00 Oxygen Flow Rate (L/min) 6 Oxygen Delivery Method Nasal Cannula Weight: 229 lb 4.492 oz Body Mass Index (BMI) 40.6 Intake & Output: Intake and Output for Last 24 Hours 01/23/22 01/24/22 01/25/22 23:59 23:59 23:59 Intake Total 1370 / 1370 1380 / 1380 500 / 500 Output Total 1950 / 2250 1400 / 1800 800 / 800 Balance -580 / -880 -20 / -420 -300 / -300 Lab / Micro Data Result Diagrams: 01/25/22 06:10 01/25/22 06:10 Labs: Laboratory Results - last 24 hr 01/24/22 06:34: Diff Path Review Reviewed 01/24/22 16:45: POC Glucose 190 H 01/24/22 22:27: Vancomycin Trough > 100.0 H 01/24/22 23:06: POC Glucose 178 H 01/24/22 23:06: POC Glucose Cancelled 01/25/22 06:10: WBC 14.2 H, RBC 3.21 L, Hgb 9.3 L, Hct 30.6 L, MCV 95.3, MCH 29.0, MCHC 30.4 L, RDW Std Deviation 63.5 H, RDW Coeff of Patricia 18.4 H, Plt Count 140 L, MPV 11.8, Immature Gran % (Auto) 0.900, Neut % (Auto) 76.9 H, Lymph % (Auto) 7.4 L, [place] % (Auto) 13.6 H, Eos % (Auto) 0.8, Baso % (Auto) 0.4, Absolute Neuts (auto) 10.9 H, Absolute Lymphs (auto) 1.06, Nucleated RBC % 0, Diff Path Review May foll, Anisocytosis 2+ 01/25/22 06:10: Sodium 136, Potassium 3.3 L, Chloride 90 L, Carbon Dioxide 39.0 H, Anion Gap 7, BUN 36 H, Creatinine 1.38 H, Estim Creat Clear Calc 27.34, Est GFR (MDRD) Af Amer 47 L, Est GFR (MDRD) Non-Af 39 L, BUN/Creatinine Ratio 26.1 H , Glucose 134 H, Calcium 8.7 01/25/22 06:42: POC Glucose 128 H 01/25/22 12:44: POC Glucose 96 Micro: Microbiology 01/20/22 10:09 Blood Culture (Wb) - Left Hand Blood Culture - Final No growth in 5 days. 01/22/22 09:50 Blood Culture (Wb) - Left Forearm Blood Culture - Preliminary Meth. resistant Staph. aureus 01/23/22 10:29 Blood Culture (Wb) - Arm Left Blood Culture - Preliminary No growth in 48 hours. 01/19/22 11:20 Blood Culture (Wb) - No Site/Description Given Blood Culture - Final Meth. resistant Staph. aureus 01/17/22 10:55 Blood Culture (Wb) - Other Blood Culture - Final Meth. resistant Staph. aureus 01/17/22 10:45 Blood Culture (Wb) - Other Bacteria Detection (PCR) - Final Meth. resistant Staph. aureus 01/17/22 10:45 Blood Culture (Wb) - Other Blood Culture - Final Meth. resistant Staph. aureus 01/17/22 Unknown Catheter tip - Subclavian Gram Stain - Final 01/17/22 Unknown Catheter tip - Subclavian Wound Culture - Final Meth. resistant Staph. aureus 01/17/22 Unknown Catheter tip - Subclavian Anaerobic Culture - Final No anaerobic bacteria isolated. 01/17/22 Unknown Wound - Chest Gram Stain - Final 01/17/22 Unknown Wound - Chest Wound Culture - Final Meth. resistant Staph. aureus 01/17/22 Unknown Wound - Chest Anaerobic Culture - Final No anaerobic bacteria isolated. 01/17/22 10:15 Nasal Secretion SARS-CoV-2 Antigen (Rapid) - Final Radiography Diagnostic Testing: Radiology Impression Transesophageal Echocardiogram 01/23/22 09:38 Interpretation Summary There is no evidence of a mass or vegetation. This does not rule out endocarditis. Normal LV size. Left ventricular systolic function is normal. The estimated ejection fraction is 60 %. Ordering Physician: Enedelia Mosqueda Performed By: Yoana Thacker, SAM, RVT Physical Exam Const alert and oriented x3 Nutritional Appearance: obese HEENT normocephalic Mouth: dry mucous membranes Eyes PERRL, EOMs intact bilaterally and conjunctivae normal Neck no lymphadenopathy Resp clear to auscultation bilaterally Auscultation: diminished lung sounds Cardio regular rate, regular rhythm and no murmurs Peripheral Pulses: pulses 2+ throughout GI normal to inspection, nondistended, normoactive bowel sounds, non-tender and non-distended Extremity normal to inspection General Extremity: edema bilateral lower extremity Skin no rashes or lesions noted Lesions: no lesions Rashes: no rashes Trauma: no lacerations or abrasions Neuro CN's II-XII intact bilaterally, no focal motor deficits, no sensory deficits noted and deep tendon reflexes 2+ bilaterally Psych mental status grossly normal and affect normal Assessment & Plan Assessment/Plan (1) MRSA bacteremia: PLAN: Plan 1.? Sepsis secondary to right chest port infection with associated MRSA bacteremia-ID consulted.? Port removed by surgery 01/17/2022.? On IV vancomycin.? Plan for ongoing IV antibiotics with stop date 02/16/2022.? 01/20/2022 blood culture with no growth however 01/22/2022 blood culture grew MRSA followed by negative blood culture 01/23/2022.? Repeat blood culture ordered. Hold off on PICC line. AVE without vegetation. ID ordering MRI of cervical spine due to neck pain to rule out abscess. 2.? Acute hypoxic respiratory failure secondary to acute heart failure with preserved ejection fraction-initially placed on IV Lasix, transitioned to oral Lasix.? Echocardiogram with EF 60%, stage I diastolic dysfunction.? Strict I&O.? Daily weight.? Continue supplement oxygen to maintain O2 sat above 90%. 3. Acute metabolic encephalopathy-secondary to #1/#2.? Continue treatment per above. Mental status at baseline. 4. Thrombocytopenia-hematology/oncology consulted due to concern for HIT.? 1 unit platelet transfused.? Trend CBC.? Improving. 5. Anemia of chronic disease-appears stable.? Trend CBC. 6. Non-small cell CA-oncology consulted.? On chemotherapy. 7. Hypertension-stable, continue home regimen. 8. Type 2 diabetes [id number] with sliding scale insulin. 9. Hyperlipidemia-continue statin. DVT prophylaxis-SCDs This patient was seen by ROSSY Choi under the supervision of Dr. Devries. Time spent examining patient, reviewing data and subsequent management of care: 14 minutes Documented by User: Dr. August Devries, DO 01/25/22 16:16 Objective Data Lab / Micro Data Result Diagrams: 01/25/22 06:10 01/25/22 06:10 Assessment & Plan Assessment/Plan (1) MRSA bacteremia: Charges/Coding Addendum Addendum: Patient seen and examined independently. Data and vitals reviewed. I agree with the above note by the nurse practitioner. Does not feel well overall but denies any current pain. Lost IV access earlier and nursing was attempting to replace. No acute distress and afebrile. Lying in bed. Heart rate regular rate and rhythm plus S1-S2 with any murmurs Or rubs. Lungs are clear to auscultation bilaterally abdomen obese but soft nontender nondistended Assessment and Plan: (1) Sepsis due to infected central venous catheter: QUALIFIERS: ?Encounter type:?initial encounter? Qualified Code(s):? T80.211A - Bloodstream infection due to central venous catheter, initial enc ounter; A41.9 - Sepsis, unspecified organism PLAN: Port infection and bactremia Port removed on 01/17 Broad-spectrum antibiotics with vancomycin and piperacillin/tazobactam This is an emergent procedure to have this removed.? Did discuss with Dr. Romano and the plan is to have her port removed at 1430 Currently hemodynamically stable Will administer IV fluids (2) Acute respiratory failure with hypoxia: PLAN: Unclear etiology at this time.? Chest x-ray was apparently negative for pneumonia.? But given the acute onset with an underlying malignancy, will check a CT angiogram of the chest as the patient's D-dimer was elevated Patient was started on heparin drip at the outside hospital.? Currently on hold in light of the upcoming procedure today Resume heparin drip after the procedure or if we confirm the patient does not have a pulmonary embolism then patient could be placed on prophylactic dosing of enoxaparin (3) Thrombocytopenia: PLAN: Previously patient platelets had been normal on 05 January.? Now down to 94.? Cannot rule out low-grade DIC.? In light of the patient's elevated D-dime r.? This could be due to underlying sepsis. Monitor closely (4) Metabolic encephalopathy: PLAN: Due to underlying sepsis.? Patient's present had a brain MRI that was negative for any malignancy. 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 Negative on , pending for today. on vancomycin Chronic conditions * Diabetes mellitus type 2: Insulin-dependent.? Continue with Lantus.? Sliding scale insulin * Hypertension: Stable.? Continue with amlodipine, hydralazine and metoprolol VTE prophylaxis: SCDs for now. CODE STATUS: Addressed with the patient.? Patient was unsure.? Informed patient that we will leave her at full code.? Patient states that she has never thought about CODE STATUS before. Visit Charges Inpatient E&M: 59791 Subs Hosp L2
--- NOTE | 2022-01-25 14:50 | PCM.PN.ID ---
Physical Exam Narrative C/o neck pain, R shoulder pain, LLE numbness, pain in ankles Const alert Constitutional Narrative: uncomfortable Neck Neck Narrative: Tenderness over lower cervical spine Resp normal air movement and clear to auscultation bilaterally Cardio regular rate and regular rhythm GI soft to palpation, non-tender and non-distended Extremity no clubbing, cyanosis or edema Extremity Narrative: R shoulder tender. Sole of R foot moderately tender to palpation. Skin no rashes or lesions noted ID ID: Route of nutrition/ use of supplements: [] Nutritional Intake: [] IV Site: [] Park Catheter: [] Assessment & Plan Assessment/Plan (1) Lung cancer: (2) MRSA bacteremia: PLAN: MRSA bacteremia due to port infection - recently started chemo for NSCLC. Port removed 01/17/[address] Romano. Bcx neg since 01/23. AVE showed no veg. On vanc. Will check repeat bcx today. Having significant c spine pain as well at R foot and R shoulder pain. Has bilat shoulder replacements. Will check R shoulder xray, c-spine MRI w/wo contrast. Will follow, d/w primary team (3) Sepsis due to infected central venous catheter: QUALIFIERS: Encounter type: initial encounter Qualified Code(s): T80.211A - Bloodstream infection due to central venous catheter, initial encounter; A41.9 - Sepsis, unspecified organism
--- NOTE | 2022-01-25 14:55 | RAD_ITS ---
STUDY: X-RAY - RIGHT SHOULDER REASON FOR EXAM: Female, 81 years old. R shoulder pain TECHNIQUE: 2 view(s) of the shoulder. COMPARISON: 02/02/1960 FINDINGS: Interval right shoulder reverse arthroplasty. The prosthesis appears located. No ostial lysis to suggest loosening. Normal acromioclavicular joint. Normal acromion. Normal humeral head and visualized proximal humerus. The soft tissue structures are unremarkable. Normal visualized pulmonary apex. RAD/Shoulder min 2 Views IMPRESSION: Normal x-ray examination of the shoulder after reverse arthroplasty.. Electronically Signed: Ernesto Jaffe MD at 16:59 EDT ,
--- NOTE | 2022-01-25 15:47 | CASEMGMT ---
Patient was approved for [facility] TC Tuesday. Patient's pre-cert is good until 01-27. Danni MONTALVO
[2022-01-25] MEDS: Pregabalin 75 MG Capsule 150 MG PO ×2 (15:52→21:13)
[2022-01-25] MEDS: Ibuprofen 400 MG Tablet PO (17:21)
[2022-01-25] MEDS: Insulin Lispro 100 UNIT/ML INSULN.PEN SC (17:51)
[2022-01-25 18:15] LABS: Bedside Glucose 204 mg/dL (74-106)
[2022-01-25] MEDS: Atorvastatin Calcium 10 MG Tablet PO (21:16)
[2022-01-25] MEDS: Insulin Glargine-YFGN 100 UNIT/ML Pen 25 UNIT SC (21:22)
[2022-01-25] MEDS: Latanoprost 0.005% 1 Bottle 1 DRP OPHTHALMIC (21:25)
[2022-01-25 22:31] LABS: Bedside Glucose 199 mg/dL (74-106)
[2022-01-26] VITALS (14 sets, daily range): BP systolic 90–115; BP diastolic 41–62; PULSE 70–97; RESP 16–18; TEMP 36–37.2; O2SAT 91–96
[2022-01-26] MEDS: Acetaminophen 325 MG Tablet 650 MG PO ×2 (06:11→12:42)
[2022-01-26] MEDS: oxyCODONE 5 MG Tablet PO ×2 (06:12→12:44)
[2022-01-26 07:00] LABS: Absolute Lymphocyte Count 1.47 X10^3/uL (0.83-4.51); Absolute Neutrophil Count 10.4 X10^3/uL (2.0-7.7); Basophil# 0.07 X10^3/uL; Basophil% 0.5 % (0-1); Eosinophil# 0.14 X10^3/uL; Hematocrit 31.7 % (37-47); Hemoglobin 9.4 g/dL (12.0-15.0); Lymphocyte # 1.47 X10^3/ul (0.83-4.51); Lymphocyte % 10.8 % (19-41); Mean Corp Hgb Conc 29.7 g/dL (32-36); Mean Corpuscular Hgb 28.8 pg (27.0-32.0); Mean Corpuscular Volume 97.2 fL (81-99); Mean Platelet Vol. 11.4 fl (6.2-12.0); Monocyte# 1.42 X10^3/uL; Monocyte% 10.4 % (0-10); NRBC Flagged by Analyzer 0 % (0-5); Neutrophil % 76.1 % (47-70); POSITIVE MORPHOLOGY YES; Platelet Count 168 K/mm3 (150-450); RBC Distribution Width CV 18.6 % (11.6-14.6); RBC Distribution Width SD 65.4 fl (35.1-43.9); Red Blood Count 3.26 M/mm3 (4.2-5.4); White Blood Count 13.7 K/mm3 (4.4-11.0)
[2022-01-26 07:00] LABS: Bedside Glucose 113 mg/dL (74-106)
[2022-01-26 07:04] LABS: Differential Indicated SCAN CRITERIA MET
[2022-01-26 07:26] LABS: Anisocytosis 2+; Differential Comment SCANNED; Macrocytosis 2+
[2022-01-26 07:35] LABS: Anion Gap 8 (5-15); BUN 38 mg/dL (7-18); BUN/Creat Ratio 25.9 RATIO (10-20); Calcium,Total 8.8 mg/dL (8.5-10.1); Chloride 91 mmol/L (98-107); Creatinine, Serum 1.47 mg/dL (0.55-1.02); EST Glomerular Filtration Rate 36 mL/min (>60); Est Glom Filt Rate - Afr Amer 44 mL/min (>60); Estimated Creatinine Clearance 25.67 ml/min; Glucose 123 mg/dL (74-106); Potassium 3.3 mmol/L (3.5-5.1); Sodium Level 137 mmol/L (136-145)
--- NOTE | 2022-01-26 08:30 | MRI_ITS ---
STUDY: MRI CERVICAL SPINE WITH AND WITHOUT CONTRAST REASON FOR EXAM: Female, 81 years old. neck pain, bacteremia TECHNIQUE: Standardized fat and water weighted pulse sequences were obtained in the sagittal and axial following administration of 20ML IV CLARISCAN. Motion artifact is present. Motion artifact limits evaluation of the intervertebral neural foramina. COMPARISON: None FINDINGS: Normal foramen magnum and brainstem-cervical cord junction. Normal craniovertebral junction. There is hypertrophy of the transverse ligament of the atlas with mild posterior displacement of the superior and inferior longitudinal fibers of the cruciform ligament, producing minimal mild to moderate compression on the anterior aspect of the cord and slight flattening. There are mild degenerative changes in the anterior atlantoaxial articulation. Normal odontoid process. There is straightening of the normal cervical lordosis. Disc desiccation is present at all levels. There is no evidence of vertebral osteomyelitis or infectious discitis of the cervical spine. No epidural fluid collections are present. No visualized paraspinal soft tissue abscesses or edema on the current study. No suspicious or malignant appearing metastatic lesions are seen in the bony structures or in the spinal cord. No focal or suspicious enhancement of the bony or soft tissue structures is seen. There is no demonstrated evidence of myelitis or abnormal enhancement of the cord. C2-3: Normal endplates. Diffuse disc desiccation with preserved disc space height and no posterior disc herniation or bulging. Normal central canal and intervertebral neural foramina. C3-4: Normal endplates. Mild posterior disc space narrowing and minimal annular bulging contributing to mild central canal stenosis. Moderate bilateral foraminal stenosis with nerve root compression. Significant hypertrophy of the left facet joint combined with uncovertebral hypertrophy. Right uncovertebral hypertrophy. C4-5: Severe disc space narrowing with a diffuse disc bulge causing compression anterior aspect of the cord and moderate central canal stenosis. C5-6: Severe disc space narrowing with a diffuse disc bulge causing compression anterior aspect of the cord and moderate central canal stenosis. C6-7: Severe disc space narrowing with a diffuse disc bulge causing compression anterior aspect of the cord and moderate central canal stenosis. C7-T1: Normal endplates. Normal disc height and morphology. Normal central canal. Normal cervical cord. There is no demonstrated cervical cord syrinx cavity. Normal visualized soft tissue structures. MRI/Spine Cervical W/WO Contrast IMPRESSION: 1. Hypertrophy of the transverse ligament at the C1-C2 articulation resulting in compression and slight flattening of the spinal cord. 2. Multilevel degenerative changes, as described above. 3. Severe disc space narrowing with a diffuse disc bulge causing compression anterior aspect of the cord and moderate central canal stenosis at C4-C5, C5-C6, C6-C7 Electronically Signed: Noé Marcum MD at 11:26 EDT ,
--- NOTE | 2022-01-26 10:58 | CASEMGMT ---
SHANT received a call from Erica at [facility]. Erica said patient's Healthcare Power of Technical Supervisor and sister contacted them and would like to talk about Hospice for patient. Hospice will be meeting with patient's sister and Healthcare POA (Jayde) today at [facility] at 1430. SHANT updated Nurse Practitioner and toggle press folder and feeder. Danni Michael SKI TECHNICIAN SELVIN
--- NOTE | 2022-01-26 11:11 | PN.HOSP_ITS ---
Documented by User: Enedelia Mosqueda NP, FOOD OPERATIONS MANAGER-C 01/26/22 11:15 Subjective Subjective Patient seen and examined. Underwent a cervical spine MRI this morning. Per patient and caregiver/family, now interested in hospice services. Hospice to meet this afternoon. Objective Data Objective Data Vital Signs: Vital Signs Temp Pulse Resp BP Pulse Ox O2 Del Method O2 Flow Rate 96.8 F L 89 16 90/41 L 94 Nasal Cannula 6 01/26/22 08:25 01/26/22 08:25 01/26/22 08:25 01/26/22 08:25 01/26/22 08:25 01/26/22 08:34 01/26/22 08:34 Oxygen Flow Rate (L/min) 6 Oxygen Delivery Method Nasal Cannula Weight: 229 lb 4.492 oz Body Mass Index (BMI) 40.6 Intake & Output: Intake and Output for Last 24 Hours 01/24/22 01/25/22 01/26/22 23:59 23:59 23:59 Intake Total 1380 / 1380 1380 / 1380 Output Total 1400 / 1800 1550 / 1800 250 / 250 Balance -20 / -420 -170 / -420 -250 / -250 Lab / Micro Data Result Diagrams: 01/26/22 06:40 01/26/22 06:40 Labs: Laboratory Results - last 24 hr 01/24/22 06:34: Diff Path Review Reviewed 01/25/22 12:44: POC Glucose 96 01/25/22 17:49: POC Glucose 204 H 01/25/22 21:22: POC Glucose 199 H 01/26/22 06:40: WBC 13.7 H, RBC 3.26 L, Hgb 9.4 L, Hct 31.7 L, MCV 97.2, MCH 28.8, MCHC 29.7 L, RDW Std Deviation 65.4 H, RDW Coeff of Patricia 18.6 H, Plt Count 168, MPV 11.4, Immature Gran % (Auto) 1.200 H, Neut % (Auto) 76.1 H, Lymph % (Auto) 10.8 L, [place] % (Auto) 10.4 H, Eos % (Auto) 1.0, Baso % (Auto) 0.5, Absolute Neuts (auto) 10.4 H, Absolute Lymphs (auto) 1.47, Nucleated RBC % 0, Differential Comment SCANNED, Anisocytosis 2+, Macrocytosis 2+ 01/26/22 06:40: Sodium 137, Potassium 3.3 L, Chloride 91 L, Carbon Dioxide 38.0 H, Anion Gap 8, BUN 38 H, Creatinine 1.47 H, Estim Creat Clear Calc 25.67, Est GFR (MDRD) Af Amer 44 L, Est GFR (MDRD) Non-Af 36 L, BUN/Creatinine Ratio 25.9 H , Glucose 123 H, Calcium 8.8 01/26/22 06:43: POC Glucose 113 H Micro: Microbiology 01/20/22 10:09 Blood Culture (Wb) - Left Hand Blood Culture - Final No growth in 5 days. 01/22/22 09:50 Blood Culture (Wb) - Left Forearm Blood Culture - Preliminary Meth. resistant Staph. aureus 01/23/22 10:29 Blood Culture (Wb) - Arm Left Blood Culture - Preliminary No growth in 48 hours. 01/19/22 11:20 Blood Culture (Wb) - No Site/Description Given Blood Culture - Final Meth. resistant Staph. aureus 01/17/22 10:55 Blood Culture (Wb) - Other Blood Culture - Final Meth. resistant Staph. aureus 01/17/22 10:45 Blood Culture (Wb) - Other Bacteria Detection (PCR) - Final Meth. resistant Staph. aureus 01/17/22 10:45 Blood Culture (Wb) - Other Blood Culture - Final Meth. resistant Staph. aureus 01/17/22 Unknown Catheter tip - Subclavian Gram Stain - Final 01/17/22 Unknown Catheter tip - Subclavian Wound Culture - Final Meth. resistant Staph. aureus 01/17/22 Unknown Catheter tip - Subclavian Anaerobic Culture - Final No anaerobic bacteria isolated. 01/17/22 Unknown Wound - Chest Gram Stain - Final 01/17/22 Unknown Wound - Chest Wound Culture - Final Meth. resistant Staph. aureus 01/17/22 Unknown Wound - Chest Anaerobic Culture - Final No anaerobic bacteria isolated. 01/17/22 10:15 Nasal Secretion SARS-CoV-2 Antigen (Rapid) - Final Radiography Diagnostic Testing: Radiology Impression Transesophageal Echocardiogram 01/23/22 09:38 Interpretation Summary There is no evidence of a mass or vegetation. This does not rule out endocarditis. Normal LV size. Left ventricular systolic function is normal. The estimated ejection fraction is 60 %. Ordering Physician: Enedelia Mosqueda Performed By: Yoana Thacker, RDRENÉ, RVT Shoulder X-Ray 01/25/22 14:55 IMPRESSION: Normal x-ray examination of the shoulder after reverse arthroplasty.. Electronically Signed: Ernesto Jaffe MD at 16:59 EDT , Physical Exam Const alert and oriented x3 HEENT normocephalic Mouth: dry mucous membranes Eyes PERRL, EOMs intact bilaterally and conjunctivae normal Neck no lymphadenopathy Resp clear to auscultation bilaterally Auscultation: diminished lung sounds Cardio regular rate, regular rhythm and no murmurs Peripheral Pulses: pulses 2+ throughout GI normal to inspection, nondistended, normoactive bowel sounds, non-tender and non-distended Extremity normal to inspection Skin no rashes or lesions noted Lesions: no lesions Rashes: no rashes Trauma: no lacerations or abrasions Neuro CN's II-XII intact bilaterally, no focal motor deficits, no sensory deficits noted and deep tendon reflexes 2+ bilaterally Psych Mood & Affect: flat affect Assessment & Plan Assessment/Plan (1) MRSA bacteremia: PLAN: Plan 1.? Sepsis secondary to right chest port infection with associated MRSA bacteremia-ID consulted.? Port removed by surgery 01/17/2022.?? On IV vancomycin.? Plan for ongoing IV antibiotics with stop date 02/16/2022.? 01/20/2022 blood culture with no growth however 01/22/2022 blood culture grew MRSA followed by negative blood culture 01/23/2022.? Repeat blood culture 01/25/22 pending.? Hold off on PICC line.? AVE without vegetation.? MRI of cervical spine penidng due to neck pain to rule out abscess. Patient/family requesting hopsice consult, susanne alegria scheduled for this afternoon. 2.? Acute hypoxic respiratory failure secondary to acute heart failure with preserved ejection fraction-initially placed on IV Lasix, transitioned to oral Lasix.? Echocardiogram with EF 60%, stage I diastolic dysfunction.? Strict I&O.? Daily weight.? Continue supplement oxygen to maintain O2 sat above 90%. 3. Acute metabolic encephalopathy-secondary to #1/#2.? Continue treatment per above. Mental status at baseline. 4. Thrombocytopenia-hematology/oncology consulted due to concern for HIT.? 1 unit platelet transfused.? Trend CBC.? Improving. 5. Anemia of chronic disease-appears stable.? Trend CBC. 6. Non-small cell CA-oncology consulted.? On chemotherapy. 7. Hypertension-stable, continue home regimen. 8. Type 2 diabetes rtssivud-[id number]-Pjiun with sliding scale insulin. 9. Hyperlipidemia-continue statin. DVT prophylaxis-SCDs This patient was seen by ROSSY Choi under the supervision of Dr. Devries. Discharge planning: patient family requesting hospice consult, to meet this afternoon. Time spent examining patient, reviewing data and subsequent management of care: 14 minutes Documented by User: Dr. August Devries, 01/26/22 14:19 Objective Data Lab / Micro Data Result Diagrams: 01/26/22 06:40 01/26/22 06:40 Assessment & Plan Assessment/Plan (1) MRSA bacteremia: Charges/Coding Addendum Addendum: Patient seen and examined independently.? Data and vitals reviewed.? I agree with the above note by the nurse practitioner. Does not feel well overall but denies any current pain.? Was upset that she did not get cream for coffee and yogurt and that her telephone and remote control are out of reach. No acute distress and afebrile.? Lying in bed.? Heart rate regular rate and rhythm plus S1-S2 with any murmurs Or rubs.? Lungs are clear to auscultation bilaterally abdomen obese but soft nontender nondistended Assessment and Plan: (1) Sepsis due to infected central venous catheter: QUALIFIERS: ?Encounter type:?initial encounter? Qualified Code(s):? T80.211A - Bloodstream infection due to central venous catheter, initial encounter; A41.9 - Sepsis, unspecified organism PLAN: Port infection and bacteremia Port removed on 01/17 Broad-spectrum antibiotics with vancomycin and piperacillin/tazobactam This is an emergent procedure to have this removed.? Did discuss with Dr. Romano and the plan is to have her port removed at 1430 Currently hemodynamically stable Will administer IV fluids (2) Acute respiratory failure with hypoxia: PLAN: Unclear etiology at this time.? Chest x-ray was apparently negative for pneumonia.? But given the acute onset with an underlying malignancy, will check a CT angiogram of the chest as the patient's D-dimer was elevated Patient was started on heparin drip at the outside hospital.? Currently on hold in light of the upcoming procedure today Resume heparin drip after the procedure or if we confirm the patient does not have a pulmonary embolism then patient could be placed on prophylactic dosing of enoxaparin (3) Thrombocytopenia: PLAN: Previously patient platelets had been normal on 05 January.? Now down to 94.? Cannot rule out low-grade DIC.? In light of the patient's elevated D- dimer.? This could be due to underlying sepsis. Monitor closely (4) Metabolic encephalopathy: PLAN: Due to underlying sepsis.? Patient's present had a brain MRI that was negative for any malignancy. 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 Negative on , pending for today. on vancomycin Chronic conditions * Diabetes mellitus type 2: Insulin-dependent.? Continue with Lantus.? Sliding scale insulin * Hypertension: Stable.? Continue with amlodipine, hydralazine and metoprololVTE prophylaxis: SCDs for now. After I evaluated the patient, the patient want to proceed with hospice and has been accepted at hospice care facility
--- NOTE | 2022-01-26 11:48 | CASEMGMT ---
installer is at [facility] to evaluate patient for their inpatient unit. Danni MONTALVO
[2022-01-26] MEDS: Polyethylene Glycol 3350 17 GM PACKET PO (12:16)
[2022-01-26] MEDS: Pantoprazole Sodium 20 MG Tablet PO (12:17)
[2022-01-26] MEDS: Furosemide 40 MG Tablet PO (12:20)
[2022-01-26] MEDS: Multivitamins,Therapeutic Tablet 1 TABLET PO (12:29)
[2022-01-26] MEDS: Insulin Lispro 100 UNIT/ML INSULN.PEN SC (12:29)
[2022-01-26 12:55] LABS: Bedside Glucose 214 mg/dL (74-106)
--- NOTE | 2022-01-26 13:23 | PCM.DC.SUM ---
Documented by User: Enedelia Mosqueda NP, [employer] 01/26/22 13:29 Providers Date of Admission: 01/17/22 Date of Discharge: 01/26/22 Primary Care Physician: Dr. Venita Aguilar MD Consultations 01/18/22 08:46 Consult: Oncology/Hematology Routine Consulting Provider: Azam Simmons Reason for Consult: Thrombocytopenia EMERGENT Consult: No Notified: Yes Date Notified: 01/18/22 Time Notified: 12:23 Method of Notification: Answering Service 01/19/22 09:15 Consult: Infectious Disease Routine Consulting Provider: Jak Bernal Reason for Consult: mrsa bacteremia EMERGENT Consult: No Notified: Yes Date Notified: 01/19/22 Time Notified: 09:15 Method of Notification: Text 01/20/22 14:15 Consult: Onc/Wound/diamond sander Routine Comment: Right Chest Port Removal Site Reason For Visit: SEPSIS. LINE INFECTION Diagnosis Discharge Diagnosis (1) MRSA bacteremia: Status: Acute Code(s): R78.81 - Bacteremia; B95.62 - Methicillin resistant Staphylococcus aureus infection as the cause of diseases classified elsewhere Medications at Discharge Home Medications amlodipine 10 mg tablet 10 mg PO DAILY BP 09/20/13 atorvastatin 10 mg tablet 10 mg PO QHS Cholesterol 09/20/13 hydralazine 25 mg tablet 25 mg PO TID BP 09/20/13 multivitamin with folic acid 400 mcg tablet 1 tab PO DAILY Supplement 03/11/15 oxycodone-acetaminophen 5 mg-325 mg tablet 1 tab PO TID PRN Pain #90 tabs 10/31/18 latanoprost 0.005 % eye drops 1 drp ophthalmic (eye) BID Glaucoma 09/24/20 omeprazole 20 mg capsule,delayed release 20 mg PO DAILY GERD 09/24/20 oxybutynin chloride 10 mg tablet,extended release 24 hr (Ditropan XL) 15 mg PO DAILY Over active bladder 09/24/20 polyethylene glycol 3350 17 gram/dose oral powder (Miralax) 4 g PO DAILY Constipation 10/20/21 metoprolol tartrate 50 mg tablet 25 mg PO BID BP/HR 11/17/21 pregabalin 50 mg capsule (Lyrica) 150 mg PO TID Nerve pain 11/17/21 insulin glargine 100 unit/mL (3 mL) subcutaneous pen (Lantus Solostar U-100 Insulin) 25 unit subcut QHS Diabetes 11/24/21 lidocaine-prilocaine 2.5 %-2.5 % topical cream 1 applic topical ONCE PRN port access 30 days #30 grams 12/08/21 ondansetron 8 mg disintegrating tablet 8 mg PO Q8H PRN nausea and vomiting #30 tabs 12/08/21 prochlorperazine maleate 10 mg tablet 10 mg PO Q6H PRN nausea and vomiting #30 tabs 12/08/21 dexamethasone 4 mg tablet 4 mg PO .COMPLEX Chemo 01/17/22 vancomycin 1 gram/200 mL in dextrose 5 % intravenous piggyback 1,000 mg IV Q12H 26 days #52 BAGS 01/21/22 Hospital Course Operations None Procedures 2-D Echocardiogram and Transesophageal Echo Summary of Care Provided Hospital Course: Patient is a 81-year-old female admitted 01/17/2022 due to fever and weakness. 1.? Sepsis secondary to right chest port infection with associated MRSA bacteremia-ID consulted during admission.? Port removed by surgery 01/17/2022.?? On IV vancomycin.? Plan for ongoing IV antibiotics with stop date 02/16/2022.? 01/20/2022 blood culture with no growth however 01/22/2022 blood culture grew MRSA followed by negative blood culture 01/23/2022.? Repeat blood culture 01/25/22 pending.? Hold off on PICC line.? AVE without vegetation.? MRI of cervical spine without abscess. Patient and POA have elected to transition to hospice. Patient found to be appropriate for inpatient hospice unit. 2.? Acute hypoxic respiratory failure secondary to acute heart failure with preserved ejection fraction-initially placed on IV Lasix, transitioned to oral Lasix.? Echocardiogram with EF 60%, stage I diastolic dysfunction.? Continue supplement oxygen to maintain O2 sat above 90%. 3. Acute metabolic encephalopathy-secondary to #1/#2.? Continue treatment per above. Mental status at baseline. 4. Thrombocytopenia-hematology/oncology consulted due to concern for HIT.? 1 unit platelet transfused. Improved. 5. Anemia of chronic disease-appears stable.? 6. Non-small cell CA-previously on chemotherapy, hospice transition as noted above. 7. Hypertension-stable, continue home regimen. 8. Type 2 diabetes mellitus-continue home regimen. 9. Hyperlipidemia-continue statin. Physical Exam Const alert and oriented x3 HEENT normocephalic Mouth: dry mucous membranes Eyes PERRL, EOMs intact bilaterally and conjunctivae normal Neck no lymphadenopathy Resp clear to auscultation bilaterally Auscultation: diminished lung sounds Cardio regular rate, regular rhythm and no murmurs Peripheral Pulses: pulses 2+ throughout GI normal to inspection, nondistended, normoactive bowel sounds, non-tender and non-distended Extremity normal to inspection Skin no rashes or lesions noted Lesions: no lesions Rashes: no rashes Trauma: no lacerations or abrasions Neuro CN's II-XII intact bilaterally, no focal motor deficits, no sensory deficits noted and deep tendon reflexes 2+ bilaterally Psych Mood & Affect: flat affect Patient seen and examined prior to discharge. Physical assessment as noted above. Patient and POA have elected inpatient hospice unit. This patient was seen by ROSSY Choi under the supervision of Dr. Devries. Time spent examining patient, reviewing data and subsequent management of care: 25 minutes Weight / BMI Weight Weight: 229 lb 4.492 oz Body Mass Index (BMI) 40.6 ABG / Lab / Microbiology Data Result Diagrams: 01/26/22 06:40 01/26/22 06:40 Laboratory: Laboratory Results - last 24 hr 01/24/22 06:34: Diff Path Review Reviewed 01/25/22 17:49: POC Glucose 204 H 01/25/22 21:22: POC Glucose 199 H 01/26/22 06:40: WBC 13.7 H, RBC 3.26 L, Hgb 9.4 L, Hct 31.7 L, MCV 97.2, MCH 28.8, MCHC 29.7 L, RDW Std Deviation 65.4 H, RDW Coeff of Patricia 18.6 H, Plt Count 168, MPV 11.4, Immature Gran % (Auto) 1.200 H, Neut % (Auto) 76.1 H, Lymph % (Auto) 10.8 L, [place] % (Auto) 10.4 H, Eos % (Auto) 1.0, Baso % (Auto) 0.5, Absolute Neuts (auto) 10.4 H, Absolute Lymphs (auto) 1.47, Nucleated RBC % 0, Differential Comment SCANNED, Anisocytosis 2+, Macrocytosis 2+ 01/26/22 06:40: Sodium 137, Potassium 3.3 L, Chloride 91 L, Carbon Dioxide 38.0 H, Anion Gap 8, BUN 38 H, Creatinine 1.47 H, Estim Creat Clear Calc 25.67, Est GFR (MDRD) Af Amer 44 L, Est GFR (MDRD) Non-Af 36 L, BUN/Creatinine Ratio 25.9 H, Glucose 123 H, Calcium 8.8 01/26/22 06:43: POC Glucose 113 H 01/26/22 12:28: POC Glucose 214 H Microbiology: Microbiology 01/20/22 10:09 Blood Culture (Wb) - Left Hand Blood Culture - Final No growth in 5 days. 01/22/22 09:50 Blood Culture (Wb) - Left Forearm Blood Culture - Preliminary Meth. resistant Staph. aureus 01/23/22 10:29 Blood Culture (Wb) - Arm Left Blood Culture - Preliminary No growth in 48 hours. 01/19/22 11:20 Blood Culture (Wb) - No Site/Description Given Blood Culture - Final Meth. resistant Staph. aureus 01/17/22 10:55 Blood Culture (Wb) - Other Blood Culture - Final Meth. resistant Staph. aureus 01/17/22 10:45 Blood Culture (Wb) - Other Bacteria Detection (PCR) - Final Meth. resistant Staph. aureus 01/17/22 10:45 Blood Culture (Wb) - Other Blood Culture - Final Meth. resistant Staph. aureus 01/17/22 Unknown Catheter tip - Subclavian Gram Stain - Final 01/17/22 Unknown Catheter tip - Subclavian Wound Culture - Final Meth. resistant Staph. aureus 01/17/22 Unknown Catheter tip - Subclavian Anaerobic Culture - Final No anaerobic bacteria isolated. 01/17/22 Unknown Wound - Chest Gram Stain - Final 01/17/22 Unknown Wound - Chest Wound Culture - Final Meth. resistant Staph. aureus 01/17/22 Unknown Wound - Chest Anaerobic Culture - Final No anaerobic bacteria isolated. 01/17/22 10:15 Nasal Secretion SARS-CoV-2 Antigen (Rapid) - Final Radiography Diagnostic Testing: Radiology Impression Shoulder X-Ray 01/25/22 14:55 IMPRESSION: Normal x-ray examination of the shoulder after reverse arthroplasty.. Electronically Signed: Ernesto Jaffe MD at 16:59 EDT , Cervical Spine MRI 01/26/22 08:30 IMPRESSION: 1. Hypertrophy of the transverse ligament at the C1-C2 articulation resulting in compression and slight flattening of the spinal cord. 2. Multilevel degenerative changes, as described above. 3. Severe disc space narrowing with a diffuse disc bulge causing compression anterior aspect of the cord and moderate central canal stenosis at C4-C5, C5-C6, C6-C7 Electronically Signed: Noé Marcum MD at 11:26 EDT , Meaningful Use Info Meaningful Use Diagnoses (Choose all that apply): None applicable Discharge Plan Admission Admit Date/Time: 01/17/22 09:28 Primary Reason for Your Visit: MRSA bacteremia Attending Provider: August Devries Primary Care Provider: Venita Aguilar Consulting Providers: Azam Gillespie ; August Devries ; Azam Simmons ; Jak Bernal ; Zak Pineda Discharge Orders/Prescriptions Prescriptions: New vancomycin in dextrose 5 % 1 gram/200 mL Piggyback 1,000 mg IV Q12H 26 Days Qty: 52 0RF Rx Instructions: stop date 02/16/22 dx: MRSA bacteremia weekly bmp, cbc, and vanc trough. Fax to [phone] routine picc care with heparin/saline flush per protocol No Action oxycodone-acetaminophen 5-325 mg tablet 1 tab PO TID PRN (Reason: Pain) Qty: 90 oxybutynin chloride [Ditropan XL] 10 mg tablet extended release 24hr 15 mg PO DAILY latanoprost 0.005 % drops 1 drp ophthalmic (eye) BID omeprazole 20 mg capsule,delayed release(DR/EC) 20 mg PO DAILY polyethylene glycol 3350 [Miralax] 17 gram/dose powder 4 g PO DAILY lidocaine-prilocaine 2.5-2.5 % cream 1 applic topical ONCE PRN (Reason: port access) 30 Days Qty: 30 2RF ondansetron 8 mg tablet,disintegrating 8 mg PO Q8H PRN (Reason: nausea and vomiting) Qty: 30 2RF prochlorperazine maleate 10 mg tablet 10 mg PO Q6H PRN (Reason: nausea and vomiting) Qty: 30 2RF atorvastatin 10 MG tablet 10 mg PO QHS Label Comments: hyperlipidemia hydralazine 25 MG tablet 25 mg PO TID Label Comments: hypertension amlodipine 10 MG tablet 10 mg PO DAILY Label Comments: hypertension pregabalin [Lyrica] 50 mg capsule 150 mg PO TID Label Comments: pain metoprolol tartrate 50 mg tablet 25 mg PO BID Label Comments: blood pressure multivitamin with folic acid 1 TABLET tablet 1 tab PO DAILY Label Comments: multivitamin insulin glargine [Lantus Solostar U-100 Insulin] 100 unit/mL (3 mL) insulin pen 25 unit SUBCUT QHS dexamethasone 4 mg tablet 4 mg PO .COMPLEX Rx Instructions: 4 mg orally Twice daily the day before, the day of and the day after chemotherapy; Referrals / Follow Up: Venita Aguilar MD [Primary Care Provider] - Disposition Disposition (needs filled in before D/C Order can be placed): Hospice in Medical Facility Documented by User: Dr. August Devries DO 01/26/22 14:21 Providers Date of Admission: 01/17/22 Reason For Visit: SEPSIS. LINE INFECTION Diagnosis Discharge Diagnosis (1) MRSA bacteremia: Status: Acute Code(s): R78.81 - Bacteremia; B95.62 - Methicillin resistant Staphylococcus aureus infection as the cause of diseases classified elsewhere Medications at Discharge Home Medications amlodipine 10 mg tablet 10 mg PO DAILY BP 09/20/13 atorvastatin 10 mg tablet 10 mg PO QHS Cholesterol 09/20/13 hydralazine 25 mg tablet 25 mg PO TID BP 09/20/13 multivitamin with folic acid 400 mcg tablet 1 tab PO DAILY Supplement 03/11/15 oxycodone-acetaminophen 5 mg-325 mg tablet 1 tab PO TID PRN Pain #90 tabs 10/31/18 latanoprost 0.005 % eye drops 1 drp ophthalmic (eye) BID Glaucoma 09/24/20 omeprazole 20 mg capsule,delayed release 20 mg PO DAILY GERD 09/24/20 oxybutynin chloride 10 mg tablet,extended release 24 hr (Ditropan XL) 15 mg PO DAILY Over active bladder 09/24/20 polyethylene glycol 3350 17 gram/dose oral powder (Miralax) 4 g PO DAILY Constipation 10/20/21 metoprolol tartrate 50 mg tablet 25 mg PO BID BP/HR 11/17/21 pregabalin 50 mg capsule (Lyrica) 150 mg PO TID Nerve pain 11/17/21 insulin glargine 100 unit/mL (3 mL) subcutaneous pen (Lantus Solostar U-100 Insulin) 25 unit subcut QHS Diabetes 11/24/21 lidocaine-prilocaine 2.5 %-2.5 % topical cream 1 applic topical ONCE PRN port access 30 days #30 grams 12/08/21 ondansetron 8 mg disintegrating tablet 8 mg PO Q8H PRN nausea and vomiting #30 tabs 12/08/21 prochlorperazine maleate 10 mg tablet 10 mg PO Q6H PRN nausea and vomiting #30 tabs 12/08/21 dexamethasone 4 mg tablet 4 mg PO .COMPLEX Chemo 01/17/22 vancomycin 1 gram/200 mL in dextrose 5 % intravenous piggyback 1,000 mg IV Q12H 26 days #52 BAGS 01/21/22 ABG / Lab / Microbiology Data Result Diagrams: 01/26/22 06:40 01/26/22 06:40 Discharge Plan Admission Admit Date/Time: 01/17/22 09:28 Primary Reason for Your Visit: MRSA bacteremia Attending Provider: August Devries Primary Care Provider: Venita Aguilar Consulting Providers: Azam Gillespie ; August Devries ; Azam Simmons ; Jak Bernal ; Zak Pineda Discharge Orders/Prescriptions Prescriptions: New vancomycin in dextrose 5 % 1 gram/200 mL Piggyback 1,000 mg IV Q12H 26 Days Qty: 52 0RF Rx Instructions: stop date 02/16/22 dx: MRSA bacteremia weekly bmp, cbc, and vanc trough. Fax to [phone] routine picc care with heparin/saline flush per protocol No Action oxycodone-acetaminophen 5-325 mg tablet 1 tab PO TID PRN (Reason: Pain) Qty: 90 oxybutynin chloride [Ditropan XL] 10 mg tablet extended release 24hr 15 mg PO DAILY latanoprost 0.005 % drops 1 drp ophthalmic (eye) BID omeprazole 20 mg capsule,delayed release(DR/EC) 20 mg PO DAILY polyethylene glycol 3350 [Miralax] 17 gram/dose powder 4 g PO DAILY lidocaine-prilocaine 2.5-2.5 % cream 1 applic topical ONCE PRN (Reason: port access) 30 Days Qty: 30 2RF ondansetron 8 mg tablet,disintegrating 8 mg PO Q8H PRN (Reason: nausea and vomiting) Qty: 30 2RF prochlorperazine maleate 10 mg tablet 10 mg PO Q6H PRN (Reason: nausea and vomiting) Qty: 30 2RF atorvastatin 10 MG tablet 10 mg PO QHS Label Comments: hyperlipidemia hydralazine 25 MG tablet 25 mg PO TID Label Comments: hypertension amlodipine 10 MG tablet 10 mg PO DAILY Label Comments: hypertension pregabalin [Lyrica] 50 mg capsule 150 mg PO TID Label Comments: pain metoprolol tartrate 50 mg tablet 25 mg PO BID Label Comments: blood pressure multivitamin with folic acid 1 TABLET tablet 1 tab PO DAILY Label Comments: multivitamin insulin glargine [Lantus Solostar U-100 Insulin] 100 unit/mL (3 mL) insulin pen 25 unit SUBCUT QHS dexamethasone 4 mg tablet 4 mg PO .COMPLEX Rx Instructions: 4 mg orally Twice daily the day before, the day of and the day after chemotherapy; Referrals / Follow Up: Venita Aguilar MD [Primary Care Provider] - Disposition Disposition (needs filled in before D/C Order can be placed): Hospice in Medical Facility Charges/Coding Addendum Addendum: Assessment and Plan: (1) Sepsis due to infected central venous catheter: QUALIFIERS: ?Encounter type:?initial encounter? Qualified Code(s):?T80.211A - Bloodstream infection due to central venous catheter, initial encounter; A41.9 - Sepsis, unspecified organism PLAN: Port infection and bactremia Port removed on 01/17 Broad-spectrum antibiotics with vancomycin and piperacillin/tazobactam This is an emergent procedure to have this removed.? Did discuss with Dr. Romano and the plan is to have her port removed at 1430 Currently hemodynamically stable Will administer IV fluids (2) Acute respiratory failure with hypoxia: PLAN: Unclear etiology at this time.? Chest x-ray was apparently negative for pneumonia.? But given the acute onset with an underlying malignancy, will check a CT angiogram of the chest as the patient's D-dimer was elevated Patient was started on heparin drip at the outside hospital.? Currently on hold in light of the upcoming procedure today Resume heparin drip after the procedure or if we confirm the patient does not have a pulmonary embolism then patient could be placed on prophylactic dosing of enoxaparin (3) Thrombocytopenia: PLAN: Previously patient platelets had been normal on 05 January.? Now down to 94.? Cannot rule out low-grade DIC.? In light of the patient's elevated D-dimer.? This could be due to underlying sepsis. Monitor closely (4) Metabolic encephalopathy: PLAN: Due to underlying sepsis.? Patient's present had a brain MRI that was negative for any malignancy. 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 Negative on , pending for today. on vancomycin Chronic conditions Diabetes mellitus type 2: Insulin-dependent.? Continue with Lantus.? Sliding scale insulin Hypertension: Stable.? Continue with amlodipine, hydralazine and metoprololVTE prophylaxis: SCDs for now. Patient and family have requested hospice evaluation. Patient has been accepted at the inpatient hospice unit and will be discharged later today. Visit Charges Inpatient E&M: 45026 Disch Hosp
--- NOTE | 2022-01-26 13:50 | CASEMGMT ---
Addendum entered by Danni Michael 01/26/22 14:07: SHANT faxed d/c summary to [facility]. Danni MONTALVO Original Note: Patient has been approved to go to the inpatient Hospice Unit. Patient's JOSE Donohue signed the DNR as patient's level of cognition is questionable at this time. Nurse Practitioner Enedelia is aware of the plan. SW notified physician and Belén in TCU. All in agreement with discharge plan. Plan: d/c to [facility]. Hospice's mobile unit will be picking up patient today. Danni MONTALVO
[2022-01-26 14:21] LABS: Pathologist Review Reviewed
[2022-01-26] MEDS: Pregabalin 75 MG Capsule 150 MG PO (15:39)
== END 2022-01-26 17:11 | disposition hospice, inpatient (51) | DRG 314 ==
PROVIDERS: Anesthesiology; Internal Medicine; Internal Medicine Infectious Disease; Nurse Practitioner Family; Surgery; Admitting Provider Hospitalist; PCP Family Medicine
PROC: 0JPT0XZ Removal of Tunneled Vascular Access Device from Trunk Subcutaneous Tissue and Fascia, Open Approach (ICD-10-PCS; CPT 36590; principal; 2022-01-17 14:30)
DX: T80.211A Bloodstream infection due to central venous catheter, initial encounter (principal); J96.01 Acute respiratory failure with hypoxia; A41.02 Sepsis due to Methicillin resistant Staphylococcus aureus; D65 Disseminated intravascular coagulation [defibrination syndrome]; I50.31 Acute diastolic (congestive) heart failure; G93.41 Metabolic encephalopathy; C78.01 Secondary malignant neoplasm of right lung; C34.32 Malignant neoplasm of lower lobe, left bronchus or lung; C78.2 Secondary malignant neoplasm of pleura; C78.7 Secondary malignant neoplasm of liver and intrahepatic bile duct; Z68.41 Body mass index [BMI] 40.0-44.9, adult; D63.0 Anemia in neoplastic disease; I11.0 Hypertensive heart disease with heart failure; J44.9 Chronic obstructive pulmonary disease, unspecified; Z79.4 Long term (current) use of insulin; E11.9 Type 2 diabetes mellitus without complications; E66.01 Morbid (severe) obesity due to excess calories; M45.2 Ankylosing spondylitis of cervical region; E78.5 Hyperlipidemia, unspecified; G47.30 Sleep apnea, unspecified; M25.511 Pain in right shoulder; K59.09 Other constipation; G89.29 Other chronic pain; X58.XXXA Exposure to other specified factors, initial encounter; Z79.01 Long term (current) use of anticoagulants; Z79.891 Long term (current) use of opiate analgesic; Z79.899 Other long term (current) drug therapy; Z86.73 Personal history of transient ischemic attack (TIA), and cerebral infarction without residual deficits; Z87.891 Personal history of nicotine dependence
CPT/HCPCS: 36415; 71045; 71275; 72156; 73030; 80048; 80053; 80202; 82962; 83036; 83605; 83735; 84100; 84484; 85025; 85610; 85730; 86022; 86900; 86901; 86965; 87040; 87070; 87075; 87077; 87149; 87186; 87205; 87426; 87635; 88300; 93005; 93306; 93312; 93320; 93325; 97110; 97116; 97162; 97166; 97530; 97535; A9575; J7030; J7040; P9035; Q9957; Q9967; A4216; J1940; J2405; U0003; U0005